=== PATIENT | male | born 1960 | race Caucasian/White ===

== ENCOUNTER 2018-04-23 06:07 | Inpatient (IN) | payer OTHER, MEDICARE ==
[~2018-04-23] VITALS: Ht 167.6 cm; Wt 80.3 kg
[~2018-04-23 06:07] MED LIST: AMIT50 PO; AMOX500 PO; BP PILL; CARI350 PO; CEPH500 PO; CLIN300 PO; CODACE30 PO; CRUTCH4 USE; CYCL10 PO; Cleocin HCl300 MG PO; DIAZ10 PO; DIOVAN; DIPH50 PO; DULO30 PO; FAMO40 PO; HYDACE5 PO; HYDCHL12.5 PO; HYDMOR8; HYDMOR8 PO; HYDROCHLOROTHIAZIDE; IBUHYD; IBUHYD PO; IBUP800 PO; LOSARTAN; MELA3; METCAR500 PO; METH10; METH40; NAPR500 PO; OXYACE5T PO; OXYC5 PO; OXYC80ER; PROACE100 PO; Roxicodone5 MG PO; SULTRIDS PO; SULTRISS PO; TRAM50 PO; UNKNOWN BP MED; VALS80; [UNRECOGNIZED DRUG - OTHER] PO
[2018-04-23 06:31] LABS: Base Excess Venous -8.2 mmol/L; Bicarbonate Venous 18.3 mmol/L (24.0-30.0); PCO2 Venous 37.5 mmHg (38-42); PO2 Venous 109 mmHg (38-42)
[2018-04-23 06:37] LABS: BASOPHILS ABSOLUTE AUTO 0.02 K/mm3 (0.00-0.23); BASOPHILS PERCENT AUTO 0 % (0-2); EOSINOPHILS ABSOLUTE AUTO 0.04 K/mm3 (0.00-0.68); EOSINOPHILS PERCENT AUTO 1 % (0-6); Hematocrit 28.2 % (37.0-53.0); Hemoglobin 9.1 g/dL (13.5-17.5); IMMATURE GRAN ABSOLUTE AUTO 0.04 K/mm3 (0.00-0.10); IMMATURE GRAN PERCENT AUTO 1 % (0-1); LYMPHOCYTES ABSOLUTE AUTO 0.98 K/mm3 (0.84-5.20); LYMPHOCYTES PERCENT AUTO 18 % (21-46); MONOCYTES ABSOLUTE AUTO 0.33 K/mm3 (0.16-1.47); MONOCYTES PERCENT AUTO 6 % (4-13); Mean Corpuscular HGB 26.5 pg (26.0-34.0); Mean Corpuscular HGB Conc 32.3 g/dL (31.5-36.5); Mean Corpuscular Volume 82 fL (80-100); NEUTROPHILS PERCENT AUTO 74 % (41-73); RDW Coefficient Variation 14.7 % (11.7-14.2); RDW Standard Deviation 43.6 fL (35.1-46.3); Red Blood Cell Count 3.44 M/mm3 (4.30-5.90); White Blood Cell Count 5.51 K/mm3 (4.00-11.30)
[2018-04-23 06:57] LABS: Albumin, Blood 2.7 g/dL (3.4-5.0); Albumin/Globulin Ratio 0.7 (0.8-1.8); Bilirubin, Total 0.3 mg/dL (0.1-1.0); Bun/Creatinine Ratio 23.1 (12.0-20.0); Calcium, Blood 7.5 mg/dL (8.5-10.1); Creatinine, Blood 1.56 mg/dL (0.60-1.20); Globulin, Blood 3.9 g/dL (2.2-4.0); Platelet Count 48 K/mm3 (150-400); Potassium, Blood 4.3 mmol/L (3.5-5.5); Total Protein, Blood 6.6 g/dL (6.4-8.2); Troponin I 0.148 ng/mL (0.000-0.040)
--- NOTE | 2018-04-23 09:05 | NUR ---
MALE PATIENT ADMITTED TO ICU 5 A PCU STATUS PATIENT. ALERT AND ORIENTED. DR WEBER IN TO SEE PAT. NOW ON 2L NC. EXTREME EXP WHEEZES T/O. AT BEDSIDE. GENTRY LOWER ARMS HAVE NUMEROUS INJECTION SITES, HARD TO THE TOUCH. MACULAR RASH BACK OF RIGHT SHOULDER AND RIGHT LOWER LEG. LACTATED RINGERS AT 75ML/HOUR.
--- NOTE | 2018-04-23 14:29 | NUR ---
Echocardiogram completed.
--- NOTE | 2018-04-23 15:00 | NUR ---
DR WEBER CALLED AGAIN WITH NO IMPROVEMENT IN HYPERTENTION. NEW ORDERS AND PAT GIVEN APRESOLINE 20 MG IVP SBP NOW IN THE 170S.
--- NOTE | 2018-04-23 18:00 | NUR ---
SLEPT MOST OF DAY. BP HAS BEEN ELEVATED. DR WEBER CALLED SEVERAL TIMES TO GET MED ORDERS TO IMPROVE HYPERTENSION. GIVEN CATAPRESS PO. URINE CORRECTIONAL SUPERVISING COOK IN COLOR NOW. STILL OCC EXP WHEEZES.
--- NOTE | 2018-04-23 20:30 | NUR ---
PATIENT AWAKENS TO SLIGHT STIMULI. VERBALIZED HE IS FEELING BETTER AND IS HOPING TO GO HOME TOMORROW. ON 2L/NC LUNG SOUNDS WITH WHEEZES T/O. BIPAP IN ROOM IF NEEDED. PATIENT REPOSITIONING SELF IN BED WITHOUT DIFFICULTY.
[2018-04-24 05:44] LABS: BASOPHILS PERCENT AUTO 0 % (0-2); EOSINOPHILS PERCENT AUTO 0 % (0-6); Hematocrit 23.7 % (37.0-53.0); Hemoglobin 7.3 g/dL (13.5-17.5); IMMATURE GRAN ABSOLUTE AUTO 0.02 K/mm3 (0.00-0.10); IMMATURE GRAN PERCENT AUTO 0 % (0-1); LYMPHOCYTES PERCENT AUTO 17 % (21-46); MONOCYTES PERCENT AUTO 2 % (4-13); Mean Corpuscular HGB Conc 30.8 g/dL (31.5-36.5); Mean Corpuscular Volume 84 fL (80-100); NEUTROPHILS ABSOLUTE AUTO 3.78 K/mm3 (1.96-9.15); NEUTROPHILS PERCENT AUTO 81 % (41-73); RDW Coefficient Variation 14.9 % (11.7-14.2); RDW Standard Deviation 46.4 fL (35.1-46.3); Red Blood Cell Count 2.81 M/mm3 (4.30-5.90)
[2018-04-24 05:47] LABS: Platelet Count 44 K/mm3 (150-400)
[2018-04-24 06:00] LABS: Percent Saturation 11.9 % (20.0-50.0)
[2018-04-24 06:01] LABS: Anion Gap 9 mmol/L (6-16); Blood Urea Nitrogen 36 mg/dL (8-24); Bun/Creatinine Ratio 30.8 (12.0-20.0); CO2, Blood 19 mmol/L (21-32); Calcium, Blood 7.3 mg/dL (8.5-10.1); Chloride, Blood 106 mmol/L (98-108); Creatinine, Blood 1.17 mg/dL (0.60-1.20); Glomerular Filtration Rate >60 (60-); Glucose, Blood 138 mg/dL (70-99); Potassium, Blood 3.9 mmol/L (3.5-5.5); Sodium, Blood 134 mmol/L (136-145)
--- NOTE | 2018-04-24 06:22 | NUR ---
PATIENT SLEEPING OFF AND ON T/O NIGHT. PATIENT NOW ON RA MAINTAINING OXYGEN SAT OF 99% PATIENT C/O BACK PAIN AND THEN A RICHARDSON, MEDICATED WITH ROXICODONE X2 DURING THE NIGHT. MEDICATED WITH ZOFRAN THIS MORNING FOR "UP SET STOMACH" PATIENT DAVEY PO WITHOUT DIFFICULTY.
--- NOTE | 2018-04-24 07:20 | NUR ---
INITIAL ASSESSMENT: Pt resting in bed. States that he feels much better. HR shows NSR to tachycardia at 102. LS with exp wheezing throughout. BIox 96% on RA at this time. BT positive. Pulses palp. Pt states that he is having RICHARDSON pain 10/10 at this time. Will treat per orders. Pt denies other needs. Call light in reach.
--- NOTE | 2018-04-24 14:14 | NUR ---
update: At about 1150 pt states that he still has RICHARDSON and C/O BLE having tremors. BP and HR elevated and treated per orders. Pt also stated that he was having some chest heaviness that was worse with inhalation. At about 1200 fellow RN went into room to place power glide for blood draw. Pt tolerated well. After nurse left room pt's came out and said he was having a hard time breathing. Pt very tachypnic, labored breathing in a tripod position. Pt LS very tight with wheezing. Biox was 98% on RA, placed on Bipap at 12/5 and 30%. Called RT to do breathing tx, paged physician and zinc furnace charger in room too. Orders were obtained and followed through. After Pt was given breathing tx and IV medications he calmed down and resp rate decreased to 22 on bipap. Chest xray was done and salesperson hosiery cx obtained. Pt still had wheezing but LS less tight. BP and HR improved. Will monitor and follow through with new orders.
--- NOTE | 2018-04-24 16:27 | NUR ---
UPdate: Pt resting in bed at this time. He has wheezing throughout, however LS not as tight. Pt appears comfortable. States his RICHARDSON is gone completely and denies SOB. Bipap was taken off at around 1515 when pt was visiting with physician. Tolerating RA with resp rate of 18 and biox of 98% at this time. Pt no longer has tremors in BLE. Presedex gtt being titrated down, now at 0.3mcg/kg/hr. 1st unit PRBC started per physician orders. Pt given education regarding S/S of blood reaction. Denies questions. in room with Pt. Will monitor.
--- NOTE | 2018-04-24 19:21 | NUR ---
SHIFT SUMMARY: 1st unit blood complete. Pt tolerated well. IV antibiotics finishing. Precedex running at 0.2mcg/kg/hr. Pt BLE tremors are much improved, scheduled ativan given. Pt states that he is feeling much better. LS still with wheezing throughout. BIox 98% on RA. BP stable and much improved. HR has remained NSR in the 80's since this afternoon, Was sinus tach prior to that. Pt had the one episode of severe dyspnea with labored breathing and tachypnea. His resp were in the mid to upper 40's at that time, with tripod breathing and very tight, wheezy lung sounds. Bipap was placed, medications and breathing treatments were given and chest xray was done. Pt improved and appeared more relaxed on the bipap after about 15 minutes. Pt remained on Bipap until about [address] Olivera spoke with Pt. At that time he was removed from BIpap and remained on RA with a biox of 95-100%. Pt denies needs at the end of the shift. Report was given to night RN.
--- NOTE | 2018-04-24 20:06 | NUR ---
PATIENT RESTING QUIETLY WATCHING TV AND DOSING OFF AND ON. PRECEDEX INFUSING TO HELP PATIENT TO BE RELAXED. PATIENT VERBALIZED HE CONTINUES TO HAVE A RICHARDSON, ORDER OBTAINED FOR TYLENOL PRN. PATIENT VERBALIZED HIS CHEST PAIN COMES AND GOES. LUNG SOUNDS CONTINUE WITH WHEEZES T/O, MAINTAINING BIOX 98% ON RA. BIPAP IN ROOM IF NEEDED. 2ND UNIT OF PRBC INFUSING WITHOUT DIFFICULTY. PATIENTS FAMILY IN ROOM PROVIDING GOOD SUPPORT.
[2018-04-25 03:49] LABS: BASOPHILS ABSOLUTE AUTO 0.01 K/mm3 (0.00-0.23); BASOPHILS PERCENT AUTO 0 % (0-2); EOSINOPHILS PERCENT AUTO 0 % (0-6); Hematocrit 27.6 % (37.0-53.0); Hemoglobin 9.1 g/dL (13.5-17.5); IMMATURE GRAN ABSOLUTE AUTO 0.09 K/mm3 (0.00-0.10); IMMATURE GRAN PERCENT AUTO 1 % (0-1); LYMPHOCYTES ABSOLUTE AUTO 0.68 K/mm3 (0.84-5.20); LYMPHOCYTES PERCENT AUTO 9 % (21-46); MONOCYTES ABSOLUTE AUTO 0.21 K/mm3 (0.16-1.47); MONOCYTES PERCENT AUTO 3 % (4-13); Mean Corpuscular HGB 27.3 pg (26.0-34.0); Mean Corpuscular Volume 83 fL (80-100); NEUTROPHILS ABSOLUTE AUTO 6.61 K/mm3 (1.96-9.15); NEUTROPHILS PERCENT AUTO 87 % (41-73); Platelet Count 66 K/mm3 (150-400); RDW Coefficient Variation 15.4 % (11.7-14.2); RDW Standard Deviation 46.7 fL (35.1-46.3); Red Blood Cell Count 3.33 M/mm3 (4.30-5.90)
[2018-04-25 04:05] LABS: Alanine Aminotransfer (ALT/SGP 14 U/L (12-78); Albumin, Blood 2.5 g/dL (3.4-5.0); Albumin/Globulin Ratio 0.7 (0.8-1.8); Alk Phos 83 U/L (50-136); Anion Gap 10 mmol/L (6-16); Aspartate Aminotrans (AST/SGOT 20 U/L (12-37); Bilirubin, Total 0.4 mg/dL (0.1-1.0); Blood Urea Nitrogen 48 mg/dL (8-24); Bun/Creatinine Ratio 37.5 (12.0-20.0); CO2, Blood 19 mmol/L (21-32); Calcium, Blood 7.7 mg/dL (8.5-10.1); Chloride, Blood 107 mmol/L (98-108); Creatinine, Blood 1.28 mg/dL (0.60-1.20); Globulin, Blood 3.4 g/dL (2.2-4.0); Glomerular Filtration Rate >60 (60-); Glucose, Blood 129 mg/dL (70-99); Potassium, Blood 4.3 mmol/L (3.5-5.5); Sodium, Blood 136 mmol/L (136-145); Total Protein, Blood 5.9 g/dL (6.4-8.2)
--- NOTE | 2018-04-25 05:47 | NUR ---
PATIENT RESTLESS WITH DRY COUGH MORE FREQUENTLY. HYPERTENTION WITH SBP 200'S AND DBP 100'S. SEE EMAR FOR MEDICATION TIMES. PRECEDEX CONTINUES
--- NOTE | 2018-04-25 06:09 | NUR ---
SUMMARY PATIENT RESTING IN BED T/O NIGHT, SLEEPING OFF AND ON. PATIENT BECOMING MORE RESTLESS WITH ELEVATED BP AND AUDIBLE WHEEZES WITH FREQUENT DRY COUGH THIS AM, PRECEDEX TITRATED TO 0.4MCG AND SCHEDULED ATIVAN GIVEN. PRN HYDRALAZINE AND CATAPRES GIVEN, PRN UDN GIVEN THIS AM DUE TO INCREASED SOB AND WHEEZING CONTINUES. PATIENT NOW RESTING QUIETLY AND BP IMPROVING. PATIENTS REMAINS AT BEDSIDE.
--- NOTE | 2018-04-25 07:10 | NUR ---
Recieved report from Corina UNGER. Patient sitting up in bed and is able to communicate his needs. He is on RA and states no current SOB and sats upper 90%'s. He has powerglide in JANETH, dressing intact and site WNL's and is infusing Precedex at 0.2 mcg/kg/hr and seems to be successful in keeping his anxiety at bay. He has LE twitching bilaterally. He uses urinal appropriately. His is resting at bedside.
--- NOTE | 2018-04-25 08:10 | NUR ---
Report given by Jose Roberto UNGER. Patient sitting up in bed laying on Right side. He is on RA and sats mid to upper 90%'s. He has noscensical communication and moans and yels noises out. His upper extremities are contracted more left than right. He has mediport to RU chest and is infusing Levophed at 2mcg/hr and has systolic 110 and tried to reduce for short period to 1.5 mcg/hr and he dropped to systolic 70 and returned to 2 mcg/hr. He has NS at 100ml/hr. He has PEG tube to RUQ and has infusing Jevity 1.2 at 10ml/hr and 60mlwater Q4 for high sodium. He has open wound to coccyx withn laying on stay dry and washed wound. Reposition frequently. Mepelx to heels bilaterally
--- NOTE | 2018-04-25 09:30 | NUR ---
Patient on left side eating breakfast and Dr Olivera in room talking with . He tolerated meds without difficulty as welll as his meal. He does state he wants to go home and is confused of date, place and notes she see a change in mentation as well. He is daily Heroin users and may be starting signs of withdrawl.Systolic 230 and HR 100 and medicated per MAY. He requested Nicotine patch.
--- NOTE | 2018-04-25 09:40 | NUR ---
Changed stay dries and rewashe wound and repositioned. in room and this am Dr Torres discussed code status and she will talk with daughter and they will make decsion on Monday when she arrives. patient very stiff to repositiona nd pillow all areas. Levophed remains at2.0 mcg/hr.
--- NOTE | 2018-04-25 11:30 | NUR ---
Patient continues to be hypertensive and medicate per MAR. Notified Dr Olivera. Patient has been sleeping off and on and family has been at bedside most of time. He remains on RA and sats upper 90%'s. He remains confused and asks questions about place and when being discharged.
--- NOTE | 2018-04-25 13:30 | NUR ---
Patient awake in bed talkingh on phone denies any SOB or current anxiety. He remains on RA with audible breathing. He is still very hypertensive although medicating per MAR and notifing Dr. Olivera.
--- NOTE | 2018-04-25 15:12 | NUR ---
Pt. is in bed resting , he reports doing fine, encouraged pt,and offered prayers.
--- NOTE | 2018-04-25 17:07 | NUR ---
No significant changes with patient. Systolic 180 after 2nd dose of Norvasc. He has been on phone and states no breathing problems or anxiety.Will be made PCU status soon.
[2018-04-26 03:54] LABS: BASOPHILS PERCENT AUTO 0 % (0-2); EOSINOPHILS PERCENT AUTO 0 % (0-6); Hematocrit 29.9 % (37.0-53.0); Hemoglobin 9.8 g/dL (13.5-17.5); IMMATURE GRAN ABSOLUTE AUTO 0.06 K/mm3 (0.00-0.10); IMMATURE GRAN PERCENT AUTO 1 % (0-1); LYMPHOCYTES ABSOLUTE AUTO 0.67 K/mm3 (0.84-5.20); LYMPHOCYTES PERCENT AUTO 7 % (21-46); MONOCYTES ABSOLUTE AUTO 0.23 K/mm3 (0.16-1.47); MONOCYTES PERCENT AUTO 2 % (4-13); Mean Corpuscular HGB 27.5 pg (26.0-34.0); Mean Corpuscular HGB Conc 32.8 g/dL (31.5-36.5); Mean Corpuscular Volume 84 fL (80-100); Mean Platelet Volume 12.3 fL (9.1-12.4); NEUTROPHILS PERCENT AUTO 90 % (41-73); Platelet Count 88 K/mm3 (150-400); RDW Coefficient Variation 15.9 % (11.7-14.2); RDW Standard Deviation 48.2 fL (35.1-46.3); Red Blood Cell Count 3.57 M/mm3 (4.30-5.90); White Blood Cell Count 9.66 K/mm3 (4.00-11.30)
[2018-04-26 04:10] LABS: Albumin, Blood 2.3 g/dL (3.4-5.0); Anion Gap 8 mmol/L (6-16); Blood Urea Nitrogen 38 mg/dL (8-24); Bun/Creatinine Ratio 35.5 (12.0-20.0); CO2, Blood 20 mmol/L (21-32); Calcium, Blood 7.7 mg/dL (8.5-10.1); Chloride, Blood 109 mmol/L (98-108); Creatinine, Blood 1.07 mg/dL (0.60-1.20); Glomerular Filtration Rate >60 (60-); Glucose, Blood 166 mg/dL (70-99); Phosphorus, Blood 2.9 mg/dL (2.5-4.9); Potassium, Blood 4.3 mmol/L (3.5-5.5); Sodium, Blood 137 mmol/L (136-145)
--- NOTE | 2018-04-26 08:40 | NUR ---
[id number]: AWAKE, RESPONDS BUT VERY DROWSY. TACHYPNEA, AUDIBLE EXPIRATORY WHEEZE, NOT COMPLETELY GONE AFTER RESP TREATMENT. MARKED REDUCTION ANXIETY COMPARED TO PREVIOUS SHIFTS, SLEEPING AT INTERVALS. AT BEDSIDE T/O NOC. ADMITS TO 9/10 BACK PAIN, WANING, GONE AFTER FIRST DOSE PO PAIN MEDS. SBP> 170MM TREATED W/ HYDROLYSINE 20MG, TRENDED BELOW 170 MAJORITY OF SHIFT.
--- NOTE | 2018-04-26 09:03 | NUR ---
ASSUMED CARE: REPORT RECEIVED FROM ELKE Wells RN. ASSUMED CARE OF THIS PT AT APPROX 0700. ON ASSESSMENT, THE PT IS AWAKE, RESTING QUIETLY IN BED. HIS IS AT BEDSIDE. HE STS PAIN TO BACK IS CHRONIC, R/T MULTIPLE BACK SURGERIES. HE IS MOTIVATED TO GO HOME TOMORROW & IT IS DISCUSSED THAT HE WILL NEED TO GET OOB & MOVE MORE TODAY FOR THAT TO HAPPEN. HE IS CURRENTLY UP, TAKING A SHOWER W/ HELP OF LABORATORY HELPER & WOULD LIKE TO SIT IN THE CHAIR WELL. WILL CONTINUE TO MONITOR & UPDATE NEEDED.
--- NOTE | 2018-04-26 13:32 | NUR ---
ASSUMED CARE RECEIVED REPORT FROM UTE JOREG. PATIENT IS MEDICAL STATUS. SITTING IN CHAIR FINISHED LUNCH.
--- NOTE | 2018-04-26 14:35 | NUR ---
Met pt. lying in bedn and the in the room .Pt. reports doing fine prayed amd blessed pt.
--- NOTE | 2018-04-26 16:28 | NUR ---
REPORT GIVEN TO UTE KOHLI
--- NOTE | 2018-04-26 16:45 | NUR ---
RECEIVED REPORT FROM UTE ARANA, AND ASSUMED CARE OF PT.
--- NOTE | 2018-04-26 18:37 | NUR ---
NURSING SUMMARY ALERT AND ORIENTED X 4. SR ON MONITOR, HR 90'S. LUNGS DIMINISHED THROUGHOUT WITH EXPIRATORY WHEEZING, BREATHING TREATMENTS, ROOM AIR, RR 16-24. ANXIOUS AT TIMES, RECEIVES ROUTINELY SCHEDULED ATIVAN. C/O BACK PAIN, RECEIVES ROXYCODONE PRN. HYPERTENSIVE, RECEIVES ROUTINE AND PRN ANTI-HYPERTENSIVES. VOIDS PER URINAL OR BATHROOM, SALEEM COLORED URINE. CALLS FOR ASSISTANCE OUT OF BED, HAD A SHOWER TODAY AND AMBULATED WITH PHYSICAL THERAPY. HAD A LONG TALK WITH PT AND FAMILY RE: [facility]. PT NOT RECEPTIVE, STATES THEY WON'T GIVE HIM THE MEDICATION HE WANTS SO HE STATES HE KNOWS HE WILL CONTINUE TO USE HEROIN IN SMALL AMOUNTS. INSTRUCTED RE: DETOX OPTIONS AND ENCOURAGED TO ALLOW THE EXPERTS TO HELP HIM DETOX. DAUGHTER IN TEARS ASKING HER FATHER TO PLEASE GO TO REHAB. REMAINED QUIET DURING DISCUSSION, STATED HE WON'T BE USING HEROIN IN MY HOUSE. PT AND FAMILY STATE THAT HE LEAVES THE HOME TO GO GET HEROIN. RIGHT UPPER ARM SALINE LOCK, RIGHT AC SALINE LOCK, AND LEFT UPPER ARM POWERGLIDE.
[2018-04-27 01:27] LABS: Stool Occult Blood Guaiac 1 Neg (Neg)
--- NOTE | 2018-04-27 05:33 | NUR ---
SHIFT SUMMARY PT A&O X4 T/O SHIFT. NO ACUTE CHANGES. TRANSFERED FROM ICU APPROX. 2300 WITH . EXP WHEEZE BILAT LUNGS; RA; PT DENIES SOB; INCREASED WOB WITH AMBULATION. SBA TO TOILET X1; URINAL AT BEDSIDE. CHRONIC PAIN MANGED PER EMAR. SIDE RAILS X3 FOR SAFETY. CALL LIGHT IN REACH. WCTM UNTIL REPORT TO DAY SHIFT RN.
[2018-04-27 05:46] LABS: BASOPHILS ABSOLUTE AUTO 0.01 K/mm3 (0.00-0.23); BASOPHILS PERCENT AUTO 0 % (0-2); EOSINOPHILS PERCENT AUTO 0 % (0-6); Hematocrit 30.3 % (37.0-53.0); Hemoglobin 9.8 g/dL (13.5-17.5); IMMATURE GRAN ABSOLUTE AUTO 0.14 K/mm3 (0.00-0.10); IMMATURE GRAN PERCENT AUTO 1 % (0-1); LYMPHOCYTES ABSOLUTE AUTO 0.71 K/mm3 (0.84-5.20); LYMPHOCYTES PERCENT AUTO 7 % (21-46); MONOCYTES ABSOLUTE AUTO 0.25 K/mm3 (0.16-1.47); MONOCYTES PERCENT AUTO 2 % (4-13); Mean Corpuscular HGB 27.5 pg (26.0-34.0); Mean Corpuscular HGB Conc 32.3 g/dL (31.5-36.5); Mean Corpuscular Volume 85 fL (80-100); Mean Platelet Volume 12.2 fL (9.1-12.4); NEUTROPHILS ABSOLUTE AUTO 9.21 K/mm3 (1.96-9.15); NEUTROPHILS PERCENT AUTO 89 % (41-73); Platelet Count 123 K/mm3 (150-400); RDW Coefficient Variation 15.9 % (11.7-14.2); RDW Standard Deviation 49.9 fL (35.1-46.3); Red Blood Cell Count 3.57 M/mm3 (4.30-5.90); White Blood Cell Count 10.32 K/mm3 (4.00-11.30)
[2018-04-27 06:13] LABS: Albumin, Blood 2.3 g/dL (3.4-5.0); Anion Gap 7 mmol/L (6-16); Blood Urea Nitrogen 39 mg/dL (8-24); Bun/Creatinine Ratio 31.5 (12.0-20.0); CO2, Blood 21 mmol/L (21-32); Calcium, Blood 7.9 mg/dL (8.5-10.1); Chloride, Blood 110 mmol/L (98-108); Creatinine, Blood 1.24 mg/dL (0.60-1.20); Glomerular Filtration Rate >60 (60-); Glucose, Blood 149 mg/dL (70-99); Phosphorus, Blood 3.4 mg/dL (2.5-4.9); Potassium, Blood 4.7 mmol/L (3.5-5.5); Sodium, Blood 138 mmol/L (136-145)
--- NOTE | 2018-04-27 14:39 | NUR ---
Met pt. lying in bed resting he reports doing much nbetter encouraged pt and prayed for him.
--- NOTE | 2018-04-27 15:20 | NUR ---
TRANSFER SUMMARY: PT IS A&O X4. HE HAS WORKED WITH PT/OT TODAY. HE IS A 1 ASSIST W/FOUR WHEELED WALKER AND GB. TOLERATING PO INTAKE WELL. DISCUSSED WITH PT AND TO MONITOR FLUID INTAKE TO AVOID FLUID OVERLOAD. 1500 ABX NOT GIVEN; REPORT GIVEN TO NEXT RN; SHE WILL ADMINISTER WHEN HE ARRIVES TO RM [id number].
--- NOTE | 2018-04-27 16:01 | NUR ---
ARRIVES VIA W/C FROM SURGICAL. BOTH FOREARMS APPEAR SWOLLEN LEFT> RIGHT. LUNGS COARSE T/O. BRUISING BUE SCATTERED. PER LEANYA PATIENT HAS DROOPY LEFT EYE. FACE SYMMETRICAL, NO DROOPINESS NOTED. ALERT AND ORIENTED.POWERGLIDE LEFT UPPER ARM. MULTIPLE BACK SURGICAL SCARS. STS TAKES IBU AT HOME AND "LAYS AROUND." POOR DENTATION. BED IN LOW POSITION. CALL LIGHT WITHIN REACH. WILL CONTINUE TO MONITOR. TELE ON AND PER TECH SR AT 80.
[2018-04-28 05:37] LABS: BASOPHILS ABSOLUTE AUTO 0.01 K/mm3 (0.00-0.23); BASOPHILS PERCENT AUTO 0 % (0-2); EOSINOPHILS PERCENT AUTO 0 % (0-6); Hematocrit 32.2 % (37.0-53.0); Hemoglobin 10.2 g/dL (13.5-17.5); IMMATURE GRAN ABSOLUTE AUTO 0.09 K/mm3 (0.00-0.10); IMMATURE GRAN PERCENT AUTO 1 % (0-1); LYMPHOCYTES ABSOLUTE AUTO 0.81 K/mm3 (0.84-5.20); LYMPHOCYTES PERCENT AUTO 8 % (21-46); MONOCYTES ABSOLUTE AUTO 0.31 K/mm3 (0.16-1.47); MONOCYTES PERCENT AUTO 3 % (4-13); Mean Corpuscular HGB 27.2 pg (26.0-34.0); Mean Corpuscular HGB Conc 31.7 g/dL (31.5-36.5); Mean Corpuscular Volume 86 fL (80-100); Mean Platelet Volume 12.5 fL (9.1-12.4); NEUTROPHILS ABSOLUTE AUTO 9.32 K/mm3 (1.96-9.15); NEUTROPHILS PERCENT AUTO 88 % (41-73); Platelet Count 136 K/mm3 (150-400); RDW Coefficient Variation 15.9 % (11.7-14.2); RDW Standard Deviation 49.8 fL (35.1-46.3); Red Blood Cell Count 3.75 M/mm3 (4.30-5.90); White Blood Cell Count 10.54 K/mm3 (4.00-11.30)
[2018-04-28 06:01] LABS: Albumin, Blood 2.3 g/dL (3.4-5.0); Anion Gap 9 mmol/L (6-16); Blood Urea Nitrogen 42 mg/dL (8-24); Bun/Creatinine Ratio 33.9 (12.0-20.0); CO2, Blood 21 mmol/L (21-32); Calcium, Blood 7.9 mg/dL (8.5-10.1); Chloride, Blood 109 mmol/L (98-108); Creatinine, Blood 1.24 mg/dL (0.60-1.20); Glomerular Filtration Rate >60 (60-); Glucose, Blood 160 mg/dL (70-99); Phosphorus, Blood 3.3 mg/dL (2.5-4.9); Potassium, Blood 5.1 mmol/L (3.5-5.5); Sodium, Blood 139 mmol/L (136-145)
--- NOTE | 2018-04-28 06:42 | NUR ---
SHIFT SUMMARY PT IS A 58 Y/O MALE, ADMITTED FOR ACUTE RESPIRATORY FAILURE. THE PT DENIED ANY COMPLAINTS OF PAIN, NAUSEA OR SOB AND SLEPT WELL THROUGH THE NIGHT. HIS REMAINED IN THE ROOM DURING THE NIGHT. VITALS WERE STABLE. NO OTHER ACUTE CHANGES IN PT CONDITION NOTED. WILL CONTINUE TO MONITOR AND TREAT.
--- NOTE | 2018-04-28 17:43 | NUR ---
THE PT'S WAS AT THE BEDSIDE MOST OF THE DAY. PT IS A&O AND COOPERATIVE WITH CARE. HE HAS A POWERGLIDE IN HIS LEFT UPPER ARM. HE IS ON RA. RATE AND RHYTHM IS NSS AT 91 BPM PER THERMOSTATIC CONTROLS SUPERVISOR. NO ACUTE CHANGES TODAY. WILL CONTINUE TO MONITOR.
--- NOTE | 2018-04-29 06:40 | NUR ---
SHIFT SUMMARY PT IS A 58 Y/O MALE, ADMITTED FOR ACUTE HYPOXEMIC RESPIRATORY FAILURE. PT COMPLAINED OF CHRONIC BACK PAIN, FOR WHICH HE WAS MEDICATED X 1 WITH PRN OXYCODONE. HE DENIED ANY NAUSEA OR ACUTE SOB. VITAL SIGNS REMAINED STABLE. NO OTHER ACUTE CHANGES IN PT CONDITION NOTED. WILL CONTINUE TO MONITOR AND TREAT PER EMAR.
[2018-04-29] MEDS ORDERED: ACET325 PO (10:22)
[2018-04-29] MEDS ORDERED: Norvasc10 MG PO (10:23)
[2018-04-29] MEDS ORDERED: ASPI81CH PO (10:25)
[2018-04-29] MEDS ORDERED: ASCO500 PO (10:25)
[2018-04-29] MEDS ORDERED: CLON.3 PO (10:26)
[2018-04-29] MEDS ORDERED: Ferrous Sulfat325 M2 PO (10:27)
[2018-04-29] MEDS ORDERED: GUAI600T33 PO (10:31)
[2018-04-29] MEDS ORDERED: ALBU90OI INH (10:37)
[2018-04-29] MEDS ORDERED: BUDE10.22 INH (10:38)
[2018-04-29] MEDS ORDERED: Acidophilus La100 GM PO (10:39)
[2018-04-29] MEDS ORDERED: LEVO750 PO (10:40)
[2018-04-29] MEDS ORDERED: Prednisone10 MG PO (10:42)
--- NOTE | 2018-04-29 11:59 | NUR ---
PT DISCHARGED AT 12:00. PT ASSISTED DOWN STAIRS TO HIS VEHICLE IN A WHEEKCHAIR BY THE RN. INFORMATION GIVEN TO PT AND SPOUSE ON [facility] AND GETTING A PCP.
== END 2018-04-29 11:52 | disposition home or self-care (01) | DRG 190 ==
LOC: ER 06:07 → ICUE 07:22 → PCU 07:22 → ICUE 08:55 → ICUW 04-26 18:46 → SURS 04-26 22:48 → MEDS 04-27 15:45 → ENPENDDIS 04-29 10:10 → MEDS 04-29 11:52
PROVIDERS: Emergency Medicine; Internal Medicine Critical Care Medicine; ADMIT Internal Medicine
PROC: 5A09357 Assistance with Respiratory Ventilation, Less than 24 Consecutive Hours, Continuous Positive Airway Pressure (ICD-10-PCS; principal; 2018-04-23)
PROC: 30233N1 Transfusion of Nonautologous Red Blood Cells into Peripheral Vein, Percutaneous Approach (ICD-10-PCS; 2018-04-24)
DX: J44.1 Chronic obstructive pulmonary disease with (acute) exacerbation (principal); J96.01 Acute respiratory failure with hypoxia; I21.A1 Myocardial infarction type 2; N17.9 Acute kidney failure, unspecified; I10 Essential (primary) hypertension; B19.20 Unspecified viral hepatitis C without hepatic coma; E66.9 Obesity, unspecified; Z68.36 Body mass index [BMI] 36.0-36.9, adult; K21.9 Gastro-esophageal reflux disease without esophagitis; Z87.01 Personal history of pneumonia (recurrent); F17.210 Nicotine dependence, cigarettes, uncomplicated; D69.6 Thrombocytopenia, unspecified; D63.8 Anemia in other chronic diseases classified elsewhere; M54.9 Dorsalgia, unspecified; G89.29 Other chronic pain; F11.10 Opioid abuse, uncomplicated; R26.81 Unsteadiness on feet; Z79.82 Long term (current) use of aspirin
CPT/HCPCS: 36415; 36430; 71045; 76700; 80048; 80053; 80069; 82272; 82728; 82803; 83540; 83550; 83605; 83880; 84484; 85025; 86850; 86900; 86901; 86923; 87040; 87070; 87081; 90471; 90686; 90714; 93005; 93010; 93306; 94640; 94660; 94760; 96360; 96361; 97116; 97162; 97165; 97530; 99285-25; C1751; J0360; J1650; J1940; J1956; J2060; J2270; J2405; J2920; J2930; J7030; J7050; J7120; P9016

== ENCOUNTER 2018-07-23 18:35 | Inpatient (IN) | payer OTHER, MEDICARE ==
[~2018-07-23] VITALS: Ht 167.6 cm; Wt 61.2 kg
[~2018-07-23 18:35] MED LIST changes: +ACET325 PO; +ALBU90OI INH; +ASCO500 PO; +Acidophilus La100 GM PO; +Aspirin EC81 MG PO; +BUDE10.22 INH; +CLON.3 PO; +Ferrous Sulfat325 M2 PO; +GUAI600T33 PO; +LEVO750 PO; +Norvasc10 MG PO; +Prednisone10 MG PO
[2018-07-23 19:21] LABS: Base Excess Venous -3.5 mmol/L; Bicarbonate Venous 21.7 mmol/L (24.0-30.0); PCO2 Venous 29.3 mmHg (38-42); PO2 Venous 34.2 mmHg (38-42); pH Blood Venous 7.45 (7.34-7.37)
[2018-07-23 19:26] LABS: BASOPHILS ABSOLUTE AUTO 0.04 K/mm3 (0.00-0.23); BASOPHILS PERCENT AUTO 0 % (0-2); Hematocrit 30.7 % (37.0-53.0); Hemoglobin 10.2 g/dL (13.5-17.5); LYMPHOCYTES ABSOLUTE AUTO 1.11 K/mm3 (0.84-5.20); LYMPHOCYTES PERCENT AUTO 6 % (21-46); MONOCYTES ABSOLUTE AUTO 0.63 K/mm3 (0.16-1.47); MONOCYTES PERCENT AUTO 3 % (4-13); Mean Corpuscular HGB Conc 33.2 g/dL (31.5-36.5); Mean Corpuscular Volume 81 fL (80-100); Mean Platelet Volume 11.7 fL (9.1-12.4); Platelet Count 191 K/mm3 (150-400); RDW Coefficient Variation 15.3 % (11.7-14.2); RDW Standard Deviation 45.4 fL (35.1-46.3); Red Blood Cell Count 3.78 M/mm3 (4.30-5.90)
[2018-07-23 19:27] LABS: EOSINOPHILS PERCENT AUTO 0 % (0-6); IMMATURE GRAN ABSOLUTE AUTO 0.45 K/mm3 (0.00-0.10); IMMATURE GRAN PERCENT AUTO 2 % (0-1); NEUTROPHILS ABSOLUTE AUTO 16.97 K/mm3 (1.96-9.15); NEUTROPHILS PERCENT AUTO 88 % (41-73)
[2018-07-23 19:50] LABS: Alanine Aminotransfer (ALT/SGP 31 U/L (12-78); Albumin, Blood 2.4 g/dL (3.4-5.0); Albumin/Globulin Ratio 0.5 (0.8-1.8); Alk Phos 281 U/L (50-136); Anion Gap 13 mmol/L (6-16); Aspartate Aminotrans (AST/SGOT 58 U/L (12-37); Bilirubin, Total 0.9 mg/dL (0.1-1.0); Blood Urea Nitrogen 23 mg/dL (8-24); Bun/Creatinine Ratio 18.7 (12.0-20.0); CO2, Blood 20 mmol/L (21-32); Calcium, Blood 8.3 mg/dL (8.5-10.1); Chloride, Blood 100 mmol/L (98-108); Creatinine, Blood 1.23 mg/dL (0.60-1.20); Globulin, Blood 5.1 g/dL (2.2-4.0); Glomerular Filtration Rate >60 (60-); Glucose, Blood 149 mg/dL (70-99); Potassium, Blood 2.7 mmol/L (3.5-5.5); Sodium, Blood 133 mmol/L (136-145); Total Protein, Blood 7.5 g/dL (6.4-8.2)
[2018-07-23] MEDS ORDERED: METO50 PO (20:03)
[2018-07-23] MEDS ORDERED: SALM50IP INH (20:05)
[2018-07-23 20:12] LABS: Base Excess Venous -5.9 mmol/L; Bicarbonate Venous 20.6 mmol/L (24.0-30.0); PCO2 Venous 26.7 mmHg (38-42); PO2 Venous 95.3 mmHg (38-42); pH Blood Venous 7.44 (7.34-7.37)
--- NOTE | 2018-07-23 21:30 | NUR ---
ASSUMING CARE OF PT AT THIS TIME. PT REPORT RECEIVED VIA TELEPHONE WITH OFFGOING ED NURSE. WAITING FOR PT TRANSFER FROM ED TO ICU AT THIS TIME.
--- NOTE | 2018-07-23 21:55 | NUR ---
PT TRANSFERRED FROM ED TO ICU AT THIS TIME.
--- NOTE | 2018-07-23 22:00 | NUR ---
ASSESSMENT PT LETHARGIC, DROWSY, QUICKLY FALLS BACK ASLEEP WITH DEC STIMULI, A&O X4, SLOW TO RESPOND, SPONT OPENS EYES, FOLLOWS COMMANDS. SENSATION INTACT BLE'S. PT C/O OCC N/T TO BILAT HANDS. PT VALLE. GENERALIZED WEAKNESS NOTED. PT REPOSITIONS SELF IN BED. NO S/SX OF PAIN/DISCOMFORT. PT DENIES PAIN/DISCOMFORT. LUNGS COARSE, DIMINISHED LOWER LOBES. PT ON 2L NC DURING BREAKS FROM BIPAP. OXY SAT >90% WHILE ON 2L NC. BIPAP 10/5, FIO2 25%. OXY SAT >90% WHILE ON BIPAP. RR 30'S. WAITING FOR SPUTUM SAMPLE. WILL COMPLETE RESP PANEL. OCC NONPRODUCTIVE COUGH. AFEBRILE. NSR TO ST. HR 90'S TO 100'S. BP STABLE - SEE VS FS. STRONG PULSES. WARM, PALE SKIN. ACTIVE BT X4 QUADRANTS. ABD MOD DIST, SOFT, NONTENDER. NO N/V. NO BM. PT INCONTIENT. PT TOLERATES PO FLUIDS. ATTENDS IN PLACE. WAITING FOR URINE SAMPLE. PIV X2. NS WITH KCL 20 MEQ INFUSING AT 75 ML/HR.
--- NOTE | 2018-07-24 | NUR ---
LIEN CURTIS INFORMED LIEN CURTIS OF PT'S VS (SEE VS FS). LIEN CURTIS PLANNING TO ORDER NORVASC. WAITING FOR ORDER AT THIS TIME.
[2018-07-24 00:10] LABS: Source, Urine Clean Catch
[2018-07-24 00:18] LABS: Bilirubin, Urine Neg (Neg); Blood, Urine 4+ (Neg); Glucose Qualitative, Urine Neg (Neg); Ketones, Urine Neg (Neg); Leukocyte Esterase, Urine 1+ (Neg); Nitrite, Urine Neg (Neg); Protein, Urine 3+ (Neg); Urobilinogen, Urine 1+ (Normal)
[2018-07-24 00:23] LABS: Appearance, Urine Clear (Clear); Color, Urine Yellow (P-Yellow)
[2018-07-24 00:25] LABS: Bacteria Mod /hpf; Squamous Epithelial Cells Few /hpf (Few); White Blood Cells, Urine 0-2 /hpf (0-5)
[2018-07-24 00:32] LABS: U Amphetamine Screen Not Detected; U Barbituate Screen Not Detected; U Benzodiazapine Screen Not Detected; U Buprenorphine Screen Not Detected; U Cannabinoids Screen DETECTED; U Cocaine Screen Not Detected; U Methadone Screen Not Detected; U Methamphetamine Screen Not Detected; U Opiates Screen DETECTED; U Oxycodone Screen Not Detected; U Phencyclidine Screen Not Detected; U Propoxyphene Screen Not Detected
[2018-07-24 01:28] LABS: Adenovirus Not Detected (NOT DETECT); Bordetella pertussis Not Detected (NOT DETECT); Chlamydophila pneumoniae Not Detected (NOT DETECT); Coronavirus 229E Not Detected (NOT DETECT); Coronavirus HKU1 Not Detected (NOT DETECT); Coronavirus NL63 Not Detected (NOT DETECT); Coronavirus OC43 Not Detected (NOT DETECT); Human Metapneumovirus Not Detected (NOT DETECT); Human Rhinovirus/Enterovirus Detected (NOT DETECT); Influenza A Not Detected (NOT DETECT); Influenza A/2009-H1 Not Detected (NOT DETECT); Influenza A/H1 Not Detected (NOT DETECT); Influenza A/H3 Not Detected (NOT DETECT); Influenza B Not Detected (NOT DETECT); Mycoplasma pneumoniae Not Detected (NOT DETECT); Parainfluenza Virus 1 Not Detected (NOT DETECT); Parainfluenza Virus 2 Not Detected (NOT DETECT); Parainfluenza Virus 3 Not Detected (NOT DETECT); Parainfluenza Virus 4 Not Detected (NOT DETECT); Respiratory Syncytial Virus Not Detected (NOT DETECT)
[2018-07-24 03:45] LABS: Hematocrit 30.2 % (37.0-53.0); Hemoglobin 9.8 g/dL (13.5-17.5); Mean Corpuscular HGB 27.1 pg (26.0-34.0); Mean Corpuscular HGB Conc 32.5 g/dL (31.5-36.5); Mean Corpuscular Volume 83 fL (80-100); Mean Platelet Volume 11.8 fL (9.1-12.4); Platelet Count 162 K/mm3 (150-400); RDW Coefficient Variation 15.4 % (11.7-14.2); RDW Standard Deviation 47.6 fL (35.1-46.3); Red Blood Cell Count 3.62 M/mm3 (4.30-5.90); White Blood Cell Count 9.53 K/mm3 (4.00-11.30)
[2018-07-24 04:05] LABS: Anion Gap 11 mmol/L (6-16); Blood Urea Nitrogen 24 mg/dL (8-24); Bun/Creatinine Ratio 20.3 (12.0-20.0); CO2, Blood 20 mmol/L (21-32); Calcium, Blood 8.4 mg/dL (8.5-10.1); Chloride, Blood 109 mmol/L (98-108); Creatinine, Blood 1.18 mg/dL (0.60-1.20); Glomerular Filtration Rate >60 (60-); Glucose, Blood 174 mg/dL (70-99); Potassium, Blood 3.4 mmol/L (3.5-5.5); Sodium, Blood 140 mmol/L (136-145)
--- NOTE | 2018-07-24 06:02 | NUR ---
DR. MAKI GAMBINO IN ICU AT THIS TIME. INFORMED DR. GAMBINO OF AM LABS. PT REMAINS ON NS WITH KCL 20 MEQ AT 75 ML/HR. DR. GAMBINO ORDERED ADDITIONAL KCL 20 MEQ PO AT THIS TIME. WAITING FOR VERIFICATION OF MEDICATIONS FROM PHARMACY AT THIS TIME.
--- NOTE | 2018-07-24 06:05 | NUR ---
SHIFT ASSESSMENT NO ACUTE CHANGES NOTED T/O SHIFT. PT'S AT BEDSIDE T/O SHIFT. PT SLEPT T/O SHIFT. PT LETHARGIC, DROWSY, QUICKLY FALLS BACK ASLEEP WITH DEC STIMULI. PT LESS LETHARGIC AND DROWSY THIS AM. PT A&O X4, SLOW TO RESPOND, SPONT OPENS EYES, FOLLOWS COMMANDS. SENSATION INTACT BLE'S. PT C/O OCC N/T TO BILAT HANDS. PT VALLE. GENERALIZED WEAKNESS NOTED. PT REPOSITIONS SELF IN BED. NO S/SX OF PAIN/DISCOMFORT. PT DENIES PAIN/DISCOMFORT. LUNGS COARSE, DIMINISHED LOWER LOBES. PT ON 2L NC DURING BREAKS FROM BIPAP. OXY SAT >90%. WHILE ON 2L NC. BIPAP 10/5, FIO2 25%. OXY SAT >90% WHILE ON BIPAP. RR 17 TO 30'S. WAITING FOR SPUTUM SAMPLE. RESP PANEL COMPLETED. OCC NONPRODUCTIVE COUGH. AFEBRILE. NSR TO ST. HR 80'S TO 110'S. BP STABLE AFTER ADMINISTERING ANTI-HYPERTENSIVES PER ORDERS (SEE VS FS). STRONG PULSES. WARM, PALE SKIN. ACTIVE BT X4 QUADRANTS. ABD MOD DIST, SOFT, NONTENDER. NO N/V. NO BM. PT INCONTIENT X1. PT TOELRATES PO FLUIDS. ATTENDS IN PLACE. PT VOIDS IN URINAL WITHOUT ASSISTANCE. URINE AND TOXICOLOGY COMPLETED. PI X2. NS WITH KCL 20 MEQ INFUSING AT 75 ML/HR. WILL CONT TO MONITOR PT AND WILL PROVIDE BEDSIDE REPORT TO ONCOMING NURSE THIS AM.
--- NOTE | 2018-07-24 10:44 | NUR ---
NURSING SUMMARY SLEEPING, WAKES EASILY TO VOICE, FALLS BACK TO SLEEP QUICKLY THIS AM. MORE AWAKE AND ALERT AT THIS TIME. LUNGS COARSE THROUGHOUT, 2L O2 NC, SATS GREATER THAN 90%, REQUIRES REMINDERS TO USE THE FLUTTER VALVE, RT TREATMENTS PRN, BIPAP DISCONTINUED, INSTRUCTED RE: NEED FOR SPUTUM SAMPLE. VERBALIZED GOOD UNDERSTANDING. SR ON MONITOR, NO ECTOPY NOTED. VOIDS PER URINAL. TOLERATING CARDIAC DIET. HAD DETAILED DISCUSSION WITH PT AND ABOUT HOME MEDICATION NON-COMPLIANCE. PT AND PROVIDE MULTIPLE DIFFERING REASONS FOR NON-COMPLIANCE TO INCLUDE THEIR PRIMARY PHYSICIAN NOT ORDERING THE MEDICATIONS REQUESTED ON TWO DIFFERENT OCCASSIONS. INSTRUCTED PT ON HOW TO NAVIGATE THE HEALTHCARE SYSTEM TO IMPROVE ACCESS TO OBTAINING NEW PRESCRIPTIONS FOR MEDICATIONS THE PATIENT IS PRESCRIBED. VERBALIZED GOOD UNDERSTSTANDING. LEFT AC IV INFUSING NS WITH 20 MEQS OF POTASSIUM AND SALINE LOCK TO FOOT.
--- NOTE | 2018-07-24 12:13 | NUR ---
CALLED DR. ESCALANTE RE: LUNGS SOUNDS COARSE WITH CRACKLES THROUGHOUT, PT C/O SOB, SATS REMAINING 95% AND GREATER, RR 18-29. NEW ORDER FOR LASIX 40 MG IV, STOP IVF, AND KDUR 20 MEQS PO.
--- NOTE | 2018-07-24 12:30 | NUR ---
PATIENT STATES HE IS GOING TO USE IV HEROIN SOON HE IS DISCHARGED FROM THE HOSPITAL TO HELP CONTROL HIS BACK PAIN. PT STATES THEY WON'T GIVE HIM NARCOTICS AT THE DOCTOR'S OFFICE OR HERE IN THE HOSPITAL SO HE "WILL CONTINUE TO USE BECAUSE THAT IS WHAT THEY WANT ME TO DO." WHEN ASKED TO CLARIFY THAT STATEMENT, PT STATES "I HAVE TO USE HEROIN BECAUSE IT'S THE ONLY THING THAT WORKS." OFFERRED PT SOME ALTERNATIVE METHODS TO TRY TO CONTROL PAIN: RELAXATION TECHNIQUES, STRETCHING, AMBULATING, HEAT AND/OR COLD THERAPY. PT REFUSED.
--- NOTE | 2018-07-24 14:12 | NUR ---
SPUTUM SAMPLE COLLECTED AND SENT TO LAB.
--- NOTE | 2018-07-24 17:25 | NUR ---
CALLED REPORT TO MICHELLE CERDA, MEDICAL RN, WHOM WILL ASSUME CARE OF PT WHEN TRANSFERRED TO ROOM 341.
--- NOTE | 2018-07-24 17:50 | NUR ---
RECEIVED CALL FROM LAB STATING THE SPUTUM SAMPLE SENT IS NOT ACCEPTABLE AND NEW SAMPLE NEEDS TO BE COLLECTED. CALLED MICHELLE CERDA, MEDICAL RN, AND ADVISED OF THIS. KEEGAN NIETO, TAKING PT TO ROOM 341 VIA HOSPITAL BED.
[2018-07-25 05:38] LABS: Anion Gap 12 mmol/L (6-16); Blood Urea Nitrogen 41 mg/dL (8-24); Bun/Creatinine Ratio 36.3 (12.0-20.0); CO2, Blood 19 mmol/L (21-32); Calcium, Blood 8.6 mg/dL (8.5-10.1); Chloride, Blood 109 mmol/L (98-108); Creatinine, Blood 1.13 mg/dL (0.60-1.20); Glomerular Filtration Rate >60 (60-); Glucose, Blood 143 mg/dL (70-99); Potassium, Blood 3.5 mmol/L (3.5-5.5); Sodium, Blood 140 mmol/L (136-145)
--- NOTE | 2018-07-25 08:12 | NUR ---
07/25/18 0600 VITALS STABLE. MULTIPLE REQUESTS FOR FLUIDS/FOOD. FRUSTRATED OVER FREQUENT HOSPITALIZATIONS. UNEVENTFUL NIGHT.
--- NOTE | 2018-07-25 12:01 | NUR ---
Pt. is doing well he is in bed restiung mnhe reportss doing much better encouraged pt. and prayed for him
--- NOTE | 2018-07-25 12:55 | NUR ---
RAPID RESPONSE PT HAD SCHEDULED NEB TX @ 1200. IMMEDIATELY AFTER HE STATE DIFFICULTY BREATHING, BECOME VERY ANXIOUS, SITTING UP ON BEDSIDE/TRIPODDING. R/R 40'S, LABORED. BIOX 83-85% 2L, INCREASED TO 4L, DR ESCALANTE NOTIFIED, COME TO ROOM TO SEE PT, ORDER LASIX 40 MG IV & BIPAP. RT IN TO PLACE ON BIPAP. HR & BP ELEVATED, HR UP TO 120'S. SCHEDULED SOLUMEDROL 40 MG & CLONIDINE GIVEN. PT STARTED TO RECOVER SOMEWHAT BIOX 95% ON BIPAP THEN BECOME WORSE AGAIN. RAPID RESPONSE CALLED. PT TRANSFER TO ICU 13. PT NOTIFIED.
[2018-07-25 13:00] LABS: PCO2 Arterial 34.3 mmHg (35-45); PO2 Arterial 297 mmHg (80-100); pH Blood Arterial 7.33 (7.35-7.45)
--- NOTE | 2018-07-25 13:20 | NUR ---
ASSUMED CARE: PT WAS RAPID RESPONSE ON MEDICAL FLOOR. RN STATES WHEEZING HE COULDN'T RECOVER FROM AFTER BREATHING TX. ON BIPAP 26/10, FIO2 80%. SATTING 100% ON THIS. RESTING IN BED AT THIS TIME. ASKING FOR SOMETHING TO DRINK. HAS BEEN EDUCATED THAT IT WILL BE A FEW HOURS BEFORE WE ARE ABLE TO TAKE THE MASK OFF FOR HIM TO HAVE ANYTHING TO DRINK OR EAT. NO FURTHER CHANGES OR CONCERNS AT THIS TIME
--- NOTE | 2018-07-25 15:34 | NUR ---
THIS PT GAVE ME PERMISSION TO PROVIDE CARE FOR HIM ON 07/25/18
--- NOTE | 2018-07-25 15:43 | NUR ---
PT'S AT BEDSIDE. PT REQUESTED BREAK FROM BIPAP FOR A DRINK. TOLERATED BREAK WELL. HAS BEEN OFF BIPAP AND ON 4L O2 FOR [address] FRANCIS AND ASKED IF PT COULD EAT AND DRINK DUE TO TOLERATING BREAK FOR GOOD PERIOD OF TIME. STATES PT CAN WEAR BIPAP PRN. PT INFORMED AND AGREEABLE TO THIS. AGREES TO NOTIFY STAFF IF HE IS STARTING TO HAVE TROUBLE BREATHING. PT'S STATES THAT THERE WERE A FEW MEMBERS OF NURSING STAFF THAT UPSET THEM. INFORMED PT ADVOCATE WHO CAME TO SPEAK WITH THEM. FAMILY AT BEDSIDE NOW AND WOOL FLEECE GRADER IN ROOM PERFORMING ASSESSMENT.
--- NOTE | 2018-07-25 18:10 | NUR ---
SHIFT SUMMARY: PT HAS BEEN ALTERNATING FROM 4L NC AND BIPAP 12/16 AND 60% FIO2 NEEDED. PT WAS OFF BIPAP FOR A FEW HOURS THEN CALLED AND APPEARED SOB AND WHEEZY AND REQUESTED BIPAP TO BE REPLACED. STATES NOW HE IS FEELING BETTER AND WANTS TO EAT DINNER. INFORMED HIM TO KEEP MASK ON FOR A LITTLE WHILE SO HE CAN FULLY RECOVER. NO FURTHER NEEDS OR CONCERNS AT THIS TIME.
--- NOTE | 2018-07-25 19:50 | NUR ---
ASSUMED CARE BEDSIDE REPORT RECIEVED. PT IS LAYING IN BED WITH BIPAP ON, ALERT, ORIENTED, AND FOLLOWING COMMANDS. BIPAP 10/6, FIO2 60%. VITAL SIGNS STABLE AT THIS TIME. PT DENIES PAIN OR DISCOMFORT. PT IS MOVING AROUND IN BED INDEPENDENTLY. PT REQUESTING BREAK FROM BIPAP AT THIS TIME, PLACED ON 4L O2 NC. PT WITH LABORED BREATHING WHEN OFF BIPAP, SPO2 DROPPED TO 80%. PT PLACED BACK ON BIPAP. PT WITH IV'S SALINE LOCKED. PT USING URINAL TO VOID. WILL CONTINUE TO MONITOR.
[2018-07-26 03:55] LABS: Hemoglobin 9.2 g/dL (13.5-17.5); Mean Corpuscular HGB 26.7 pg (26.0-34.0); Mean Corpuscular HGB Conc 32.9 g/dL (31.5-36.5); Mean Corpuscular Volume 81 fL (80-100); Mean Platelet Volume 11.4 fL (9.1-12.4); Platelet Count 241 K/mm3 (150-400); RDW Coefficient Variation 15.8 % (11.7-14.2); RDW Standard Deviation 46.7 fL (35.1-46.3); Red Blood Cell Count 3.45 M/mm3 (4.30-5.90); White Blood Cell Count 17.46 K/mm3 (4.00-11.30)
[2018-07-26 04:18] LABS: Anion Gap 9 mmol/L (6-16); Blood Urea Nitrogen 47 mg/dL (8-24); CO2, Blood 23 mmol/L (21-32); Calcium, Blood 8.5 mg/dL (8.5-10.1); Chloride, Blood 107 mmol/L (98-108); Creatinine, Blood 1.12 mg/dL (0.60-1.20); Glomerular Filtration Rate >60 (60-); Glucose, Blood 152 mg/dL (70-99); Potassium, Blood 3.3 mmol/L (3.5-5.5); Sodium, Blood 139 mmol/L (136-145)
--- NOTE | 2018-07-26 05:58 | NUR ---
SHIFT SUMMARY PT HAS CONTINUED TO ALTERNATED BETWEEN BIPAP AND NC MULTIPLE TIMES THROUGHOUT THE SHIFT. PT ONLY TOLERATES NC FOR SHORT PERIODS OF TIME BEFORE RETURNING TO BIPAP. BIPAP SETTINGS /, FIO2 35%. PT HAS REMAINED AWAKE, ALERT, AND ORIENTED THROUGHOUT THE SHIFT. PT WITH ONE EPISODE OF SEVERE ANXIETY, DESATTING, AND BECOMING TACHY WITH HR 130'S. PT MED WITH ATIVAN PRN AND HAS RECOVERED WITH BIPAP. THIS AM PT FOUND TO BE EATING GRAHM CRACKERS WHILE ON THE BIPAP. ALL FOOD AND DRINK ITEMS REMOVED FROM THE BEDSIDE TABLE AND PT INSTRUCTED ABOUT SAFETY RELATED TO EATING WITH BIPAP. IV'S REMAIN SALINE LOCKED. PT VOIDING FREQUENTLY THROUGHOUT THE SHIFT WITH URINAL. PT HAS REPOSITIONED SELF THROUGHOUT THE NIGHT. PT SPOUSE HAS REMAINED AT BEDSIDE. WILL CONTINUE TO MONITOR AND REPORT OFF TO ONCOMING RN.
--- NOTE | 2018-07-26 07:54 | NUR ---
PT SLEEPING WITH BIPAP ON AT 0715; 02/15, 30%. RESP 28-40. PT HAS RETRACTIONS AND USING ACCESSORY MUSCLES. SATS 95%. LUNGS TIGHT WITH CRACKLES TO RIGHT LOBE, COARSE W EXP WHEEZES T/O. 18G IV PLACED TO LFA USING ULTRA SOUND. PT MAY AMADOR PICC LINE DUE TO POOR ACCESS. AT BEDSIDE. DR VALENZUELA IN TO SEE PT. PT AND INFORMED THAT PT MAY REQUIRE INTUBATION; BOTH ARE OKAY WITH THIS. KCL RIDER ORDERED. WILL KEEP PT NPO
--- NOTE | 2018-07-26 08:37 | NUR ---
PT PLACED ON 5L VIA N/C FOR ORAL CARE AND PO MEDS. PT DID NOT TOLERATE BREAK WELL. RESP INCREASED 40'S, PT HAD GRUNTING AND INCREASE IN INS AND EXP WHEEZES T/O. JUDE DROPPED TO 93%. PT ON BREAK FOR 5MIN BEFORE BIPAP REPLACED D/T INCREASE IN LABORED BREATHING. PT TOLERATING BIPAP, BUT VERY RESTLESS IN BED
--- NOTE | 2018-07-26 11:14 | NUR ---
Met pt. lying in bed sleeping , pt is not doing well, spoke to the and encouraged her and prayed for the pt..
--- NOTE | 2018-07-26 13:51 | NUR ---
RECEIVED REPORT FROM ERASMO PEREZ RN, ASSUMED CARE, PATIENT IS AWAKE AND ALERT, BUT APPEARS CONFUSED, CONTINUES TO ASK ABOUT FOOD, BUT IS REORIENTED TO BEING NPO AT THIS TIME, AT BEDSIDE, PATIENT ON BIPAP 12/6/30 % FiO2, IVF INFUSING AT TKO, LUNG SOUNDS ARE TIGHT AND WHEEZING HEARD IN ALL LOBES, COARSE, SR/ST, BARRIGA CATHETER IN PLACE,NO LEAKAGE NOTED AT THIS TIME, ARMBOARD IN PLACE IN LUE, D/T PIV'S IN AC AND PATIENT BENDING ARM, CALL LIGHT IN REACH, WILL CONTINUE TO MONITOR.
--- NOTE | 2018-07-26 17:27 | NUR ---
PATIENT SHOWS INCREASED LABORING IN BREATHING WHILE ON BIPAP, DR. DAVIS NOTIFIED, AT BEDSIDE, PATIENT TO BE INTUBATED, RT NOTIFIED, AT BEDSIDE, WILL CONTINUE TO MONITOR.
--- NOTE | 2018-07-26 17:49 | NUR ---
INTUBATION PT MEDICATED WITH 20MG ETOMIDATE PRIOR TO INTUBATION PER DR. DAVIS. PT INTUBATED AT 1735 WITH 7.5 ET TUBE, 22 CM AT LIP, POSITIVE COLOR CHANGE AND GENTRY BREATH SOUNDS. TUBE SECURED AND CONNECTED TO VENT PER RT. STAT CHEST XRAY ORDERED. OG TUBE PLACED.
--- NOTE | 2018-07-26 17:55 | NUR ---
SHIFT SUMMARY NOTE: PATIENT WAS ON BIPAP ALL DAY BUT DELINED COGNITIVELY AND DR. DAVIS WAS NOTIFIED AFTER FAMILY FOUND THAT PATIENT WAS INCREASINGLY CONFUSED, PATIENT WAS INTUBATED IS ON AC WITH 18/5/400/FiO2 30 %, PROPOFOL AT 75 MCG AT THIS TIME, PATIENT ALSO RECEIVED 100 MCG FENTANYL AND A DOSE OF ATIVAN, OG IN PLACE WITH SUCTION ATTACHED, RESTRAINTS IN PLACE, BARRIGA CATHEER IN PLACE WITH GOOD URINE OUTPUT, PLACEMENT OF PICC ONGOING, FOR DETAILS SEE SHIFT ASSESSMENT DOCUMENTATION AND NURSES NOTES, CALL LIGHT IN REACH, WILL CONTINUE TO MONITOR AND GIVE REPORT TO ONCOMING ELECTRICITY TRADING ANALYST.
--- NOTE | 2018-07-26 19:15 | NUR ---
ASSUMED CARE BEDSIDE REPORT RECIEVED. PT IS INTUBATED AND SEDATED AT THIS TIME. VENT AC 18, TV 400, PEEP 5, FIO2 50%. PT WITH PROPOFOL INFUSING AT 100 MCG/KG/MIN. PT DIFFICULT TO SEDATE. PT CONTINUES TO BE RESTLESS IN BED. UTE BOOTH PLACING PICC LINE TO SAM AT THIS TIME. OGT IN PLACE TO LIS, NO OUTPUT NOTED. BARRIGA IN PLACE WITH YELLOW OUTPUT NOTED. SBW RESTRAINTS IN PLACE. WILL CONTINUE TO MONITOR.
[2018-07-26 19:51] LABS: PCO2 Arterial 36.9 mmHg (35-45); PO2 Arterial 95.6 mmHg (80-100); pH Blood Arterial 7.44 (7.35-7.45)
[2018-07-27 03:45] LABS: Hematocrit 23.4 % (37.0-53.0); Hemoglobin 7.5 g/dL (13.5-17.5); Mean Corpuscular HGB 27.1 pg (26.0-34.0); Mean Corpuscular HGB Conc 32.1 g/dL (31.5-36.5); Mean Platelet Volume 11.6 fL (9.1-12.4); Platelet Count 189 K/mm3 (150-400); RDW Standard Deviation 50.3 fL (35.1-46.3); Red Blood Cell Count 2.77 M/mm3 (4.30-5.90); White Blood Cell Count 6.52 K/mm3 (4.00-11.30)
[2018-07-27 03:46] LABS: Mean Corpuscular Volume 85 fL (80-100)
[2018-07-27 04:14] LABS: Bun/Creatinine Ratio 34.6 (12.0-20.0); Creatinine, Blood 1.36 mg/dL (0.60-1.20); Potassium, Blood 3.6 mmol/L (3.5-5.5)
--- NOTE | 2018-07-27 05:55 | NUR ---
SHIFT SUMMARY PT REMAINS SEDATED ON VENT. VENT SETTINGS AC 18, TV 400, PEEP 5, FIO2 DOWN TO 35%. PROPOFOL HAS REMAINED BETWEEN 60-80 MCG/KG/MIN THROUGHOUT THE SHIFT, WITH FENTANYL PRN TO KEEP PT CALM/COMFORTABLE. VITAL SIGNS HAVE REMAINED STABLE WITH RR OCCASIONALLY MAINTAINING IN THE 40'S. NS INFUSING AT 75 ML/HR AND NS TKO. PICC TO SAM C/D/I. OGT IN PLACE TO LIS WITH MINIMAL BILE OUTPUT. BARRIGA IN PLACE WITH YELLOW URINE OUTPUT. SBW RESTRAINTS IN PLACE. PT SPOUSE HAS REMAINED AT BEDSIDE THROUGHOUT THE SHIFT. WILL CONTINUE TO MONITOR AND REPORT OFF TO ONCOMING RN.
--- NOTE | 2018-07-27 09:58 | NUR ---
0720: CARE ASSUMED, ASSESSMENT COMPLETED. PT BECOMING RESTLESS, RR 40'S, HR 90'S FENTANYL ADMINISTERED PER ORDERS. VENT SETTINGS AC 16, Vt 400, FIO2 35%, PEEP 5. PT'S Vt'S 400-500, SPO2 MID 90'S, BP WNL. PROPOFOL 70MCG/KG/HR, NS 75ML/HR. LS COARSE T/O, SMALL AMOUNT OF FROST SPUTUM FROM ETT. 0800: RR HIGH 20'S AT THIS TIME, HR 80'S, NO GRIMACING OR RESTLESSNESS, OTHER VSS. PT REPOSITIONED, ORAL CARE COMPLETE. SCD'S ON BLE'S PER ORDERS. 1010: RR 36-38, BP AND HR STABLE. PT BECOMING AGITATED, FENTANYL ADMINISTERED PER ORDERS.
--- NOTE | 2018-07-27 13:21 | NUR ---
1200: PT REASSESSED, LS COARSE AND CRACKLY T/O, RR 30'S, SPO2 MID 90'S, VENT SETTINGS UNCHANGED. ETT SUCTIONED, MINIMAL SPUTUM OUT. 1300: TUBE FEEDINGS INFUSING PER ORDERS, DR. DAVIS AT BEDSIDE TO ASSESS, NEW ORDERS RECEIVED. 1320: RR 46, BP 160/84,HR 86. FENTANYL ADMINISTERED PER ORDERS. VENT AND PROPOFOL SETTINGS UNCHANGED, FAMILY REMAINS AT BEDSIDE.
--- NOTE | 2018-07-27 13:43 | NUR ---
Pt is not doing well ,he is now in vent, prayed and blessed pt. h
--- NOTE | 2018-07-27 13:52 | NUR ---
Pt. is npot doing well lying in bed ans is on vent, prayed and blessed pt.
[2018-07-27 14:15] LABS: Hematocrit 24.1 % (37.0-53.0)
--- NOTE | 2018-07-27 15:16 | NUR ---
1340: PROPOFOL INCREASED TO 75MCG/KG/MIN AT THIS TIME FOR RR 40'S DESPITE PRN MEDICATIONS. 1400: ATIVAN ADMINISTERED FOR RR 48. 1440: RR 38. 1510: SBP 170'S, RR 40, FENTANLY ADMINISTERED PER ORDERS. PROPOFOL INFUSING AT 75MCG/KG/HR.
--- NOTE | 2018-07-27 16:25 | NUR ---
1620: DR. DAVIS NOTIFIED OF PT'S RR AND BP, NEW ORDERS RECEIVD. PRECEDEX INFUSING AT THIS TIME. PT REPOSITIONED, BP 165/94, RR 50'S, PT LIFTING HEAD OFF OF BED, WILL CONTINUE TO MONITOR.
--- NOTE | 2018-07-27 16:53 | NUR ---
1650: PT HAS CALMED, NO LONGER APPEARS AGITATED. BP AND HR WNL, RR 32, PT RESTING QUIETLY, NO GRIMACING NOTED.
--- NOTE | 2018-07-27 18:31 | NUR ---
1830: PT RESTING QUIETLY IN BED AT THIS TIME, VSS, RR 30'S, NO AGITATION OR RESTLESSNESS NOTED. PROPOFOL 60MCG/KG/MIN, PRECEDEX 0.7MCG/KG/HR, NS 75ML/HR. SPO2 96%, RR 32, Vt 400'S. VENT SETTINGS REMAIN UNCHANGED. NO WEAN THIS SHIFT PER DR. DAVIS, NO SEDATION VACATION DUE TO AGITATION/TACHYPNEA. LS ARE CLEARING, REMAIN COARSE WITH CRACKLES IN BASES BUT HAVE CLEARED IN UPPER LOBES. SPUTUM OUTPUT REMAINS SCANT. REPORT TO ONCOMING SHIFT.
[2018-07-27 18:42] LABS: Hematocrit 22.8 % (37.0-53.0); Hemoglobin 7.3 g/dL (13.5-17.5)
--- NOTE | 2018-07-27 19:15 | NUR ---
REPORT RECIEVED FROM OFF GOING RN KRISTINA. VENT SETTINGS AC 18, TV 400, FIO2 30% PEEP 5, RATE 30'-40'S, SPO2 95-97%. MONITOR INTACT SHOWING SINUS RHYTHM, HEART RATE 60'S. LUNG SOUNDS COARSE UPPER LOBES WITH DECREASED BASES. OCC COUGH SX LG AMT THICK CLEAR/WHITE SECREATIONS DURING ORAL MADINA. TUBE FEEDING INFUSING AT 15ML/HR INCREASED TO 25ML RESIDUAL OF 15ML REFED DURING ORAL CARE. ABDOMEN SOFT WITH BOWEL SOUNDS FOUR QUADS. BARRIGA PATENT DRAINING SALEEM URINE. REMAINS IN SOFT WRIST RESTRAINTS TO PREVENT INADVERTENT REMOVAL OF LINES/TUBES. FAMILY AT BEDSIDE ATTENTIVE TO NEEDS/CARES. CONTINUE TO MONITOR AND REPORT CHANGE IN PATIENT CONDITION.
--- NOTE | 2018-07-28 00:50 | NUR ---
DR DAVIS NOTIFIED OF ELEVATED BLOOD PRESSURE. ORDERS NOTED. CONTINUE TO MONITOR AND REPORT CHANGE IN PATIENT CONDITION. SEE VS FLOW SHEET.
--- NOTE | 2018-07-28 02:30 | NUR ---
AGITATED, RESTLESS ELEVATED BLOOD PRESSURE. MEDICATED WITH IV FENTANYL 100MCG AND APPRESSOLINE 20MG IV . DIAPHORETIC. PULLING AT RESTRAINTS , NOT FOLLOWING REQUESTS/ [facility] AT BEDSIDE ATTENTIVE TO NEEDS CARES. CONTINUE TO MONITOR AND REPORT CHANGE IN PATINET CONDITION.
--- NOTE | 2018-07-28 03:15 | NUR ---
DR DAVIS NOTIFIED OF INCREASED BLOOD PRESSURE AND INCREASED AGITATION. LUIS NOTED. CONTINUE TO MONITOR AND REPORT CHANGE IN PATIENT CONDITION. SEE VSS FOR ELEVATIONS.
[2018-07-28 03:48] LABS: PCO2 Arterial 35.7 mmHg (35-45); PO2 Arterial 59.1 mmHg (80-100); pH Blood Arterial 7.45 (7.35-7.45)
[2018-07-28 04:03] LABS: Hematocrit 31.3 % (37.0-53.0); Mean Corpuscular HGB 27.2 pg (26.0-34.0); Mean Corpuscular HGB Conc 31.9 g/dL (31.5-36.5); Mean Corpuscular Volume 85 fL (80-100); Mean Platelet Volume 11.2 fL (9.1-12.4); NRBC ABSOLUTE 0.02 K/mm3 (0.00-0.02); NRBC Auto 0.1 /100 WBC (0.0-0.2); Platelet Count 324 K/mm3 (150-400); RDW Coefficient Variation 15.9 % (11.7-14.2); RDW Standard Deviation 50.5 fL (35.1-46.3); Red Blood Cell Count 3.68 M/mm3 (4.30-5.90); White Blood Cell Count 18.75 K/mm3 (4.00-11.30)
[2018-07-28 04:19] LABS: Anion Gap 10 mmol/L (6-16); Blood Urea Nitrogen 39 mg/dL (8-24); Bun/Creatinine Ratio 38.6 (12.0-20.0); CO2, Blood 25 mmol/L (21-32); Calcium, Blood 8.2 mg/dL (8.5-10.1); Chloride, Blood 114 mmol/L (98-108); Creatinine, Blood 1.01 mg/dL (0.60-1.20); Glomerular Filtration Rate >60 (60-); Glucose, Blood 146 mg/dL (70-99); Magnesium, Blood 2.6 mg/dL (1.6-2.4); Phosphorus, Blood 3.2 mg/dL (2.5-4.9); Potassium, Blood 3.4 mmol/L (3.5-5.5); Sodium, Blood 149 mmol/L (136-145)
--- NOTE | 2018-07-28 04:30 | NUR ---
DR DIALLO PAGED SECONDARY TO ELEVATED B/P CONTINUE TO MONITOR
[2018-07-28 04:40] LABS: BAND PERCENT MAN 6 % (0-8); BASOPHILS PERCENT MAN 0 % (0-2); EOSINOPHILS PERCENT MAN 0 % (0-6); LYMPHOCYTES ABSOLUTE MAN 2.06 K/mm3 (0.84-5.20); LYMPHOCYTES PERCENT MAN 11 % (21-46); METAMYELOCYTE ABSOLUTE MAN 0.56 K/mm3 (0.00-0.00); METAMYELOCYTE PERCENT MAN 3 % (0-0); MONOCYTES ABSOLUTE MAN 0.37 K/mm3 (0.16-1.47); MONOCYTES PERCENT MAN 2 % (4-13); MYELOCYTE ABSOLUTE MAN 0.75 K/mm3 (0.00-0.00); MYELOCYTE PERCENT MAN 4 % (0-0); SEG NEUTROPHILS PERCENT MAN 74 % (41-73); TOTAL CELLS COUNTED 100
--- NOTE | 2018-07-28 05:00 | NUR ---
DR DAVIS NOTIFIED OF INCREASED BLOOD PRESSURE AND AGITATION. LUIS NOTED SEE VS FOR ELEVATIONS. CONTINUE TO MONITOR AND REPORT CHANGE IN PATIENT CONDITION
--- NOTE | 2018-07-28 06:30 | NUR ---
SHIFT SUMMARY: REMAINS INTUBATED SEDATED AND RESTRAINED. REMAINS ON BED IN ROOM ATTEVTIVE TO NEEDS CARES. MONITOR INTACT SHOWING SINUS RHYTHM-SINUS TACH. HEART RATE 60'S-110'S. VENT SETTINGS AC18, TV 400,PEEP 5, FIO2 40% RATE 30'S-60'S. SPO2 95-98% LUNG SOUNDS CLEAR/COARSE UPPER LOBES WITH DECRESED SOUNDS IN THE BASES.ABDOMEN SOFT WITH BOWEL SOUNDS FOUR QUADS. BARRIGA PATENT DRAINING GREENISH URINE. PAS TO LOWER EXTREMITIES SECONDARY TO GENERALIZED DEPENDENT EDEMA. EXTREMITIES ELEVATED ON PILLOWS. REMAINS IN SOFT RESTRAINTS TO PREVENT INADVERTENT REMOVAL OF LINES/TUBES. CONTINUE TO MONITOR AND REPORT CHANGE IN PATIENT CONDITION. SPB MUCH IMPROVED AFTER 20MG IV TRANDATE.
[2018-07-28 07:37] LABS: Vancomycin, Trough 17.2 ug/mL (5.0-10.0)
[2018-07-28 09:24] LABS: Base Excess Venous 0.3 mmol/L; Bicarbonate Venous 24.6 mmol/L (24.0-30.0); PCO2 Venous 37.6 mmHg (38-42); PO2 Venous 65.3 mmHg (38-42); pH Blood Venous 7.43 (7.34-7.37)
--- NOTE | 2018-07-28 11:45 | NUR ---
0750: CARE ASSUMED, ASSESSMENT COMPLETED. PT LYING QUIETLY IN BED, NO AGITATION OR RESTLESSNESS NOTED. RR 30'S, BP AND HR STABLE. PROPOFOL 65MCG/KG/MIN, PRECEDEX 0.7MCG/KG/HR, TF AT GOAL 30ML/HR. HR NSR, LS COARSE T/O WITH EXPIRATORY WHEEZES BILAT BASES, SMALL AMOUNT OF FROST SPUTUM FROM EET TUBE. PT REPOSITIONED, ORAL CARE COMPLETED. DR. ESCALANTE IN TO ASSESS PT, AT BEDSIDE. 0850: DR. DAVIS HAS BEEN IN TO ASSESS, NEW ORDERS RECEIVED. FENTANYL ADMINISTERED FOR RR 40'S AND SOME AGITATION WITH MINIMAL EFFECTS, VERSED ADMINISTERED PER ORDERS. 1000: PT HAS BEEN MEDICATED WITH HYDRALAZINE AND LOPRESSOR FOR HTN WITH NO RESULTS, NITRO GTT INITIATED, WILL TITRATE TO EFFECT. FENTANYL HYDROGEN TREATER INFUSING PER ORDERS. 1020: PT BECOMING TACHYPNEIC AGAIN, RR 50, ATIVAN PER ORDERS. NITRO CONTINUES TO INFUSE. 1200: NITRO GTT HAS BEEN TITRATED UP TO 120MCG/MIN, SEE ICU FLOWSHEET. BP REMAINS HYPERTENSIVE AT 187/91, HR 100. DR. DAVIS AWARE OF BP AND NITRO GTT RATE, NO NEW ORDERS AT THIS TIME. RR REMAINS 40'S, SPO2 98%. SEE REASSESSMENT.
--- NOTE | 2018-07-28 14:18 | NUR ---
1400: PT RESTING QUIETLY AT THIS TIME, VSS, SBP 140'S, HR 80'S, RR 40'S NO AGITATION OR RESTLESSNESS NOTED. PRECEDEX 0.7MCG/KG/HR, PROPOFOL 65MCG/KG/MIN, NITRO 100MCG/MIN, FENTANYL 35MCG/HR. FAMILY AT BEDSIDE.
--- NOTE | 2018-07-28 14:32 | NUR ---
0750: VENT SETTINGS AC 18, Vt 400, FIO2 40%, PEEP 5
--- NOTE | 2018-07-28 16:35 | NUR ---
1630: PROPOFOL BEING TITRATED DOWN FOR SEDATION VACATION, CURRENTLY AT 40MCG/KG/MIN. NOT DOES NOT OPEN EYES OR FOLLOW COMMANDS, RESPONDS TO PAIN, EMILIANA, PUPIL ACCOMIDATION NO LONGER SLUGGISH. VSS, WILL CONTINUE TO MONITOR. NITRO GTT AT 120MCG/MIN.
--- NOTE | 2018-07-28 16:59 | NUR ---
1700: PROPOFOL TITRATED DOWN TO 40MCG/KG/MIN, PT'S RR INCREASED TO 50'S, BP 177/88, HR 103. PT DOES NOT OPEN EYES OR FOLLOW COMMANDS, NO PURPOSEFUL MOVEMENTS OR TRACKING NOTED. PROPOFOL TIRATED BACK UP FOR COMFORT.
--- NOTE | 2018-07-28 19:05 | NUR ---
1904: BP 171/85, HR 101, LABETOLOL ADMINISTERED PER ORDERS. RR 40'S, PROPOFOL 60MCG/KG/MIN, PRECEDEX 0.7MCG/KG/HR, NITRO GTT 100MCG/MIN, FENTANYL INFUSING AT 35MCG/HR. PT RESTING, COUGHING OCCASIONALLY, NO GRIMACING OR RESTLESSNESS NOTED AT THIS TIME. TF 30ML/HR WITH 100ML WATER FLUSHES PER ORDERS. PT WARM AND DIAPHORETIC ALL DAY, AFEBRILE. VENT AC 18, Vt 400, PEEP 5, FIO2 40%. REPORT TO ONCOMING SHIFT.
--- NOTE | 2018-07-28 20:31 | NUR ---
DR DAVIS AT BEDSIDE FOR UPDATE. DISSCUSD TX WI SPOUSE. CONTINUE TO MONITOR AND REPORT CHANGE IN PPATIEN CONDITION
[2018-07-29 04:04] LABS: Hematocrit 26.7 % (37.0-53.0); Hemoglobin 8.4 g/dL (13.5-17.5); Mean Corpuscular HGB 27.5 pg (26.0-34.0); Mean Corpuscular HGB Conc 31.5 g/dL (31.5-36.5); Mean Corpuscular Volume 87 fL (80-100); Mean Platelet Volume 10.9 fL (9.1-12.4); NRBC ABSOLUTE 0.03 K/mm3 (0.00-0.02); NRBC Auto 0.2 /100 WBC (0.0-0.2); Platelet Count 239 K/mm3 (150-400); RDW Coefficient Variation 16.3 % (11.7-14.2); RDW Standard Deviation 51.7 fL (35.1-46.3); Red Blood Cell Count 3.06 M/mm3 (4.30-5.90)
[2018-07-29 04:20] LABS: Anion Gap 6 mmol/L (6-16); Blood Urea Nitrogen 39 mg/dL (8-24); Bun/Creatinine Ratio 39.8 (12.0-20.0); CO2, Blood 27 mmol/L (21-32); Calcium, Blood 7.6 mg/dL (8.5-10.1); Chloride, Blood 113 mmol/L (98-108); Creatinine, Blood 0.98 mg/dL (0.60-1.20); Glomerular Filtration Rate >60 (60-); Glucose, Blood 192 mg/dL (70-99); Magnesium, Blood 2.3 mg/dL (1.6-2.4); Phosphorus, Blood 3.4 mg/dL (2.5-4.9); Potassium, Blood 4.1 mmol/L (3.5-5.5); Sodium, Blood 146 mmol/L (136-145)
[2018-07-29 05:11] LABS: BASOPHILS PERCENT MAN 0 % (0-2); EOSINOPHILS PERCENT MAN 0 % (0-6); LYMPHOCYTES ABSOLUTE MAN 1.44 K/mm3 (0.84-5.20); LYMPHOCYTES PERCENT MAN 8 % (21-46); METAMYELOCYTE ABSOLUTE MAN 0.72 K/mm3 (0.00-0.00); METAMYELOCYTE PERCENT MAN 4 % (0-0); MONOCYTES ABSOLUTE MAN 0.18 K/mm3 (0.16-1.47); MONOCYTES PERCENT MAN 1 % (4-13); MYELOCYTE ABSOLUTE MAN 0.36 K/mm3 (0.00-0.00); MYELOCYTE PERCENT MAN 2 % (0-0); NEUTROPHILS ABSOLUTE MAN 15.38 K/mm3 (1.96-9.15); SEG NEUTROPHILS PERCENT MAN 85 % (41-73); TOTAL CELLS COUNTED 100
--- NOTE | 2018-07-29 06:27 | NUR ---
SHIFT SUMMARY: REMAINS INTUBATED, SEDATED AND RESTRAINED. MONITOR INTACT SHOWING SINUS RHYTHM. HEART RATE 60'S-90'S. VENT SETTINGS AC 18, TV 400,FIO2 40% PEEP 5 RATE 30-50'S SPO2 95-98% LUNG SOUNDS CLEAR UPPER LOBES WITH DECREASED SOUNDS AND OCC WHEEZES. WITH FINE CRACKLES.TF INUSING HI VITAL AT 30ML/HR WITH MINIMAL RESIDUALS REFED WITH ORAL CARE.[place] PATENT DRAINING GREENISH SALEEM URINIE PAS TO LOWER EXTREMITIES. GENERALIZED DEPENDENT EDEMA WITH EXTREMITIES ELEVATGED ON PILLOWS CONTINUE TO MONITOR AND REPORT CHANGE IN PATIENT CONDITION
--- NOTE | 2018-07-29 10:25 | NUR ---
0745: CARE ASSUMED, PT RESTING QUIETLY IN BED WITH NO AGITATION/RESTLESSNESS NOTED, RR 20'S, HR AND BP STABLE. VENT ON PRESSURE SUPPORT OF 20, PEEP 5, FIO2 40%, SPO2 >95%, SALLOW COLOR APPEARS TO BE IMPROVING. LS CLEAR IN UPPER LOBES, DIMINISHED AND COARSE IN BASES, NO WHEEZES NOTED AT THIS TIME. SMALL AMOUNT OF WHITE SPUTUM FROM ETT. NITRO GTT REMAINS OFF, PROPOFOL 60MCG/KG/MIN, PRECEDEX 0.7MCG/KG/HR, FENTANLY 35MCG/HR. 1000: PT REPOSITIONED, RR INTO 40'S MOMENTARILY AFTER CARES PROVIDED, THEN RECOVER BACK TO 20'S-30'S. PT REMAINS CALM AND RELAXED, SBP 120'S, SPO2 89-99%, NO RESTLESSNESS/AGITATION/GRIMACING NOTED. AT BEDSIDE. GTTS AND VENT SETTINGS UNCHANGED.
[2018-07-29 13:04] LABS: Hematocrit 23.5 % (37.0-53.0); Hemoglobin 7.8 g/dL (13.5-17.5)
[2018-07-29 13:38] LABS: Percent Saturation 28.3 % (20.0-50.0)
[2018-07-29 13:41] LABS: Bilirubin, Direct 0.1 mg/dL (0.0-0.3); Bilirubin, Indirect 0.4 mg/dL (0.1-0.7); Bilirubin, Total 0.5 mg/dL (0.1-1.0)
--- NOTE | 2018-07-29 13:41 | NUR ---
1200: PT OPENING EYES SPONTANEOUSLY AT THIS TIME, LIFTING HEAD OFF OF PILLOW OCCASIONALLY. RR REMAINS 20'S, HR 60'S, BP 128/73, PT DOES NOT APPEAR TO BE IN DISTRESS. NO CHANGE IN GTTS AT THIS TIME, WILL CONTINUE TO MONITOR. 1235: PT REMAINS CALM AND QUIET WITH OCCASIONAL EYE OPENING, NO LONGER LIFTING HEAD OFF OF PILLOW. REPOSITIONED, ORAL CARE COMPLETED. RR 20'S - 30'S, VSS. PROPOFOL DECREASED AT THIS TIME TO 50MCG/KG/MIN FOR SEDATION VACATION. 1250: PT OPENING EYES, TRACKING MOVEMENTS, FOLLOWING COMMANDS AFTER SLIGHT REDUCTION IN SEDATION, VALLE. RR 38, HR 60'S, PT INFORMED OF PLAN OF CARE BY THIS RN, THEN SEDATION INCREASED TO 60MCG/KG/MIN AT THIS TIME FOR COMFORT. 1320: PT RESTING WITH EYES CLOSED, VSS. NO RESTLESSNESS OR AGITATION NOTED, PT APPEARS TO BE ADEQUATELY SEDATED.
--- NOTE | 2018-07-29 16:51 | NUR ---
1530: PT AWAKE WITH EYES OPEN, FOLLOWING COMMANDS, NODDING YES AND NO APPROPRIATELY. PT DENIES PAIN OR DISCOMFORT AT THIS TIME, VSS, RR 30'S, HR 60'S, NO DIAPHORESIS, AGITATION, OR APPARENT DISTRESS NOTED. DRIP RATES UNCHANGED. 1630: CT COMPLETED, DR. DAVIS HAS VIEWED IMAGES AND IS AT BEDSIDE WITH FAMILY. PT REMAINS ALERT AND COOPERATIVE. 1650: PT REPORTS DISCOMFORT, NODS YES TO PAIN. PROPOFOL INCREASED TO 70MCG/KG/MIN AT THIS TIME. VS REMAIN STABLE, HR 70'S, RR 30'S, BP 140/76, SPO2 98%.
--- NOTE | 2018-07-29 17:13 | NUR ---
1715: FENTANYL ADMINISTERED FOR BACK PAIN, PT DROWSY BUT ROUSES EASILY TO VOICE. VSS.
--- NOTE | 2018-07-29 19:56 | NUR ---
1830: PT SLEEPING, HAS RESPONDED WELL TO FENTANYL FOR BREAKTHROUGH PAIN. VSS, RR 20'S - 30'S. PROPOFOL DECREASED TO 60MCG/KG/MIN, OTHER GTTS REMAIN UNCHANGED, VENT SETTINGS UNCHANGED. LS CONTINUE TO IMPROVE, PT'S COLOR WNL, NO LONGER DIAPHORETIC OR SALLOW, EDEMA TO UE'S REMAINS. 1899: FENTANYL SIGNAL TOWER OPERATOR SHIFT TOTALS CLEARED WITH UTE PEÑALOZA. REPORT GIVEN. PT REMAINS ASLEEP, VSS, NO RESTLESSNESS OR AGITATION NOTED. AT BEDSIDE.
--- NOTE | 2018-07-29 22:33 | NUR ---
ASSUMED PT CARE AT 191 REPORT RECEIVED FROM UTE ACEVEDO. CLEARED END OF SHIFT FENTANYL WITH A TOTAL OF 3MLS PULLED FROM BAG TO WASTE AND NEW BAG HUNG. LTC ON PUMP STATED THERE WAS 6MLS'S LEFT; HOWEVER, BOTH RN'S NOTED ONLY THE 3MLS THAT WE WASTED TOGETHER. PT RESTING IN BED WITH AT BEDSIDE. VENT AC 18, PC 20, FIO2 40%, AND PEEP 5. PRECEDEX INFUSING AT 0.7MCG/KG/HR, PROPOFOL AT 60MCG/KG/MIN, AND FENTANYL AT 35MCG/HR FOR SEDATION AND PAIN MANAGEMENT AND PT IS ABLE TO NOD HEAD YES/NO TO QUESTIONS AND FOLLOW COMMANDS APPROPRIATELY. WHEN ASKED IF HE WAS IN PAIN OR UNCOMFORTABLE PT SHOOK HIS HEAD "NO". VITAL HIGH PROTEIN INFUSING AT GOAL OF 30MLS/HR WITH MINIMAL RESIDUALS; WATER FLUSHES 100CC Q4HRS. BARRIGA CATH IS PATENT AND DRAINING TO GRAVITY. BILATERAL SOFT WRIST RESTRAINTS REMAIN IN PLACE WITH ONGOING ASSESSMENT AND MONITORING TAKING PLACE. PT APPEARS COMFORTABLE AT THIS TIME WILL CONTINUE MONITORING IN ORDER TO MEET PT'S NEEDS.
--- NOTE | 2018-07-30 01:19 | NUR ---
PAIN PT RESP RATE 45-50, MED WITH FENTAYL 100MCQ. RESP RATE DOWN TO 33
[2018-07-30 04:37] LABS: Hemoglobin 7.8 g/dL (13.5-17.5); Mean Corpuscular HGB 26.6 pg (26.0-34.0); Mean Corpuscular HGB Conc 31.2 g/dL (31.5-36.5); Mean Corpuscular Volume 85 fL (80-100); Mean Platelet Volume 10.9 fL (9.1-12.4); Platelet Count 160 K/mm3 (150-400); RDW Coefficient Variation 15.8 % (11.7-14.2); RDW Standard Deviation 48.6 fL (35.1-46.3); Red Blood Cell Count 2.93 M/mm3 (4.30-5.90); White Blood Cell Count 9.61 K/mm3 (4.00-11.30)
[2018-07-30 04:57] LABS: Anion Gap 6 mmol/L (6-16); Blood Urea Nitrogen 39 mg/dL (8-24); Bun/Creatinine Ratio 47.8 (12.0-20.0); CO2, Blood 26 mmol/L (21-32); Calcium, Blood 7.8 mg/dL (8.5-10.1); Chloride, Blood 114 mmol/L (98-108); Creatinine, Blood 0.82 mg/dL (0.60-1.20); Glomerular Filtration Rate >60 (60-); Glucose, Blood 164 mg/dL (70-99); Magnesium, Blood 2.4 mg/dL (1.6-2.4); Phosphorus, Blood 3.7 mg/dL (2.5-4.9); Potassium, Blood 3.8 mmol/L (3.5-5.5); Sodium, Blood 146 mmol/L (136-145)
[2018-07-30 04:57] LABS: PCO2 Arterial 32.3 mmHg (35-45); PO2 Arterial 82.1 mmHg (80-100); pH Blood Arterial 7.49 (7.35-7.45)
--- NOTE | 2018-07-30 05:38 | NUR ---
END OF SHIFT SUMMARY NO SIGNIFICANT CHANGES. VENT SETTINGS REMAIN THE SAME: AC 18, PC 20, FIO2 40%, PEEP 5. PROPOFOL INCREASED TO 65MCG/KG/MIN D/T RESP RATE 40-60'S; PRECEDEX AT 0.7MCG/KG/HR. FENTANYL INFUSING CONTINUOUSLY AT 35MCG/HR. PT STILL ABLE TO OPEN EYES AND FOLLOW COMMANDS APPROPRIATELY; MAKING PURPOSEFUL MOVEMENTS. THEREFORE, BILATERAL SOFT WRIST RESTRAINTS REMAIN IN PLACE. PT DID HAVE AN EPISODE OF ANXIETY AROUND 0 WHERE HIS RESP RATE INCREASED FROM 20-30'S TO 40-60'S. PT WAS RESTLESS IN BED; THRASHING HEAD BACK AND FORTH, BITING DOWN ON ETT. PT WAS NOT ABLE TO BE REDIRECTED OR TALKED DOWN. ADMINISTERED 50MCG OF FENTANYL TO BEGIN WITH, WHICH WAS UNEFFECTIVE, THEN ADMINISTERED THE OTHER 50MCG (ORDER FOR UP TO 100MCG); STILL UNEFFECTIVE, THEN ADMINISTERED VERSED WHICH APPEARED TO HELP SLIGHTLY; REPOSITIONED PT FOR COMFORT AND WAITED FOR ABOUT 15-20 MINUTES WITH NO IMPROVEMENT IN SYMPTOMS. ADMINISTERED ATIVAN PER ORDERS AND THEN ANOTHER 100MCG ONCE THE FENTANYL ORDER HAD LAPSED TO ADMINISTER AGAIN. RT CAME TO ADJUST SETTINGS ON VENTILATOR IT WAS ALARMING D/T TO HIGH MINUTE VENTILATION AND HIGH RESP RATE. PT STILL BREATHING WITH A RATE IN THE 40'S, BUT HASN'T BEEN THRASHING AROUND IN BED SINCE ABOUT 0130. NO OTHER EPISODES THIS SHIFT. REMAINS SLEEPING AT BEDSIDE. VERY COOPERATIVE AND APPROPRIATE. WILL CONTINUE TO MONITOR PT UNTIL REPORT IS HANDED OFF TO ONCOMING RN.
--- NOTE | 2018-07-30 07:30 | NUR ---
ASSUMED CARE RECEIVED REPORT ON PT FROM [facility], PT IS INTUBATED ON VENT CMV AC 18,PS 20/5, FIO2 40%. PT RECIEVING PROPOFOL AT 65MCG/KG/MIN, PRECEDEX 0.7MCG/KG/HR, AND FENTANYL 35MCG/HOUR. PT IS ADEQUETLY SEDATED AT THIS TIME.
--- NOTE | 2018-07-30 12:14 | NUR ---
ETHAN IN ROOM ASSESSING PATIENT. GOING TO DO A SBT TOMORROW, WANTS TO WEAN PROPOFOL, AND EDUCATED : EV HORTON SITUATION.
--- NOTE | 2018-07-30 13:03 | NUR ---
Met pt lying in bed and on Vent , talked spouse in the room and prayed for the pt.
[2018-07-30 18:02] LABS: Vancomycin, Trough 14.3 ug/mL (5.0-10.0)
--- NOTE | 2018-07-30 18:23 | NUR ---
SHIFT SUMMARY PT REMAINS INTUBATED ON VENT CMV AC18, PS 20/5, 30% FIO2. PT RESPONDS TO PAIN AND CAN FOLLOW SIMPLE COMMANDS, BUT NOT CONSISTENT. ORIGINAL PLAN WAS TO WEAN SEDATION FOR A SBT 07/31, HOWEVER, PT WAS INCREASINGLY RESTLESS THIS EVENING AROUND 1729; PROPOFOL WAS TURNED BACK UP AND PRN VERSED, ATIVAN, AND FENTANYL GIVEN. FINALLY HAVE PT ADEQUETLY SEDATED AT 1830, HOWEVER, IS EXTREEMLY TACHYPNIC. PT IS SWOLLEN IN THE UPPER EXTREMETIES AND HAS TRACK HOROWITZ FROM PAST IV HEROIN USE. EV, , HAS BEEN AT BEDSIDE FOR MAJORITY OF DAY, EDUCATED ON SEDATION/ANALGESIA USE.
--- NOTE | 2018-07-30 19:00 | NUR ---
ASSUME CARE; REPORT RECIEVED FROM OFF GOING RNS YAKELIN AND THEODORA. MONITOR INTACT SHOWING SINUS RHYTHM. HEART RATE 60'-80,S, LUNG SOUNDS CLEAR UPPER LOBES DECREASED SOUNDS IN THE BASES. VENT SETTINGSPS 20/5 FIO30% RATE 20'S-40'S, SPO2 97-100% LUNG SOUNDS CLEAR UPPPER LOBES WITH DECREASED SOUNDS IN THE BASES. MINIMAL TUBE FEEDING RESIDUAL REFED DURING ORAL CEAR. MINIMAL ETT AND ORAL SECREATIONS ABDOMEN SOFT WITH BOWEL SOUNDS FOUR QUADS. B[place]IG[place] PATENT DRAINING GREENISH SALEEM URINE. PAS TO LOWER EXTREMITIES ALL EXTREMITIES ELEVATED ON PILLOWS SECONDARY TO GENERALIZED PITTING EDEMA . BATH , SHAMPOO AND LINIEN CHANGE COMPLETED/ CONTINUE TO MONITOR AND REPORT CHANGE IN PATIENT CONDITION.
[2018-07-31 04:24] LABS: Hematocrit 26.6 % (37.0-53.0); Hemoglobin 8.3 g/dL (13.5-17.5); Mean Corpuscular HGB 26.8 pg (26.0-34.0); Mean Corpuscular HGB Conc 31.2 g/dL (31.5-36.5); Mean Corpuscular Volume 86 fL (80-100); Mean Platelet Volume 10.9 fL (9.1-12.4); Platelet Count 177 K/mm3 (150-400); RDW Standard Deviation 49.5 fL (35.1-46.3); White Blood Cell Count 11.77 K/mm3 (4.00-11.30)
[2018-07-31 04:49] LABS: Alanine Aminotransfer (ALT/SGP 20 U/L (12-78); Albumin, Blood 2.3 g/dL (3.4-5.0); Albumin/Globulin Ratio 0.6 (0.8-1.8); Alk Phos 86 U/L (50-136); Anion Gap 8 mmol/L (6-16); Aspartate Aminotrans (AST/SGOT 11 U/L (12-37); Bilirubin, Total 0.5 mg/dL (0.1-1.0); Blood Urea Nitrogen 44 mg/dL (8-24); Bun/Creatinine Ratio 58.2 (12.0-20.0); CO2, Blood 25 mmol/L (21-32); Calcium, Blood 7.8 mg/dL (8.5-10.1); Chloride, Blood 114 mmol/L (98-108); Creatinine, Blood 0.76 mg/dL (0.60-1.20); Globulin, Blood 3.8 g/dL (2.2-4.0); Glomerular Filtration Rate >60 (60-); Glucose, Blood 135 mg/dL (70-99); Magnesium, Blood 2.5 mg/dL (1.6-2.4); Phosphorus, Blood 3.7 mg/dL (2.5-4.9); Potassium, Blood 3.7 mmol/L (3.5-5.5); Sodium, Blood 147 mmol/L (136-145); Total Protein, Blood 6.1 g/dL (6.4-8.2)
[2018-07-31 04:52] LABS: BAND PERCENT MAN 3 % (0-8); BASOPHILS PERCENT MAN 0 % (0-2); EOSINOPHILS PERCENT MAN 0 % (0-6); LYMPHOCYTES ABSOLUTE MAN 0.82 K/mm3 (0.84-5.20); LYMPHOCYTES PERCENT MAN 7 % (21-46); METAMYELOCYTE ABSOLUTE MAN 0.47 K/mm3 (0.00-0.00); METAMYELOCYTE PERCENT MAN 4 % (0-0); MONOCYTES ABSOLUTE MAN 0.23 K/mm3 (0.16-1.47); MONOCYTES PERCENT MAN 2 % (4-13); MYELOCYTE ABSOLUTE MAN 0.11 K/mm3 (0.00-0.00); MYELOCYTE PERCENT MAN 1 % (0-0); NEUTROPHILS ABSOLUTE MAN 10.12 K/mm3 (1.96-9.15); SEG NEUTROPHILS PERCENT MAN 83 % (41-73); TOTAL CELLS COUNTED 100
[2018-07-31 05:01] LABS: PCO2 Arterial 30.7 mmHg (35-45); PO2 Arterial 73.8 mmHg (80-100); pH Blood Arterial 7.51 (7.35-7.45)
--- NOTE | 2018-07-31 05:28 | NUR ---
SHIFT SUMMARY: MONITOR INTACT SHOWING SINUS RHYTHM. HEART RATE 50'S-80'S. VENT SETTINGS PS 18/5 WITH FIO2 30%. RESPIRATIONS 27-30'S. LUNG SOUNDS CLEAR UPPER LOBES WITH DECREASED SOUNDS IN THE BASES. ABDOMEN SOFT WITH BOWEL SOUNDS FOUR QUADS. [place] PATENT DRAINING GREEN SALEEM URINE. PEDAL PULSES PRESETN PAS TO LOWER EXTREMITIES. GENERALIZED DEPENDENT EDEMA ESPECIALLY TO HANDS . EXTREMITIES ELEVATED ON PILLOWS. REMAINS IN SOFT WRIST RESTRAINTS TO PREVENT INADVERTENT REMOVAL OF LINES/TUBES. REMAINS AT BEDSIDE ATTENTIVE TO NEEDS/CARES. CONTINUE TO MONITOR AND REPORT CHANGE IN PATIENT CONDITION.
--- NOTE | 2018-07-31 08:27 | NUR ---
INITIAL ASSESSMENT PT IS VENTILATED AND ON SEDATION WITH AT THE BEDSIDE. PT IS RESPONDING TO VERBAL STIMULI, ALSO RESPONDING TO SOME COMMANDS AND NODDING HEAD TO SOME QUESTIONS. PT IS AFEBRILE. PT LUNG SOUNDS ARE CLEAR IN THE BUL, DIMINISHED LLL, COARSE IN THE RLL. PT WAS SATTING 90% OR GREATER ON VENT SETTINGS OF PS 18/5, FIO2 30%. HR IS IN THE 60S. BP IS STABLE. ABDOMEN IS SOFT, NONTENDER TO PALPATION. NORMOACTIVE BS T/O. OG IN PLACE WITH VHP INFUSING AT GOAL RATE OF 30 ML/HR. 100 ML FREE WATER FLUSH Q4H. RESIDUAL OF 25 ML REINSTILLED. PRN BOWEL CARE ORDERED DUE TO LAST BM BEING 07/22. BARRIGA IS PATENT AND IN PLACE, DRAINING CLEAR GREEN URINE TO GRAVITY. PT HAS SCATTERED SCABS AND BRUISES THROUGHOUT. HX OF HEROIN ABUSE. PT HAS PICC IN THE SAM. PROPOFOL 65 MCG/KG/MIN, PRECEDEX 0.7 MCG/KG/HR, FENTANYL 35 MCG/HR, NS TKO. NO OTHER ACUTE CHANGES TO NOTE ON AT THIS TIME. BED LOW, CALL LIGHT IN REACH. WILL CONTINUE TO MONITOR.
--- NOTE | 2018-07-31 08:47 | NUR ---
PATIENT PLACED ON SEDATION VACATION PER DR. LONG. PATIENT DID NOT LAST LONG RR IN THE 40S, SBP TO THE 230S, PATIENT VERY AGITATED. PATIENT PLACED BACK ON PROPOFOL AT 40 MCG/ KG/ MINUTE AND 2 MG IV ATIVAN GIVEN.
--- NOTE | 2018-07-31 13:05 | NUR ---
PATIENT IS INTUBATED AND ON SEDATION. AT THE BEDSIDE. PATIENT IS AFEBRILE. PATIENT CONTINUES TO HAVE PERIODS OF SOME AGITATION WITH NURSING CARE. PATIENT IS SATTING 90% OR GREATER ON CURRENT VENT SETTINGS: AC 18, PC 18, PEEP 5, 30% FIO2. SCANT AMOUNT OF THICK FROST SPUTUM BEING SUCTIONED FROM ETT. NSR W HR IN THE 70S. BP IS STABLE. ABDOMEN IS SOFT, NONTENDER ON PALPATION. HARD BOWEL UPON DIGITAL STIMULATION. OG IN PLACE. VHP INFUSING AT GOAL RATE OF 30 ML/HR. FLUSH INCREASED TO 200 ML Q4 [address] LONG. RESIDUAL OF 70 REINSTILLED. MILK OF MAG AND SUPPOSITORY GIVEN. BARRIGA IS PATENT AND DRAINING GREEN CLEAR URINE TO GRAVITY. PATIENT IS HAVING ADEQUATE URINE OUTPUT. PROPOFOL 50 MCG/KG/MIN. PRECEDEX 0.7 MCG/KG/HR. FENTANYL 35 ML/HR. NO OTHER ACUTE CHANGES TO NOTE ON AT THIS TIME. BED LOW, CALL LIGHT IN REACH. WILL CONTINUE TO MONITOR.
--- NOTE | 2018-07-31 13:44 | NUR ---
Pt. is on vent the spouse is not in the room offered prayers for the pt.
--- NOTE | 2018-07-31 14:15 | NUR ---
PATIENT IS VENTILATED AND ON SEDATION. PT AFEBRILE. FAMILY AT BEDSIDE. PATIENT STILL SATTING 90% OR GREATER ON VENT SETTINGS: AC 18, PC 18, PEEP 5, 30% FIO2. PATIENT IS NSR W HR IN THE 70S. BP IS STABLE. MILK OF MAG AND SUPPOSITORY WERE GIVEN. PT HAD A LARGE BM WITH FIRM AND LIQUID STOOL. OG IS IN PLACE WITH VHP INFUSING AT GOAL RATE OF 30 ML/HR, WITH A 200 ML FLUSH EVERY 4 HOURS. RESIDUALS WERE 5 ML REINSTILLED. BARRIGA IN PLACE DRAINING GREEN CLEAR URINE. PROPOFOL 60 MCG/KG/MIN, PRECEDEX IS 0.7 MCG/KG/HR, FENTANYL 35 ML/HR. NO OTHER ACUTE CHANGES TO NOTE AT THIS TIME. BED LOW, CALL LIGHT IN REACH. WILL CONTINUE TO MONITOR.
--- NOTE | 2018-07-31 18:39 | NUR ---
SHIFT SUMMARY PT IS INTUBATED AND ON SEDATION. IS AT THE BEDSIDE. PT IS AFEBRILE. PT HAS DIMINISHED LUNG SOUNDS T/O. PT SATTING 90% OR GREATER ON CURRENT VENT SETTINGS: AC 18, PC 18, PEEP 5, 30% FIO2. PROPOFOL PLACED ON SB THIS AM WELL PT PLACED ON PS. PT CHANGED BACK TO AC SETTINGS. PROPOFOL TURNED BACK ON SHORTLY AFTER FOR INCREASED AGITATION, RESPIRATORY RATE, AND BP. NSR W HR IN THE 70S. SBP RANGED FROM 90S-230S DEPENDING ON IF PT WAS AGITATED OR SEDATED. PT HAD TWO BM'S THROUGHOUT THE SHIFT TODAY, BOTH BROWN WITH FIRM, FORMED, AND LIQUID STOOL. OG IS IN PLACE INFUSING VHP AT GOAL RATE OF 30 ML/HR WITH A 200 ML FLUSH EVERY 4 HOURS. RESIDUALS REINSTILLED THIS SHIFT HAVE RANGED BETWEEN 5-[address] DRAINING CLEAR GREEN URINE. NO CHANGES IN SKIN THIS SHIFT. PROPOFOL 35 MCG/KG/MIN. PRECEDEX 0.7 MCG/KG/HR. FENTANYL 35 MCG/HR. NS TKO. BED LOW, CALL LIGHT IN REACH. WILL REPORT TO ONCOMING RN.
--- NOTE | 2018-07-31 19:20 | NUR ---
ASSUME CARE REPORT RECIEVED FROM OFF GOING RN ELSA AND RN YEYO KERN. MONITOR INTACT SHOWING SINUS RHYTHM/SINUS WILMER HEART RATE 50'S-60'S. OPENS EYES TO TACTILE/VERBAL STIMULI. DOES NOT FOLLOW INSTRUCTIONS/REQUESTS. VENT SETTINGS REMAIN PC 18/5 FIO2 30% RATE MID 20'S, SPO2 92-94% LUNG SOUNDS CLEAR UPPER LOBESWITH MINIMAL SECRETIONS ORALLY AND PER ETT. 15ML TUBE FEED REFED WITH ORAL CARE. BARRIGA PATENT DRAINING SALEEM GREEN URINE. PAS TO LOWER EXTREMITIES. REMAINS IN SOFT WRIST RESTRAINTS, TO PREVENT INADVERTENT REMOVAL OF LINES/TUBES.GENERALIZED DEPENDENT EDEMA TO ALL EXTREMITIES. UPPER EXTREMITIES ELEVATED ON PILLOWS. AT BEDSIDE ATTENTIVE TO NEEDS CARES. CONTINUE TO MONITOR AND REPORT CHANGE IN PATIENT CONDITION. RT IN TO RETAPE ETT TUBING
--- NOTE | 2018-08-01 04:50 | NUR ---
SBT; SEDATION ON STANDBY FOR SPONTANEOUS BREATHING TRIAL. SEE VS FLOW SHEET AND EMAR FOR MEDS. OPENS EYES AND ATTEMPTS TO FOLLOW DIRECTIONS ABLE TO NOD SHAKE HEAD TO SIMPLE YES /NO QUESTIONS. AT 0515 INDICATES IS ANXIOUS AND HAVING ANXIETY MEDICATED WITH 2MG IV ATIVAN. AT BEDSIDE. STATES SHE IS HELPING WITH ANXIETY. BLOOD PRESSURE ELEVATION NOTED. RESPIRATORY RATE IS IN 20'S-30'S SEE RT NOTES AND FLOWSHEET. SBT STOPED AT 0530 AND SEDATION RESUMED CONTINUE TO MONITOR AND REPORT CHANGE IN PATIENT CONDITION.
[2018-08-01 05:38] LABS: BASOPHILS ABSOLUTE AUTO 0.01 K/mm3 (0.00-0.23); BASOPHILS PERCENT AUTO 0 % (0-2); EOSINOPHILS ABSOLUTE AUTO 0.01 K/mm3 (0.00-0.68); EOSINOPHILS PERCENT AUTO 0 % (0-6); Hematocrit 27.7 % (37.0-53.0); Hemoglobin 8.5 g/dL (13.5-17.5); IMMATURE GRAN PERCENT AUTO 4 % (0-1); LYMPHOCYTES ABSOLUTE AUTO 1.32 K/mm3 (0.84-5.20); LYMPHOCYTES PERCENT AUTO 12 % (21-46); MONOCYTES ABSOLUTE AUTO 0.32 K/mm3 (0.16-1.47); MONOCYTES PERCENT AUTO 3 % (4-13); Mean Corpuscular HGB 26.5 pg (26.0-34.0); Mean Corpuscular HGB Conc 30.7 g/dL (31.5-36.5); Mean Corpuscular Volume 86 fL (80-100); Mean Platelet Volume 11.4 fL (9.1-12.4); NEUTROPHILS ABSOLUTE AUTO 9.17 K/mm3 (1.96-9.15); NEUTROPHILS PERCENT AUTO 81 % (41-73); Platelet Count 161 K/mm3 (150-400); RDW Coefficient Variation 16.3 % (11.7-14.2); RDW Standard Deviation 49.4 fL (35.1-46.3); Red Blood Cell Count 3.21 M/mm3 (4.30-5.90); White Blood Cell Count 11.33 K/mm3 (4.00-11.30)
[2018-08-01 05:46] LABS: PCO2 Arterial 31.5 mmHg (35-45); PO2 Arterial 67.8 mmHg (80-100); pH Blood Arterial 7.51 (7.35-7.45)
[2018-08-01 05:55] LABS: Anion Gap 9 mmol/L (6-16); Blood Urea Nitrogen 43 mg/dL (8-24); Bun/Creatinine Ratio 54.7 (12.0-20.0); CO2, Blood 26 mmol/L (21-32); Calcium, Blood 8.1 mg/dL (8.5-10.1); Chloride, Blood 112 mmol/L (98-108); Creatinine, Blood 0.79 mg/dL (0.60-1.20); Glomerular Filtration Rate >60 (60-); Glucose, Blood 137 mg/dL (70-99); Magnesium, Blood 2.7 mg/dL (1.6-2.4); Phosphorus, Blood 4.1 mg/dL (2.5-4.9); Sodium, Blood 147 mmol/L (136-145); Vancomycin, Trough 13.1 ug/mL (5.0-10.0)
--- NOTE | 2018-08-01 07:33 | NUR ---
shuift summary REMAINS INTUBATED SEDATED AND RESTRAINED. MONITOR INTACT SHOWING SINUS RHYTHM. HEART RATE 50'S-70'S. VENT SETTINGS PC 18/5 WITH FIO2 LUNG SOUNDS CLEAR UPPER LOBES WITH MINIMAL ORAL SECRETIONS AND PER ETT. MINIMAL TUBE FEED RESIDUAL REFED DURING ORAL CARE. 15,20, AND 10 ML RESPECTIVILY. ABDOMEN SOFT WITH BOWEL SOUNDS FOUR QUADS. ATTENDS IN PALCE WITH TWO SMALL SMEARS THIS SHIFT. BARRIGA PATENT DRAINING GREENISH SALEEM UIRINE. GENERALIZED GENERALIZED EDEMA WITH EXTREMITIES ELEVATED ON PILLOWS. PAS TO LOWER EXTREMITIES. REMAINS IN SOFT WRIST RESTRAINTS TO PREVENT INADVERTENT EXTUBATION. AT BEDSIDE ATTENTIVE TO NEEDS AND CARES. CONTINUE TO MONITOR AND REPORT CHANGE IN PATIENT CONDIITION. 35%
--- NOTE | 2018-08-01 10:45 | NUR ---
PT HAS BEEN CALM WITH EVEN RR NOTED IN UPPER TEENS TO LOW 20 RANGE ON MEDICATIONS NOTED. PT HS MINIMAL ET SECREATIONS. NO DISTRESSES AT THIS TIME EVEN WITH CURRENT PROPOFOL LEVEL AT 30MCG, WILL FOLLOW AND ATTEMPT TO TITRATE ABLE. IN ROOM TO VISIT.
--- NOTE | 2018-08-01 13:16 | NUR ---
1225 PT PREPED FOR EXTUBATION, TF OFF AND OG TO SX W/O RESULTS, ORAL AND ETT SX., EXTUBATED AND PLACED ON 4L THEN DOWN TO 2L NC W/O DISTRESS. PT STOOLING SMALL AMOUNTS VERY SOFT STOOL. FENT GTT AT 35MCG AND PRECEDEX GTT AT 0.7 MCG REMAINS INFUSING AND UNCHANGED. PT RR PRE EXT WAS 22-26 AND BP SL ELEVATED NOTED, SEE VS FLOWSHEET. RESTRAINTS D/C
--- NOTE | 2018-08-01 15:15 | NUR ---
1510 PT TAKING CL LIQ ICE CHIPS THEN STRAW AND H20 W/O DISTRESS AND DAVEY. WELL. PT IS RESTING CALMLY AND IS VERBAL AND COOPERATIVE.
--- NOTE | 2018-08-01 18:30 | NUR ---
PT HAS BEEN INSTRUCTED IN I.S. AND FLUTTER VALVES. PT REMAINS QUITE ALERT AND TALKITIVE ON 2L NC, FENT ICT PROJECT MANAGER OF 35MCG AND PRECEDEX GTT OF 0.7 MCG. PT I/O NOTED. PT HAS GOOD COUGH EFFORT BUT VERY LITTLE SPUTUM PRODUCTION. IS TAKING PO WELL HAD HAVE ADVANCED TO FULL LIQ FOR NOW.
--- NOTE | 2018-08-01 18:49 | NUR ---
FENTANYL DELIVERY NOTE. 19.2 ML DELIVERED X 25MCG/DT=845 MCG DELIVERED THIS SHIFT. PUMP INDICATED 7.8 LEFT TO BE DELIVERED. KRISTINA GUTIERREZ WITNESSED PUMP SETTINGS AND CHARTING.
--- NOTE | 2018-08-01 21:37 | NUR ---
ASSUMING CARE RECEIVED PT REPORT FROM UTE YIP. PT IS ALERT AND ORIOENTED AT THIS TIME. PT WAS EXTUBATED ON DAY SHIFT PER REPORT. PT IS NOW ON 2L O2 VIA NC WITH SPO2 IN THE MID 90'S. SOME SLIGHT COARSNESS NOTED IN THE UPPER LOBES. PT IS DECONDITIONED, BUT IS ABLE TO ASSIST WITH REPOSITIONING. PT IS RECEIVING NS AT TKO, PRECEDEX AT 0.7MCG/KG/HR, AND FENTANYL LEGAL WORD PROCESSOR AT BASE RATE OF 35MCG/HR. PT HR IS IN THE 60-70 RANGE AND IS SINUS. PT BP IS IN THE 140'S AT THIS TIME. PT HAS BARRIGA CATH IN PLACE, CURRENTLY PATENT AND DRAINING CLEAR YELLOW URINE. PT IS TOLERATING PO INTAKE WELL AT THIS TIME. ASSUMED CARE OF PT AT THE TIME OF SHIFT REPORT. WILL CONTINUE TO MONITOR PT.
[2018-08-02 03:54] LABS: BASOPHILS ABSOLUTE AUTO 0.01 K/mm3 (0.00-0.23); BASOPHILS PERCENT AUTO 0 % (0-2); EOSINOPHILS ABSOLUTE AUTO 0.03 K/mm3 (0.00-0.68); EOSINOPHILS PERCENT AUTO 0 % (0-6); Hematocrit 26.1 % (37.0-53.0); Hemoglobin 8.3 g/dL (13.5-17.5); IMMATURE GRAN ABSOLUTE AUTO 0.23 K/mm3 (0.00-0.10); IMMATURE GRAN PERCENT AUTO 2 % (0-1); LYMPHOCYTES ABSOLUTE AUTO 1.39 K/mm3 (0.84-5.20); LYMPHOCYTES PERCENT AUTO 12 % (21-46); MONOCYTES PERCENT AUTO 3 % (4-13); Mean Corpuscular HGB 26.9 pg (26.0-34.0); Mean Corpuscular HGB Conc 31.8 g/dL (31.5-36.5); Mean Corpuscular Volume 85 fL (80-100); Mean Platelet Volume 11.2 fL (9.1-12.4); NEUTROPHILS ABSOLUTE AUTO 10.06 K/mm3 (1.96-9.15); NEUTROPHILS PERCENT AUTO 84 % (41-73); Platelet Count 148 K/mm3 (150-400); RDW Coefficient Variation 15.3 % (11.7-14.2); RDW Standard Deviation 44.8 fL (35.1-46.3); Red Blood Cell Count 3.08 M/mm3 (4.30-5.90); White Blood Cell Count 12.02 K/mm3 (4.00-11.30)
[2018-08-02 04:13] LABS: Anion Gap 7 mmol/L (6-16); Blood Urea Nitrogen 31 mg/dL (8-24); Bun/Creatinine Ratio 47.3 (12.0-20.0); CO2, Blood 25 mmol/L (21-32); Chloride, Blood 111 mmol/L (98-108); Creatinine, Blood 0.66 mg/dL (0.60-1.20); Glomerular Filtration Rate >60 (60-); Glucose, Blood 122 mg/dL (70-99); Magnesium, Blood 2.2 mg/dL (1.6-2.4); Potassium, Blood 3.8 mmol/L (3.5-5.5); Sodium, Blood 143 mmol/L (136-145)
[2018-08-02 04:46] LABS: PCO2 Arterial 28.7 mmHg (35-45); PO2 Arterial 58.4 mmHg (80-100); pH Blood Arterial 7.53 (7.35-7.45)
--- NOTE | 2018-08-02 06:37 | NUR ---
SHIFT SUMMARY NOTE PT HAS REMAINED ALERT AND ORIENTED THROUGH THE NIGHT. PT HAS REMAINED AWAKE THROUGH MOST OF THE NIGHT. PT CONTINUES TO RECEIVE NS AT TKO, AND FENTANYL AT 35MCG/HR. PT PRECEDEX WAS TITRATED DOWN TO 0.3MCG/KG/HR, BUT HAD TO BE RETURNED TO 0.7MCG/KG/HR AFTER PT HAD INCREASING ANXIETY AT APPROX 0520. AT APPROX 0520 PT HR INCREASED TO THE 90'S, BP INCREASED TO THE 190'S SYSTOLIC. PT ALSO BEGAN TO SDESATUIRATE INTO THE HIGH 80'S. PT O2 WAS INCREASED FROM 2L VIA NC TO APPROX 6L NC. PT REPORTED INCREASING ANXIETY AND SOB. PT WAS PROVIDED ATIVAN WITH SOME EFFECT AND WAS INSTRUCTED TO BREATH THROUGH NC MORE SLOWLY. PT ANXIETY BEGAN TO DECREASE AND SPO2 INCREASED TO THE LOW 90'S. PT O2 VIA NC REMAINS AT 6L O2 VIA NC. PT REMAINS AT BEDSIDE. PT HAD APPROX 1400 ML OF DARK URINE OUTPUT FROM BARRIGA CATH. PT HAS BEEN ABLE TO ASSIST WITH TURNS THROUGHOUT THE NIGHT. PT HAS TOLERATED PO INTAKE WELL. WILL REPORT OFF TO [facility] DAY SHIFT NURSE.
--- NOTE | 2018-08-02 10:34 | NUR ---
PT C/O ANXIETY AND SOB, LS CLEAR IN UPPER LOBES, COARSE IN BASES, SPO2 94% 4L/NC, HR 77, BP 146/85. ATIVAN ADMINISTERED PER ORDERS.
[2018-08-02 17:32] LABS: Vancomycin, Trough 11.5 ug/mL (5.0-10.0)
--- NOTE | 2018-08-02 19:00 | NUR ---
SHIFT SUMMARY: NO ACUTE CHANGES NOTED T/O THE DAY. COMPTROLLER WAS DC'D PER DR LONG'S ORDERS, FENTANYL PATCH PLACED PER ORDERS ON L BACK UPPER SHOLDER. PT HAS BEEN UP TO THE RECLINER TWICE TODAY WITH 2 PERSON ASSIST /C FWW AND GAIT BELT. PT IN TO WORK WITH PHYSICAL THERAPY. PT IS NOTED TO BE VERY WEAK, DIFFICULTY HOLDING CUP OF LIQUID INDEPENDENTLY OR STANDING FOR VERY LONG. PRECEDEX WAS TITRATED DOWN TO 0.4 MCG/KG/HR IN ATEMPT TO DISCONTINUE ALL TOGETHER. REPORT GIVEN TO NOC UTE CARDENAS. CALL LIGHT IN REACH.
--- NOTE | 2018-08-02 22:57 | NUR ---
ASSUMING CARE RECEIVED PT REPORT FROM UTE GEE. PT IS ALERT AND ORIENTED AT THE TIME CARE ASSUMED. PT IS ON 3L O2 VIA NC. PT LUNG SOUNDS ARE CLEAR IN THE UPPER LOBES AND DIMINISHED WITH A FAINT WHEEZE IN THE LOWER LOBES. SPO2 IS MAINTAINING IN THE MID 90'S AT THIS TIME. PT IS RECEIVING PRECEDEX AT 0.4 MCG/KG/HR AT THE TIME CARE ASSUMEED. PRECEDEX TITRATED DOWN AND PLACED ON STANDBY AT THE TIME OF INITIAL ASSESSMENT. PT IS RECEIVING NS AT [facility]. PT HAS BARRIGA CATH IN PLACE. CURRENTLY PATENT AND DRAINING CLEAR YELLOW URINE. PT HR IS IN THE 70-80 RANGE. PT BP IS ELEVATED AT TIMES INTO THE 150'S. ASSUMED CARE OF PT AT THE TIME OF SHIFT REPORT. WILL CONTINUE TO MONITOR PT.
[2018-08-03 05:08] LABS: BASOPHILS ABSOLUTE AUTO 0.02 K/mm3 (0.00-0.23); BASOPHILS PERCENT AUTO 0 % (0-2); EOSINOPHILS ABSOLUTE AUTO 0.03 K/mm3 (0.00-0.68); EOSINOPHILS PERCENT AUTO 0 % (0-6); Hematocrit 27.6 % (37.0-53.0); Hemoglobin 8.9 g/dL (13.5-17.5); IMMATURE GRAN ABSOLUTE AUTO 0.15 K/mm3 (0.00-0.10); IMMATURE GRAN PERCENT AUTO 1 % (0-1); LYMPHOCYTES PERCENT AUTO 11 % (21-46); MONOCYTES ABSOLUTE AUTO 0.47 K/mm3 (0.16-1.47); MONOCYTES PERCENT AUTO 3 % (4-13); Mean Corpuscular HGB 27.7 pg (26.0-34.0); Mean Corpuscular HGB Conc 32.2 g/dL (31.5-36.5); Mean Corpuscular Volume 86 fL (80-100); Mean Platelet Volume 11.2 fL (9.1-12.4); NEUTROPHILS PERCENT AUTO 84 % (41-73); Platelet Count 175 K/mm3 (150-400); RDW Coefficient Variation 15.7 % (11.7-14.2); RDW Standard Deviation 46.2 fL (35.1-46.3); Red Blood Cell Count 3.21 M/mm3 (4.30-5.90); White Blood Cell Count 14.47 K/mm3 (4.00-11.30)
--- NOTE | 2018-08-03 05:30 | NUR ---
SHIFT SUMMARY NOTE PT HAS REMAINED ALERT AND ORIENTED THROUGH THE NIGHT WHILE AWAKE. PT REMAINS ON 3L O2 VIA NC. PT HAS MAINTAINED SPO2 IN THE 90'S THROUGHOUT THE NIGHT. PT PRECEDEX WAS TITRATED DOWN AND PLACED ON STANDBY SHORTLY AFTER THE START OF SHIFT. PT CONTINUES TO RECEIVE NS AT [facility] FOR INFUSION OF ANTIBIOTICS. PT HAS HAD MULTIPLE LARGE LOOSE STOOLS THROUGH THE NIGHT. STOOLS HAVE BEEN BROWN. PT CONTINUES TO TOLERATE PO LIQUIDS. PT HAS HAD A POOR APPETITE. PT HAD APPROX 1000ML OF URINE OUTPUT, URINE REMAINS DARK. PT BP CONTINUES TO BE LABILE AND WILL INCREASE INTO THE 160-170'S AT TIMES. PT WAS PROVIDED FENTANYL X1 AND TYLENOL X1 THROUGH THE NIGHT FOR PAIN. NO ACUTE CHANGES OVERNIGHT. WILL REPORT OFF TO ONCOMING DAY SHIFT NURSE.
[2018-08-03 05:32] LABS: Anion Gap 5 mmol/L (6-16); Blood Urea Nitrogen 24 mg/dL (8-24); Bun/Creatinine Ratio 38.5 (12.0-20.0); CO2, Blood 25 mmol/L (21-32); Calcium, Blood 7.9 mg/dL (8.5-10.1); Chloride, Blood 110 mmol/L (98-108); Creatinine, Blood 0.62 mg/dL (0.60-1.20); Glomerular Filtration Rate >60 (60-); Glucose, Blood 134 mg/dL (70-99); Potassium, Blood 3.6 mmol/L (3.5-5.5); Sodium, Blood 140 mmol/L (136-145)
--- NOTE | 2018-08-03 07:51 | NUR ---
pt laying in bed awake a/ox3, pleasant and cooperative with care, follows commands well, states he is feeling much better than he was, lungs are clear in upper salgado, dim in bases, with occ wheeze in bases, resp even and unlabored recieving breathing tx at this time, is on 3 liters 02 via n/c, no cough noted at this time, hrr, monitor in place running sr per monitor, see strip, no edema noted to b/l le, ppp+2, cap refill <3sec, vs stable, afebrile, iv is picc line to ayad, site is clear and patent, btx4, abd flat soft nontender, per report had three loose bm's last night will hold stool softener this am, carbajal cath draining clear boogie urine, skin has bruisings to b/l arms, terrazzo mechanic helper are strong, feet are strong pushing down, but pulling back is weak, med, call light in reach.
--- NOTE | 2018-08-03 12:12 | NUR ---
pt had incont stool in attends, gave him a complete bed bath, got him up to chair, he stood well, but legs seemed weak, needed support to move to chair, sitting up in chair for lunch. in room. RT is giving him a breathing tx may wean 02 down. call light in reach.
--- NOTE | 2018-08-03 15:24 | NUR ---
PT HAS BEEN MADE MEDICAL STATUS, WITH TELE, REPORT WAS GIVEN TO Tyson UNGER, WILL TAKE PT VIA BED TO ROOM 308, INFORMED HIS . WILL TAKE ALL BELONGINGS.
--- NOTE | 2018-08-03 16:04 | NUR ---
PT HAS BEEN TRANSFERED VIA BED.
--- NOTE | 2018-08-03 16:38 | NUR ---
PATIENT TRANSFERRED TO ROOM 308, REPORT RECEIVED FROM UTE DUNLAP IN ICU. PATIENT IS A/O4, EV AT BEDSIDE. 2LO2 TO MAINTAIN SATS, LUNGS WITH EXP WHEEZES AND DIMINISHED. PATIENT REPORTS GOOD PAIN CONTROL AT THIS TIME. REDNESS TO KEVIN AREA, AND BRUISES SCATTERED TO BUE. PATIENT DENIES ANY NAUSEA OR ABDOMINAL PAIN. BARRIGA PATENT AND DRAINING TO GRAVITY. TOLERATING MECHANICAL SOFT DIET. PICC TO R UPPER ARM WNL AND SL. PATIENT ORIENTED TO ROOM AND USE OF CALL LIGHT. INSTRUCTED TO CALL FOR ASSISTANCE.
[2018-08-03 17:47] LABS: Vancomycin, Trough 14.5 ug/mL (5.0-10.0)
--- NOTE | 2018-08-03 20:00 | NUR ---
Met with home care aide to review pt interview and issues of pain managment and substance abuse. Pt is reccomended for rehab. Consulted with Carmen Ward Director of Rehab serviceand lucyer of peristant pain program. Ask The he reach out to pt while he is inpatient to see if we could affer help. Tong had exptensive conversation with the patient his son and about his chronic pain and turning to street drugs for managment of symptoms. Pt was presented with supportiv strategies of care for outpatient. Very supportive and Plan offered from to patient. Will put in chaplian consult for supportive add iction care and Will follow with pt for symptom management.
[2018-08-04 05:34] LABS: BASOPHILS ABSOLUTE AUTO 0.01 K/mm3 (0.00-0.23); BASOPHILS PERCENT AUTO 0 % (0-2); EOSINOPHILS ABSOLUTE AUTO 0.14 K/mm3 (0.00-0.68); EOSINOPHILS PERCENT AUTO 1 % (0-6); Hematocrit 26.5 % (37.0-53.0); Hemoglobin 8.5 g/dL (13.5-17.5); IMMATURE GRAN ABSOLUTE AUTO 0.15 K/mm3 (0.00-0.10); IMMATURE GRAN PERCENT AUTO 1 % (0-1); LYMPHOCYTES ABSOLUTE AUTO 1.55 K/mm3 (0.84-5.20); LYMPHOCYTES PERCENT AUTO 12 % (21-46); MONOCYTES ABSOLUTE AUTO 0.48 K/mm3 (0.16-1.47); MONOCYTES PERCENT AUTO 4 % (4-13); Mean Corpuscular HGB 27.7 pg (26.0-34.0); Mean Corpuscular HGB Conc 32.1 g/dL (31.5-36.5); Mean Corpuscular Volume 86 fL (80-100); Mean Platelet Volume 12.4 fL (9.1-12.4); NEUTROPHILS ABSOLUTE AUTO 11.01 K/mm3 (1.96-9.15); NEUTROPHILS PERCENT AUTO 83 % (41-73); Platelet Count 177 K/mm3 (150-400); RDW Coefficient Variation 15.7 % (11.7-14.2); RDW Standard Deviation 45.9 fL (35.1-46.3); Red Blood Cell Count 3.07 M/mm3 (4.30-5.90); White Blood Cell Count 13.34 K/mm3 (4.00-11.30)
--- NOTE | 2018-08-04 05:36 | NUR ---
ROLLED MATERIALS WORKER SUMMARY NO ACUTE CHANGES THIS SHIFT. PT AAOX4 AND COOPERATIVE WITH CARE. VERY PLEASANT. PT ON 2L O2 VIA NC WITH SATS MAINTAINING MID 90'S. PT DOES GET VERY SOB WITH EXERTION. PT COMPLAINS OF SOME DISCOMFORT OF HIS R ANKLE THAT HE SAID HE "TWEAKED A LITTLE BIT WHEN PHYSICAL THERAPY WAS HERE". PT GOT RELIEF FROM TYLENOL AND WAS ABLE TO SLEEP WELL. CONTINUES ON IV ABX. BP BETTER MANAGED WITH SCHEDULED Q6 CLONIDINE WITH SBP RANGING FROM 110-140'S. OTHER VSS, WILL CONTINUE TO MONITOR.
[2018-08-04 06:04] LABS: Albumin, Blood 2.3 g/dL (3.4-5.0); Anion Gap 8 mmol/L (6-16); Blood Urea Nitrogen 30 mg/dL (8-24); Bun/Creatinine Ratio 43.4 (12.0-20.0); CO2, Blood 23 mmol/L (21-32); Calcium, Blood 8.1 mg/dL (8.5-10.1); Chloride, Blood 112 mmol/L (98-108); Creatinine, Blood 0.69 mg/dL (0.60-1.20); Glomerular Filtration Rate >60 (60-); Glucose, Blood 118 mg/dL (70-99); Phosphorus, Blood 2.8 mg/dL (2.5-4.9); Potassium, Blood 3.5 mmol/L (3.5-5.5); Sodium, Blood 143 mmol/L (136-145)
--- NOTE | 2018-08-04 18:22 | NUR ---
PATIENT A/O THIS SHIFT, UP TO CHAIR FOR MEALS WITH FWW AND 1 ASSIST. TOLERATING REGULAR DIET. PICC LINE TO R UPPER ARM WNL AND SL. FENTANYL PATCH IN PLACE FOR PAIN, IV FENTANYL GIVEN X1 THIS SHIFT FOR BREAKTHROUGH PAIN. REDENESS/RASH TO PERIAREA, CREAM USED TO TREAT. VSS THIS SHIFT. PLAN IS TO D/C HOME NOW INSTEAD OF SNF. FAMILY AT BEDSIDE THROUGHOUT THE SHIFT AND ARE VERY SUPPORTIVE. PATIENT NOW ON RA, DENIES SOB.
--- NOTE | 2018-08-05 05:45 | NUR ---
SHIFT SUMMARY PT REPORTED FEELING ANXIOUS/AGITATED 1X LAST NIGHT & WAS MEDICATED W/ATIVAN PER ORDERS. SLEPT WELL T/O NIGHT. AOX4. VSS. REPORTED 8/10 PAIN W/HEADACHE & WAS MEDICATED 1X W/TYLENOL, REPORTS HEADACHE DECREASING WHEN REASSESSED.PT ON RA T/O NIGHT W/SPO2 >90%, STATES "MY BREATHING IS WAY BETTER," RESPIRATIONS ARE E/U. INCONTINENT OF URINE & BM THIS AM, CHANGED PRN. REDNESS IN GROIN/KEVIN AREA APPLIED BARRIER CREAM. HAS BEEN @BEDSIDE T/O NIGHT & CALL LIGHT IS IN REACH.
[2018-08-05] MEDS ORDERED: Fentanyl1 EACH TOP (09:47)
[2018-08-05] MEDS ORDERED: ACET325 PO (09:47)
[2018-08-05] MEDS ORDERED: ALBU3IS INH (09:47)
[2018-08-05] MEDS ORDERED: LIDO700A20 TOP (09:48)
[2018-08-05] MEDS ORDERED: Culturelle1 CAP PO (09:48)
[2018-08-05] MEDS ORDERED: PRED10 PO (09:49)
[2018-08-05] MEDS ORDERED: BUDE10.22 INH (09:50)
[2018-08-05] MEDS ORDERED: Flonase 0.05% N16 GM (09:52)
[2018-08-05] MEDS ORDERED: LORA.5 PO (09:52)
--- NOTE | 2018-08-05 11:06 | NUR ---
HOME HEALTH AND NEB FOR DC ORDERS FAXED TO [facility]. PT NEEDS HOME NEBULIZER- ORDERS FAXED TO [facility] AND CALL TO ANSWERING SERVICE.
[2018-08-05] MEDS ORDERED: DOCU100 PO (11:19)
[2018-08-05] MEDS ORDERED: Ferrous Sulfat325 M2 PO (11:19)
[2018-08-05] MEDS ORDERED: ASCO500 PO (11:20)
--- NOTE | 2018-08-05 12:04 | NUR ---
DISCHARGE PT DISCHARGED TO HOME WITH HOME HEALTH. THIS RN EXPLAINED DISCHARGE INSTRUCTIONS AND MEDICATIONS TO PT AND PT'S SPOUSE. THEY REPORT THEY UNDERSTAND. PICC LINE REMOVED BY SAS DEVELOPER ANALYST AND DRESSING C/D/I. MEDICATIONS FAXED TO [facility] PER REQUEST. EMILY TO BRING NEBULIZER MACHINE TO PT'S HOUSE WHEN PT CALLS TO LET THEM KNOW HE IS HOME. PT TRANSFERRED TO PRIVATE VEHICLE VIA WHEELCHAIR. BELONGINGS WITH PT'S FAMILY.
== END 2018-08-05 11:51 | disposition home health service (06) | DRG 870 ==
LOC: ER 18:35 → ICUW 21:19 → ICUE 21:19 → MEDS 07-24 17:54 → ICUW 07-25 12:51 → MEDS 08-03 15:49 → ENPENDDIS 08-05 07:52 → MEDS 08-05 11:51
PROVIDERS: Emergency Medicine; Internal Medicine; Internal Medicine Critical Care Medicine; Internal Medicine Pulmonary Disease; Nurse Practitioner Acute Care; ADMIT Internal Medicine
PROC: 5A09357 Assistance with Respiratory Ventilation, Less than 24 Consecutive Hours, Continuous Positive Airway Pressure (ICD-10-PCS; principal; 2018-07-23)
PROC: 0BH18EZ Insertion of Endotracheal Airway into Trachea, Via Natural or Artificial Opening Endoscopic (ICD-10-PCS; 2018-07-26)
PROC: 5A1955Z Respiratory Ventilation, Greater than 96 Consecutive Hours (ICD-10-PCS; 2018-07-26)
DX: A41.9 Sepsis, unspecified organism (principal); J96.01 Acute respiratory failure with hypoxia; J18.9 Pneumonia, unspecified organism; E87.2 Acidosis; J44.1 Chronic obstructive pulmonary disease with (acute) exacerbation; J44.0 Chronic obstructive pulmonary disease with (acute) lower respiratory infection; E87.0 Hyperosmolality and hypernatremia; E44.0 Moderate protein-calorie malnutrition; F19.939 Other psychoactive substance use, unspecified with withdrawal, unspecified; B19.20 Unspecified viral hepatitis C without hepatic coma; R65.20 Severe sepsis without septic shock; E87.6 Hypokalemia; K21.9 Gastro-esophageal reflux disease without esophagitis; Z79.82 Long term (current) use of aspirin; F17.210 Nicotine dependence, cigarettes, uncomplicated; B34.8 Other viral infections of unspecified site; I10 Essential (primary) hypertension; R45.1 Restlessness and agitation; F41.9 Anxiety disorder, unspecified; D63.8 Anemia in other chronic diseases classified elsewhere; E87.70 Fluid overload, unspecified; Z68.22 Body mass index [BMI] 22.0-22.9, adult; R53.81 Other malaise; R16.1 Splenomegaly, not elsewhere classified
CPT/HCPCS: 31500; 31720; 36415; 36569; 36600; 51702; 71045; 74176; 80048; 80053; 80069; 80202; 81001; 82247; 82248; 82330; 82607; 82728; 82746; 82803; 82947; 83010; 83540; 83550; 83605; 83735; 83880; 84100; 84145; 84484; 85014; 85018; 85025; 85027; 87040; 87070; 87081; 87086; 87205; 87486; 87581; 87633; 87798; 93005; 93010; 94002; 94003; 94640; 94644; 94660; 94667; 94762; 96361; 96374; 97110; 97116; 97162; 97167; 97530; 97535; 99285-25; C1751; C9113; G0480; J0360; J1650; J1940; J1956; J2060; J2250; J2543; J2704; J2920; J2930; J3010; J3370; J3480; J7030; J7040; J7050; J7120; J7512

== ENCOUNTER 2018-09-14 01:17 | Day surgery (SDC) | payer OTHER, MEDICARE ==
[~2018-09-14 01:17] MED LIST changes: +ALBU3IS INH; +Culturelle1 CAP PO; +DOCU100 PO; +Fentanyl1 EACH TOP; +Flonase 0.05% N16 GM; +LIDO700A20 TOP; +LORA.5 PO; +METO50 PO; +PRED10 PO; +SALM50IP INH
--- NOTE | 2018-09-14 16:55 | NUR ---
CALLED ADAM RASHID LINE FOR DR.STEPHEN THOMAS ON PICC LINE PLACEMENT ORDER. PT STATES ONLY GETTING ONE MORE DOSE OF IV IRON AND A CT ON Monday09/17/18. PT IS A HARD STICK, BUT ORDERS DOESN'T STATE REASONING BEHIND NEED OF PICC WHILE WE HAVE ALTERNATIVE METHODS. BRIM STRETCHING MACHINE OPERATOR DOC TERI DILLARD STATED IT WAS OK TO PLACE POWERGLIDE INSTEAD R/T PT ONLY GETTING ONE MORE DOSE OF IRON AND CT, NO APPEARANT NEED FOR LONGER TREATMENT. DATA WAREHOUSE MANAGER COMING TO INSERT POWERGLIDE THIS EVENING.
== END 2018-09-14 18:00 | disposition home or self-care (01) ==
LOC: ATC 01:17
DX: R16.1 Splenomegaly, not elsewhere classified (principal); D64.9 Anemia, unspecified; D50.9 Iron deficiency anemia, unspecified
CPT/HCPCS: 99211; C1751

== ENCOUNTER 2019-04-15 07:56 | Day surgery (SDC) | payer OTHER, MEDICARE ==
[~2019-04-15] VITALS: Ht 160 cm; Wt 64.9 kg
--- NOTE | 2019-04-15 09:33 | NUR ---
04/15/19 0933 Agata Spears History, Chart, Medications and Allergies reviewed before start of procedure. Patient confirms NPO status and agrees with scheduled surgery. 3-LEAD EKG REVIEWED WITH PHYSICIAN PRIOR TO START OF PROCEDURE. PATIENT DETERMINED TO BE ASA APPROPRIATE FOR PROPOFOL SEDATION PRIOR TO START OF PROCEDURE BY DR. SOLIS. MONITOR INTACT WITH CONTINUOUS PULSE OXIMETRY AND INTERMITTENT BP.
--- NOTE | 2019-04-15 10:55 | NUR ---
Discharge instructions reviewed with patient. Patient verbalizes understanding. Copy given to patient to take home. Discharged via wheelchair to private car for ride home. Patient up to Ambulate independently. Gait steady.
== END 2019-04-15 22:43 | disposition home or self-care (01) ==
LOC: ORSCMMR 07:56 → ORD 09:00 → ORSCMMR 22:43
PROVIDERS: Internal Medicine Gastroenterology
PROC: 0DBP8ZX Excision of Rectum, Via Natural or Artificial Opening Endoscopic, Diagnostic (ICD-10-PCS; principal; 2019-04-15 09:00)
PROC: 0DB68ZX Excision of Stomach, Via Natural or Artificial Opening Endoscopic, Diagnostic (ICD-10-PCS; principal; 2019-04-15 09:00)
DX: D64.9 Anemia, unspecified (principal); Z86.010 Personal history of colon polyps; Z80.0 Family history of malignant neoplasm of digestive organs; K62.1 Rectal polyp; J44.9 Chronic obstructive pulmonary disease, unspecified; B19.20 Unspecified viral hepatitis C without hepatic coma; I10 Essential (primary) hypertension; Z79.82 Long term (current) use of aspirin; Z79.899 Other long term (current) drug therapy
CPT/HCPCS: 88305; 88342; J2250; J2704; J7120

== ENCOUNTER 2019-10-30 14:40 | Inpatient (IN) | payer OTHER, MEDICARE ==
[~2019-10-30] VITALS: Ht 165.1 cm; Wt 67.0 kg
[2019-10-30 16:24] LABS: BASOPHILS ABSOLUTE AUTO 0.08 K/mm3 (0.00-0.23); BASOPHILS PERCENT AUTO 1 % (0-2); EOSINOPHILS ABSOLUTE AUTO 0.22 K/mm3 (0.00-0.68); EOSINOPHILS PERCENT AUTO 2 % (0-6); Hemoglobin 12.5 g/dL (13.5-17.5); IMMATURE GRAN ABSOLUTE AUTO 0.12 K/mm3 (0.00-0.10); IMMATURE GRAN PERCENT AUTO 1 % (0-1); LYMPHOCYTES ABSOLUTE AUTO 2.64 K/mm3 (0.84-5.20); LYMPHOCYTES PERCENT AUTO 18 % (21-46); MONOCYTES ABSOLUTE AUTO 0.86 K/mm3 (0.16-1.47); MONOCYTES PERCENT AUTO 6 % (4-13); Mean Corpuscular HGB 30.2 pg (26.0-34.0); Mean Corpuscular HGB Conc 29.1 g/dL (31.5-36.5); Mean Corpuscular Volume 104 fL (80-100); Mean Platelet Volume 11.4 fL (9.1-12.4); NEUTROPHILS ABSOLUTE AUTO 10.85 K/mm3 (1.96-9.15); NEUTROPHILS PERCENT AUTO 74 % (41-73); Platelet Count 175 K/mm3 (150-400); RDW Coefficient Variation 13.2 % (11.7-14.2); RDW Standard Deviation 50.6 fL (35.1-46.3); Red Blood Cell Count 4.14 M/mm3 (4.30-5.90); White Blood Cell Count 14.77 K/mm3 (4.00-11.30)
[2019-10-30 16:38] LABS: Albumin, Blood 3.5 g/dL (3.4-5.0); Albumin/Globulin Ratio 0.8 (0.8-1.8); Bilirubin, Total 0.2 mg/dL (0.1-1.0); Bun/Creatinine Ratio 17.1 (12.0-20.0); Calcium, Blood 9.3 mg/dL (8.5-10.1); Creatinine, Blood 2.57 mg/dL (0.60-1.20); Globulin, Blood 4.5 g/dL (2.2-4.0); Potassium, Blood 4.9 mmol/L (3.5-5.5)
[2019-10-30] MEDS ORDERED: LOSA50 PO (18:53)
[2019-10-30] MEDS ORDERED: AUGMENTIN 875-1 EACH PO (18:53)
[2019-10-30] MEDS ORDERED: DICLOFENAC SOD100 G1 TP (18:56)
[2019-10-30] MEDS ORDERED: ZANAFLEX4 M1 PO (18:56)
--- NOTE | 2019-10-31 04:25 | NUR ---
SHIFT SUMMARY NEW ADMIT THIS SHIFT. AAOX4. NPO THIS AM FOR PROCEDURE. DISCOMFORT CONTROLLED WITH TYLENOL + ULTRAM. NO NAUSEA/EMESIS. LARGE BUMP TO LEFT HIP WITH GAUZE OVER ASPIRATION SITE FROM ED, C/D/I. PT ABLE TO STAND TO USE RESTROOM, SBA. ORIENTED TO ROOM + CALL LIGHT USE. IVF + ABX PER ORDERS. PT RESTING WELL THIS AM WITH CALL LIGHT IN REACH.
[2019-10-31 05:31] LABS: BASOPHILS ABSOLUTE AUTO 0.03 K/mm3 (0.00-0.23); BASOPHILS PERCENT AUTO 0 % (0-2); EOSINOPHILS ABSOLUTE AUTO 0.16 K/mm3 (0.00-0.68); EOSINOPHILS PERCENT AUTO 1 % (0-6); Hematocrit 34.2 % (37.0-53.0); Hemoglobin 11.2 g/dL (13.5-17.5); IMMATURE GRAN ABSOLUTE AUTO 0.14 K/mm3 (0.00-0.10); IMMATURE GRAN PERCENT AUTO 1 % (0-1); LYMPHOCYTES ABSOLUTE AUTO 0.82 K/mm3 (0.84-5.20); LYMPHOCYTES PERCENT AUTO 7 % (21-46); MONOCYTES ABSOLUTE AUTO 0.53 K/mm3 (0.16-1.47); MONOCYTES PERCENT AUTO 4 % (4-13); Mean Corpuscular HGB 30.7 pg (26.0-34.0); Mean Corpuscular HGB Conc 32.7 g/dL (31.5-36.5); Mean Platelet Volume 10.7 fL (9.1-12.4); NEUTROPHILS ABSOLUTE AUTO 10.61 K/mm3 (1.96-9.15); NEUTROPHILS PERCENT AUTO 86 % (41-73); Platelet Count 163 K/mm3 (150-400); RDW Coefficient Variation 12.9 % (11.7-14.2); RDW Standard Deviation 44.8 fL (35.1-46.3); Red Blood Cell Count 3.65 M/mm3 (4.30-5.90); White Blood Cell Count 12.29 K/mm3 (4.00-11.30)
[2019-10-31 05:35] LABS: Mean Corpuscular Volume 94 fL (80-100)
[2019-10-31 05:50] LABS: Anion Gap 6 mmol/L (6-16); Blood Urea Nitrogen 38 mg/dL (8-24); Bun/Creatinine Ratio 23.3 (12.0-20.0); CO2, Blood 21 mmol/L (21-32); Chloride, Blood 111 mmol/L (98-108); Creatinine, Blood 1.63 mg/dL (0.60-1.20); Glomerular Filtration Rate 46 (60-); Glucose, Blood 77 mg/dL (70-99); Potassium, Blood 4.5 mmol/L (3.5-5.5); Sodium, Blood 138 mmol/L (136-145); Vancomycin, Random 17.1 ug/mL
--- NOTE | 2019-10-31 09:46 | NUR ---
INTO SDS FROM RADIOLOGY AND PLACED IN BAY 9 ADMISSION TO UNIT STARTED
--- NOTE | 2019-10-31 14:55 | NUR ---
10/31/19 1455 Isi Coulter VERIFICATIONS: EDIT CHART.
--- NOTE | 2019-10-31 19:31 | NUR ---
SHIFT SUMMARY PT A&OX4, VSS, S/P I&D L HIP W/DRAIN, DRESSINGS CHANGED 2X SINCE RETURN FROM OR. PAIN MANAGED WITH 5 MG OXY. DAVEY PO, DENIES N&V. INDEPENDENT IN ROOM, TO BRP, UP TO CHAIR. REPORT PROVIDED TO DOUGLAS UNGER.
[2019-11-01 04:51] LABS: BASOPHILS ABSOLUTE AUTO 0.04 K/mm3 (0.00-0.23); BASOPHILS PERCENT AUTO 0 % (0-2); EOSINOPHILS ABSOLUTE AUTO 0.04 K/mm3 (0.00-0.68); EOSINOPHILS PERCENT AUTO 0 % (0-6); Hematocrit 32.7 % (37.0-53.0); Hemoglobin 11.1 g/dL (13.5-17.5); IMMATURE GRAN ABSOLUTE AUTO 0.22 K/mm3 (0.00-0.10); IMMATURE GRAN PERCENT AUTO 2 % (0-1); LYMPHOCYTES ABSOLUTE AUTO 1.16 K/mm3 (0.84-5.20); LYMPHOCYTES PERCENT AUTO 9 % (21-46); MONOCYTES ABSOLUTE AUTO 0.42 K/mm3 (0.16-1.47); MONOCYTES PERCENT AUTO 3 % (4-13); Mean Corpuscular HGB 30.7 pg (26.0-34.0); Mean Corpuscular HGB Conc 33.9 g/dL (31.5-36.5); Mean Corpuscular Volume 90 fL (80-100); Mean Platelet Volume 10.6 fL (9.1-12.4); NEUTROPHILS ABSOLUTE AUTO 11.36 K/mm3 (1.96-9.15); NEUTROPHILS PERCENT AUTO 86 % (41-73); Platelet Count 202 K/mm3 (150-400); RDW Coefficient Variation 12.8 % (11.7-14.2); RDW Standard Deviation 42.5 fL (35.1-46.3); Red Blood Cell Count 3.62 M/mm3 (4.30-5.90); White Blood Cell Count 13.24 K/mm3 (4.00-11.30)
[2019-11-01 05:13] LABS: Anion Gap 5 mmol/L (6-16); Blood Urea Nitrogen 20 mg/dL (8-24); Bun/Creatinine Ratio 21.4 (12.0-20.0); CO2, Blood 22 mmol/L (21-32); Calcium, Blood 8.8 mg/dL (8.5-10.1); Chloride, Blood 111 mmol/L (98-108); Creatinine, Blood 0.94 mg/dL (0.60-1.20); Glomerular Filtration Rate >60 (60-); Glucose, Blood 102 mg/dL (70-99); Potassium, Blood 4.3 mmol/L (3.5-5.5); Sodium, Blood 138 mmol/L (136-145); Vancomycin, Random 9.8 ug/mL
--- NOTE | 2019-11-01 05:39 | NUR ---
SHIFT SUMMARY: HIWOT IS A&OX4. VSS, NO ACUTE EVENTS OVERNIGHT. PICC TO JANETH PATENT, IV ABX INFUSING. TOLERATING PO INTAKE WELL. DRESSING TO LEFT HIP C/D&I. HE IS USING THE URINAL WITHOUT DIFFICULTY. HE IS INDEPENDENT IN THE ROOM, ENCOURAGED TO AMBULATE MORE FREQUENTLY TO ASSIST WITH CHRONIC BACK PAIN. HE IS LYING IN BED WITH THE CALL LIGHT IN REACH. WILL REPORT TO DAY SHIFT RN.
[2019-11-01] MEDS ORDERED: SULTRIDS PO (11:19)
[2019-11-01] MEDS ORDERED: DOCU100 PO (11:20)
--- NOTE | 2019-11-01 12:55 | NUR ---
DISCHARGE SUMMARY PT A&OX4, LEFT FLOOR WITH ALL PERSONAL POSSESSIONS INCLUDING DRESSING SUPPLIES, TO GO HOME WITH . BACTRIM AND COLACE FAXED TO [facility]. DC INSTRUCTIONS PROVIDED. PT REP UNDERSTANDING THOSE INSTRUCTIONS INCLUDING DRESSING CHANGES/, FU WITH SURGEON, OK TO SHOWER, NO TUB/JACUZZI, ABX. PICC DC'D BY HUANG UNGER.
== END 2019-11-01 12:10 | disposition home or self-care (01) | DRG 580 ==
LOC: ER 14:40 → SURS 19:23
PROVIDERS: Family Medicine; Nurse Practitioner Acute Care; Physician Assistant; Surgery; ADMIT Internal Medicine
PROC: 0J9M3ZX Drainage of Left Upper Leg Subcutaneous Tissue and Fascia, Percutaneous Approach, Diagnostic (ICD-10-PCS; 2019-10-30)
PROC: 05HY33Z Insertion of Infusion Device into Upper Vein, Percutaneous Approach (ICD-10-PCS; 2019-10-30)
PROC: 0J9M0ZZ Drainage of Left Upper Leg Subcutaneous Tissue and Fascia, Open Approach (ICD-10-PCS; principal; 2019-10-31 10:30)
DX: L02.416 Cutaneous abscess of left lower limb (principal); N17.9 Acute kidney failure, unspecified; Z20.828 Contact with and (suspected) exposure to other viral communicable diseases; I10 Essential (primary) hypertension; J44.9 Chronic obstructive pulmonary disease, unspecified; F17.210 Nicotine dependence, cigarettes, uncomplicated; F19.10 Other psychoactive substance abuse, uncomplicated; I25.2 Old myocardial infarction; B19.20 Unspecified viral hepatitis C without hepatic coma; M54.9 Dorsalgia, unspecified; G89.29 Other chronic pain; R16.1 Splenomegaly, not elsewhere classified; F10.21 Alcohol dependence, in remission; K59.09 Other constipation; Z79.899 Other long term (current) drug therapy; Z79.82 Long term (current) use of aspirin; Z79.51 Long term (current) use of inhaled steroids
CPT/HCPCS: 20610; 36415; 36569; 73701; 80048; 80053; 80202; 83605; 85025; 87040; 87070; 87075; 87205; 94640; 94760; 99285-25; A9270; A9270-GY; C1751; J0295; J0692; J1100; J2250; J2370; J2405; J2543; J2704; J3010; J3370; J7030; J7050; J7120; Q9967; U0002

== ENCOUNTER 2020-03-27 16:32 | Inpatient (IN) | payer OTHER, MEDICARE ==
[~2020-03-27] VITALS: Ht 165.1 cm; Wt 63.0 kg
[~2020-03-27 16:32] MED LIST changes: -ALBU3IS INH; +AUGMENTIN 875-1 EACH PO; +DICLOFENAC SOD100 G1 TP; -METO50 PO; -Norvasc10 MG PO
[2020-03-27 18:00] LABS: BASOPHILS ABSOLUTE AUTO 0.02 K/mm3 (0.00-0.23); BASOPHILS PERCENT AUTO 0 % (0-2); EOSINOPHILS PERCENT AUTO 0 % (0-6); Hematocrit 35.6 % (37.0-53.0); Hemoglobin 11.6 g/dL (13.5-17.5); IMMATURE GRAN PERCENT AUTO 3 % (0-1); LYMPHOCYTES ABSOLUTE AUTO 0.51 K/mm3 (0.84-5.20); LYMPHOCYTES PERCENT AUTO 3 % (21-46); MONOCYTES ABSOLUTE AUTO 0.55 K/mm3 (0.16-1.47); MONOCYTES PERCENT AUTO 4 % (4-13); Mean Corpuscular HGB 29.5 pg (26.0-34.0); Mean Corpuscular HGB Conc 32.6 g/dL (31.5-36.5); Mean Corpuscular Volume 91 fL (80-100); NEUTROPHILS ABSOLUTE AUTO 13.93 K/mm3 (1.96-9.15); NEUTROPHILS PERCENT AUTO 90 % (41-73); Platelet Count 64 K/mm3 (150-400); RDW Coefficient Variation 14.9 % (11.7-14.2); RDW Standard Deviation 49.7 fL (35.1-46.3); Red Blood Cell Count 3.93 M/mm3 (4.30-5.90); White Blood Cell Count 15.41 K/mm3 (4.00-11.30)
[2020-03-27 18:22] LABS: Albumin, Blood 2.5 g/dL (3.4-5.0); Albumin/Globulin Ratio 0.6 (0.8-1.8); Bilirubin, Total 0.6 mg/dL (0.1-1.0); Calcium, Blood 8.3 mg/dL (8.5-10.1); Creatinine, Blood 1.46 mg/dL (0.60-1.20); Globulin, Blood 4.3 g/dL (2.2-4.0); Potassium, Blood 3.6 mmol/L (3.5-5.5); Total Protein, Blood 6.8 g/dL (6.4-8.2)
[2020-03-27 18:41] LABS: Troponin I 0.759 ng/mL (0.000-0.040)
[2020-03-27] MEDS ORDERED: PRED20 (19:03)
[2020-03-27 22:34] LABS: Source, Urine Catheter
[2020-03-27 22:45] LABS: Appearance, Urine Clear (Clear); Bilirubin, Urine Neg (Neg); Blood, Urine 2+ (Neg); Color, Urine Yellow (P-Yellow); Glucose Qualitative, Urine Neg (Neg); Ketones, Urine Neg (Neg); Leukocyte Esterase, Urine 1+ (Neg); Nitrite, Urine Neg (Neg); Protein, Urine 3+ (Neg); Urobilinogen, Urine NORM (Normal)
[2020-03-27 22:52] LABS: Red Blood Cells, Urine 0-2 /hpf (0-2)
[2020-03-27 22:53] LABS: Bacteria Rare /hpf; Squamous Epithelial Cells Rare /hpf (Few)
[2020-03-27] MEDS ORDERED: ACET325 PO (22:54)
[2020-03-27 23:39] LABS: U Amphetamine Screen DETECTED; U Barbituate Screen Not Detected; U Benzodiazapine Screen Not Detected; U Buprenorphine Screen Not Detected; U Cannabinoids Screen DETECTED; U Cocaine Screen Not Detected; U Methadone Screen Not Detected; U Methamphetamine Screen DETECTED; U Opiates Screen DETECTED; U Oxycodone Screen Not Detected; U Phencyclidine Screen Not Detected; U Propoxyphene Screen Not Detected
[2020-03-27 23:41] LABS: D-Dimer, Quantitative 7.09 mg/L FEU (0.00-0.52)
[2020-03-28 00:22] LABS: Adenovirus Not Detected (NOT DETECT); Bordetella pertussis Not Detected (NOT DETECT); Chlamydophila pneumoniae Not Detected (NOT DETECT); Coronavirus 229E Not Detected (NOT DETECT); Coronavirus HKU1 Not Detected (NOT DETECT); Coronavirus NL63 Not Detected (NOT DETECT); Coronavirus OC43 Not Detected (NOT DETECT); Human Metapneumovirus Not Detected (NOT DETECT); Human Rhinovirus/Enterovirus Not Detected (NOT DETECT); Influenza A/2009-H1 Not Detected (NOT DETECT); Influenza A/H1 Not Detected (NOT DETECT); Influenza A/H3 Not Detected (NOT DETECT); Influenza B Not Detected (NOT DETECT); Mycoplasma pneumoniae Not Detected (NOT DETECT); Parainfluenza Virus 1 Not Detected (NOT DETECT); Parainfluenza Virus 2 Not Detected (NOT DETECT); Parainfluenza Virus 3 Not Detected (NOT DETECT); Parainfluenza Virus 4 Not Detected (NOT DETECT); Respiratory Syncytial Virus Not Detected (NOT DETECT); SARS-Cov-2 (COVID-19), BioFire Not Detected (NOT DETECT)
--- NOTE | 2020-03-28 02:50 | NUR ---
ASSUMED CARE OF PATIENT AT APPROXIMATELY 2240 FROM ED UTE OLSON. PATIENT ARRIVED TO UNIT VIA STRETCHER; TRANSFER VIA SLIDE SHEET AND MAX STAFF ASSIST. PATIENT ALERT AND ORIENTED X3; DROWSY AT TIMES. PATIENT REPORTS PAIN IN BACK THAT IS CHRONIC; MEDICATED PER EMAR. ADMISSION COMPLETE. SPOUSE ACCOMPANIED PATIENT TO ROOM AND ASSISTED IN ADMITTING PATIENT. PG PLACED TO SAM BY FISHING GUIDE DAN. HEPARIN GTT STARTED; FLUIDS STARTED AT 100ML/HR; INCREASED TO 150ML/HR BY DR. ESCALANTE DUE TO LACTIC INCREASING TO 3.3 FROM 2.6. PATIENT WENT DOWN TO CT TO RULE OUT PE. PATIENT CURRENTLY RESTING IN BED; CALL LIGHT IN REACH; BED IN LOWEST POSISTION; BED ALARM ON;
--- NOTE | 2020-03-28 03:05 | NUR ---
CALLED DR. ESCALANTE WITH CT RESULTS; NEG FOR PE; ORDERS FOR CARDIO CONSULT AND DR. ESCALANTE WILL PUT ORDERS IN FOR IV ABX.
[2020-03-28 06:07] LABS: Hematocrit 23.9 % (37.0-53.0); Hemoglobin 7.9 g/dL (13.5-17.5); Mean Corpuscular HGB 29.5 pg (26.0-34.0); Mean Corpuscular HGB Conc 33.1 g/dL (31.5-36.5); Mean Corpuscular Volume 89 fL (80-100); Platelet Count 56 K/mm3 (150-400); RDW Coefficient Variation 15.2 % (11.7-14.2); RDW Standard Deviation 49.1 fL (35.1-46.3); Red Blood Cell Count 2.68 M/mm3 (4.30-5.90); White Blood Cell Count 7.65 K/mm3 (4.00-11.30)
[2020-03-28 06:21] LABS: Alanine Aminotransfer (ALT/SGP 29 U/L (12-78); Albumin, Blood 1.9 g/dL (3.4-5.0); Albumin/Globulin Ratio 0.5 (0.8-1.8); Alk Phos 159 U/L (50-136); Anion Gap 10 mmol/L (6-16); Aspartate Aminotrans (AST/SGOT 18 U/L (12-37); Bilirubin, Total 0.4 mg/dL (0.1-1.0); Blood Urea Nitrogen 50 mg/dL (8-24); Bun/Creatinine Ratio 40.7 (12.0-20.0); CO2, Blood 18 mmol/L (21-32); Calcium, Blood 7.5 mg/dL (8.5-10.1); Chloride, Blood 108 mmol/L (98-108); Creatinine, Blood 1.23 mg/dL (0.60-1.20); Globulin, Blood 3.5 g/dL (2.2-4.0); Glomerular Filtration Rate >60 (60-); Glucose, Blood 174 mg/dL (70-99); Potassium, Blood 3.4 mmol/L (3.5-5.5); Sodium, Blood 136 mmol/L (136-145); Total Protein, Blood 5.4 g/dL (6.4-8.2)
--- NOTE | 2020-03-28 06:31 | NUR ---
PATIENT SLEPT MOST OF THE TIME; USED THE URINAL IN BED TWICE. NO ACUTE CHANGES TO REPORT.
[2020-03-28 06:54] LABS: BAND PERCENT MAN 6 % (0-8); BASOPHILS PERCENT MAN 0 % (0-2); EOSINOPHILS PERCENT MAN 0 % (0-6); LYMPHOCYTES ABSOLUTE MAN 0.45 K/mm3 (0.84-5.20); LYMPHOCYTES PERCENT MAN 6 % (21-46); MONOCYTES ABSOLUTE MAN 0.15 K/mm3 (0.16-1.47); MONOCYTES PERCENT MAN 2 % (4-13); NEUTROPHILS ABSOLUTE MAN 7.03 K/mm3 (1.96-9.15); SEG NEUTROPHILS PERCENT MAN 86 % (41-73); TOTAL CELLS COUNTED 100
[2020-03-28 07:16] LABS: CPK Creatine Kinase 71 U/L (39-308)
--- NOTE | 2020-03-28 08:00 | NUR ---
PT LAYING IN BED WITH EYES CLOSED, WAKES EASILY, DENIES CHEST PAIN, STATES HE'S DOING OK, BUT WEAK, LUNGS ARE COURSE WITH EXP WHEEZING T/O, RESP EVEN AND UNALBORED, NONPRODUCTIVE COUGH, ON R/A, HRR, TELE IN PLACE RUNNING ST IN THE LOW 100'S, NO EDEMA NOTED, PPP+1, CAP REFILL<3SEC, VS STABLE, AFEBRILE, IV SITE IS POWER GLIDE TO SAM, SITE IS CLEAR AND PATENT, INFUSING FLUIDS AT THIS TIME, BTX4, ABD FLAT SOFT NONTENDER, VOIDS VIA URINA, SKIN HAS SOME BRUISINGS, MAEW, BUT IS VERY WEAK, UNABLE TO SIT HIMSELF UP IN BED, INOCENCIA, CALL LIGHT IN REACH.
[2020-03-28 10:46] LABS: BASOPHILS ABSOLUTE AUTO 0.02 K/mm3 (0.00-0.23); BASOPHILS PERCENT AUTO 0 % (0-2); EOSINOPHILS ABSOLUTE AUTO 0.01 K/mm3 (0.00-0.68); EOSINOPHILS PERCENT AUTO 0 % (0-6); Hematocrit 24.1 % (37.0-53.0); IMMATURE GRAN ABSOLUTE AUTO 0.27 K/mm3 (0.00-0.10); IMMATURE GRAN PERCENT AUTO 3 % (0-1); LYMPHOCYTES ABSOLUTE AUTO 0.56 K/mm3 (0.84-5.20); LYMPHOCYTES PERCENT AUTO 6 % (21-46); MONOCYTES ABSOLUTE AUTO 0.43 K/mm3 (0.16-1.47); MONOCYTES PERCENT AUTO 5 % (4-13); Mean Corpuscular HGB 29.9 pg (26.0-34.0); Mean Corpuscular HGB Conc 33.2 g/dL (31.5-36.5); Mean Corpuscular Volume 90 fL (80-100); NEUTROPHILS ABSOLUTE AUTO 7.52 K/mm3 (1.96-9.15); NEUTROPHILS PERCENT AUTO 85 % (41-73); Platelet Count 56 K/mm3 (150-400); RDW Coefficient Variation 15.2 % (11.7-14.2); Red Blood Cell Count 2.68 M/mm3 (4.30-5.90); White Blood Cell Count 8.81 K/mm3 (4.00-11.30)
--- NOTE | 2020-03-28 13:18 | NUR ---
pt resting in bed, complaining about his neck being sore, has been for a few days, continues to sleep when left undisturbed. call light in reach.
[2020-03-28 14:33] LABS: Troponin I 1.89 ng/mL (0.000-0.040)
--- NOTE | 2020-03-28 17:58 | NUR ---
PT IN TO SEE HIM, SHE IS ASKING ABOUT THE CROP ROLLER STOPPING BY, HE HAPPENED TO WALK BY, HE WAS ASKED TO COME IN AND SPEAK TO SPOUCE, WHICH HE DID, SAID TO STOP THE HEPERIN, THIS WAS DONE, CALLED DR. RUTLEDGE AND ASKED HER TO STOP BY AND GIVE AN UPDATE, SHE DID THIS, CALL LIGHT IN REACH.
--- NOTE | 2020-03-28 22:10 | NUR ---
ASSUMED CARE OF PATIENT AT APPROXIMATELY 1905 FROM MARCELINO Eddy RN. PATIENT ALERT AND ORIENTED X3; DROWSY AT TIMES. PATIENT REPORTS PAIN IN BACK AND NECK THAT IS CHRONIC; MEDICATED PER EMAR; KPAD USED FOR NECK PAIN. PATIENT DENIES DIZZINESS AND NAUSEA. PATIENT REPORTS ARMS ARE SORE; MOANS OUT WHEN MOVING THEM AT TIMES. PG SAM S/L. NSR ON TELE; OXYGEN SATURATION ABOVE 90% ON ROOM AIR. USES URINAL IN BED. PATIENT CURRENTLY RESTING IN BED; CALL LIGHT IN REACH; BED IN LOWEST POSISTION; BED ALARM ON;
[2020-03-29 07:49] LABS: Hematocrit 25.1 % (37.0-53.0); Hemoglobin 8.4 g/dL (13.5-17.5); Mean Corpuscular HGB 29.7 pg (26.0-34.0); Mean Corpuscular HGB Conc 33.5 g/dL (31.5-36.5); Mean Corpuscular Volume 89 fL (80-100); Platelet Count 83 K/mm3 (150-400); RDW Coefficient Variation 15.2 % (11.7-14.2); RDW Standard Deviation 49.3 fL (35.1-46.3); Red Blood Cell Count 2.83 M/mm3 (4.30-5.90); White Blood Cell Count 12.07 K/mm3 (4.00-11.30)
[2020-03-29 07:59] LABS: Mean Platelet Volume 13.4 fL (9.1-12.4)
[2020-03-29 08:05] LABS: Anion Gap 9 mmol/L (6-16); Blood Urea Nitrogen 43 mg/dL (8-24); Bun/Creatinine Ratio 51.7 (12.0-20.0); CO2, Blood 19 mmol/L (21-32); Calcium, Blood 7.8 mg/dL (8.5-10.1); Chloride, Blood 112 mmol/L (98-108); Creatinine, Blood 0.83 mg/dL (0.60-1.20); Glomerular Filtration Rate >60 (60-); Glucose, Blood 143 mg/dL (70-99); Potassium, Blood 3.5 mmol/L (3.5-5.5); Sodium, Blood 140 mmol/L (136-145)
[2020-03-29 08:16] LABS: BASOPHILS PERCENT MAN 0 % (0-2); EOSINOPHILS PERCENT MAN 0 % (0-6); LYMPHOCYTES ABSOLUTE MAN 1.08 K/mm3 (0.84-5.20); LYMPHOCYTES PERCENT MAN 9 % (21-46); MONOCYTES ABSOLUTE MAN 0.84 K/mm3 (0.16-1.47); MONOCYTES PERCENT MAN 7 % (4-13); NEUTROPHILS ABSOLUTE MAN 10.13 K/mm3 (1.96-9.15); SEG NEUTROPHILS PERCENT MAN 84 % (41-73); TOTAL CELLS COUNTED 100
--- NOTE | 2020-03-29 16:29 | NUR ---
MRI SCREENING SHEET COMPLETED WITH PT/PT'S . FAXED TO MRI.
--- NOTE | 2020-03-29 17:25 | NUR ---
PT TO MRI VIA STRETCHER WITH STAFF.
--- NOTE | 2020-03-29 22:34 | NUR ---
ASSUMED CARE OF PATIENT AT APPROXIMATELY 1905 FROM LUIS Carlos RN. PATIENT ALERT AND ORIENTED X3; DROWSY AT TIMES. PATIENT WAS GETTING AN MRI DURING SHIFT CHANGE. PATIENT REPORTS PAIN IN BACK AND NECK THAT IS CHRONIC; MEDICATED PER EMAR; REFUSING OTHER INTERVENTIONS. PATIENT DENIES DIZZINESS AND NAUSEA. PATIENT REPORTS ARMS ARE SORE; MOANS OUT WHEN MOVING THEM AT TIMES. PG SAM S/L. NSR ON TELE; OXYGEN SATURATION ABOVE 90% ON ROOM AIR. USES URINAL IN BED. PATIENT CURRENTLY RESTING IN BED; CALL LIGHT IN REACH; BED IN LOWEST POSISTION; BED ALARM ON;
--- NOTE | 2020-03-29 23:47 | NUR ---
CALLED DR. DUARTE TO REPORT PATIENT BLOOD PRESSURE OF 185/95 AND PATIENT REPORT THAT PAIN MEDICATION NOT WORKING. PATIENT REPORTS FENTANYL DOESNT WORK AND IS REFUSING ZANAFLEX AND TORADOL. ORDERS RECIEVED FOR PO HYDRALAZINE FOR SBP OVER 170.
[2020-03-30 04:42] LABS: Hematocrit 25.9 % (37.0-53.0); Hemoglobin 8.7 g/dL (13.5-17.5); Mean Corpuscular HGB 29.8 pg (26.0-34.0); Mean Corpuscular HGB Conc 33.6 g/dL (31.5-36.5); Mean Corpuscular Volume 89 fL (80-100); Mean Platelet Volume 12.7 fL (9.1-12.4); Platelet Count 107 K/mm3 (150-400); RDW Coefficient Variation 15.5 % (11.7-14.2); RDW Standard Deviation 50.4 fL (35.1-46.3); Red Blood Cell Count 2.92 M/mm3 (4.30-5.90); White Blood Cell Count 17.61 K/mm3 (4.00-11.30)
[2020-03-30 05:01] LABS: Anion Gap 10 mmol/L (6-16); Blood Urea Nitrogen 34 mg/dL (8-24); Bun/Creatinine Ratio 42.1 (12.0-20.0); CO2, Blood 18 mmol/L (21-32); Calcium, Blood 7.6 mg/dL (8.5-10.1); Chloride, Blood 112 mmol/L (98-108); Creatinine, Blood 0.81 mg/dL (0.60-1.20); Glomerular Filtration Rate >60 (60-); Glucose, Blood 118 mg/dL (70-99); Potassium, Blood 3.3 mmol/L (3.5-5.5); Sodium, Blood 140 mmol/L (136-145)
[2020-03-30 05:14] LABS: BAND PERCENT MAN 6 % (0-8); BASOPHILS PERCENT MAN 0 % (0-2); EOSINOPHILS PERCENT MAN 0 % (0-6); LYMPHOCYTES ABSOLUTE MAN 1.23 K/mm3 (0.84-5.20); LYMPHOCYTES PERCENT MAN 7 % (21-46); MONOCYTES ABSOLUTE MAN 0.35 K/mm3 (0.16-1.47); MONOCYTES PERCENT MAN 2 % (4-13); NEUTROPHILS ABSOLUTE MAN 16.02 K/mm3 (1.96-9.15); SEG NEUTROPHILS PERCENT MAN 85 % (41-73); TOTAL CELLS COUNTED 100
--- NOTE | 2020-03-30 06:11 | NUR ---
PATIENT SLEPT ABOUT FIVE HOURS; INCONTINENT OF LARGE BM THIS SHIFT. VSS. NO OTHER ACUTE CHANGES TO REPORT.
--- NOTE | 2020-03-30 18:28 | NUR ---
SHIFT SUMMARY PT IS A&O. PT WAS TRANSFERED FROM PCU 9 THIS AFTERNOON AFTER HIS MRI. PT HAS NOT BEEN OUT OF BED THIS SHIFT. REPORT FROM PCU STATES PT IS 1 TO 2 PERS TRANSFER DUE TO PT BEING WEAK. PT HAS EXPIRATORY WHEEZE T/O. PT STATED BEING IN PAIN AFTER ARRIVING ON FLOOR. OFFERED TORADOL PT DECLINED. PT DENCLINED N/V. PT REQUESTED BREATHING TREATMENT THIS AFTERNOON. DR WATTS CONSULT WAS CALLED IN. PT CURENTLY IN ROOM WATCHING TV. CALL LIGHT W/IN REACH
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
--- NOTE | 2020-03-31 04:34 | NUR ---
SHIFT SUMMARY: 60 Y/O MALE RESTED COMFORTABLY IN BED ALL SHIFT; PT C/O GENERALIZED PAIN RATED 7/10 WITH FENTANYL 50MCG GIVEN WITH RELIEF FELT; PTS HAS BRUISING AND EDEMA WITH OLD IV INJECTION TRACK HOROWITZ NOTED BILATERAL ARMS AND RLE MID CALF TO ENTIRE FOOT; PT HAS DYSPNEA NOTED WITH SLIGHT ACTIVITY; BED ALARM APPLIED FOR SAFETY, BED LOW POSITION WITH CALL LIGHT AT SIDE.
[2020-03-31 06:11] LABS: BASOPHILS ABSOLUTE AUTO 0.03 K/mm3 (0.00-0.23); BASOPHILS PERCENT AUTO 0 % (0-2); EOSINOPHILS ABSOLUTE AUTO 0.01 K/mm3 (0.00-0.68); EOSINOPHILS PERCENT AUTO 0 % (0-6); Hematocrit 26.7 % (37.0-53.0); Hemoglobin 8.7 g/dL (13.5-17.5); IMMATURE GRAN ABSOLUTE AUTO 0.34 K/mm3 (0.00-0.10); IMMATURE GRAN PERCENT AUTO 2 % (0-1); LYMPHOCYTES ABSOLUTE AUTO 1.68 K/mm3 (0.84-5.20); LYMPHOCYTES PERCENT AUTO 7 % (21-46); MONOCYTES ABSOLUTE AUTO 1.12 K/mm3 (0.16-1.47); MONOCYTES PERCENT AUTO 5 % (4-13); Mean Corpuscular HGB 29.3 pg (26.0-34.0); Mean Corpuscular HGB Conc 32.6 g/dL (31.5-36.5); Mean Corpuscular Volume 90 fL (80-100); Mean Platelet Volume 12.5 fL (9.1-12.4); NEUTROPHILS ABSOLUTE AUTO 20.18 K/mm3 (1.96-9.15); NEUTROPHILS PERCENT AUTO 86 % (41-73); Platelet Count 109 K/mm3 (150-400); RDW Coefficient Variation 15.5 % (11.7-14.2); RDW Standard Deviation 51.1 fL (35.1-46.3); Red Blood Cell Count 2.97 M/mm3 (4.30-5.90); White Blood Cell Count 23.36 K/mm3 (4.00-11.30)
[2020-03-31 06:20] LABS: Anion Gap 11 mmol/L (6-16); Blood Urea Nitrogen 23 mg/dL (8-24); Bun/Creatinine Ratio 30.7 (12.0-20.0); CO2, Blood 19 mmol/L (21-32); Calcium, Blood 7.6 mg/dL (8.5-10.1); Chloride, Blood 112 mmol/L (98-108); Creatinine, Blood 0.75 mg/dL (0.60-1.20); Glomerular Filtration Rate >60 (60-); Glucose, Blood 171 mg/dL (70-99); Potassium, Blood 3.1 mmol/L (3.5-5.5); Sodium, Blood 142 mmol/L (136-145)
--- NOTE | 2020-03-31 11:19 | NUR ---
PT TAKEN DOWN TO [facility] FOR ALEJO PROCEDURE.
--- NOTE | 2020-03-31 12:01 | NUR ---
PT RESISTING PROBE; PROBE WILL NOT PASS. RESCHEULE WITH ANESTHESIA WHEN AVAILABLE.
--- NOTE | 2020-03-31 12:13 | NUR ---
PT RESTING COMFORTABLY. PT DENIES CHEST PAIN.CALL LIGHT IN REACH.
--- NOTE | 2020-03-31 12:35 | NUR ---
PT DRANK SIPS OF WATER WITH NO ASPIRATION.
--- NOTE | 2020-03-31 12:54 | NUR ---
PT TRANSPORTED BACK TO RM [facility] VIA [facility].
--- NOTE | 2020-03-31 13:44 | NUR ---
Pt. in bed resting he is fine and is doing much better offered prayers for the pt.
--- NOTE | 2020-03-31 18:29 | NUR ---
SHIFT SUMMARY PT IS A&O, DOES NOT MAKE NEEDS KNOWN, DOES NOT MAKE SAFE CHOICES. PT COMPLAINED OF PAIN DURING SHIFT WILL ONLY ACCEPT FENTANLY TO MEDICATE PAIN, PT DECLINES TORADOL AND APAP. PT WENT TO FOR A ALEJO PROCEDURE DURING SHIFT, WAS REPORTED THAT PT IT WAS UNABLE TO BE COMPLETED DUE TO THE SCOPE MEETING RESTINANCE. PT WILL HAVE PROCEDURE TOMORROW WITH GENERAL ANSTESIA, PT WILL BE NPO AFTER MIDNIGHT. PT CURENTLY IN ROOM SLEEPING, BED IN LOWEST POSITION AND CALL LIGHT W/IN REACH.
--- NOTE | 2020-04-01 02:01 | NUR ---
HOSPITALIST RAMÓN EMMANUEL NOTIFIED LAB: GRAM POSITIVE COCCI IN [place] 2ND SET. REPOR[address] DR. WATTS SEEING PATIENT. CONTINUE TO MONITOR
--- NOTE | 2020-04-01 03:54 | NUR ---
SHIFT SUMMARY PATIENT HAD NO ACUTE CHANGES OBSERVED. AXOX 2 AND BEDREST. RT IN FOR BREATHING TX. POWERGLIDE SAM INTACT. IV ABX INFUSED. HOSPITALIST RAMÓN INVENTORY ASSOCIATE NOTIFIED OF LAB: GRAM POSITIVE COCCI IN [place]. AUTOMATION CONSULTANT REPORTS NSR 94. DENIES PAIN AND N/V. NPO > MIDNIGHT FOR PROCEDURE. CALL LIGHT IN REACH. BED IN LOWEST POSITION. WILL CONTINUE TO MONITOR UNTIL DAY SHIFT NURSE ASSUMES CARE.
[2020-04-01 05:20] LABS: BASOPHILS ABSOLUTE AUTO 0.06 K/mm3 (0.00-0.23); BASOPHILS PERCENT AUTO 0 % (0-2); EOSINOPHILS ABSOLUTE AUTO 0.05 K/mm3 (0.00-0.68); EOSINOPHILS PERCENT AUTO 0 % (0-6); Hematocrit 26.2 % (37.0-53.0); Hemoglobin 8.5 g/dL (13.5-17.5); IMMATURE GRAN ABSOLUTE AUTO 0.68 K/mm3 (0.00-0.10); IMMATURE GRAN PERCENT AUTO 2 % (0-1); LYMPHOCYTES ABSOLUTE AUTO 2.54 K/mm3 (0.84-5.20); LYMPHOCYTES PERCENT AUTO 8 % (21-46); MONOCYTES ABSOLUTE AUTO 1.42 K/mm3 (0.16-1.47); MONOCYTES PERCENT AUTO 4 % (4-13); Mean Corpuscular HGB 29.2 pg (26.0-34.0); Mean Corpuscular HGB Conc 32.4 g/dL (31.5-36.5); Mean Corpuscular Volume 90 fL (80-100); Mean Platelet Volume 12.2 fL (9.1-12.4); NEUTROPHILS ABSOLUTE AUTO 27.84 K/mm3 (1.96-9.15); NEUTROPHILS PERCENT AUTO 85 % (41-73); Platelet Count 143 K/mm3 (150-400); RDW Coefficient Variation 15.3 % (11.7-14.2); RDW Standard Deviation 50.7 fL (35.1-46.3); Red Blood Cell Count 2.91 M/mm3 (4.30-5.90); White Blood Cell Count 32.59 K/mm3 (4.00-11.30)
[2020-04-01 05:47] LABS: Anion Gap 10 mmol/L (6-16); Blood Urea Nitrogen 20 mg/dL (8-24); Bun/Creatinine Ratio 28.7 (12.0-20.0); CO2, Blood 18 mmol/L (21-32); Calcium, Blood 7.8 mg/dL (8.5-10.1); Chloride, Blood 114 mmol/L (98-108); Glomerular Filtration Rate >60 (60-); Glucose, Blood 92 mg/dL (70-99); Potassium, Blood 3.7 mmol/L (3.5-5.5); Sodium, Blood 142 mmol/L (136-145)
[2020-04-01 08:11] LABS: HIV SCREEN 4TH GENERATION WRFX Non Reactive (Non Reactive)
--- NOTE | 2020-04-01 09:54 | NUR ---
PT PREVIOUSLY BROUGHT TO FOR ALEJO WITH ANSTHESIA, TOLERATED PROBE FOR PROCEDURE. NO AWAKE, TOLERATES PO FLUIDS. INSP/EXP WHEEZING 95% ON RA. INTERMITTENTLY COUGHS. ATTEMPTED TO USE URINAL, UNABLE AT THIS TIME. NO ACUTE DISTRESS NOTED AT THIS TIME. SEE ECHO RESULTS.
--- NOTE | 2020-04-01 11:40 | NUR ---
Permission obtained for pt's and children (up to four total visitors) to come in and see pt prior to his transfer to higher level of care per 's request for assist with this. I spoke with data warehouse specialist, left message for [employer] and updated pt's bedside RN.
--- NOTE | 2020-04-01 12:05 | NUR ---
PT HAD ALEJO DONE THIS AM. PT WILL BE TRANSFERRED TO [facility] LATER IN THE AFTERNOON. PT POSITIVE FOR ENDOCARDITIS AND MIGHT NEED SURGERY. FAMILY OF 4 AT THE BEDSIDE. AIR CONDITIONING COIL ASSEMBLER AWARE PALLIATIVE CARE WELL
--- NOTE | 2020-04-01 17:05 | NUR ---
PT TRANSFERRED TO [facility] FOR PROCEDURE R/T TO ENDOCARDITIS. PT AOX3. VERY PAINFUL GENERAL BODY PAIN- MEDICATED WITH FENTANYL 25 MCG. PT IS ON OXYCILLIN RUNNING AT 100ML/HR. FAMILY AT BEDSIDE DURING TRANSPORT VIA BED. OLU UNGER CALLED TO GIVE REPORT @[phone]. PT MEDICATED IV AM MEDS. PT HAD ALEJO DONE THIS AM AND FOUND ENDOCARDITIS. DR DILL WORKED WITH [facility] TO GET THE PT TRANSFER. CALLED DR DILL THIS AFTERNOON @[phone] TO ASK FOR PAIN MEDICATIONS FOR THIS PT. GIVEN FENTANYL [address] CABRAL.
[2020-06-07] MEDS ORDERED: BUSP10 PO (22:07)
[2020-06-15] MEDS ORDERED: Prednisone10 MG PO (20:46)
== END 2020-04-01 17:12 | disposition short-term general hospital (02) | DRG 871 ==
LOC: ER 16:32 → PCU 22:11 → MEDS 22:11 → PCU 22:32 → MEDS 03-30 12:53 → PCU 03-30 12:53 → MEDS 03-31 11:38
PROVIDERS: Internal Medicine Infectious Disease; Physician Assistant; Student in an Organized Health Care Education/Training Program; ADMIT Internal Medicine
PROC: 3E0334Z Introduction of Serum, Toxoid and Vaccine into Peripheral Vein, Percutaneous Approach (ICD-10-PCS; principal; 2020-03-28)
DX: A41.01 Sepsis due to Methicillin susceptible Staphylococcus aureus (principal); J96.01 Acute respiratory failure with hypoxia; I21.A1 Myocardial infarction type 2; I63.541 Cerebral infarction due to unspecified occlusion or stenosis of right cerebellar artery; I33.0 Acute and subacute infective endocarditis; J44.1 Chronic obstructive pulmonary disease with (acute) exacerbation; N17.9 Acute kidney failure, unspecified; Z20.822 Contact with and (suspected) exposure to COVID-19; B18.2 Chronic viral hepatitis C; E87.6 Hypokalemia; E88.09 Other disorders of plasma-protein metabolism, not elsewhere classified; F15.10 Other stimulant abuse, uncomplicated; F32.9 Major depressive disorder, single episode, unspecified; I25.10 Atherosclerotic heart disease of native coronary artery without angina pectoris; I25.2 Old myocardial infarction; I12.9 Hypertensive chronic kidney disease with stage 1 through stage 4 chronic kidney disease, or unspecified chronic kidney disease; N18.30 Chronic kidney disease, stage 3 unspecified; Z87.891 Personal history of nicotine dependence; D69.6 Thrombocytopenia, unspecified; Z23 Encounter for immunization
CPT/HCPCS: 0202U; 36415; 70496; 70498; 70551; 71046; 71260; 72156; 72157; 72158; 80048; 80053; 81001; 82550; 82607; 82746; 83605; 83880; 84145; 84484; 85025; 85379; 85730; 87040; 87077; 87086; 87147; 87186; 87389; 93005; 93010; 93306; 93312; 93325; 94640; 94644; 94664; 94667; 94760; 96361; 96374; 98960; 99285-25; A9270; A9579; C1751; J0690; J0696; J1644; J2250; J2310; J2700; J2704; J2930; J3010; J3370; J7030; J7050; J7060; J7512; Q2038; Q9967

== ENCOUNTER 2020-06-07 21:41 | Inpatient (IN) | payer OTHER, MEDICARE ==
[~2020-06-07] VITALS: Ht 170.2 cm; Wt 78.3 kg
[~2020-06-07 21:41] MED LIST changes: +PRED20
[2020-06-07] MEDS ORDERED: ALBU90OI INH (22:04)
[2020-06-07] MEDS ORDERED: NARCAN4 M1 (22:04)
[2020-06-07] MEDS ORDERED: AMLO5 PO (22:05)
[2020-06-07] MEDS ORDERED: ATOR40TA PO (22:05)
[2020-06-07] MEDS ORDERED: BUDESONIDE-FO10.2 G2 INH (22:06)
[2020-06-07] MEDS ORDERED: BACLOFEN5 M5 PO (22:06)
[2020-06-07] MEDS ORDERED: BUSPIRONE HCL10 M1 PO (22:07)
[2020-06-07] MEDS ORDERED: NEURONTIN300 MG PO (22:07)
[2020-06-07] MEDS ORDERED: INCRUSE ELLIPTA 62.5 INH (22:08)
[2020-06-07] MEDS ORDERED: IPRAT-ALBUT 0.5-3 ML NEB (22:08)
[2020-06-07] MEDS ORDERED: METO50ER PO (22:09)
[2020-06-07] MEDS ORDERED: LOSA50 PO (22:09)
[2020-06-07] MEDS ORDERED: FERSU300 PO (22:10)
[2020-06-07] MEDS ORDERED: ASCO500 PO (22:10)
[2020-06-07] MEDS ORDERED: GUAI600T33 PO (22:10)
[2020-06-07] MEDS ORDERED: IBUP600 PO (22:10)
[2020-06-07] MEDS ORDERED: MULVITA PO (22:10)
[2020-06-07] MEDS ORDERED: ZANAFLEX4 M1 PO (22:10)
[2020-06-07] MEDS ORDERED: Aspir 8181 MG PO (22:11)
[2020-06-07 22:21] LABS: Base Excess Venous -9.5 mmol/L; Bicarbonate Venous 17.1 mmol/L (24.0-30.0); PO2 Venous 92.8 mmHg (38-42)
[2020-06-07 22:22] LABS: pH Blood Venous 7.22 (7.34-7.37)
[2020-06-07 22:23] LABS: BASOPHILS ABSOLUTE AUTO 0.04 K/mm3 (0.00-0.23); BASOPHILS PERCENT AUTO 0 % (0-2); EOSINOPHILS ABSOLUTE AUTO 0.09 K/mm3 (0.00-0.68); EOSINOPHILS PERCENT AUTO 1 % (0-6); Hematocrit 37.4 % (37.0-53.0); Hemoglobin 10.9 g/dL (13.5-17.5); IMMATURE GRAN ABSOLUTE AUTO 0.13 K/mm3 (0.00-0.10); IMMATURE GRAN PERCENT AUTO 1 % (0-1); LYMPHOCYTES ABSOLUTE AUTO 0.96 K/mm3 (0.84-5.20); LYMPHOCYTES PERCENT AUTO 8 % (21-46); MONOCYTES ABSOLUTE AUTO 0.47 K/mm3 (0.16-1.47); MONOCYTES PERCENT AUTO 4 % (4-13); Mean Corpuscular HGB 27.5 pg (26.0-34.0); Mean Corpuscular HGB Conc 29.1 g/dL (31.5-36.5); Mean Corpuscular Volume 94 fL (80-100); Mean Platelet Volume 13.5 fL (9.1-12.4); NEUTROPHILS ABSOLUTE AUTO 9.69 K/mm3 (1.96-9.15); NEUTROPHILS PERCENT AUTO 85 % (41-73); Platelet Count 104 K/mm3 (150-400); RDW Coefficient Variation 17.4 % (11.7-14.2); RDW Standard Deviation 60.8 fL (35.1-46.3); Red Blood Cell Count 3.97 M/mm3 (4.30-5.90); White Blood Cell Count 11.38 K/mm3 (4.00-11.30)
[2020-06-07 22:39] LABS: Alanine Aminotransfer (ALT/SGP 93 U/L (12-78); Albumin, Blood 2.9 g/dL (3.4-5.0); Albumin/Globulin Ratio 0.8 (0.8-1.8); Alk Phos 281 U/L (50-136); Anion Gap 8 mmol/L (6-16); Aspartate Aminotrans (AST/SGOT 45 U/L (12-37); Bilirubin, Total 0.4 mg/dL (0.1-1.0); Blood Urea Nitrogen 32 mg/dL (8-24); Bun/Creatinine Ratio 36.6 (12.0-20.0); CO2, Blood 21 mmol/L (21-32); Calcium, Blood 8.3 mg/dL (8.5-10.1); Chloride, Blood 119 mmol/L (98-108); Creatinine, Blood 0.88 mg/dL (0.60-1.20); Ethanol (Alcohol), Blood, Med <3 mg/dL; Globulin, Blood 3.5 g/dL (2.2-4.0); Glomerular Filtration Rate >60 (60-); Glucose, Blood 189 mg/dL (70-99); Potassium, Blood 3.6 mmol/L (3.5-5.5); Sodium, Blood 148 mmol/L (136-145); Total Protein, Blood 6.4 g/dL (6.4-8.2)
[2020-06-07 22:41] LABS: Source, Urine Clean Catch
[2020-06-07 22:46] LABS: Acetaminophen, Random <2.0 ug/mL (10.0-30.0)
[2020-06-07 22:46] LABS: Appearance, Urine Hazy (Clear); Bilirubin, Urine Neg (Neg); Blood, Urine 5+ (Neg); Color, Urine Yellow (P-Yellow); Glucose Qualitative, Urine Neg (Neg); Ketones, Urine Neg (Neg); Leukocyte Esterase, Urine Neg (Neg); Nitrite, Urine Neg (Neg); Protein, Urine 4+ (Neg); Urobilinogen, Urine NORM (Normal)
[2020-06-07 22:56] LABS: U Amphetamine Screen DETECTED; U Barbituate Screen Not Detected; U Benzodiazapine Screen Not Detected; U Buprenorphine Screen Not Detected; U Cannabinoids Screen DETECTED; U Cocaine Screen Not Detected; U Methadone Screen Not Detected; U Methamphetamine Screen DETECTED; U Opiates Screen DETECTED; U Oxycodone Screen DETECTED; U Phencyclidine Screen Not Detected; U Propoxyphene Screen Not Detected
[2020-06-07 22:58] LABS: Amorphous Heavy (0-Heavy); Bacteria Few /hpf; Mucus Light (0-Heavy); Red Blood Cells, Urine TNTC /hpf (0-2); Squamous Epithelial Cells Few /hpf (Few)
[2020-06-08 00:26] LABS: Influenza A, PCR NEGATIVE (NEGATIVE); Influenza B, PCR NEGATIVE (NEGATIVE); Resp Syncytial Virus, PCR NEGATIVE (NEGATIVE); SARS-Cov-2 (COVID-19) PCR, MMC NEGATIVE (NEGATIVE)
[2020-06-08 01:28] LABS: D-Dimer, Quantitative 7.27 mg/L FEU (0.00-0.52); International Normalized Ratio 1.12; Prothrombin Time Results 11.9 Sec (9.7-11.5)
[2020-06-08 03:53] LABS: BASOPHILS ABSOLUTE AUTO 0.01 K/mm3 (0.00-0.23); BASOPHILS PERCENT AUTO 0 % (0-2); EOSINOPHILS PERCENT AUTO 0 % (0-6); Hemoglobin 10.2 g/dL (13.5-17.5); IMMATURE GRAN ABSOLUTE AUTO 0.02 K/mm3 (0.00-0.10); IMMATURE GRAN PERCENT AUTO 0 % (0-1); LYMPHOCYTES ABSOLUTE AUTO 0.46 K/mm3 (0.84-5.20); LYMPHOCYTES PERCENT AUTO 7 % (21-46); MONOCYTES ABSOLUTE AUTO 0.18 K/mm3 (0.16-1.47); MONOCYTES PERCENT AUTO 3 % (4-13); Mean Corpuscular HGB 27.6 pg (26.0-34.0); Mean Corpuscular HGB Conc 29.1 g/dL (31.5-36.5); Mean Corpuscular Volume 95 fL (80-100); NEUTROPHILS ABSOLUTE AUTO 6.46 K/mm3 (1.96-9.15); NEUTROPHILS PERCENT AUTO 91 % (41-73); Platelet Count 103 K/mm3 (150-400); RDW Coefficient Variation 17.5 % (11.7-14.2); RDW Standard Deviation 60.9 fL (35.1-46.3); Red Blood Cell Count 3.69 M/mm3 (4.30-5.90); White Blood Cell Count 7.13 K/mm3 (4.00-11.30)
[2020-06-08 04:00] LABS: Mean Platelet Volume 13.6 fL (9.1-12.4)
[2020-06-08 04:08] LABS: Alanine Aminotransfer (ALT/SGP 78 U/L (12-78); Albumin, Blood 2.5 g/dL (3.4-5.0); Albumin/Globulin Ratio 0.8 (0.8-1.8); Alk Phos 228 U/L (50-136); Anion Gap 6 mmol/L (6-16); Aspartate Aminotrans (AST/SGOT 32 U/L (12-37); Bilirubin, Total 0.6 mg/dL (0.1-1.0); Blood Urea Nitrogen 32 mg/dL (8-24); Bun/Creatinine Ratio 31.4 (12.0-20.0); CO2, Blood 23 mmol/L (21-32); Calcium, Blood 7.8 mg/dL (8.5-10.1); Chloride, Blood 120 mmol/L (98-108); Creatinine, Blood 1.02 mg/dL (0.60-1.20); Globulin, Blood 3.1 g/dL (2.2-4.0); Glomerular Filtration Rate >60 (60-); Glucose, Blood 143 mg/dL (70-99); Sodium, Blood 149 mmol/L (136-145); Total Protein, Blood 5.6 g/dL (6.4-8.2)
--- NOTE | 2020-06-08 07:26 | NUR ---
SHIFT SUMMARY/ TX NOTE PT ARRIVED TO ICU FROM ER INTUBATED AND SEDATED ON 20MCG/KG/MIN PROPOFOL. 2 PERIPHERAL 20 GA IV'S, ONE IN THE RIGHT BREAST AND A FIELD START IO. SHORTLY AFTER ARRIVAL, R 20GA AC IV INFILTRATED. POWERGLIDE ESTABLISHED IN SAM. VENT SETTINGS-AC:14/500/5/40% c O2 SATS >95%. WILL RESPOND TO VERBAL STIMULI, SHAKES HEAD, SQUEEZES BL HANDS. TEMP [place] CATH IN PLACE, DRAINING YELLOW URINE, TEMPERATURE SENSOR MALFUNCTIONING. NSR ON THE MONITOR. BP INITIALLY STABLE WITH PROPOFOL GTT INFUSING, BUT PT STARTED BECOMING HYPOTENSIVE AROUND 0100. PROPOFOL TITRATED DOWN WITH CONTINUAL HYPOTENSION. HOSPITALIST NOTIFED, ORDERED 500CC NS BOLUS AND LEVOPHED TO BE ADMINISTERED PERIPHERALLY. MINIMAL RESPONSE IN BP WITH BOLUS, LEVOPHED GTT INITIATED IN IO DUE TO PERIPHERAL IV STATUS. DR BLACKWOOD NOTIFIED OF PT CONDITION & PROLONGED HYPOTENSION @ 0345, ORDERS FOR 1L NS BOLUS AND 150ML CONTINUOUS NS. THIS NURSE ALSO CLARIFIED LEVOPHED VIA IO WITH SUPERVISOR CD AREA. LEVOPHED TITRATED UP TO 4MCG/MIN AND PROPOFOL AT 10MCG c MAP ~65. PT CONTINUES TO WAKE EASILY WITH MINIMAL STIMULATION. REPORT GIVEN TO SAILAJA.
--- NOTE | 2020-06-08 07:55 | NUR ---
ASSUMED CARE PT. AWAKENS EASILY TO VERBAL STIMULI, SHAKES HEAD YES AND NO TO QUESTIONS. COOPERATIVE WITH CARE AND TOLERATING VENT. VENT SETTINGS OF AC 14, TV 500, PEEP 5, 40% THIS AM. PROPOFOL INFUSING AT 20 MCG/KG/MIN. PT. LEVOPHED GTT PLACED ON STAND BY THIS AM. IO FLUSHED AND REMOVED FROM LLE. ADDITIONAL PERIPHERAL IV ACCESS PLACED TO JANETH. PT VSS THIS AM BILAT WIRST RESTRAINTS IN PLACE TO PREVENT SELF EXTUBATION. NADN.
--- NOTE | 2020-06-08 08:57 | NUR ---
PT NOTED TO BE ABLE TO FOLLOW COMMANDS ON 15MCG OF PROPOFOL AND MOVE ALL EXT WELL. PT VSS. OG TO LIS WITH SCANT STOMACH RETURNS. ABD IS FIRM AND HYPOACTIVE. FOLELY CLEAR SALEEM RETURN. IV SITES AND FLUID NOTED INFUSING PER PG IN SAM. PT HAS 3 AND 4 PLUS PITTING EDEMA OF LOWER EXT AND 1 AND 2 PLUS EDEMA OF UPPER EXT. LEVOPHED GTT RETURNED TO 2MCG FOR LOW BP AND WILL FOLLOW AND TITRATE.
--- NOTE | 2020-06-08 10:59 | NUR ---
PT EXTUBATED AT 1039 AND DUE TO MOUTH BREATHING PT PLACED ON O2 4L AND UDN PER RT. PT NOTED TO HAVE SL AUDIBLE WHEEZE BUT DENIES SOB. RESTRANTS D/C PT IS CALM AND COOPEATTIVE.
--- NOTE | 2020-06-08 13:46 | NUR ---
PT RESTING WATCHING TV AND IS NOW TAKING PO LIQUID WELL W/O DISTRESS. PT REMAINS ON O2 AT 4L PER NC. PT HAS CALLED IN EARLIER AND STATUS REPORT GIVEN.
[2020-06-08] MEDS ORDERED: Mucus Relief400 MG PO (16:19)
[2020-06-08] MEDS ORDERED: Percocet 5-3251 EACH PO (16:19)
[2020-06-08] MEDS ORDERED: OMEP20ER PO (16:20)
--- NOTE | 2020-06-08 16:23 | NUR ---
IS IN TO VISIT AND VERY UPSET REGARDING PT OD STATUS. PT VS REMAIN STABLE AND NO RESP DISTRESS. MED LIST UPDATED.
--- NOTE | 2020-06-08 17:40 | NUR ---
PT TO BE TRANSFERED TO PCU-2 VIA BED. REPORT CALLED TO ELSA UNGER. I/O NOTED AND REPORTED TO DR BLACKWOOD W/O ANY NEW ORDERS AT THIS TIME. DR BLACKWOOD WILL RE-EVALUATE I/O STATUS IN AM.
[2020-06-09 03:51] LABS: BASOPHILS ABSOLUTE AUTO 0.01 K/mm3 (0.00-0.23); BASOPHILS PERCENT AUTO 0 % (0-2); EOSINOPHILS PERCENT AUTO 0 % (0-6); Hematocrit 34.1 % (37.0-53.0); Hemoglobin 10.2 g/dL (13.5-17.5); IMMATURE GRAN ABSOLUTE AUTO 0.07 K/mm3 (0.00-0.10); IMMATURE GRAN PERCENT AUTO 1 % (0-1); LYMPHOCYTES ABSOLUTE AUTO 1.46 K/mm3 (0.84-5.20); LYMPHOCYTES PERCENT AUTO 13 % (21-46); MONOCYTES ABSOLUTE AUTO 0.88 K/mm3 (0.16-1.47); MONOCYTES PERCENT AUTO 8 % (4-13); Mean Corpuscular HGB 27.6 pg (26.0-34.0); Mean Corpuscular HGB Conc 29.9 g/dL (31.5-36.5); Mean Corpuscular Volume 92 fL (80-100); Mean Platelet Volume 13.7 fL (9.1-12.4); NEUTROPHILS ABSOLUTE AUTO 9.18 K/mm3 (1.96-9.15); NEUTROPHILS PERCENT AUTO 79 % (41-73); Platelet Count 133 K/mm3 (150-400); RDW Coefficient Variation 17.8 % (11.7-14.2); RDW Standard Deviation 60.4 fL (35.1-46.3); Red Blood Cell Count 3.69 M/mm3 (4.30-5.90)
[2020-06-09 04:04] LABS: Albumin, Blood 2.9 g/dL (3.4-5.0); Anion Gap 10 mmol/L (6-16); Blood Urea Nitrogen 45 mg/dL (8-24); Bun/Creatinine Ratio 31.5 (12.0-20.0); CO2, Blood 19 mmol/L (21-32); Calcium, Blood 7.9 mg/dL (8.5-10.1); Chloride, Blood 115 mmol/L (98-108); Creatinine, Blood 1.43 mg/dL (0.60-1.20); Glomerular Filtration Rate 53 (60-); Glucose, Blood 105 mg/dL (70-99); Phosphorus, Blood 5.5 mg/dL (2.5-4.9); Potassium, Blood 4.6 mmol/L (3.5-5.5); Sodium, Blood 144 mmol/L (136-145)
--- NOTE | 2020-06-09 04:46 | NUR ---
SHIFT SUMMARY NO ACUTE CHANGES THIS SHIFT. VSS. AXO. ON 2LNC AT BEGINNING OF SHIFT, NOW AT 1LNC. REMAINS IN SR. BP STABLE, RISING. EDEMA REMAINS 3+ TO LEGS, 1-2+ IN ARMS, NO CHANGE SINCE SHIFT START. BARRIGA PATENT AND DRAINING, OLIGURIC. PT RECEIVING SCHEDULED RT TREATMENTS. NOT REQUIRING PRNS. OTHERWISE, PT RESTING IN ROOM WATCHING TV OFF AND ON T/O SHIFT. WILL CONTINUE TO MONITOR UNTIL SHIFT CHANGE.
--- NOTE | 2020-06-09 09:26 | NUR ---
PT ALERT AND ORIENTED X4, A LITTLE FORGETFUL AT TIMES. ON ROOM AIR SATING AT 93-94%. EXPIRATORY WHEEZE HEARD THIS AM, RELIEVED WITH MORNING NEBULIZER. TELE SHOWING SINUS TACH WITH HR 100. DENIES CHEST PAIN/PRESSURE. COMPLAINS OF SOME CHRONIC BACK PAIN, ATTRIBUTES IT TO "LAYING IN BED". SKIN C/D/I. MODERATE EDEMA NOTED IN BLE. BARRIGA IN PLACE DRAINING CLEAR/YELLOW URINE TO GRAVITY. VITAL SIGNS STABLE. EATING FULL LIQUID BREAKFAST. WILL CONTINUE TO MONITOR.
[2020-06-09 14:11] LABS: Bun/Creatinine Ratio 34.1 (12.0-20.0); Calcium, Blood 8.1 mg/dL (8.5-10.1); Creatinine, Blood 1.32 mg/dL (0.60-1.20); Potassium, Blood 4.2 mmol/L (3.5-5.5)
[2020-06-09] MEDS ORDERED: AMOCLA875 PO (14:51)
--- NOTE | 2020-06-09 15:30 | NUR ---
PT GETTING READY FOR DISCHARGE, IV'S REMOVED AND BARRIGA REMOVED PER PROTOCOL. STATUS CHANGED AND NOW PATIENT MEDICAL WITH NO TELE. NO NEW ORDERS FOR IV OR BARRIGA PLACEMENT. VITAL SIGNS STABLE. IN TO SEE PATIENT. WILL CONTINUE TO MONITOR.
--- NOTE | 2020-06-09 17:41 | NUR ---
TRANSFER TO MEDICAL PT ALERT AND ORIENTED X4. RA. COMPLAINS OF BACK PAIN AND NECK PAIN. MEDICATED PER EMAR. IN TO VISIT PATIENT THIS AFTERNOON. VITAL SIGNS STABLE. NO ACUTE CHANGES. TRANSFER UP TO MEDICAL FLOOR.
--- NOTE | 2020-06-09 18:31 | NUR ---
PT ARRIVED TO ROOM 342 FROM PCU 2 AT 1710. SETTLED IN TO ROOM AND ORIENTED TO CALL BUTTON. PLANS FOR PT TO DISCHARGE HOME TOMORROW.
--- NOTE | 2020-06-09 23:26 | NUR ---
06/09/202149 Patient is awake, alert and oriented, resting in bed Patient has wheezing all lobes, Respiratory rate is 28, O2 sats 94% on RA. Respiratory notified, asked to come assess patient. Pt does have chest muscle type pain from earlier compressions. Medicated with percocet 2 tabs. Pt has 3+ pitting edema to left foot and some generalized edema in arms. Pt has a distended abdomen, with hyperactive bowel tones. Pt uses the urinal independantly.
--- NOTE | 2020-06-09 23:37 | NUR ---
06/09/200 Patient using bedpan, became very SOB, with increased work of breathing, O2 sats 90-91% on RA. O2 2 liters placed on pt, respiratory therapy called to assess pt. Pt given respiratory treatment with good relief. Pt states he is doing better. Will continue to monitor closely. Call light in reach, instructed pt to call for assist if he became SOB again.
[2020-06-10 06:18] LABS: Albumin, Blood 2.8 g/dL (3.4-5.0); Anion Gap 8 mmol/L (6-16); Blood Urea Nitrogen 39 mg/dL (8-24); Bun/Creatinine Ratio 37.1 (12.0-20.0); CO2, Blood 20 mmol/L (21-32); Chloride, Blood 115 mmol/L (98-108); Creatinine, Blood 1.05 mg/dL (0.60-1.20); Glomerular Filtration Rate >60 (60-); Glucose, Blood 86 mg/dL (70-99); Phosphorus, Blood 3.3 mg/dL (2.5-4.9); Potassium, Blood 4.1 mmol/L (3.5-5.5); Sodium, Blood 143 mmol/L (136-145)
--- NOTE | 2020-06-10 07:08 | NUR ---
Rn summary: Patient has been able to rest better 2nd half of shift. Pt breathing easier, remains on 2 liters O2. Pt abdomen less distended, edema to left leg improved. Hopes to go home today. Call light in reach, report to Kori UNGER.
[2020-06-10] MEDS ORDERED: AMOCLA875 PO (11:42)
--- NOTE | 2020-06-10 15:09 | NUR ---
Met pt in bed resting he reports doing much better and may go home today offered prayers foer pt.
--- NOTE | 2020-06-10 15:53 | NUR ---
PATIENT DISCHARGED TO HOME ACCOMPANIED BY . VERBALIZED UNDERSTANDING OF D/C INSTRUCTIONS. NO IV IN PLACE, NO JIG FILLER. HAS PCP APPOINTMENT FOR NEXT WEEK THAT WAS PREVIOUSLY SCHEDULED. OFF UNIT VIA W/C AT 1550, NO BELONGINGS LEFT BEHIND IN ROOM.
[2020-06-15] MEDS ORDERED: Prednisone10 MG PO (20:46)
[2020-06-23] MEDS ORDERED: LOSA50 PO (20:48)
== END 2020-06-10 15:43 | disposition home or self-care (01) | DRG 871 ==
LOC: ER 21:41 → ICUW 23:29 → PCU 23:29 → ICUW 06-08 00:05 → ER 06-08 00:05 → ICUW 06-08 00:06 → PCU 06-08 17:38 → MEDS 06-09 17:11
PROVIDERS: Emergency Medicine; Family Medicine; Internal Medicine Critical Care Medicine; ADMIT Internal Medicine
PROC: 5A1935Z Respiratory Ventilation, Less than 24 Consecutive Hours (ICD-10-PCS; principal; 2020-06-07)
PROC: 3E033XZ Introduction of Vasopressor into Peripheral Vein, Percutaneous Approach (ICD-10-PCS; 2020-06-08)
DX: A41.9 Sepsis, unspecified organism (principal); J96.01 Acute respiratory failure with hypoxia; G92 Toxic encephalopathy; J69.0 Pneumonitis due to inhalation of food and vomit; R65.21 Severe sepsis with septic shock; I10 Essential (primary) hypertension; I25.2 Old myocardial infarction; T40.2X1A Poisoning by other opioids, accidental (unintentional), initial encounter; Z98.890 Other specified postprocedural states; J44.9 Chronic obstructive pulmonary disease, unspecified; Z79.899 Other long term (current) drug therapy; Z79.82 Long term (current) use of aspirin; Z20.822 Contact with and (suspected) exposure to COVID-19; Z86.73 Personal history of transient ischemic attack (TIA), and cerebral infarction without residual deficits; T44.4X5A Adverse effect of predominantly alpha-adrenoreceptor agonists, initial encounter; Z86.19 Personal history of other infectious and parasitic diseases; F15.10 Other stimulant abuse, uncomplicated; F11.10 Opioid abuse, uncomplicated
CPT/HCPCS: 0241U; 36415; 51702; 70450; 71045; 80048; 80053; 80069; 81001; 82803; 82947; 83880; 85025; 85379; 85610; 87040; 87070; 87086; 87205; 93005; 93010; 94002; 94640; 94760; 94762; 96374-59; 99291-25; 99292; A9270; A9270-GY; C1751; C9113; G0480; J0696; J1650; J1956; J2704; J2930; J7030; J7040; J7042; J7060; J7120; P9046

== ENCOUNTER 2020-06-23 18:20 | Inpatient (IN) | payer OTHER, MEDICARE ==
[~2020-06-23] VITALS: Ht 165.1 cm; Wt 75.0 kg
[~2020-06-23 18:20] MED LIST changes: +AMLO5 PO; +AMOCLA875 PO; +ATOR40TA PO; +Aspir 8181 MG PO; +BACLOFEN5 M5 PO; +BUDESONIDE-FO10.2 G2 INH; +BUSP10 PO; +FERSU300 PO; +IBUP600 PO; +INCRUSE ELLIPTA 62.5 INH; +IPRAT-ALBUT 0.5-3 ML NEB; +LOSA50 PO; +METO50ER PO; +MULVITA PO; +Mucus Relief400 MG PO; +NARCAN4 M1; +NEURONTIN300 MG PO; +OMEP20ER PO; +Percocet 5-3251 EACH PO; +ZANAFLEX4 M1 PO
[2020-06-23 20:12] LABS: BASOPHILS ABSOLUTE AUTO 0.02 K/mm3 (0.00-0.23); BASOPHILS PERCENT AUTO 0 % (0-2); EOSINOPHILS ABSOLUTE AUTO 0.09 K/mm3 (0.00-0.68); EOSINOPHILS PERCENT AUTO 1 % (0-6); Hematocrit 38.9 % (37.0-53.0); Hemoglobin 11.6 g/dL (13.5-17.5); IMMATURE GRAN ABSOLUTE AUTO 0.06 K/mm3 (0.00-0.10); IMMATURE GRAN PERCENT AUTO 0 % (0-1); LYMPHOCYTES ABSOLUTE AUTO 2.02 K/mm3 (0.84-5.20); LYMPHOCYTES PERCENT AUTO 12 % (21-46); MONOCYTES ABSOLUTE AUTO 0.85 K/mm3 (0.16-1.47); MONOCYTES PERCENT AUTO 5 % (4-13); Mean Corpuscular HGB 27.4 pg (26.0-34.0); Mean Corpuscular HGB Conc 29.8 g/dL (31.5-36.5); Mean Corpuscular Volume 92 fL (80-100); Mean Platelet Volume 12.5 fL (9.1-12.4); NEUTROPHILS ABSOLUTE AUTO 13.44 K/mm3 (1.96-9.15); NEUTROPHILS PERCENT AUTO 82 % (41-73); Platelet Count 141 K/mm3 (150-400); RDW Coefficient Variation 18.6 % (11.7-14.2); RDW Standard Deviation 62.4 fL (35.1-46.3); Red Blood Cell Count 4.24 M/mm3 (4.30-5.90); White Blood Cell Count 16.48 K/mm3 (4.00-11.30)
[2020-06-23 20:24] LABS: Alanine Aminotransfer (ALT/SGP 46 U/L (12-78); Albumin, Blood 3.2 g/dL (3.4-5.0); Albumin/Globulin Ratio 1.1 (0.8-1.8); Alk Phos 153 U/L (50-136); Anion Gap 5 mmol/L (6-16); Aspartate Aminotrans (AST/SGOT 28 U/L (12-37); Bilirubin, Total 0.4 mg/dL (0.1-1.0); Blood Urea Nitrogen 45 mg/dL (8-24); CO2, Blood 25 mmol/L (21-32); Calcium, Blood 8.6 mg/dL (8.5-10.1); Chloride, Blood 113 mmol/L (98-108); Creatinine, Blood 0.88 mg/dL (0.60-1.20); Glomerular Filtration Rate >60 (60-); Glucose, Blood 87 mg/dL (70-99); Potassium, Blood 4.4 mmol/L (3.5-5.5); Sodium, Blood 143 mmol/L (136-145); Total Protein, Blood 6.2 g/dL (6.4-8.2)
[2020-06-23] MEDS ORDERED: FUROSEMIDE20 MG PO (20:45)
[2020-06-23] MEDS ORDERED: K-Dur10 MEQ PO (20:46)
[2020-06-23] MEDS ORDERED: LOSA25 PO (20:48)
[2020-06-23 22:03] LABS: Phosphorus, Blood 3.2 mg/dL (2.5-4.9)
[2020-06-23 22:33] LABS: Source, Urine Clean Catch
[2020-06-23 22:35] LABS: Bilirubin, Urine Neg (Neg); Blood, Urine 3+ (Neg); Glucose Qualitative, Urine Neg (Neg); Ketones, Urine Neg (Neg); Leukocyte Esterase, Urine Neg (Neg); Nitrite, Urine Neg (Neg); Protein, Urine 3+ (Neg); Specific Gravity, Urine 1.005 (1.003-1.022); Urobilinogen, Urine NORM (Normal); pH, Urine 6.5 (5.0-8.0)
[2020-06-23 22:37] LABS: Appearance, Urine Clear (Clear); Color, Urine Yellow (P-Yellow)
[2020-06-23 22:43] LABS: Bacteria Few /hpf; Squamous Epithelial Cells Not Seen /hpf (Few); White Blood Cells, Urine 0-2 /hpf (0-5)
[2020-06-23 22:47] LABS: U Amphetamine Screen Not Detected; U Barbituate Screen Not Detected; U Benzodiazapine Screen Not Detected; U Buprenorphine Screen Not Detected; U Cannabinoids Screen DETECTED; U Cocaine Screen Not Detected; U Methadone Screen Not Detected; U Methamphetamine Screen Not Detected; U Opiates Screen DETECTED; U Oxycodone Screen Not Detected; U Phencyclidine Screen Not Detected; U Propoxyphene Screen Not Detected
[2020-06-23 23:17] LABS: Magnesium, Blood 1.7 mg/dL (1.6-2.4)
[2020-06-24 03:42] LABS: BASOPHILS PERCENT AUTO 0 % (0-2); EOSINOPHILS ABSOLUTE AUTO 0.02 K/mm3 (0.00-0.68); EOSINOPHILS PERCENT AUTO 0 % (0-6); Hematocrit 35.5 % (37.0-53.0); Hemoglobin 10.9 g/dL (13.5-17.5); IMMATURE GRAN ABSOLUTE AUTO 0.05 K/mm3 (0.00-0.10); IMMATURE GRAN PERCENT AUTO 1 % (0-1); LYMPHOCYTES ABSOLUTE AUTO 0.54 K/mm3 (0.84-5.20); LYMPHOCYTES PERCENT AUTO 5 % (21-46); MONOCYTES ABSOLUTE AUTO 0.09 K/mm3 (0.16-1.47); MONOCYTES PERCENT AUTO 1 % (4-13); Mean Corpuscular HGB 27.8 pg (26.0-34.0); Mean Corpuscular HGB Conc 30.7 g/dL (31.5-36.5); Mean Corpuscular Volume 91 fL (80-100); Mean Platelet Volume 12.4 fL (9.1-12.4); NEUTROPHILS ABSOLUTE AUTO 10.34 K/mm3 (1.96-9.15); NEUTROPHILS PERCENT AUTO 94 % (41-73); Platelet Count 144 K/mm3 (150-400); RDW Coefficient Variation 18.6 % (11.7-14.2); Red Blood Cell Count 3.92 M/mm3 (4.30-5.90); White Blood Cell Count 11.04 K/mm3 (4.00-11.30)
--- NOTE | 2020-06-24 03:49 | NUR ---
RISK MODELER SUMMARY PT ARRIVED TO THE UNIT DENYING ANY SOB ON RM AIR. PT IS AXO x3-4 BUT HAS POSSIBLE DEVELOPMENTAL DELAY W A CHILDLIKE DEMEANOR. PT WAS UNABLE TO PROVIDE ANY HEALTH HX OR IDENTIFY HIS HOME MEDICATIONS. PT HAS BARRIGA IN PLACE W GOOD URINE OUTPUT. PT PLACED ON BIPAP AFTER FALLING ASLEEP DURING ADMIT AND HAVING O2 SATS DROP INTO MID 80'S. BP VERY ELEVATED IN ED BUT CAME DOWN W SBP IN THE 150'S AFTER ARRIVING TO PCU. PT SLEPT COMFORTABLY FOR MOST OF THE NIGHT. VSS, WCTM.
[2020-06-24 04:12] LABS: Alanine Aminotransfer (ALT/SGP 43 U/L (12-78); Albumin, Blood 2.9 g/dL (3.4-5.0); Alk Phos 143 U/L (50-136); Anion Gap 4 mmol/L (6-16); Aspartate Aminotrans (AST/SGOT 28 U/L (12-37); Bilirubin, Total 0.3 mg/dL (0.1-1.0); Blood Urea Nitrogen 46 mg/dL (8-24); Bun/Creatinine Ratio 52.2 (12.0-20.0); CO2, Blood 29 mmol/L (21-32); Calcium, Blood 8.1 mg/dL (8.5-10.1); Chloride, Blood 113 mmol/L (98-108); Creatinine, Blood 0.88 mg/dL (0.60-1.20); Globulin, Blood 2.8 g/dL (2.2-4.0); Glomerular Filtration Rate >60 (60-); Glucose, Blood 187 mg/dL (70-99); Potassium, Blood 4.3 mmol/L (3.5-5.5); Sodium, Blood 146 mmol/L (136-145); Total Protein, Blood 5.7 g/dL (6.4-8.2)
--- NOTE | 2020-06-24 11:27 | NUR ---
ECHOCARDIOGRAM COMPLETE
--- NOTE | 2020-06-24 18:06 | NUR ---
END OF SHIFT NOTE: STONE LAYER WORKING WITH DOM HERNANDEZ RN. ASSUMED CARE AT APPROXIMATELY 0700. PT IS ALERT AND ORIENTED X4 WITH NO ACUTE CHANGE TO NEURO STATUS FROM PREVIOUS SHIFT. OXYGEN WAS DC AND PATIENT'S O2 IS >90% ON RA. PT IS SPEAKING IN FULL SENTENCES. PATIENT HAD AN ECHO THAT SHOWED ENDOCARDITIS AND HE IS PENDING TRANSFER TO [facility] IN THE MORNING, CURRENTLY NO BEDS. BARRIGA CATH IN PLACE DRAINING CLEAR YELLOW FLUID.
--- NOTE | 2020-06-24 18:36 | NUR ---
STUDENT NURSES ASSESMENT REVIEWED, AGREED WITH FINDINGS.
--- NOTE | 2020-06-25 03:43 | NUR ---
TOWNSHIP SUPERVISOR SUMMARY PT HAS BEEN AXO X4. PT DID NOT WANT TO WEAR HIS CPAP WHILE SLEEPING BUT MAINTAINED >92% O2 ON RM AIR. PT DENIED ANY CP OR NAUSEA THIS SHIFT. BARRIGA IS PATENT AND PT HAS HAD GOOD URINE OUTPUT. VSS BUT PT REMAINS TACHYCARDIC 100-115 BPM. NO NEW S/S, WCTM.
[2020-06-25 04:57] LABS: Anion Gap 7 mmol/L (6-16); Blood Urea Nitrogen 55 mg/dL (8-24); Bun/Creatinine Ratio 54.5 (12.0-20.0); CO2, Blood 28 mmol/L (21-32); Calcium, Blood 8.1 mg/dL (8.5-10.1); Chloride, Blood 112 mmol/L (98-108); Creatinine, Blood 1.01 mg/dL (0.60-1.20); Glomerular Filtration Rate >60 (60-); Glucose, Blood 153 mg/dL (70-99); Potassium, Blood 4.3 mmol/L (3.5-5.5); Sodium, Blood 147 mmol/L (136-145)
--- NOTE | 2020-06-25 13:39 | NUR ---
Pt d/c via Ambulance to [facility].
--- NOTE | 2020-06-25 14:22 | NUR ---
REPORT CALLED TO [facility] AND GIVEN TO UTE ENCINAS.
== END 2020-06-25 13:35 | disposition short-term general hospital (02) | DRG 871 ==
LOC: ER 18:20 → PCU 22:39
PROVIDERS: Emergency Medicine; Family Medicine; Nurse Practitioner Acute Care; ADMIT Family Medicine
DX: A41.01 Sepsis due to Methicillin susceptible Staphylococcus aureus (principal); I50.31 Acute diastolic (congestive) heart failure; I33.0 Acute and subacute infective endocarditis; J44.1 Chronic obstructive pulmonary disease with (acute) exacerbation; I11.0 Hypertensive heart disease with heart failure; I25.10 Atherosclerotic heart disease of native coronary artery without angina pectoris; E66.9 Obesity, unspecified; I27.20 Pulmonary hypertension, unspecified; I35.1 Nonrheumatic aortic (valve) insufficiency; F15.10 Other stimulant abuse, uncomplicated; G47.33 Obstructive sleep apnea (adult) (pediatric); Z68.29 Body mass index [BMI] 29.0-29.9, adult; I25.2 Old myocardial infarction; Z99.89 Dependence on other enabling machines and devices; Z87.891 Personal history of nicotine dependence; Z98.890 Other specified postprocedural states; Z88.8 Allergy status to other drugs, medicaments and biological substances; Z79.82 Long term (current) use of aspirin; Z79.899 Other long term (current) drug therapy
CPT/HCPCS: 36415; 51702; 71045; 80048; 80053; 81001; 83605; 83735; 83880; 84100; 84145; 84484; 85025; 87040; 93005; 93010; 93306; 93970; 94640; 94660; 94762; 96374-59; 96375-59; 97110; 97162; 99285-25; A9270; C1751; J0456; J0696; J1100; J1650; J1940; J2930; J7050

== ENCOUNTER 2020-07-20 17:08 | Emergency (ER) | payer OTHER, MEDICARE ==
[~2020-07-20] VITALS: Ht 165.1 cm; Wt 73.5 kg
[~2020-07-20 17:08] MED LIST changes: +FUROSEMIDE20 MG PO; +K-Dur10 MEQ PO; +LOSA25 PO
[2020-07-20] MEDS ORDERED: ALPR.25 PO (19:02)
[2020-07-20] MEDS ORDERED: METO25 PO (19:03)
[2020-07-20] MEDS ORDERED: Amiodarone HCl200 MG PO (19:03)
[2020-07-20] MEDS ORDERED: OXAYDO5 M1 PO (19:04)
[2020-07-20] MEDS ORDERED: PANT40 PO (19:04)
[2020-07-20] MEDS ORDERED: SENNA LAXATIVE8.6 MG PO (19:04)
[2020-07-20] MEDS ORDERED: DIPH50 PO (19:07)
[2020-07-20] MEDS ORDERED: DICLOFENAC SOD100 GM TOP (19:07)
[2020-07-20] MEDS ORDERED: LIDO700A20 TOP (19:08)
[2020-07-20 19:22] LABS: BASOPHILS ABSOLUTE AUTO 0.05 K/mm3 (0.00-0.23); BASOPHILS PERCENT AUTO 1 % (0-2); EOSINOPHILS ABSOLUTE AUTO 0.26 K/mm3 (0.00-0.68); EOSINOPHILS PERCENT AUTO 3 % (0-6); Hematocrit 34.7 % (37.0-53.0); IMMATURE GRAN PERCENT AUTO 1 % (0-1); LYMPHOCYTES ABSOLUTE AUTO 1.67 K/mm3 (0.84-5.20); LYMPHOCYTES PERCENT AUTO 18 % (21-46); MONOCYTES ABSOLUTE AUTO 1.15 K/mm3 (0.16-1.47); MONOCYTES PERCENT AUTO 12 % (4-13); Mean Corpuscular HGB 27.9 pg (26.0-34.0); Mean Corpuscular HGB Conc 28.8 g/dL (31.5-36.5); Mean Corpuscular Volume 97 fL (80-100); Mean Platelet Volume 11.8 fL (9.1-12.4); NEUTROPHILS ABSOLUTE AUTO 6.27 K/mm3 (1.96-9.15); NEUTROPHILS PERCENT AUTO 66 % (41-73); Platelet Count 184 K/mm3 (150-400); RDW Coefficient Variation 18.8 % (11.7-14.2); RDW Standard Deviation 66.5 fL (35.1-46.3); Red Blood Cell Count 3.58 M/mm3 (4.30-5.90)
[2020-07-20 19:45] LABS: Alanine Aminotransfer (ALT/SGP 25 U/L (12-78); Albumin, Blood 3.3 g/dL (3.4-5.0); Albumin/Globulin Ratio 0.9 (0.8-1.8); Alk Phos 148 U/L (50-136); Anion Gap 5 mmol/L (6-16); Aspartate Aminotrans (AST/SGOT 22 U/L (12-37); Bilirubin, Total 0.4 mg/dL (0.1-1.0); Blood Urea Nitrogen 21 mg/dL (8-24); CO2, Blood 26 mmol/L (21-32); Calcium, Blood 8.6 mg/dL (8.5-10.1); Chloride, Blood 111 mmol/L (98-108); Creatinine, Blood 0.88 mg/dL (0.60-1.20); Globulin, Blood 3.5 g/dL (2.2-4.0); Glomerular Filtration Rate >60 (60-); Glucose, Blood 89 mg/dL (70-99); Potassium, Blood 4.3 mmol/L (3.5-5.5); Sodium, Blood 142 mmol/L (136-145); Total Protein, Blood 6.8 g/dL (6.4-8.2); Troponin I <0.015 ng/mL (0.000-0.040)
== END 2020-07-20 20:25 | disposition home or self-care (01) ==
LOC: ER 17:08
PROVIDERS: Physician Assistant
DX: I11.0 Hypertensive heart disease with heart failure (principal); I50.9 Heart failure, unspecified; J44.9 Chronic obstructive pulmonary disease, unspecified; F19.10 Other psychoactive substance abuse, uncomplicated; Z79.899 Other long term (current) drug therapy; Z79.82 Long term (current) use of aspirin; Z86.79 Personal history of other diseases of the circulatory system; Z88.6 Allergy status to analgesic agent; Z79.51 Long term (current) use of inhaled steroids; Z87.891 Personal history of nicotine dependence
CPT/HCPCS: 36415; 71045; 80053; 83880; 84484; 85025; 93005; 93010; 94640; 96374; 99285-25; J1940

== ENCOUNTER 2020-07-24 16:16 | Emergency (ER) | payer OTHER, MEDICARE ==
[~2020-07-24] VITALS: Ht 160 cm; Wt 72.6 kg
[~2020-07-24 16:16] MED LIST changes: +ALPR.25 PO; +Amiodarone HCl200 MG PO; +DICLOFENAC SOD100 GM TOP; +METO25 PO; +OXAYDO5 M1 PO; +PANT40 PO; +SENNA LAXATIVE8.6 MG PO
[2020-07-24 17:28] LABS: BASOPHILS ABSOLUTE AUTO 0.05 K/mm3 (0.00-0.23); BASOPHILS PERCENT AUTO 0 % (0-2); EOSINOPHILS ABSOLUTE AUTO 0.11 K/mm3 (0.00-0.68); EOSINOPHILS PERCENT AUTO 1 % (0-6); Hematocrit 31.8 % (37.0-53.0); Hemoglobin 9.9 g/dL (13.5-17.5); IMMATURE GRAN ABSOLUTE AUTO 0.06 K/mm3 (0.00-0.10); IMMATURE GRAN PERCENT AUTO 0 % (0-1); LYMPHOCYTES ABSOLUTE AUTO 1.18 K/mm3 (0.84-5.20); LYMPHOCYTES PERCENT AUTO 9 % (21-46); MONOCYTES ABSOLUTE AUTO 0.82 K/mm3 (0.16-1.47); MONOCYTES PERCENT AUTO 6 % (4-13); Mean Corpuscular HGB 27.7 pg (26.0-34.0); Mean Corpuscular HGB Conc 31.1 g/dL (31.5-36.5); Mean Corpuscular Volume 89 fL (80-100); Mean Platelet Volume 11.2 fL (9.1-12.4); NEUTROPHILS ABSOLUTE AUTO 11.28 K/mm3 (1.96-9.15); NEUTROPHILS PERCENT AUTO 84 % (41-73); Platelet Count 196 K/mm3 (150-400); RDW Coefficient Variation 18.1 % (11.7-14.2); RDW Standard Deviation 59.3 fL (35.1-46.3); Red Blood Cell Count 3.57 M/mm3 (4.30-5.90)
[2020-07-24 17:49] LABS: Alanine Aminotransfer (ALT/SGP 26 U/L (12-78); Albumin, Blood 3.5 g/dL (3.4-5.0); Alk Phos 146 U/L (50-136); Anion Gap 7 mmol/L (6-16); Aspartate Aminotrans (AST/SGOT 25 U/L (12-37); Bilirubin, Total 0.4 mg/dL (0.1-1.0); Blood Urea Nitrogen 23 mg/dL (8-24); Bun/Creatinine Ratio 24.5 (12.0-20.0); CO2, Blood 24 mmol/L (21-32); Calcium, Blood 9.1 mg/dL (8.5-10.1); Chloride, Blood 107 mmol/L (98-108); Creatinine, Blood 0.94 mg/dL (0.60-1.20); Globulin, Blood 3.5 g/dL (2.2-4.0); Glomerular Filtration Rate >60 (60-); Glucose, Blood 102 mg/dL (70-99); Potassium, Blood 4.3 mmol/L (3.5-5.5); Sodium, Blood 138 mmol/L (136-145); Troponin I 0.021 ng/mL (0.000-0.040)
[2020-07-24] MEDS ORDERED: FURO40 PO (18:20)
[2020-07-24] MEDS ORDERED: POTA10T PO (18:24)
== END 2020-07-24 18:55 | disposition home or self-care (01) ==
LOC: ER 16:16
PROVIDERS: Physician Assistant
DX: J90 Pleural effusion, not elsewhere classified (principal); I10 Essential (primary) hypertension; R60.0 Localized edema; Z88.6 Allergy status to analgesic agent; Z79.899 Other long term (current) drug therapy
CPT/HCPCS: 71046; 80053; 83880; 84484; 85025; 93005; 93010; 99284-25

== ENCOUNTER 2020-07-31 14:30 | Inpatient (IN) | payer OTHER, MEDICARE ==
[~2020-07-31] VITALS: Ht 162.6 cm; Wt 68.0 kg
[~2020-07-31 14:30] MED LIST changes: +FURO40 PO; +POTA10T PO
[2020-07-31] MEDS ORDERED: ATOR40TA PO (16:24)
[2020-07-31 17:50] LABS: Hematocrit 34.4 % (37.0-53.0); Hemoglobin 10.5 g/dL (13.5-17.5); Mean Corpuscular HGB 27.6 pg (26.0-34.0); Mean Corpuscular HGB Conc 30.5 g/dL (31.5-36.5); Mean Corpuscular Volume 90 fL (80-100); Mean Platelet Volume 11.9 fL (9.1-12.4); Platelet Count 226 K/mm3 (150-400); RDW Coefficient Variation 18.7 % (11.7-14.2); RDW Standard Deviation 61.1 fL (35.1-46.3); Red Blood Cell Count 3.81 M/mm3 (4.30-5.90); White Blood Cell Count 27.59 K/mm3 (4.00-11.30)
[2020-07-31 17:54] LABS: Base Excess Venous -3.2 mmol/L; Bicarbonate Venous 22.4 mmol/L (24.0-30.0); PCO2 Venous 31.1 mmHg (38-42); PO2 Venous 153 mmHg (38-42); pH Blood Venous 7.44 (7.34-7.37)
[2020-07-31 18:04] LABS: International Normalized Ratio 1.16; Prothrombin Time Results 12.4 Sec (9.7-11.5)
[2020-07-31 18:24] LABS: Albumin, Blood 3.2 g/dL (3.4-5.0); Albumin/Globulin Ratio 0.9 (0.8-1.8); BAND PERCENT MAN 11 % (0-8); BASOPHILS PERCENT MAN 0 % (0-2); Bilirubin, Total 0.6 mg/dL (0.1-1.0); Bun/Creatinine Ratio 18.6 (12.0-20.0); Calcium, Blood 8.7 mg/dL (8.5-10.1); Creatinine, Blood 1.72 mg/dL (0.60-1.20); EOSINOPHILS PERCENT MAN 0 % (0-6); Globulin, Blood 3.4 g/dL (2.2-4.0); LYMPHOCYTES ABSOLUTE MAN 0.55 K/mm3 (0.84-5.20); LYMPHOCYTES PERCENT MAN 2 % (21-46); MONOCYTES ABSOLUTE MAN 1.65 K/mm3 (0.16-1.47); MONOCYTES PERCENT MAN 6 % (4-13); MYELOCYTE ABSOLUTE MAN 0.27 K/mm3 (0.00-0.00); MYELOCYTE PERCENT MAN 1 % (0-0); Potassium, Blood 5.3 mmol/L (3.5-5.5); SEG NEUTROPHILS PERCENT MAN 80 % (41-73); TOTAL CELLS COUNTED 100; Total Protein, Blood 6.6 g/dL (6.4-8.2)
[2020-08-01 03:35] LABS: BASOPHILS ABSOLUTE AUTO 0.03 K/mm3 (0.00-0.23); BASOPHILS PERCENT AUTO 0 % (0-2); Hematocrit 29.5 % (37.0-53.0); Hemoglobin 9.1 g/dL (13.5-17.5); LYMPHOCYTES ABSOLUTE AUTO 1.36 K/mm3 (0.84-5.20); LYMPHOCYTES PERCENT AUTO 8 % (21-46); MONOCYTES ABSOLUTE AUTO 0.98 K/mm3 (0.16-1.47); MONOCYTES PERCENT AUTO 6 % (4-13); Mean Corpuscular HGB 27.4 pg (26.0-34.0); Mean Corpuscular HGB Conc 30.8 g/dL (31.5-36.5); Mean Corpuscular Volume 89 fL (80-100); Mean Platelet Volume 11.4 fL (9.1-12.4); Platelet Count 157 K/mm3 (150-400); RDW Coefficient Variation 18.6 % (11.7-14.2); RDW Standard Deviation 61.1 fL (35.1-46.3); Red Blood Cell Count 3.32 M/mm3 (4.30-5.90); White Blood Cell Count 17.95 K/mm3 (4.00-11.30)
[2020-08-01 03:37] LABS: EOSINOPHILS ABSOLUTE AUTO 0.01 K/mm3 (0.00-0.68); EOSINOPHILS PERCENT AUTO 0 % (0-6); IMMATURE GRAN ABSOLUTE AUTO 0.34 K/mm3 (0.00-0.10); IMMATURE GRAN PERCENT AUTO 2 % (0-1); NEUTROPHILS ABSOLUTE AUTO 15.23 K/mm3 (1.96-9.15); NEUTROPHILS PERCENT AUTO 85 % (41-73)
--- NOTE | 2020-08-01 03:42 | NUR ---
CARE UPDATE: PATIENT BLADDER SCANNED AROUND 2200 07/31 DUE TO THE INABILITY TO VOID. PATIENT EXPRESSED THAT HE THOUGHT HE URINATED THIS AFTERNOON BUT SAID HE HADN'T GONE SINCE NOON. 215ML ON 1ST SCAN. PATIENT BLADDER SCANNED AGAIN AT 0345 AND THERE WAS ONLY 345ML. ALEXANDRIA SAYS HE DOES NOT FEEL LIKE HE HAS TO VOID AND THE CONDOM CATHETER REMAINS IN PLACE TO GRAVITY BAG. DR. RUTLEDGE CONSULTED
[2020-08-01 03:55] LABS: Albumin, Blood 2.8 g/dL (3.4-5.0); Albumin/Globulin Ratio 0.9 (0.8-1.8); Bilirubin, Total 0.3 mg/dL (0.1-1.0); Calcium, Blood 7.9 mg/dL (8.5-10.1); Creatinine, Blood 1.54 mg/dL (0.60-1.20); Globulin, Blood 3.2 g/dL (2.2-4.0); Potassium, Blood 4.4 mmol/L (3.5-5.5)
--- NOTE | 2020-08-01 06:21 | NUR ---
END OF SHIFT SUMMARY: PATIENT HAS BEEN RESTING COMFORTABLY ON THE BIPAP TONIGHT WITH NO ISSUES OR COMPLAINTS. ORAL CARE PROVIDED AND PO FLUIDS OFFERED THROUGHOUT. PATIENT HAS REMAINED IN A-FLUTTER AND LEVOPHED HAS BEEN OFF SINCE DRY GOODS INSPECTOR. PATIENT A/O X3, HE JUST FORGETS THE DAY/TIME AT TIMES. STILL NO URINE OUTPUT OR FEELING LIKE HE HAS TO VOID. LABS SENT AND WNL. PATIENT STATES HE IS READY FOR BREAKFAST AND IS FEELING MORE RESTED
[2020-08-01 08:02] LABS: Source, Urine Clean Catch
[2020-08-01 08:32] LABS: Appearance, Urine Clear (Clear); Bilirubin, Urine Neg (Neg); Blood, Urine 3+ (Neg); Color, Urine Yellow (P-Yellow); Glucose Qualitative, Urine Neg (Neg); Ketones, Urine Neg (Neg); Leukocyte Esterase, Urine 1+ (Neg); Nitrite, Urine Neg (Neg); Protein, Urine 3+ (Neg); Urobilinogen, Urine NORM (Normal)
[2020-08-01 08:33] LABS: U Amphetamine Screen DETECTED; U Barbituate Screen Not Detected; U Benzodiazapine Screen DETECTED; U Cannabinoids Screen DETECTED; U Cocaine Screen Not Detected; U Methamphetamine Screen DETECTED; U Opiates Screen DETECTED
[2020-08-01 08:34] LABS: U Buprenorphine Screen Not Detected; U Methadone Screen Not Detected; U Oxycodone Screen DETECTED; U Phencyclidine Screen Not Detected; U Propoxyphene Screen Not Detected
[2020-08-01 08:40] LABS: Bacteria Few /hpf; Squamous Epithelial Cells Few /hpf (Few)
[2020-08-01 09:46] LABS: Vancomycin, Random 11.4 ug/mL
--- NOTE | 2020-08-01 09:58 | NUR ---
AM NOTE... ASSUMED CARE OF PT AT 0700. PT IS A&Ox4. PT WAS ON BIPAP AT THE START OF THIS SHIFT, PT WAS TAKEN OFF OF BIPAP AND ON TO RA, PT'S O2 SATS HAVE BEEN >93% ON RA. PT'S L/S VERY COARSE WITH WHEEZES T/O AND DIM IN THE BASES. PT HAS A MOIST COUGH THAT HAS BEEN NONPRODUCTIVE SO FAR THIS SHIFT. PT EDUCATED ON OBTAINING A SPUTUM SAMPLE, PT VERBALIZED HIS UNDERSTANDING, STERILE SPECIMEN CUP PLACED AT THE BEDSIDE FOR WHEN PT IS ABLE TO COUGH UP ENOUGH TO SEND TO THE LAB. PT IS IN A. FLUTTER IN THE 80'S-LOW 100'S, PT'S BP STABLE WITH MAPS >65, LEVOPHED WAS STOPPED AT APROX 0400 PER NOC SHIFT RN. PT HAS 1+2 PITTING EDEMA TO HIS BLE AND DEPENDENT EDEMA NOTED TO HIS RIGHT ARM, PT STATES THIS IS NORMAL FOR HIM. BT PRESENT AND HYPERACTIVE,ABD HAS MODERATE DISTENTION THAT PT STATES IS NORMAL,ABD IS SOFT AND NONTENDER TO PALP. PT HAD A BM THIS MORNING. PT HAD A CONDOM CATH PRESENT AT THE START OF THIS SHIFT. PT VOIDED INTO THE CONDOM CATH AND UA/TOX SCREEN WAS SENT (SEE LABS). THE CONDOM CATH THEN CAME OFF SHORTLY AFTER HIS FIRST VOID SINCE ADMIT. PT WAS THEN ABLE TO VOID USING A URINAL WITHOUT ASSIST. PT HAS A HEALING SCAR MIDLINE OF HIS CHEST FROM HIS RECENT VALVE REPLACEMENT SURGERY. IT WAS ALSO NOTED THAT BOTH OF PT'S ARMS ARE COVERED WITH SCATTERED BRUISES WITH AREAS THAT APPEAR TO BE TRACK HOROWITZ. KIDNEY/BLADDER ULTRASOUND WAS DONE THIS AM, PT IS TO HAVE AN ECHO DONE WELL. CALL LIGHT IN REACH WILL CONTINUE TO MONITOR.
--- NOTE | 2020-08-01 12:31 | NUR ---
Echocardiogram completed.
--- NOTE | 2020-08-01 19:26 | NUR ---
SHIFT SUMMARY... NO ACUTE NEGATIVE CHANGES NOTED THIS SHIFT. PT'S VS HAVE BEEN STABLE. PT HAS BEEN A&Ox4. PT HAS EATEN APROX 60%-80% OF HIS MEALS. PT HAS VOIDED 3 TIMES THIS SHIFT, LAST BLADDER SCAN POST VOID SHOWED 121MLS. PT'S L/S LEFT SIDED VERY COARSE WITH SCATTERED WHEEZES, RIGHT SIDE IS MORE CLEAR. PT'S WAS AT THE BEDSIDE FOR VISITING HOURS. PT WAS GIVEN VANCO AND ROCEPHIN PER ORDERS THIS SHIFT. PT HAD AN ECHO THAT SHOWED HIS EF TO BE 60-65%. DRESSING CHANGE WAS DONE ON THE LEFT CENTRAL LINE. CALL LIGHT IN REACH WILL CONTINUE TO MONITOR UNTIL REPORT IS GIVEN TO ONCOMING RN.
[2020-08-02 08:44] LABS: BASOPHILS ABSOLUTE AUTO 0.01 K/mm3 (0.00-0.23); BASOPHILS PERCENT AUTO 0 % (0-2); EOSINOPHILS ABSOLUTE AUTO 0.05 K/mm3 (0.00-0.68); EOSINOPHILS PERCENT AUTO 1 % (0-6); Hematocrit 26.6 % (37.0-53.0); Hemoglobin 8.3 g/dL (13.5-17.5); IMMATURE GRAN PERCENT AUTO 1 % (0-1); LYMPHOCYTES ABSOLUTE AUTO 1.06 K/mm3 (0.84-5.20); LYMPHOCYTES PERCENT AUTO 14 % (21-46); MONOCYTES ABSOLUTE AUTO 0.44 K/mm3 (0.16-1.47); MONOCYTES PERCENT AUTO 6 % (4-13); Mean Corpuscular HGB 27.7 pg (26.0-34.0); Mean Corpuscular HGB Conc 31.2 g/dL (31.5-36.5); Mean Corpuscular Volume 89 fL (80-100); Mean Platelet Volume 11.7 fL (9.1-12.4); NEUTROPHILS ABSOLUTE AUTO 6.19 K/mm3 (1.96-9.15); NEUTROPHILS PERCENT AUTO 79 % (41-73); Platelet Count 114 K/mm3 (150-400); RDW Coefficient Variation 18.3 % (11.7-14.2); RDW Standard Deviation 59.5 fL (35.1-46.3); White Blood Cell Count 7.85 K/mm3 (4.00-11.30)
[2020-08-02 08:47] LABS: Albumin, Blood 2.7 g/dL (3.4-5.0); Anion Gap 4 mmol/L (6-16); Blood Urea Nitrogen 26 mg/dL (8-24); Bun/Creatinine Ratio 29.7 (12.0-20.0); CO2, Blood 24 mmol/L (21-32); Calcium, Blood 8.1 mg/dL (8.5-10.1); Chloride, Blood 111 mmol/L (98-108); Creatinine, Blood 0.88 mg/dL (0.60-1.20); Glomerular Filtration Rate >60 (60-); Glucose, Blood 90 mg/dL (70-99); Magnesium, Blood 2.3 mg/dL (1.6-2.4); Phosphorus, Blood 2.5 mg/dL (2.5-4.9); Potassium, Blood 4.1 mmol/L (3.5-5.5); Sodium, Blood 139 mmol/L (136-145)
[2020-08-02 08:52] LABS: Vancomycin, Trough 23.8 ug/mL (5.0-10.0)
[2020-08-02 17:04] LABS: Vancomycin, Random 13.8 ug/mL
--- NOTE | 2020-08-02 18:13 | NUR ---
END OF SHIFT SUMMARY: HEAD AUTOMATIC SAWYER WORKING WITH DOM HERNANDEZ RN. ASSUMED CARE OF PATIENT AROUND 1330. PATIENT IS ALERT AND ORIENTED X4. PATIENT HAS A WELL HEALING AND WELL APPROXIMATED STERNAL INCISION. PATIENT HAS AN OCCASTIONAL COUGH BUT IS >95% ON RA. PATIENT DOES HAVE SOME STERNAL PAIN FROM HIS OPEN HEART SURGERY 2 WEEKS AGO. HE DELPHINE ANY NEW PAIN. HE HAS NO NEW COMPALINTS AT THIS TIME. VSS. PATIENT IS RESTING IN BED COMFORTABLY. BED IS IN THE LOWEST POSITION. CALL LIGHT IS WITHIN REACH.
--- NOTE | 2020-08-02 21:00 | NUR ---
ASSUMED CARE PT IS ALERT AND ORIENTED. PT DENIES CARDIAC PAIN OTHER THEN CHEST PAIN DUE TO INCISION SITE. DENIES SOB. PT STS THAT HE HAS SOME LEFT CALF TENDERNESS SINCE ADMISSION. THERE IS SOME BRUISING ON ARMS AND PT STS THEY ARE WERE HE WAS "STUCK BY DOCTORS TO GET IV'S AND FROM HIM STICKING HIMSELF WELL." PT IS USING URINAL AND BEDPAN. PT HAS CALL LIGHT WITHIN REACH AND USES IT APPROPRIETLY. WILL CONTINUE TO MONITOR.
[2020-08-03 04:39] LABS: Hematocrit 28.2 % (37.0-53.0)
[2020-08-03 05:07] LABS: Albumin, Blood 3.1 g/dL (3.4-5.0); Anion Gap 6 mmol/L (6-16); Blood Urea Nitrogen 23 mg/dL (8-24); Bun/Creatinine Ratio 31.9 (12.0-20.0); CO2, Blood 23 mmol/L (21-32); Calcium, Blood 8.6 mg/dL (8.5-10.1); Chloride, Blood 108 mmol/L (98-108); Creatinine, Blood 0.72 mg/dL (0.60-1.20); Glomerular Filtration Rate >60 (60-); Glucose, Blood 135 mg/dL (70-99); Magnesium, Blood 2.5 mg/dL (1.6-2.4); Phosphorus, Blood 1.9 mg/dL (2.5-4.9); Potassium, Blood 4.5 mmol/L (3.5-5.5); Sodium, Blood 137 mmol/L (136-145)
--- NOTE | 2020-08-03 05:20 | NUR ---
SHIFT SUMMARY PT IS ALERT AND ORIENTED. BLOOD PRESSURE HAS BEEN ELEVATED AND AT APPROX 0015 A CALL WAS PLACED TO DR ESCALANTE REGARDING ELEVATED BLOOD PRESSURES; DR ESCALANTE ORDERED HYDRALAZINE FOR BP >160 SYSTOLIC. PT IS ON ROOM AIR AND HAS WHEEZES ON EXP. THIS RN ASKED PT ABOUT URINATION AND PT STATED THAT HE CATHS HIMSELF A COUPLE OF TIMES WEEKLY BECAUSE HE HAS TROUBLE URINATING. PT IS REPORTED THAT HE WANTS TO SLEEP AND REST BUT IS HAVING A HARD TIME DUE TO HIS DRUG USE. MEDICATION PER EMAR WAS GIVEN TO HELP WITH HIS ANXIETY. PT RESPORTS PAIN OF 7/10 IN CHEST INCESION. PT HAS BEEN ABLET TO USE CALL LIGHT APPROPRIETLY.
--- NOTE | 2020-08-03 06:00 | NUR ---
CALLED DR ESCALANTE REGARDING ELEVATED BP AND HYDRALAZINE NOT BEING EFFECTIVE. ORDER TO GIVE ALL CARDIAC MEDS NOW. PT'S PAIN MEDS IS ALSO NOT COVERING HIS PAIN ORDER TO INCREASE TO 10MG.
--- NOTE | 2020-08-03 06:06 | NUR ---
DR BRENTON ESCALANTE CALLED TO GIVE PT NA PHOS 20MM IV X1.
--- NOTE | 2020-08-03 09:55 | NUR ---
REPORT GIVEN TO WILDER UNGER ON MEDICAL.
--- NOTE | 2020-08-03 10:23 | NUR ---
PT RECIEVED FROM PCU, TRANSFERED VIA BED. REPORT RECIEVED FROM JINRIKISHA DRIVER PRIOR TO TRANSFER.
[2020-08-03] MEDS ORDERED: CEPH500 PO (14:13)
[2020-08-03] MEDS ORDERED: HYDR1TAB94 PO (14:13)
[2020-08-03] MEDS ORDERED: AZIT500 PO (14:14)
[2020-08-03] MEDS ORDERED: [UNRECOGNIZED DRUG - OTHER] MM (14:15)
--- NOTE | 2020-08-03 16:21 | NUR ---
1533 PT DISCHARGED HOME WITH HOME HEALTH ACCOMPANIED AND DRIVEN BY SON. PT ESCORTED TO ENTRANCE VIA W/C BY KEEGAN. IV REMOVED. D/C PAPERWORK REVIEWED WITH PT AND COPY PROVIDED. CENTRAL LINE REMOVED BY ICU HOMERO ARGUETA AT 1450, PRESSURE HELD FOR 10 MINUTES BY PRICING ANALYST, PT THEN LAYED FALT FOR 30 MINUTES. NO BLEEDING AT TIME OF DISHCARGE, DRESSING C/D/I.
== END 2020-08-03 15:34 | disposition home health service (06) | DRG 871 ==
LOC: ER 14:30 → MEDS 19:01 → ICUE 19:01 → ICUW 19:01 → ICUE 20:46 → PCU 08-02 13:35 → MEDS 08-03 10:25 → ENPENDDIS 08-03 12:31 → MEDS 08-03 15:34
PROVIDERS: Family Medicine; Internal Medicine Nephrology; Pharmacist; Physician Assistant; Student in an Organized Health Care Education/Training Program; ADMIT Internal Medicine
PROC: 5A09457 Assistance with Respiratory Ventilation, 24-96 Consecutive Hours, Continuous Positive Airway Pressure (ICD-10-PCS; principal; 2020-07-31)
PROC: 3E033XZ Introduction of Vasopressor into Peripheral Vein, Percutaneous Approach (ICD-10-PCS; 2020-07-31)
DX: A40.3 Sepsis due to Streptococcus pneumoniae (principal); J13 Pneumonia due to Streptococcus pneumoniae; G92 Toxic encephalopathy; J96.01 Acute respiratory failure with hypoxia; R65.20 Severe sepsis without septic shock; N17.9 Acute kidney failure, unspecified; J44.0 Chronic obstructive pulmonary disease with (acute) lower respiratory infection; G47.33 Obstructive sleep apnea (adult) (pediatric); I48.91 Unspecified atrial fibrillation; N18.2 Chronic kidney disease, stage 2 (mild); I12.9 Hypertensive chronic kidney disease with stage 1 through stage 4 chronic kidney disease, or unspecified chronic kidney disease; Z79.01 Long term (current) use of anticoagulants; Z95.2 Presence of prosthetic heart valve; E83.39 Other disorders of phosphorus metabolism; Z88.8 Allergy status to other drugs, medicaments and biological substances; F15.10 Other stimulant abuse, uncomplicated; Z86.73 Personal history of transient ischemic attack (TIA), and cerebral infarction without residual deficits; Z98.890 Other specified postprocedural states; Z87.891 Personal history of nicotine dependence; F12.10 Cannabis abuse, uncomplicated; Z79.82 Long term (current) use of aspirin; Z79.899 Other long term (current) drug therapy; E86.9 Volume depletion, unspecified
CPT/HCPCS: 36415; 36556; 71045; 76770; 80053; 80069; 80202; 81001; 82803; 83605; 83735; 83880; 84145; 85014; 85018; 85025; 85610; 85730; 87040; 87070; 87205; 87449; 93005; 93010; 93306; 94640; 94660; 94760; 96365-59; 96366-59; 96367-59; 96368; 97110; 97162; 97530; 99285-25; A9270; C1751; J0360; J0696; J1650; J2930; J3370; J7030; J7040; J7060; J7120

== ENCOUNTER 2020-08-12 14:31 | Inpatient (IN) | payer OTHER, MEDICARE ==
[~2020-08-12] VITALS: Ht 162.6 cm; Wt 51.0 kg
[~2020-08-12 14:31] MED LIST changes: +AZIT500 PO; +HYDR1TAB94 PO; +[UNRECOGNIZED DRUG - OTHER] MM
[2020-08-12 15:24] LABS: Source, Urine Clean Catch
[2020-08-12 15:26] LABS: Appearance, Urine Clear (Clear); Bilirubin, Urine Neg (Neg); Blood, Urine 3+ (Neg); Color, Urine Yellow (P-Yellow); Glucose Qualitative, Urine Neg (Neg); Ketones, Urine Neg (Neg); Leukocyte Esterase, Urine Neg (Neg); Nitrite, Urine Neg (Neg); Protein, Urine 3+ (Neg); Specific Gravity, Urine 1.005 (1.003-1.022); Urobilinogen, Urine NORM (Normal)
[2020-08-12 15:39] LABS: Alanine Aminotransfer (ALT/SGP 38 U/L (12-78); Albumin, Blood 3.8 g/dL (3.4-5.0); Albumin/Globulin Ratio 0.9 (0.8-1.8); Alk Phos 206 U/L (50-136); Anion Gap 9 mmol/L (6-16); Aspartate Aminotrans (AST/SGOT 32 U/L (12-37); Bilirubin, Total 0.6 mg/dL (0.1-1.0); Blood Urea Nitrogen 13 mg/dL (8-24); Bun/Creatinine Ratio 17.9 (12.0-20.0); CO2, Blood 18 mmol/L (21-32); Chloride, Blood 108 mmol/L (98-108); Creatinine, Blood 0.73 mg/dL (0.60-1.20); Globulin, Blood 4.4 g/dL (2.2-4.0); Glomerular Filtration Rate >60 (60-); Glucose, Blood 146 mg/dL (70-99); Potassium, Blood 4.4 mmol/L (3.5-5.5); Sodium, Blood 135 mmol/L (136-145); Total Protein, Blood 8.2 g/dL (6.4-8.2)
[2020-08-12 16:03] LABS: BASOPHILS ABSOLUTE AUTO 0.07 K/mm3 (0.00-0.23); BASOPHILS PERCENT AUTO 0 % (0-2); EOSINOPHILS ABSOLUTE AUTO 0.04 K/mm3 (0.00-0.68); EOSINOPHILS PERCENT AUTO 0 % (0-6); Hematocrit 34.6 % (37.0-53.0); IMMATURE GRAN ABSOLUTE AUTO 0.17 K/mm3 (0.00-0.10); IMMATURE GRAN PERCENT AUTO 1 % (0-1); LYMPHOCYTES ABSOLUTE AUTO 0.36 K/mm3 (0.84-5.20); LYMPHOCYTES PERCENT AUTO 2 % (21-46); MONOCYTES PERCENT AUTO 3 % (4-13); Mean Corpuscular HGB 27.4 pg (26.0-34.0); Mean Corpuscular HGB Conc 31.8 g/dL (31.5-36.5); Mean Corpuscular Volume 86 fL (80-100); NEUTROPHILS ABSOLUTE AUTO 17.46 K/mm3 (1.96-9.15); NEUTROPHILS PERCENT AUTO 93 % (41-73); RDW Coefficient Variation 17.8 % (11.7-14.2); RDW Standard Deviation 56.9 fL (35.1-46.3); Red Blood Cell Count 4.02 M/mm3 (4.30-5.90)
[2020-08-12 16:04] LABS: Mean Platelet Volume 11.9 fL (9.1-12.4); Platelet Count 172 K/mm3 (150-400)
[2020-08-12 16:05] LABS: International Normalized Ratio 1.17; Prothrombin Time Results 12.5 Sec (9.7-11.5)
[2020-08-12 16:25] LABS: Bacteria Few /hpf; Hyaline Casts 0-2 /lpf (0-2); Red Blood Cells, Urine 25-50 /hpf (0-2); Squamous Epithelial Cells Few /hpf (Few); White Blood Cells, Urine 0-2 /hpf (0-5)
[2020-08-12] MEDS ORDERED: FUROSEMIDE40 MG PO (16:43)
[2020-08-12] MEDS ORDERED: METOPROLOL TART25 MG PO (16:45)
[2020-08-12] MEDS ORDERED: LOSARTAN POTASS25 M2 PO (16:45)
[2020-08-12] MEDS ORDERED: K-Dur10 MEQ PO (16:45)
[2020-08-12] MEDS ORDERED: INCRUSE ELLIPTA 62.5 INH (16:49)
[2020-08-12 17:31] LABS: Adenovirus Not Detected (NOT DETECT); Bordetella pertussis Not Detected (NOT DETECT); Chlamydophila pneumoniae Not Detected (NOT DETECT); Coronavirus 229E Not Detected (NOT DETECT); Coronavirus HKU1 Not Detected (NOT DETECT); Coronavirus NL63 Not Detected (NOT DETECT); Coronavirus OC43 Not Detected (NOT DETECT); Human Metapneumovirus Not Detected (NOT DETECT); Human Rhinovirus/Enterovirus Not Detected (NOT DETECT); Influenza A/2009-H1 Not Detected (NOT DETECT); Influenza A/H1 Not Detected (NOT DETECT); Influenza A/H3 Not Detected (NOT DETECT); Influenza B Not Detected (NOT DETECT); Mycoplasma pneumoniae Not Detected (NOT DETECT); Parainfluenza Virus 1 Not Detected (NOT DETECT); Parainfluenza Virus 2 Not Detected (NOT DETECT); Parainfluenza Virus 3 Not Detected (NOT DETECT); Parainfluenza Virus 4 Not Detected (NOT DETECT); Respiratory Syncytial Virus Not Detected (NOT DETECT); SARS-Cov-2 (COVID-19), BioFire Not Detected (NOT DETECT)
--- NOTE | 2020-08-12 20:04 | NUR ---
RECEIVED REPORT ABOUT PT VIA PHONE FROM UTE GILBERT IN ER AT 1850; PT EN ROUTE OF TIME OF GIVING REPORT AT 1913
[2020-08-13 03:49] LABS: U Amphetamine Screen Not Detected; U Barbituate Screen Not Detected; U Benzodiazapine Screen Not Detected; U Buprenorphine Screen Not Detected; U Cannabinoids Screen DETECTED; U Cocaine Screen Not Detected; U Methadone Screen Not Detected; U Methamphetamine Screen Not Detected; U Opiates Screen DETECTED; U Oxycodone Screen DETECTED; U Phencyclidine Screen Not Detected; U Propoxyphene Screen Not Detected
[2020-08-13 04:27] LABS: BASOPHILS ABSOLUTE AUTO 0.04 K/mm3 (0.00-0.23); BASOPHILS PERCENT AUTO 0 % (0-2); Hematocrit 29.2 % (37.0-53.0); Hemoglobin 9.3 g/dL (13.5-17.5); LYMPHOCYTES ABSOLUTE AUTO 0.53 K/mm3 (0.84-5.20); LYMPHOCYTES PERCENT AUTO 2 % (21-46); MONOCYTES ABSOLUTE AUTO 0.38 K/mm3 (0.16-1.47); MONOCYTES PERCENT AUTO 2 % (4-13); Mean Corpuscular HGB 27.6 pg (26.0-34.0); Mean Corpuscular HGB Conc 31.8 g/dL (31.5-36.5); Mean Corpuscular Volume 87 fL (80-100); Mean Platelet Volume 12.6 fL (9.1-12.4); Platelet Count 165 K/mm3 (150-400); RDW Coefficient Variation 17.4 % (11.7-14.2); Red Blood Cell Count 3.37 M/mm3 (4.30-5.90)
[2020-08-13 04:28] LABS: EOSINOPHILS PERCENT AUTO 0 % (0-6); IMMATURE GRAN ABSOLUTE AUTO 0.25 K/mm3 (0.00-0.10); IMMATURE GRAN PERCENT AUTO 1 % (0-1); NEUTROPHILS PERCENT AUTO 95 % (41-73)
[2020-08-13 04:47] LABS: Alanine Aminotransfer (ALT/SGP 26 U/L (12-78); Albumin/Globulin Ratio 0.8 (0.8-1.8); Alk Phos 147 U/L (50-136); Anion Gap 6 mmol/L (6-16); Aspartate Aminotrans (AST/SGOT 15 U/L (12-37); Bilirubin, Total 0.3 mg/dL (0.1-1.0); Blood Urea Nitrogen 21 mg/dL (8-24); Bun/Creatinine Ratio 24.2 (12.0-20.0); CO2, Blood 22 mmol/L (21-32); Calcium, Blood 8.2 mg/dL (8.5-10.1); Chloride, Blood 108 mmol/L (98-108); Creatinine, Blood 0.87 mg/dL (0.60-1.20); Globulin, Blood 3.7 g/dL (2.2-4.0); Glomerular Filtration Rate >60 (60-); Glucose, Blood 238 mg/dL (70-99); Potassium, Blood 4.2 mmol/L (3.5-5.5); Sodium, Blood 136 mmol/L (136-145); Total Protein, Blood 6.7 g/dL (6.4-8.2)
--- NOTE | 2020-08-13 07:40 | NUR ---
SHIFT SUMMARY PT AOX4, VSS. INITALLY PLACED ON 2 L VIA NC AFTER PT REPORTED USING O2 AT HOME. REMOVED O2 LATER IN EVENING DUE TO PT CLARIFYING TO THIS RN ONLY USES O2 WITH ACTIVITY. SATS 95-97% ON RA. EXPIRATORY WHEEZING HEARD ON AUSCULTATION T/O LUNGS DESPITE BREATHING TXS. BREATHING APPEARS UNLABORED. LR INFUSING PER ORDERS. IV ACCESS IN R FA DC DUE TO INFILTRATION. PT STATED PAIN RELIEF FOLLOWING DOSE OF TORADOL PER ORDER. RESTFUL T/O NIGHT.
--- NOTE | 2020-08-13 14:58 | NUR ---
UPDATE PHYSICIAN NOTIFIED OF HOME MEDICATIONS THAT ARE NOT CURRENLTY ORDERED. ORDERS TO BE PUT IN PER PHYSICIAN, SEE EMAR.
--- NOTE | 2020-08-13 18:17 | NUR ---
SHIFT SUMMARY PT ALERT AND ORIENTED X 4. HR TACHYCARDIC AT TIMES, PHYSICIAN NOTIFIED. HOME MEDICATIONS ORDERED PER PHYSICIAN. BP STABLE. OXYGEN SATURATION MAINTAINED ABOVE 92% ON RA. PT REPORTS NO CP OR PRESSURE. PT REPORTS PAIN D/T COUGHING IN STERNUM AND BACK. MEDICATED PER EMAR. SPUTUM SAMPLE ORDERED PER VERBAL ORDERS FROM PHYSICIAN. IS AT BEDSIDE. SPEECH THERAPY ORDERED PER PHYSICIAN D/T PT STATING DIFFICULTY WITH SWALLOWING. PT ABLE TO TURN SELF IN BED NEEDED. WILL CONTINUE TO MONITOR UNTIL REPORT GIVEN TO NIGHTSHIFT RN.
--- NOTE | 2020-08-13 18:35 | NUR ---
UPDATE PHYSICIAN NOTIFIED OF PT'S HR SUSTAINING IN 130'S. ORDERS PROVIDED. SEE EMAR.
[2020-08-14 04:42] LABS: BASOPHILS ABSOLUTE AUTO 0.04 K/mm3 (0.00-0.23); BASOPHILS PERCENT AUTO 0 % (0-2); EOSINOPHILS ABSOLUTE AUTO 0.02 K/mm3 (0.00-0.68); EOSINOPHILS PERCENT AUTO 0 % (0-6); Hematocrit 27.9 % (37.0-53.0); Hemoglobin 8.9 g/dL (13.5-17.5); IMMATURE GRAN ABSOLUTE AUTO 0.18 K/mm3 (0.00-0.10); IMMATURE GRAN PERCENT AUTO 1 % (0-1); LYMPHOCYTES ABSOLUTE AUTO 1.22 K/mm3 (0.84-5.20); LYMPHOCYTES PERCENT AUTO 6 % (21-46); MONOCYTES ABSOLUTE AUTO 0.96 K/mm3 (0.16-1.47); MONOCYTES PERCENT AUTO 5 % (4-13); Mean Corpuscular HGB 27.5 pg (26.0-34.0); Mean Corpuscular HGB Conc 31.9 g/dL (31.5-36.5); Mean Corpuscular Volume 86 fL (80-100); NEUTROPHILS ABSOLUTE AUTO 18.51 K/mm3 (1.96-9.15); NEUTROPHILS PERCENT AUTO 88 % (41-73); Platelet Count 155 K/mm3 (150-400); RDW Coefficient Variation 18.1 % (11.7-14.2); RDW Standard Deviation 57.1 fL (35.1-46.3); Red Blood Cell Count 3.24 M/mm3 (4.30-5.90); White Blood Cell Count 20.93 K/mm3 (4.00-11.30)
[2020-08-14 05:02] LABS: Alanine Aminotransfer (ALT/SGP 27 U/L (12-78); Albumin/Globulin Ratio 0.8 (0.8-1.8); Alk Phos 132 U/L (50-136); Anion Gap 7 mmol/L (6-16); Aspartate Aminotrans (AST/SGOT 14 U/L (12-37); Bilirubin, Total 0.2 mg/dL (0.1-1.0); Blood Urea Nitrogen 34 mg/dL (8-24); CO2, Blood 21 mmol/L (21-32); Calcium, Blood 8.4 mg/dL (8.5-10.1); Chloride, Blood 108 mmol/L (98-108); Globulin, Blood 3.7 g/dL (2.2-4.0); Glomerular Filtration Rate >60 (60-); Glucose, Blood 111 mg/dL (70-99); Potassium, Blood 4.5 mmol/L (3.5-5.5); Sodium, Blood 136 mmol/L (136-145); Total Protein, Blood 6.7 g/dL (6.4-8.2)
--- NOTE | 2020-08-14 07:32 | NUR ---
SHIFT SUMMARY PT AOX4, BREATHING IS EVEN AND UNLABORED WHILE PT RESTING IN BED. SATS MAINTAIN 95-98% ON RA T/O NIGHT. AFIB RVR AT START OF SHIFT WITH HR OF 120'S-130'S PERSISTENT FOLLOWING PO METOPROLOL AND NORVASC. DOSE OF 5 MG OF IV METOPROLOL GIVEN. HR DOWN TO 90'S-115'S BPM. PT C/O CONTINUED PAIN DESPITE ORDERED MEDS FOR PAIN GIVEN. REQUESTING VALIUM TO HELP SLEEP. THIS RN DISCUSSES MELATONIN WITH PT. PT IS OPEN TO TRYING MELATONIN FOR SLEEP. SITE OF PRIOR IV INFILTRATION APPEARS TO BE HEALING WELL IN R UPPER ARM. POWERGLIDE IN L UPPER ARM WNL.
--- NOTE | 2020-08-14 07:41 | NUR ---
pt laying in bed watching tv, he reports he didn't sleep much last night, lungs have exp wheeze t/o, resp even and unlabored, currently on r/a, no cough noted at this time, hrirr, tele in place running afib per monitor in the one teens to one twenties, no edema noted, iv is power glide to anand, site is clear and patent, btx4, abd flat soft nontender, voids via urinal, clear yellow urine, skin has recent scar mid line chest otherwise c/d/i, med mar, call light in reach.
--- NOTE | 2020-08-14 09:15 | NUR ---
UPDATE: Pt called and stated Pt contacted her and stated that he was having "stroke symptoms" but didn't want to use the call light. Imediately checked on patient. Neuro assessment completed. No facial droop, pupils equal and reactive, able to follow with eyes in all directions, no tounge deviation, smile equal, no and arm or hand drift, planter flexion/extention equal and strong, hand grasps equal and strong. Pt states that he just has some "blurred vision". VS checked, BP elevated, HR 135. Medicated with IV metoprolol per orders. Physician notified. No new orders at this time. Will continue to monitor and treat. Call light in reach.
[2020-08-14 16:35] LABS: Vancomycin, Trough 9.8 ug/mL (5.0-10.0)
--- NOTE | 2020-08-14 18:05 | NUR ---
pt resting in bed watching tv, spouce came to visit, ct - for cva, no further changes this shift. call light in reach.
[2020-08-15 04:56] LABS: BASOPHILS ABSOLUTE AUTO 0.03 K/mm3 (0.00-0.23); BASOPHILS PERCENT AUTO 0 % (0-2); EOSINOPHILS ABSOLUTE AUTO 0.01 K/mm3 (0.00-0.68); EOSINOPHILS PERCENT AUTO 0 % (0-6); Hematocrit 30.1 % (37.0-53.0); Hemoglobin 9.7 g/dL (13.5-17.5); IMMATURE GRAN ABSOLUTE AUTO 0.13 K/mm3 (0.00-0.10); IMMATURE GRAN PERCENT AUTO 1 % (0-1); LYMPHOCYTES ABSOLUTE AUTO 1.44 K/mm3 (0.84-5.20); LYMPHOCYTES PERCENT AUTO 7 % (21-46); MONOCYTES ABSOLUTE AUTO 0.77 K/mm3 (0.16-1.47); MONOCYTES PERCENT AUTO 4 % (4-13); Mean Corpuscular HGB 27.7 pg (26.0-34.0); Mean Corpuscular HGB Conc 32.2 g/dL (31.5-36.5); Mean Corpuscular Volume 86 fL (80-100); Mean Platelet Volume 11.5 fL (9.1-12.4); NEUTROPHILS ABSOLUTE AUTO 18.99 K/mm3 (1.96-9.15); NEUTROPHILS PERCENT AUTO 89 % (41-73); Platelet Count 179 K/mm3 (150-400); RDW Coefficient Variation 18.3 % (11.7-14.2); RDW Standard Deviation 57.8 fL (35.1-46.3); White Blood Cell Count 21.37 K/mm3 (4.00-11.30)
[2020-08-15 05:22] LABS: Anion Gap 6 mmol/L (6-16); Blood Urea Nitrogen 27 mg/dL (8-24); Bun/Creatinine Ratio 38.1 (12.0-20.0); CO2, Blood 21 mmol/L (21-32); Calcium, Blood 8.8 mg/dL (8.5-10.1); Chloride, Blood 107 mmol/L (98-108); Creatinine, Blood 0.71 mg/dL (0.60-1.20); Glomerular Filtration Rate >60 (60-); Glucose, Blood 99 mg/dL (70-99); Potassium, Blood 4.5 mmol/L (3.5-5.5); Sodium, Blood 134 mmol/L (136-145)
--- NOTE | 2020-08-15 05:34 | NUR ---
SHIFT SUMMARY NO ACUTE CHANGES THIS SHIFT. VSS. PT AXO. OCCASIONAL WHEEZES BILATERALLY BUT REMAINS ON 2LNC. HR STILL AFIB. AT TIMES, HR 130'S BUT HAS, FOR THE MOST OF THE SHIFT, REMAINED 90'S TO 110. SOME HTN NOTED BUT MEDICATED PER EMAR. PAIN CONTROLLED THIS SHIFT WITH PAIN MEDS PER EMAR. PT DENIES FEELING OF W/DRAWAL NOW BUT STATES THE ADMINISTRATION FREQUENCY COULD BE SHORTER TO MATCH PT'S HOME REGIMEN. OTHERIWSE, PT RESTING OFF AND ON. WATCHING TV. USES CALL LIGHT APPROPRIATELY.
--- NOTE | 2020-08-15 08:00 | NUR ---
PT LAYING IN BED AWAKE, WATCHING TV, A/OX3, PLEASANT AND COOPERATIVE WITH CARE, FOLLOWS COMMANDS WELL, STATES HE IS FEELING A LOT BETTER TODAY NOW THAT HE IS BACK ON HIS PAIN MEDS, LUNGS ARE DIM WITH EXP WHEEZING T/O, EXP NOTED ON LEFT SIDE, ALL RODRIGUEZ, IS CURRENTLY ON R/A, RESP EVEN AND UNLABORED, NO COUGH NOTED, BUT PRODUCTIVE COUGH REPORTED OF FROST AND YELLOW SPUTUM, HRIRR, RUNNING AFLUTTER PER MONITOR, SEE STRIP, NO EDEMA NOTED, PPP+2, CAP REFILL <3 SEC, VS STABLE, AFEBRILE, IV SITE IS CLEAR AND PATENT, BTX4, ABD FLAT SOFT NONTENDER, VOIDS WITHOUT DIFF, SKIN C/W/D, MAEW, INOCENCIA, CALL LIGHT IN REACH.
[2020-08-15] MEDS ORDERED: PRED20 PO (14:05)
[2020-08-15] MEDS ORDERED: MELA3 PO (14:06)
[2020-08-15] MEDS ORDERED: AMOCLA875 PO (14:06)
[2020-08-15] MEDS ORDERED: DOCU100 PO (14:07)
--- NOTE | 2020-08-15 15:17 | NUR ---
PT HAS BEEN DISCHARGED TO HOME WITH HOME HEALTH, HE RECIEVED A HARD COPY SCRIPT FOR NORCO, THIS WAS GIVEN TO HIS , SHE PLACED IT IN HER PURSE, IV REMOVED INTACT, NEW MEDICATIONS WERE FAXED TO [facility], WENT OVER DISCHARGE INSTRUCTIONS WITH BOTH OF THEM, THEY VERBALIZED UNDERSTANDING. LEFT VIA WHEELCHAIR TO CAR WITH CENTER HUMAN RESOURCES MANAGER IN ATTENDENCE.
== END 2020-08-15 15:07 | disposition home health service (06) | DRG 871 ==
LOC: ER 14:31 → ERHOLD 16:55 → PCU 16:55
PROVIDERS: Family Medicine; Pharmacist; Physician Assistant; ADMIT Hospitalist
DX: A41.9 Sepsis, unspecified organism (principal); J18.9 Pneumonia, unspecified organism; J44.1 Chronic obstructive pulmonary disease with (acute) exacerbation; I48.92 Unspecified atrial flutter; J44.0 Chronic obstructive pulmonary disease with (acute) lower respiratory infection; F11.23 Opioid dependence with withdrawal; E87.2 Acidosis; Z79.82 Long term (current) use of aspirin; R65.20 Severe sepsis without septic shock; Z20.822 Contact with and (suspected) exposure to COVID-19; Z87.891 Personal history of nicotine dependence; Z95.2 Presence of prosthetic heart valve; I25.2 Old myocardial infarction; Z86.73 Personal history of transient ischemic attack (TIA), and cerebral infarction without residual deficits; I48.91 Unspecified atrial fibrillation; G47.33 Obstructive sleep apnea (adult) (pediatric); I25.10 Atherosclerotic heart disease of native coronary artery without angina pectoris
CPT/HCPCS: 0202U; 36415; 70450; 71045; 71046; 80048; 80053; 80202; 81001; 83605; 84145; 85025; 85610; 85730; 87040; 87070; 87086; 87205; 92526; 92610; 93005; 93010; 94640; 94644; 94760; 96365; 96366; 96372-59; 96375; 99285-25; A9270; C1751; J0692; J1650; J1885; J2543; J2930; J3370; J7030; J7050; J7120; J7512

== ENCOUNTER → 2020-09-03 | Outpatient (CLI) | payer OTHER, MEDICARE ==
[~2020-09-03] MED LIST changes: +FUROSEMIDE40 MG PO; +LOSARTAN POTASS25 M2 PO; +MELA3 PO; +METOPROLOL TART25 MG PO; +PRED20 PO
[2020-09-03 15:27] LABS: Creatinine Urine 78.2 mg/dL (27.00-270.00); Protein, Urine Quantitative 46.2 mg/dL (0.0-11.9)
[2020-09-08 13:09] LABS: M-SPIKE, % Not Observed % (Not Observed)
== END | disposition home or self-care (01) ==
LOC: LAB SHORT 14:08 → LAB 14:08
PROVIDERS: Internal Medicine
DX: Z11.59 Encounter for screening for other viral diseases (principal); R80.9 Proteinuria, unspecified; Z86.19 Personal history of other infectious and parasitic diseases
CPT/HCPCS: 81050; 82570; 84156; 84166

== ENCOUNTER 2020-11-02 15:57 | Emergency (ER) | payer OTHER, MEDICARE ==
[~2020-11-02] VITALS: Ht 162.6 cm; Wt 61.2 kg
[2020-11-02 17:54] LABS: BASOPHILS ABSOLUTE AUTO 0.04 K/mm3 (0.00-0.23); BASOPHILS PERCENT AUTO 0 % (0-2); EOSINOPHILS ABSOLUTE AUTO 0.14 K/mm3 (0.00-0.68); EOSINOPHILS PERCENT AUTO 1 % (0-6); Hematocrit 42.4 % (37.0-53.0); Hemoglobin 13.2 g/dL (13.5-17.5); IMMATURE GRAN ABSOLUTE AUTO 0.03 K/mm3 (0.00-0.10); IMMATURE GRAN PERCENT AUTO 0 % (0-1); LYMPHOCYTES ABSOLUTE AUTO 2.33 K/mm3 (0.84-5.20); LYMPHOCYTES PERCENT AUTO 24 % (21-46); MONOCYTES ABSOLUTE AUTO 0.55 K/mm3 (0.16-1.47); MONOCYTES PERCENT AUTO 6 % (4-13); Mean Corpuscular HGB 29.2 pg (26.0-34.0); Mean Corpuscular HGB Conc 31.1 g/dL (31.5-36.5); Mean Corpuscular Volume 94 fL (80-100); Mean Platelet Volume 12.1 fL (9.1-12.4); NEUTROPHILS ABSOLUTE AUTO 6.77 K/mm3 (1.96-9.15); NEUTROPHILS PERCENT AUTO 69 % (41-73); Platelet Count 132 K/mm3 (150-400); RDW Coefficient Variation 17.5 % (11.7-14.2); RDW Standard Deviation 60.2 fL (35.1-46.3); Red Blood Cell Count 4.52 M/mm3 (4.30-5.90); White Blood Cell Count 9.86 K/mm3 (4.00-11.30)
[2020-11-02 18:23] LABS: Alanine Aminotransfer (ALT/SGP 38 U/L (12-78); Alk Phos 137 U/L (50-136); Anion Gap 9 mmol/L (6-16); Aspartate Aminotrans (AST/SGOT 36 U/L (12-37); Bilirubin, Total 0.3 mg/dL (0.1-1.0); Blood Urea Nitrogen 19 mg/dL (8-24); Bun/Creatinine Ratio 23.4 (12.0-20.0); CO2, Blood 21 mmol/L (21-32); Calcium, Blood 9.1 mg/dL (8.5-10.1); Chloride, Blood 108 mmol/L (98-108); Creatinine, Blood 0.81 mg/dL (0.60-1.20); Globulin, Blood 4.1 g/dL (2.2-4.0); Glomerular Filtration Rate >60 (60-); Glucose, Blood 91 mg/dL (70-99); Potassium, Blood 4.7 mmol/L (3.5-5.5); Sodium, Blood 138 mmol/L (136-145); Total Protein, Blood 8.1 g/dL (6.4-8.2); Troponin I <0.015 ng/mL (0.000-0.040)
== END 2020-11-02 20:20 | disposition home or self-care (01) ==
LOC: ER 15:57
PROVIDERS: Physician Assistant
DX: I48.92 Unspecified atrial flutter (principal); F15.90 Other stimulant use, unspecified, uncomplicated; I10 Essential (primary) hypertension; J44.9 Chronic obstructive pulmonary disease, unspecified; G47.33 Obstructive sleep apnea (adult) (pediatric); F17.210 Nicotine dependence, cigarettes, uncomplicated; Z95.4 Presence of other heart-valve replacement; Z79.82 Long term (current) use of aspirin; Z79.899 Other long term (current) drug therapy
CPT/HCPCS: 71046; 80053; 83880; 84484; 85025; 93005; 93010; 96374; 99285-25; J0153

== ENCOUNTER 2020-12-17 12:46 | Emergency (ER) | payer OTHER, MEDICARE ==
[~2020-12-17] VITALS: Ht 162.6 cm; Wt 59.0 kg
[2020-12-17 13:33] LABS: BASOPHILS ABSOLUTE AUTO 0.02 K/mm3 (0.00-0.23); BASOPHILS PERCENT AUTO 0 % (0-2); EOSINOPHILS ABSOLUTE AUTO 0.04 K/mm3 (0.00-0.68); EOSINOPHILS PERCENT AUTO 1 % (0-6); Hematocrit 40.1 % (37.0-53.0); Hemoglobin 13.1 g/dL (13.5-17.5); IMMATURE GRAN ABSOLUTE AUTO 0.03 K/mm3 (0.00-0.10); IMMATURE GRAN PERCENT AUTO 0 % (0-1); LYMPHOCYTES ABSOLUTE AUTO 1.37 K/mm3 (0.84-5.20); LYMPHOCYTES PERCENT AUTO 20 % (21-46); MONOCYTES ABSOLUTE AUTO 0.72 K/mm3 (0.16-1.47); MONOCYTES PERCENT AUTO 10 % (4-13); Mean Corpuscular HGB 30.5 pg (26.0-34.0); Mean Corpuscular HGB Conc 32.7 g/dL (31.5-36.5); Mean Corpuscular Volume 94 fL (80-100); Mean Platelet Volume 12.9 fL (9.1-12.4); NEUTROPHILS PERCENT AUTO 69 % (41-73); Platelet Count 122 K/mm3 (150-400); RDW Coefficient Variation 15.4 % (11.7-14.2); Red Blood Cell Count 4.29 M/mm3 (4.30-5.90); White Blood Cell Count 6.98 K/mm3 (4.00-11.30)
[2020-12-17 13:51] LABS: Alanine Aminotransfer (ALT/SGP 34 U/L (12-78); Albumin, Blood 3.5 g/dL (3.4-5.0); Albumin/Globulin Ratio 0.8 (0.8-1.8); Alk Phos 158 U/L (50-136); Anion Gap 6 mmol/L (6-16); Aspartate Aminotrans (AST/SGOT 35 U/L (12-37); Bilirubin, Total 0.4 mg/dL (0.1-1.0); Blood Urea Nitrogen 17 mg/dL (8-24); Bun/Creatinine Ratio 17.7 (12.0-20.0); CO2, Blood 25 mmol/L (21-32); Calcium, Blood 9.3 mg/dL (8.5-10.1); Chloride, Blood 106 mmol/L (98-108); Creatinine, Blood 0.96 mg/dL (0.60-1.20); Globulin, Blood 4.5 g/dL (2.2-4.0); Glomerular Filtration Rate >60 (60-); Glucose, Blood 89 mg/dL (70-99); Potassium, Blood 4.8 mmol/L (3.5-5.5); Sodium, Blood 137 mmol/L (136-145); Troponin I <0.015 ng/mL (0.000-0.040)
[2020-12-17] MEDS ORDERED: Cardizem CD 12120 MG PO (15:36)
== END 2020-12-17 16:09 | disposition home or self-care (01) ==
LOC: ER 12:46
PROVIDERS: Emergency Medicine
DX: I48.92 Unspecified atrial flutter (principal); J44.9 Chronic obstructive pulmonary disease, unspecified; I25.2 Old myocardial infarction; I10 Essential (primary) hypertension; I48.91 Unspecified atrial fibrillation; F17.210 Nicotine dependence, cigarettes, uncomplicated; Z88.8 Allergy status to other drugs, medicaments and biological substances; Z79.899 Other long term (current) drug therapy
CPT/HCPCS: 36415; 71046; 80053; 83735; 83880; 84484; 85025; 93005; 93010; 99285-25; A9270

== ENCOUNTER → 2022-10-29 | Outpatient (CLI) | payer OTHER, MEDICARE ==
[~2022-10-29] MED LIST changes: +Cardizem CD 12120 MG PO
[2022-10-29 13:29] LABS: BASOPHILS ABSOLUTE AUTO 0.02 K/mm3 (0.00-0.23); BASOPHILS PERCENT AUTO 0 % (0-2); EOSINOPHILS PERCENT AUTO 0 % (0-6); Hemoglobin 15.4 g/dL (13.5-17.5); IMMATURE GRAN PERCENT AUTO 1 % (0-1); LYMPHOCYTES ABSOLUTE AUTO 1.43 K/mm3 (0.84-5.20); LYMPHOCYTES PERCENT AUTO 9 % (21-46); MONOCYTES ABSOLUTE AUTO 1.11 K/mm3 (0.16-1.47); MONOCYTES PERCENT AUTO 7 % (4-13); Mean Corpuscular HGB 34.1 pg (26.0-34.0); Mean Corpuscular HGB Conc 34.2 g/dL (31.5-36.5); Mean Corpuscular Volume 100 fL (80-100); Mean Platelet Volume 12.2 fL (9.1-12.4); NEUTROPHILS PERCENT AUTO 83 % (41-73); Platelet Count 125 K/mm3 (150-400); RDW Coefficient Variation 12.4 % (11.7-14.2); RDW Standard Deviation 45.7 fL (35.1-46.3); Red Blood Cell Count 4.51 M/mm3 (4.30-5.90); White Blood Cell Count 15.16 K/mm3 (4.00-11.30)
[2022-10-29 13:39] LABS: Albumin, Blood 4.1 g/dL (3.4-5.0); Albumin/Globulin Ratio 1.2 (0.8-1.8); Bilirubin, Total 0.6 mg/dL (0.1-1.0); Bun/Creatinine Ratio 18.6 (12.0-20.0); Calcium, Blood 9.1 mg/dL (8.5-10.1); Creatinine, Blood 0.86 mg/dL (0.60-1.20); Globulin, Blood 3.5 g/dL (2.2-4.0); Potassium, Blood 3.9 mmol/L (3.5-5.5); Total Protein, Blood 7.6 g/dL (6.4-8.2)
== END | disposition home or self-care (01) ==
LOC: LAB SHORT 13:25 → LAB 13:25
PROVIDERS: Physician Assistant Medical
DX: R06.09 Other forms of dyspnea (principal)
CPT/HCPCS: 80053; 83735; 85025

== ENCOUNTER 2023-01-12 22:41 | Inpatient (IN) | payer OTHER, MEDICARE ==
[~2023-01-12] VITALS: Ht 177.8 cm; Wt 67.3 kg
[2023-01-12 23:00] LABS: Base Excess Venous 6.7 mmol/L; PCO2 Venous 53.5 mmHg (38-42); pH Blood Venous 7.38 (7.34-7.37)
[2023-01-12 23:04] LABS: BASOPHILS ABSOLUTE AUTO 0.05 K/mm3 (0.00-0.23); BASOPHILS PERCENT AUTO 0 % (0-2); EOSINOPHILS ABSOLUTE AUTO 0.08 K/mm3 (0.00-0.68); EOSINOPHILS PERCENT AUTO 1 % (0-6); Hematocrit 43.7 % (37.0-53.0); Hemoglobin 14.5 g/dL (13.5-17.5); IMMATURE GRAN ABSOLUTE AUTO 0.06 K/mm3 (0.00-0.10); IMMATURE GRAN PERCENT AUTO 1 % (0-1); LYMPHOCYTES PERCENT AUTO 8 % (21-46); MONOCYTES ABSOLUTE AUTO 1.19 K/mm3 (0.16-1.47); MONOCYTES PERCENT AUTO 10 % (4-13); Mean Corpuscular HGB Conc 33.2 g/dL (31.5-36.5); Mean Corpuscular Volume 102 fL (80-100); Mean Platelet Volume 12.4 fL (9.1-12.4); NEUTROPHILS ABSOLUTE AUTO 9.72 K/mm3 (1.96-9.15); NEUTROPHILS PERCENT AUTO 81 % (41-73); Platelet Count 81 K/mm3 (150-400); RDW Coefficient Variation 12.7 % (11.7-14.2); RDW Standard Deviation 48.1 fL (35.1-46.3); Red Blood Cell Count 4.27 M/mm3 (4.30-5.90)
[2023-01-12] MEDS ORDERED: ELIQUIS5 M3 PO (23:14)
[2023-01-12 23:22] LABS: Albumin/Globulin Ratio 1.2 (0.8-1.8); Bilirubin, Total 0.6 mg/dL (0.1-1.0); Calcium, Blood 8.7 mg/dL (8.5-10.1); Creatinine, Blood 0.96 mg/dL (0.60-1.20); Globulin, Blood 3.4 g/dL (2.2-4.0); Potassium, Blood 5.2 mmol/L (3.5-5.5); Total Protein, Blood 7.4 g/dL (6.4-8.2)
[2023-01-12 23:47] LABS: Influenza A, PCR NEGATIVE (NEGATIVE); Influenza B, PCR NEGATIVE (NEGATIVE); Resp Syncytial Virus, PCR NEGATIVE (NEGATIVE); SARS-Cov-2 (COVID-19) PCR, MMC NEGATIVE (NEGATIVE)
[2023-01-12] MEDS ORDERED: BREZTRI AEROS10.7 GM INH (23:55)
[2023-01-12] MEDS ORDERED: GABA100 PO (23:57)
[2023-01-12] MEDS ORDERED: AZIT250 PO (23:57)
[2023-01-13] VITALS (9 sets, daily range): BP systolic 118–174; BP diastolic 77–111
[2023-01-13 03:55] LABS: BASOPHILS ABSOLUTE AUTO 0.01 K/mm3 (0.00-0.23); BASOPHILS PERCENT AUTO 0 % (0-2); EOSINOPHILS PERCENT AUTO 0 % (0-6); Hematocrit 39.9 % (37.0-53.0); Hemoglobin 13.1 g/dL (13.5-17.5); IMMATURE GRAN ABSOLUTE AUTO 0.04 K/mm3 (0.00-0.10); IMMATURE GRAN PERCENT AUTO 1 % (0-1); LYMPHOCYTES PERCENT AUTO 4 % (21-46); MONOCYTES ABSOLUTE AUTO 0.14 K/mm3 (0.16-1.47); MONOCYTES PERCENT AUTO 2 % (4-13); Mean Corpuscular HGB 33.5 pg (26.0-34.0); Mean Corpuscular HGB Conc 32.8 g/dL (31.5-36.5); Mean Corpuscular Volume 102 fL (80-100); Mean Platelet Volume 12.6 fL (9.1-12.4); NEUTROPHILS ABSOLUTE AUTO 7.97 K/mm3 (1.96-9.15); NEUTROPHILS PERCENT AUTO 94 % (41-73); Platelet Count 73 K/mm3 (150-400); RDW Coefficient Variation 12.8 % (11.7-14.2); RDW Standard Deviation 48.1 fL (35.1-46.3); Red Blood Cell Count 3.91 M/mm3 (4.30-5.90); White Blood Cell Count 8.46 K/mm3 (4.00-11.30)
[2023-01-13 04:13] LABS: Albumin, Blood 3.6 g/dL (3.4-5.0); Albumin/Globulin Ratio 1.2 (0.8-1.8); Bilirubin, Total 0.5 mg/dL (0.1-1.0); Bun/Creatinine Ratio 25.8 (12.0-20.0); Calcium, Blood 8.7 mg/dL (8.5-10.1); Creatinine, Blood 0.97 mg/dL (0.60-1.20); Potassium, Blood 4.5 mmol/L (3.5-5.5); Total Protein, Blood 6.6 g/dL (6.4-8.2)
--- NOTE | 2023-01-13 06:09 | NUR ---
END OF SHIFT SUMMARY PT RESTED SINCE ADMIT TO ICU. A/O X4. VERY LETHARGIC, HOWEVER STILL VERY AGILE. NO CHANGES TO BIPAP SETTINGS SINCE ADMIT. PT IS UNABLE TO LAY COMPLETELY ON BACK SUPINE WITHOUT OBSTRUCTION TO AIRWAY. NO BM OR URINE SINCE ADMIT TO UNIT. NO ACUTE CHANGES AT THIS TIME. WILL CONTINUE TO MONITOR UNTIL REPORT GIVEN TO AM RN.
--- NOTE | 2023-01-13 17:09 | NUR ---
SHIFT SUMMARY: PT ALERT AND ORIENTED X4, ABLE TO FOLLOW COMMANDS AND MAKE NEEDS KNOWN. ON AM ASSESSMENT PT TOLD THIS RN OF FENTANYL USE. PER PT, PT SMOKES FENTANYL MUTIPLE TIMES THROUGHOUT THE DAY. DENIES IV DRUG USE. MADE AWARE, NEW ORDERS RECIEVED, SEE EMAR. PT ANXIOUS ON AND OFF THROUGHOUT THE SHIFT, TELLS THIS RN "I THINK I AM STARTED TO WITHDRAWL.". RESPIRATIONS 30-35. REMAINS ON BIPAP SETTINGS 16/10 30% FIO2. TITRATED TO NC FOR MEALS, TOELRATED FOR APPROX 10 MINUTES. PT HYPERTENSIVE, MD AWARE, ORDERS RECEIVED. PT ABLE TO AMBULATE VIA ONE PERSON ASSIST, STATES SOB WITH EXCERTION. EXP WHEEZES HEARD THROUGHOUT. APPROX 800ML OF URINARY OUTPUT, ONE BM. AND DAUGHTER AT BEDSIDE MAJORITY OF THE DAY, UPDATED ON PT PLAN OF WITH PERMISSION. POWERGLIDE REMAINS IN SAM, DRAWS AND FLUSHES, SALINE LOCKED. PT NOW PCU STATUS. BED IN LOW, CALL LIGHT IN REACH, WILL REPORT TO ONCOMING RN,
[2023-01-14] VITALS (8 sets, daily range): BP systolic 94–154; BP diastolic 64–107
--- NOTE | 2023-01-14 06:05 | NUR ---
PATIENT AOX4. GIVEN PRN OXYCODONE TO HELP WITH WITHDRAWAL FROM FENTANYL. SR WITH STABLE BP. BIPAP 16/10 30% WITH SHORT PERIODS WEARING 8L NC. TOLERATING DIET. SALINE LOCKED.
--- NOTE | 2023-01-14 11:33 | NUR ---
ASSUMPTION OF CARE BEDSIDE SHIFT REPORT RECEIVED FROM MARNIE RN. PT RESTING IN BED, ALERT AND ORIENTED X4. PT ABLE TO ASNWER QUESTIONS AND MAKE NEEDS KNOWN. HR 70-80'S NSR, MAP > 65. PT ON BIPAP THIS AM, 16/10 30%, SWITCHED TO NC AT 5LPM, PT TOLERATED FOR 1HR, SWITCHED BACK TO BIPAP AT SAME SETTINGS OXYGEN SATURATION >90%. WHEEZES AUSCULTATED THROUGHOUT ALL LUNG RODRIGUEZ. PT USES URINAL TO VOID. POWERGLIDE TO SAM SL. BED IN LOWEST POSITION, CALL LIGHT WITHIN REACH. CARE CONTINUES.
--- NOTE | 2023-01-14 18:04 | NUR ---
SHIFT SUMMARY PT RESTING IN BED. ALERT AND ORIENTED X4, FOLLOWS COMMANDS, ABLE TO MAKE NEEDS KNOWN. HR 80'S SR, MAP >65. PT ON BIPAP THE MAJORITY OF THE DAY, SETTINGS 16/10 30%. PT HAS TOLERATED 3 SHORT BREAKS OFF BIPAP FOR ROUGHLY AN HOUR EACH. PLACED ON NC AT 5LPM EACH TIME. WHEEZES AUSCULTATED THROUGHOUT ALL LUNG RODRIGUEZ. PT USES URINAL TO VOID, NO BM THIS SHIFT. POWERGLIDE IN PLACE TO SAM SL. BED IN LOWEST POSITION, CALL LIGHT WITHIN REACH. CARE CONTINUES.
--- NOTE | 2023-01-14 20:56 | NUR ---
ASSUMPTION OF CARE/MD COMMUNICATION THIS RN ASSUMED CARE OF PATIENT AT 1900. PT REPORTING SOB AND ANXIETY AT SHIFT CHANGE. RT BIPIN CALLED FOR BREATHING TREATMENT. ON BIPAP 26/12 WITH 30% FIO2. PT'S RESPIRATIONS IN THE 30'S WHILE ANXIOUS/SOB; SPO2 DOWN TO 86-88%. BREATHING TREATMENT DONE PER RT; PT CONTINUED TO REPORT ANXIETY. CALL PLACED TO MD MORRISON REGARDING ANXIETY; PRN ORDERS PLACED BY THIS RN PER MD MORRISON; SEE EMAR. AFTER ADMINISTRATION PT REPORTED RELIEF; SPO2 NOW >90%, RR LOW 20'S. BP STABLE WITH SBP 120-130'S. PT WAS ABLE TO BE PLACED ON 5L VIA NC FOR MEDICATIONS, AND THEN PLACED BACK ON BIPAP. BED IN LOWEST POSITION AND CALL LIGHT WITHIN REACH.
[2023-01-14 23:44] LABS: Base Excess Venous 10.3 mmol/L; Bicarbonate Venous 28.8 mmol/L (24.0-30.0); PCO2 Venous 91.2 mmHg (38-42); pH Blood Venous 7.23 (7.34-7.37)
[2023-01-15] VITALS (64 sets, daily range): BP systolic 68–212; BP diastolic 47–135
--- NOTE | 2023-01-15 00:59 | NUR ---
PATIENT EVENT THIS RN SPOKE TO PRIOR TO HER LEAVING AT 1999 ABOUT THE SON WHO WAS GETTING OFF WORK LATE AND WANTED TO "STOP BY AND SAY JENIFER" TO THE PATIENT. THIS RN STATED THAT HE COULD STOP BY QUICKLY TO SAY JENIFER BUT COULD NOT STAY LONG. THE SON AND ANOTHER "FAMILY FRIEND" CAME BY AROUND 0, AT WHICH TIME THE PATIENT WAS PLACED ON 5L VIA NC TO EAT/DRINK. PT WAS A&O WITH BRISK PUPIL RESPONSE AT THIS TIME. THIS RN SITTING OUTSIDE OF ROOM WATCHING VISITORS AND PATIENT TALK. VISITORS LEFT AROUND 2300, AT WHICH TIME THISRN CHECKED ON PATIENT. THIS RN NOTED THAT THE PATIENT WAS LETHARGIC AND FALLING ASLEEP MID CONVERSATION, AND WAS HAVING APNEIC EPISODES. PT WAS ABLE TO BE AROUSED WITH VERBAL STIMULI STILL. BRISK PUPIL RESPONSE AT THAT TIME. PT PLACED ON BIPAP BY THIS RN. RT BIPIN TO BEDSIDE TO ASSESS PATIENT. RT WITH CONCERNS REGARDING OBSTRUCTIVE SLEEP APNEA WITH POSITION OF NECK/CHIN. RT ATTEMPTED REALIGNING JAW/CHIN AND ADJUSTING BIPAP SETTINGS, PT CONTINUED DECREASED LOC; PUPIL REPONSE BECAME MORE SLUGGISH. THIS RN NOTED PREVIOUS HX OF FENTANYL USE AT HOME. THIS RN CALLED MD MORRISON REGARDING CONCERNS. MD MORRISON WITH ORDERS FOR STAT VBG, FOLLOWED BY NARCAN. CRITICAL PH NOTED ON VBG. NARCAN ADMINISTERRED, PT QUICKLY BECAME ALERT AND NO MORE APNEIC EPISODES WERE NOTED. PT WITH RR 30'S AT THAT TIME. ANSWERING QUESTIONS APPROPRIATELY. THIS RN ASKED PATIENT IF THE SON GAVE HIM ANY ILLICIT DRUGS WHILE HE WAS HERE; THE PATIENT DENIED THIS. NARCAN WAS ADMINISTERRED AT APPROXIMATELY 2349, AND THEN AGAIN AT 0050 FOR DECREASED LOC AND RESPIRATORY DEPRESSION. AGAIN THE PATIENT RESPONDED QUICKLY AND BECAME ALERT WITH RR RETURNING TO NORMAL. PT REMAINS ON BIPAP AT THIS TIME. BP STABLE BUT FLUCTUATING DEPENDENT ON AGGITATION LEVEL AFTER NARCAN IS ADMINISTERRED. THIS RN WILL CONTINUE TO MONITOR AND PROVIDE INTERVENTIONS NEEDED/APPROPRIATE. CALL LIGHT WITHIN REACH.
[2023-01-15 03:50] LABS: BASOPHILS ABSOLUTE AUTO 0.01 K/mm3 (0.00-0.23); BASOPHILS PERCENT AUTO 0 % (0-2); EOSINOPHILS PERCENT AUTO 0 % (0-6); Hematocrit 38.9 % (37.0-53.0); Hemoglobin 12.9 g/dL (13.5-17.5); IMMATURE GRAN ABSOLUTE AUTO 0.07 K/mm3 (0.00-0.10); IMMATURE GRAN PERCENT AUTO 0 % (0-1); LYMPHOCYTES ABSOLUTE AUTO 0.67 K/mm3 (0.84-5.20); LYMPHOCYTES PERCENT AUTO 4 % (21-46); MONOCYTES ABSOLUTE AUTO 0.45 K/mm3 (0.16-1.47); MONOCYTES PERCENT AUTO 3 % (4-13); Mean Corpuscular HGB Conc 33.2 g/dL (31.5-36.5); Mean Corpuscular Volume 103 fL (80-100); Mean Platelet Volume 12.9 fL (9.1-12.4); NEUTROPHILS ABSOLUTE AUTO 14.68 K/mm3 (1.96-9.15); NEUTROPHILS PERCENT AUTO 93 % (41-73); Platelet Count 77 K/mm3 (150-400); RDW Coefficient Variation 12.8 % (11.7-14.2); RDW Standard Deviation 48.2 fL (35.1-46.3); Red Blood Cell Count 3.79 M/mm3 (4.30-5.90); White Blood Cell Count 15.88 K/mm3 (4.00-11.30)
[2023-01-15 04:10] LABS: Bun/Creatinine Ratio 54.2 (12.0-20.0); Calcium, Blood 8.3 mg/dL (8.5-10.1); Creatinine, Blood 1.18 mg/dL (0.60-1.20); Potassium, Blood 4.6 mmol/L (3.5-5.5)
--- NOTE | 2023-01-15 04:46 | NUR ---
SHIFT SUMMARY SEE PREVIOUS NOTES. PT NOW A&O. CALLING APPROPRIATELY. NO OTHER ACUTE EVENTS. NSR. BP STABLE. RR 20'S. ON BIPAP 16/10/35%. SPO2 >90%. WHEEZES/DIM T/O. VALLE. ASSISTING WITH REPOSITIONING NEEDED. USING URINAL INDEPENDENTLY. BED IN LOWEST POSITION AND CALL LIGHT WITHIN REACH. THIS RN WILL REPORT TO ONCOMING DAYSHIFT RN.
--- NOTE | 2023-01-15 08:28 | NUR ---
AM NOTE... ASSUMED CARE OF PT AT 0700, PT IS A&Ox4. HE IS ON BIPAP AT 16/10 AND 35% WITH O2 SATS IN THE LOW 90'S. WHEN NOT ON BIPAP HE IS ON 5L NC WITH INCREASED WORK OF BREATHING AND ACCESSORY MUSCLE USE W/RR IN THE HIGH 20'S-30'S. L/S DIM WITH INSP AND EXP WHEEZES HEARD T/O ALL LUNG RODRIGUEZ. HE IS IN SR IN 60'S BP IS STABLE WITH MAPS>65. DEPENDENT EDEMA NOTED TO HIS BILATERAL HANDS. BT PRESENT AND NORMOACTIVE, ABD IS NONTENDER TO PALPATION. CALL LIGHT IN REACH WILL CONTINUE TO MONITOR.
[2023-01-15 09:48] LABS: Base Excess Venous 9.6 mmol/L; Bicarbonate Venous 29.1 mmol/L (24.0-30.0); PCO2 Venous 83.9 mmHg (38-42); pH Blood Venous 7.25 (7.34-7.37)
[2023-01-15 14:06] LABS: PCO2 Arterial 67.1 mmHg (35-45); PO2 Arterial 62.3 mmHg (80-100); pH Blood Arterial 7.33 (7.35-7.45)
--- NOTE | 2023-01-15 14:51 | NUR ---
PT INTUBATED.... AT APROX 1300 THE PT WAS ON THE BIPAP AND STARTED TO HAVE INCREASED WORK OF BREATHING, RR IN THE 30'S AND VERY ANXIOUS. PT'S O2 SATS STARTED TO DROP DOWN TO THE LOW 80'S. PROVIDER WAS NOTIFIED AND IT WAS DECIDED TO INTUBATE: 1315: PT WAS GIVEN 2MG IV VERSED 1316: 20MG ETOMIDATE 1317: 70 MG FRANCES 1318: 7.5 ET TUBE WAS PLACED WITH GLIDE SCOPE, + COLOR CHANGE WITH ETCO2 CONFIRMATION, 25 AT THE [facility]. 1318: 2MG IV VERSED D/T AGITATION 1319: PROPOFOL DRIP STARTED AT 30MCG/KG. 1328: 200MCG IRIS WAS GIVEN FOR BP OF 73/74 MAP 57. 1358: CHEST XRAY DONE TO VERIFY PLACEMENT OF ET TUBE AND OG TUBE, ET TUBE WAS PULLED OUT TO 23 AT THE [facility] BY RT PER PROVIDER REQUEST. TEMP BARRIGA WAS PLACED AND UA W/CULT SENT PER ORDERS. PT'S WAS UPDATED AND BROUGHT TO THE BEDSIDE. WILL CONTINUE TO MONITOR.
--- NOTE | 2023-01-15 17:54 | NUR ---
SHIFT SUMMARY... NO ACUTE NEGATIVE CHANGES ASSESSED SINCE PREVIOUS NOTE. HE CONTINUES ON THE VENT AT AC/VC: 16/450/5/45% WITH O2 SATS IN THE LOW 90'S. PROPOFOL IS RUNNING AT 40MCG/KG WITH FREQUENT FENTANYL AND VERSED IV PUSHES D/T HYPOTENSION WHEN THE PROPOFOL DRIP INCREASES >50MCG/KG. COPIOUS AMOUNTS OF THICK FROST SECRETIONS HAVE BEEN SUCTIONED SINCE PT WAS INTUBATED. TEMP BARRIGA IS PATENT AND DRAINING TO GRAVITY. NO BM THIS SHIFT. THE PT'S AND FAMILY AT THE BEDSIDE SINCE HE WAS INTUBATED, ALL WERE UPDATED BY THE PROVIDER. WILL CONTINUE TO MONITOR UNTIL REPORT IS GIVEN TO ONCOMING RN.
[2023-01-16] VITALS (55 sets, daily range): BP systolic 83–145; BP diastolic 55–110
[2023-01-16 04:22] LABS: BASOPHILS ABSOLUTE AUTO 0.01 K/mm3 (0.00-0.23); BASOPHILS PERCENT AUTO 0 % (0-2); EOSINOPHILS PERCENT AUTO 0 % (0-6); Hematocrit 37.3 % (37.0-53.0); Hemoglobin 12.3 g/dL (13.5-17.5); IMMATURE GRAN ABSOLUTE AUTO 0.05 K/mm3 (0.00-0.10); IMMATURE GRAN PERCENT AUTO 0 % (0-1); LYMPHOCYTES ABSOLUTE AUTO 0.51 K/mm3 (0.84-5.20); LYMPHOCYTES PERCENT AUTO 4 % (21-46); MONOCYTES ABSOLUTE AUTO 0.43 K/mm3 (0.16-1.47); MONOCYTES PERCENT AUTO 3 % (4-13); Mean Corpuscular HGB 33.5 pg (26.0-34.0); Mean Corpuscular Volume 102 fL (80-100); Mean Platelet Volume 12.8 fL (9.1-12.4); NEUTROPHILS ABSOLUTE AUTO 11.67 K/mm3 (1.96-9.15); NEUTROPHILS PERCENT AUTO 92 % (41-73); Platelet Count 73 K/mm3 (150-400); RDW Coefficient Variation 12.4 % (11.7-14.2); RDW Standard Deviation 47.2 fL (35.1-46.3); Red Blood Cell Count 3.67 M/mm3 (4.30-5.90); White Blood Cell Count 12.67 K/mm3 (4.00-11.30)
[2023-01-16 04:40] LABS: Albumin, Blood 3.2 g/dL (3.4-5.0); Albumin/Globulin Ratio 1.1 (0.8-1.8); Bilirubin, Total 0.4 mg/dL (0.1-1.0); Bun/Creatinine Ratio 56.9 (12.0-20.0); Calcium, Blood 8.5 mg/dL (8.5-10.1); Creatinine, Blood 1.09 mg/dL (0.60-1.20); Globulin, Blood 2.8 g/dL (2.2-4.0); Magnesium, Blood 2.9 mg/dL (1.6-2.4); Phosphorus, Blood 2.7 mg/dL (2.5-4.9); Potassium, Blood 4.3 mmol/L (3.5-5.5)
[2023-01-16 05:31] LABS: PCO2 Arterial 49.5 mmHg (35-45); PO2 Arterial 65.5 mmHg (80-100); pH Blood Arterial 7.44 (7.35-7.45)
--- NOTE | 2023-01-16 06:34 | NUR ---
PATIENT OPENS EYS TO VOICE AND NODS APPROPRIATLEY. VERY ANXIOUS WHEN AWAKE, REQUIRING INCREASING AMOUNTS OF PROPOFOL AND PRN VERSED AND ATIVAN. HR INCREASING OVERNIGHT FROM NSR 90'S TO ST 110-115. 2100 METOPROL HELD DUE TO SYSTOLICS IN THE 90'S. BP STABLE FOR THE REST OF THE NIGHT. O2 DEMANDS INCREASED, 16/450/10/50%. THICK INLINE SECRETIONS. OGT CLAMPED. BARRIGA IN PLACE. PROPOFOL AT 50 MCG/KG/MIN.
--- NOTE | 2023-01-16 07:55 | NUR ---
ASSUMED CARE: REPORT RECEIVED FROM DONNA Fox RN. ASSUMED CARE OF THIS PT AT APPROX 0700. ON ASSESSMENT, THE PT IS SEDATED W/ PROPOFOL & RESTING QUIETLY. HE IS INTUBATED W/ A 7.5 ETT NOTED TO BE 23.0 CM ATG. PT GRIMACES DURING ADLs & MOVES EXTREMITIES FROM PAINFUL STIMULI. OCCASIONAL WHEEZING NOTED IN LUNG RODRIGUEZ, VENT SETTINGS: AC/VC 16/450/10/50% W/ O2 SATS > 95% ON AVG. MONITOR SHOWS ST W/ HR 100-110s, BP STABLE. OGT IN PLACE, CLAMPED. TEMP BARRIGA PATENT/ DRAINING DARK YELLOW URINE, DECREASING OUTPUT NOTED BY SLABBER LIGHT RN - WILL DISCUSS W/ PROVIDER. SKIN OVERALL INTACT, NUMEROUS AREAS OF SCARRING NOTED T/O BODY SURFACE INCLUDING SMALL "TRACK HOROWITZ" RT PT's HX IV DRUG ABUSE. Q2H REPOSITIONING TO MAINTAIN SKIN INTEGRITY. WILL CONTINUE TO MONITOR & UPDATE NEEDED.
--- NOTE | 2023-01-16 12:00 | NUR ---
DR LONG: PROVIDER AT BEDSIDE THIS AM TO EVAL PT. HE HAS MADE ADJUSTMENTS TO THE VENT SETTINGS, DECREASING THE PEEP TO 8 & FIO2 TO 35%. THE PT HAS TOLERATED THIS WELL W/ O2 SATS > 92%. THE PLAN IS FOR THIS PT TO REMAIN INTUBATED FOR ANOTHER DAY AT LEAST, WILL REASSESS TOMORROW FOR APPROPRIATENESS OF SEDATION VACATION & SBT. TUBE FEEDINGS ORDERED & PANTOPRAZOLE STARTED THIS SHIFT R/T PT's HX MULTIPLE GIBs.
--- NOTE | 2023-01-16 18:02 | NUR ---
SHIFT SUMMARY: CALL TO PROVIDER FOR REQUEST OF SEDATION ADJUNCT. THIS RN HAS GIVEN THE PT ALL AVAILABLE PRN SEDATION ADJUNCT MEDICATIONS PER EMAR. PRECEDEX ORDERED & ATIVAN FREQUENCY INCREASED. VENT SETTINGS: AC/VC 16/450/8/45% W/ O2 SATS > 95% ON AVG. MONITOR SHOWS SR-ST W/ HR 90-110s, BP STABLE. OGT IN PLACE W/ PIVOT 1.5 INFUSING AT 25 ML/HR, GOAL RATE IS 35 ML/HR. INITIATED AT APPROX 1600, NO S/SX INTOLERANCE NOTED. OKAY TO ADVANCE TO GOAL RATE AT 0000. NO BM THIS SHIFT. TEMP BARRIGA PATENT/ DRAINING YELLOW URINE. SKIN CONDITION OVERALL INTACT, Q2H REPOSITIONING TO MAINTAIN SKIN INTEGRITY. WILL CONTINUE TO MONITOR & REPORT OFF TO ONCOMING RN.
[2023-01-17] VITALS (37 sets, daily range): BP systolic 95–139; BP diastolic 64–87
[2023-01-17 04:29] LABS: BASOPHILS ABSOLUTE AUTO 0.01 K/mm3 (0.00-0.23); BASOPHILS PERCENT AUTO 0 % (0-2); EOSINOPHILS PERCENT AUTO 0 % (0-6); Hematocrit 34.8 % (37.0-53.0); Hemoglobin 11.8 g/dL (13.5-17.5); IMMATURE GRAN ABSOLUTE AUTO 0.05 K/mm3 (0.00-0.10); IMMATURE GRAN PERCENT AUTO 1 % (0-1); LYMPHOCYTES ABSOLUTE AUTO 0.41 K/mm3 (0.84-5.20); LYMPHOCYTES PERCENT AUTO 5 % (21-46); MONOCYTES ABSOLUTE AUTO 0.31 K/mm3 (0.16-1.47); MONOCYTES PERCENT AUTO 3 % (4-13); Mean Corpuscular HGB Conc 33.9 g/dL (31.5-36.5); Mean Corpuscular Volume 100 fL (80-100); NEUTROPHILS ABSOLUTE AUTO 8.33 K/mm3 (1.96-9.15); NEUTROPHILS PERCENT AUTO 92 % (41-73); Platelet Count 66 K/mm3 (150-400); RDW Coefficient Variation 12.2 % (11.7-14.2); RDW Standard Deviation 44.5 fL (35.1-46.3); Red Blood Cell Count 3.47 M/mm3 (4.30-5.90); White Blood Cell Count 9.11 K/mm3 (4.00-11.30)
[2023-01-17 05:42] LABS: Albumin, Blood 3.1 g/dL (3.4-5.0); Albumin/Globulin Ratio 1.1 (0.8-1.8); Bilirubin, Total 0.4 mg/dL (0.1-1.0); Calcium, Blood 8.3 mg/dL (8.5-10.1); Creatinine, Blood 1.15 mg/dL (0.60-1.20); Globulin, Blood 2.7 g/dL (2.2-4.0); Magnesium, Blood 3.1 mg/dL (1.6-2.4); Phosphorus, Blood 3.8 mg/dL (2.5-4.9); Potassium, Blood 4.4 mmol/L (3.5-5.5); Total Protein, Blood 5.8 g/dL (6.4-8.2)
--- NOTE | 2023-01-17 06:53 | NUR ---
PATIENT DIFFICULT TO SEDATE AND KEEP COMFORTABLE, REQUIRING HIGH AMOUTS OF SEDATION TO REMAIN SYNCHRONOUS WITH THE VENT. PRECEDEX AT 0.7 MCG/KG/HR, PROPOFOL AT 60 MCG/KG/MIN, AND GETTING PRN ATIVAN AND FENTANYL WELL. ALL ATTEMPTS TO WEAN SEDATION HAVE FAILED DUE TO PATIENT HAVING TACHYPNEA AND TACHYCARDIA AND VENT ALARMING. SR/ST. BLOOD PRESSURE WAS SOFT TO BEGIN SHIFT, LIKELY DUE TO SEDATION, BUT HAS BEEN STABLE SINCE. 2100 METOPROLOL HELD. VENTED 16/450/8/45%. TUBE FEEDS AT GOAL RATE. NO BM OVERNIGHT. BARRIGA IN PLACE.
--- NOTE | 2023-01-17 07:55 | NUR ---
ASSUMED CARE: REPORT RECEIVED FROM DONNA Fox RN. ASSUMED CARE OF THIS PT AT APPROX 0700. ON ASSESSMENT, THE PT IS RESTING QUIETLY, SEDATED W/ PROPOFOL & PRECEDEX. W/ INCREASED STIMULUS HE GRIMACES & IS NOTED TO BECOME TACHYPNEIC, ALTHOUGH DOES NOT FOLLOW DIRECTIONS, OPEN EYES OR DEMONSTRATE PURPOSEFUL MOVEMENTS. LS DIM, TIGHT & WHEEZING. VENT SETTINGS: AC/VC 16/450/8/45% W/ O2 SATS > 95% ON AVG. MONITOR SHOWS SR-ST W/ HR 80-100s, BP STABLE. HTN NOTED W/ INCREASED STIMULUS. OGT IN PLACE W/ PIVOT 1.5 INFUSING AT GOAL RATE OF 35 ML/HR, NO S/SX INTOLERANCE. TEMP BARRIGA PATENT/ DRAINING YELLOW URINE. SKIN CONDITION OVERALL INTACT, NUMEROUS AREAS OF SCARRING NOTED T/O SKIN SURFACE. Q2H REPOSITIONING TO MAINTAIN SKIN INTEGRITY. WILL CONTINUE TO MONITOR & UPDATE NEEDED.
--- NOTE | 2023-01-17 10:05 | NUR ---
DR LONG: PROVIDER AT BEDSIDE TO EVAL PT THIS AM. HE HAS SPOKEN W/ THE PT's AT THIS TIME & MADE SETTING CHANGES TO THE VENTILATOR. SPONTANEOUS W/ PS 16, PEEP 12 & 45%. RR INCREASED TO 30s AT THIS TIME. PROVIDER STS HE BELIEVES A LARGE COMPONENT OF THIS COULD BE RELATED TO OPIATE WITHDRAWAL & HAS ORDERED CONTINUOUS FENTANYL DRIP DURING ROUNDS THIS AM. 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 ISOLATION PRECAUTIONS IMPLEMENTED & PROVIDER TO PLACE ORDERS TO CHANGE ABX THERAPY. NO OTHER CHANGES AT THIS TIME.
--- NOTE | 2023-01-17 17:44 | NUR ---
SHIFT SUMMARY: NO ACUTE CHANGES SINCE PRIOR UPDATES. PT REMAINS INTUBATED & SEDATED W/ PROPOFOL, PRECEDEX & FENTANYL. HE HAS OVERALL APPEARED MORE COMFORTABLE THIS AFTERNOON. PRN MEDS PER EMAR WHEN RR INCREASED TO 30s OR PT ASYNCHRONOUS W/ VENT. LS TIGHT, WHEEZING AT TIMES. VENT SETTINGS: AC/VC+ 16/400/12/45% W/ O2 SATS > 95% ON AVG. OCCASIONAL COUGH W/ THICK FROST SPUTUM SUCTIONED THROUGH ETT. MONITOR SHOWS SR W/ HR 80s, BP STABLE. OGT IN PLACE W/ TUBE FEEDS INFUSING AT GOAL RATE. FORMULA & RATE CHANGED PER TRAINMASTER THIS AFTERNOON. PT TOLERATING WELL W/ NO S/SX INTOLERANCE NOTED. NO BM THIS SHIFT. BARRIGA PATENT/ DRAINING YELLOW URINE. SKIN CONDITION OVERALL INTACT, Q2H REPOSITIONING TO MAINTAIN SKIN INTEGRITY. WILL CONTINUE TO MONITOR & REPORT OFF TO ONCOMING RN.
[2023-01-18] VITALS (47 sets, daily range): BP systolic 104–136; BP diastolic 68–96
[2023-01-18 04:24] LABS: BASOPHILS ABSOLUTE AUTO 0.02 K/mm3 (0.00-0.23); BASOPHILS PERCENT AUTO 0 % (0-2); EOSINOPHILS PERCENT AUTO 0 % (0-6); Hematocrit 36.8 % (37.0-53.0); Hemoglobin 12.3 g/dL (13.5-17.5); IMMATURE GRAN ABSOLUTE AUTO 0.19 K/mm3 (0.00-0.10); IMMATURE GRAN PERCENT AUTO 2 % (0-1); LYMPHOCYTES PERCENT AUTO 4 % (21-46); MONOCYTES ABSOLUTE AUTO 0.56 K/mm3 (0.16-1.47); MONOCYTES PERCENT AUTO 5 % (4-13); Mean Corpuscular HGB 33.7 pg (26.0-34.0); Mean Corpuscular HGB Conc 33.4 g/dL (31.5-36.5); Mean Corpuscular Volume 101 fL (80-100); Mean Platelet Volume 12.5 fL (9.1-12.4); NEUTROPHILS ABSOLUTE AUTO 9.38 K/mm3 (1.96-9.15); NEUTROPHILS PERCENT AUTO 89 % (41-73); NRBC ABSOLUTE 0.02 K/mm3 (0.00-0.02); NRBC Auto 0.2 /100 WBC (0.0-0.2); Platelet Count 62 K/mm3 (150-400); RDW Coefficient Variation 12.3 % (11.7-14.2); RDW Standard Deviation 46.1 fL (35.1-46.3); Red Blood Cell Count 3.65 M/mm3 (4.30-5.90); White Blood Cell Count 10.55 K/mm3 (4.00-11.30)
[2023-01-18 04:56] LABS: Albumin, Blood 2.9 g/dL (3.4-5.0); Bilirubin, Total 0.3 mg/dL (0.1-1.0); Bun/Creatinine Ratio 62.6 (12.0-20.0); Calcium, Blood 8.3 mg/dL (8.5-10.1); Creatinine, Blood 0.88 mg/dL (0.60-1.20); Globulin, Blood 2.9 g/dL (2.2-4.0); Potassium, Blood 4.5 mmol/L (3.5-5.5); Total Protein, Blood 5.8 g/dL (6.4-8.2)
--- NOTE | 2023-01-18 06:04 | NUR ---
END OF SHIFT SUMMARY PT SEDATED AND INTUBATED. PROP 60 MCG, FENT 25 MCG, PRECEDEX 0.7 MCG. 10 MIN SEDATION VACATION WITH INCREASED HR AND VENT INCOMPLIANCE. PT ANXIOUS WHEN NOT SEDATED PROPERLY AT THIS TIME. NO ACUTE CHANGED THIS SHIFT. VSS. WILL CONTINUE TO MONITOR UNTIL REPORT GIVEN TO AM RN.
--- NOTE | 2023-01-18 18:53 | NUR ---
Shift summary. Pt rested in bed throughout shift. No acute changes. Fentanyl GTT rate increased to 50 mcg/hr per Dr. Merlos. PICC placement attempted w/out success this afternoon. PG and PIV remain in place, propofol infusing at 60 mcg/kg/min, precedex 0.7 mcg/kg/hr, NS tko. TF remain at goal rate. Garcia catheter in place. See chart for further details. Will report off to nightshift RN.
[2023-01-18 23:42] LABS: Vancomycin, Trough 20.6 ug/mL (5.0-10.0)
[2023-01-19] VITALS (55 sets, daily range): BP systolic 118–200; BP diastolic 75–120
[2023-01-19 03:42] LABS: BASOPHILS ABSOLUTE AUTO 0.03 K/mm3 (0.00-0.23); BASOPHILS PERCENT AUTO 0 % (0-2); EOSINOPHILS PERCENT AUTO 0 % (0-6); Hematocrit 36.3 % (37.0-53.0); Hemoglobin 12.1 g/dL (13.5-17.5); IMMATURE GRAN ABSOLUTE AUTO 0.26 K/mm3 (0.00-0.10); IMMATURE GRAN PERCENT AUTO 2 % (0-1); LYMPHOCYTES ABSOLUTE AUTO 0.47 K/mm3 (0.84-5.20); LYMPHOCYTES PERCENT AUTO 4 % (21-46); MONOCYTES ABSOLUTE AUTO 0.41 K/mm3 (0.16-1.47); MONOCYTES PERCENT AUTO 4 % (4-13); Mean Corpuscular HGB 34.3 pg (26.0-34.0); Mean Corpuscular HGB Conc 33.3 g/dL (31.5-36.5); Mean Corpuscular Volume 103 fL (80-100); NEUTROPHILS ABSOLUTE AUTO 9.74 K/mm3 (1.96-9.15); NEUTROPHILS PERCENT AUTO 89 % (41-73); NRBC ABSOLUTE 0.02 K/mm3 (0.00-0.02); NRBC Auto 0.2 /100 WBC (0.0-0.2); Platelet Count 67 K/mm3 (150-400); RDW Coefficient Variation 12.6 % (11.7-14.2); RDW Standard Deviation 47.3 fL (35.1-46.3); Red Blood Cell Count 3.53 M/mm3 (4.30-5.90); White Blood Cell Count 10.91 K/mm3 (4.00-11.30)
[2023-01-19 03:55] LABS: Mean Platelet Volume 13.4 fL (9.1-12.4)
[2023-01-19 04:07] LABS: Albumin, Blood 2.7 g/dL (3.4-5.0); Albumin/Globulin Ratio 0.9 (0.8-1.8); Bilirubin, Total 0.3 mg/dL (0.1-1.0); Bun/Creatinine Ratio 64.8 (12.0-20.0); Calcium, Blood 8.2 mg/dL (8.5-10.1); Creatinine, Blood 0.82 mg/dL (0.60-1.20); Potassium, Blood 4.9 mmol/L (3.5-5.5); Total Protein, Blood 5.7 g/dL (6.4-8.2)
--- NOTE | 2023-01-19 05:46 | NUR ---
END OF SHIFT SUMMARY PT REMAINS SEDATED AND INTUBATED. RESPONDS TO NOXIOUS STIMULI. GAG PRESENT. DOES NOT OPEN EYES. CARDIAC- SINUS TACHY WITH HR 100'S. SBP 120'S-140'S. RESP- VENT MACHINE REPLACED THIS AM D/T MALFUNCTION. PT WAS TEMPORARILY BAGGED WHILE REPLACEMENT TOOK PLACE. SPO2 DID NOT REACH BELOW 90% DURING THIS TIME. RT IN ROOM DURING ENTIRE PROCESS. NO OTHER ACUTE CHANGES TO REPORT. GI, - NO BM THIS SHIFT. SEE I/O FOR URING OUTPUT. WILL CONTINUE TO MONITOR UNTIL REPORT GIVEN TO AM RN.
--- NOTE | 2023-01-19 11:01 | NUR ---
Spiritual Care Visit. Pt. is intubated and not responsive. Pts. spouse and daughter are present and welcome my visit. Facilitate a life review and establish rapport with the family Spouse verbalizes that Pt. has not been praticing his christianity [place] but they do know Father Boris. Spouse and daughter display evidence of awareness, reasonableness, and engagement. With permission granted prayed for Pt. Family verbalized gratitude for the spiritual care visit.
--- NOTE | 2023-01-19 18:49 | NUR ---
Shift summary. Pt continues sedated and ventilated. Vent settings and infusion rates unchanged. Sedation wean mid-shift, propofol titrated off with good effect. Pt able to open eyes, follow simple commands and respond to questions with head nods. Family at bedside throughout shift. No acute changes, see chart for further details. Will report off to nightshift RN.
--- NOTE | 2023-01-19 19:16 | NUR ---
ASSUMED CARE OF PT AT 1900 PT RESTING IN BED, VENT AND SEDATED. SPOUSE AND OTHER FAMILY AT BEDSIDE. VSS AT THIS TIME. BARRIGA DRAINING YELLOW URINE. SEE FULL ASSESSMENT FOR FURTHER INFORMATION.
[2023-01-20] VITALS (59 sets, daily range): BP systolic 103–257; BP diastolic 59–127
[2023-01-20 00:17] LABS: Vancomycin, Trough 20.2 ug/mL (5.0-10.0)
[2023-01-20 03:26] LABS: BASOPHILS ABSOLUTE AUTO 0.04 K/mm3 (0.00-0.23); BASOPHILS PERCENT AUTO 0 % (0-2); EOSINOPHILS PERCENT AUTO 0 % (0-6); Hematocrit 36.7 % (37.0-53.0); IMMATURE GRAN ABSOLUTE AUTO 0.57 K/mm3 (0.00-0.10); IMMATURE GRAN PERCENT AUTO 4 % (0-1); LYMPHOCYTES ABSOLUTE AUTO 0.59 K/mm3 (0.84-5.20); LYMPHOCYTES PERCENT AUTO 5 % (21-46); MONOCYTES ABSOLUTE AUTO 0.48 K/mm3 (0.16-1.47); MONOCYTES PERCENT AUTO 4 % (4-13); Mean Corpuscular HGB 33.6 pg (26.0-34.0); Mean Corpuscular HGB Conc 32.7 g/dL (31.5-36.5); Mean Corpuscular Volume 103 fL (80-100); NEUTROPHILS PERCENT AUTO 87 % (41-73); Platelet Count 71 K/mm3 (150-400); RDW Coefficient Variation 12.6 % (11.7-14.2); RDW Standard Deviation 47.6 fL (35.1-46.3); Red Blood Cell Count 3.57 M/mm3 (4.30-5.90); White Blood Cell Count 13.18 K/mm3 (4.00-11.30)
[2023-01-20 03:42] LABS: Mean Platelet Volume 13.4 fL (9.1-12.4)
[2023-01-20 03:51] LABS: Albumin, Blood 2.7 g/dL (3.4-5.0); Albumin/Globulin Ratio 0.9 (0.8-1.8); Bilirubin, Total 0.4 mg/dL (0.1-1.0); Bun/Creatinine Ratio 69.5 (12.0-20.0); Calcium, Blood 8.1 mg/dL (8.5-10.1); Creatinine, Blood 0.72 mg/dL (0.60-1.20); Globulin, Blood 3.1 g/dL (2.2-4.0); Potassium, Blood 4.5 mmol/L (3.5-5.5); Total Protein, Blood 5.8 g/dL (6.4-8.2)
--- NOTE | 2023-01-20 06:00 | NUR ---
END OF SHIFT SUMMARY PT RESPONDS TO NOXIOUS STIMULI, ESPECIALLY ORAL CARE. -VENT REMAINS AT 18/400/10/40% WITH SPO2 >93%. LUNGS COURSE AND TIGHT THROUGHOUT. -HR 80'S WITH SR. SBP RANGES 130'S-150'S. MEDICATED PER EMAR. -CONTINUED WORSENING SWELLING BUE, 3+ PITTING. -NO BM THIS SHIFT. 900 MLS URINE OUT THIS SHIFT. FENT @ 50 MCG/HR PROP @ 60 MCG/HR PRECEDEX @ 0.7 MCG WILL CONTINUE TO MONITOR UNTIL REPORT GIVEN TO AM RN.
--- NOTE | 2023-01-20 09:10 | NUR ---
AM NOTE... ASSUMED CARE OF PT AT 0700. PT IS INTUBATED AND SEDATED WITH A RASS OF -1, PT WAKES EASILY TO VERBAL STIMULI. WHEN AWAKE THE PT'S RR INCREASES TO THE 40'S AND HE BECOMES MORE HYPERTENSIVE WITH SBPs IN THE 170'S-190'S. ONCE HE CALMS DOWN THIS IMPROVES. VENT SETTINGS ARE AC/VC:18/400/10/40% WITH O2 SATS>90%. L/S COARSE AND TIGHT T/O. HE IS IN SR IN THE 90'S BP IS HYPERTENSIVE WITH SPBs IN THE 160'S WITH MEDICATIONS PER EMAR. HE HAS 3+ EDEMA NOTED TO HIS BUE, BOTH FLOATED ON PILLOWS. OG TUBE IS RUNNING TUBE FEEDS PER ORDERS. BT PRESENT AND HYPOACTIVE, ABD IS FIRM TO PALPATION. BARRIGA IS PATENT AND DRAINING TO GRAVITY. WILL CONTINUE TO MONITOR.
[2023-01-20 15:02] LABS: Magnesium, Blood 2.8 mg/dL (1.6-2.4); Phosphorus, Blood 4.2 mg/dL (2.5-4.9)
--- NOTE | 2023-01-20 18:26 | NUR ---
SHIFT SUMMARY.... NO ACUTE NEGATIVE CHANGES NOTED THIS SHIFT. THE PT HAD A SEDATION VACATION THIS AM, DURING THIS TIME THE PT BECAME VERY AGIATED, RR INCREASED TO THE 50'S AND THE PT BECAME VERY HYPERTENSIVE WITH SBPs IN THE 200'S. THE PT'S FAMILY WHO WAS AT THE BEDSIDE BECAME VERY ANXIOUS AND EMOTIONAL DURING THIS SEDATION VACATION WHICH SEEMED TO INCREASED THE PT'S AGITATION AND ANXIETY. THE PT HAS NOT HAD A BM FOR SEVERAL DAYS, BOWEL CARE WAS STARTED, NO BM THIS SHIFT. PT'S BARRIGA IS PATENT AND DRAINING TO GRAVITY. WILL CONTINUE TO MONITOR UNTIL REPORT IS GIVEN TO ONCOMING RN.
--- NOTE | 2023-01-20 20:00 | NUR ---
ASSUMED CARE OF PT AT 1900. REPORT RECEIVED AT BEDSIDE. PT'S AND THEIR DAUGHTER PRESENT IN ROOM. FAMILY PARTICIPATES IN BEDSIDE REPORT. PT INTUBATED. AC 18, Tv 400, FIO2 35 PERCENT, WITH PEEP AT 10.0. PT MAINTAINS SATURATIONS > 90 PERCENT WITH THESE SETTINGS. PROPOFOL ON AT 60 MCG'S/KG/MIN WITH PRECEDEX AT 0.8 MCG'S/KG/HOUR. FENTANYL DRIP AT 50 MCG'S/HOUR. DISCUSSED PLAN OF CARE, AND GOALS WITH FAMILY. WILL REVIEW CHART AND PLAN OF CARE FOR THIS PT.
[2023-01-21] VITALS (44 sets, daily range): BP systolic 118–200; BP diastolic 72–105
--- NOTE | 2023-01-21 | NUR ---
FAMILY HAS GONE HOME FOR THE NIGHT AT 1999. HAVE CONTINUED WITH Q 2 HOUR TURNS. PT HAS OCCASSIONAL COUGH WITH TURNS THOUGH WITH SCANT RETURN FROM SUCTIONING. WILL CONTINUE TO MONITOR.
--- NOTE | 2023-01-21 03:43 | NUR ---
FULL BEDBATH WITH LINEN CHANGE DONE WITH PT. PT NOTED TO HAVE SMALL AMOUNT OF STOOL DURING BATH. CONTINUING NEED FOR BOWEL CARE. PT TOLERATING Q 2 HOUR TURNS FAIR. HAVE SUCTIONED PT SEVERAL TIMES PER ETT. SCANT AMOUNT OF CLEAR SECRETIONS RETURNED. PT TOLERATING TUBE FEEDING AT GOAL. HAVE DECREASED PROPOFOL TO 50 MCG'S, AND PRECEDEX TO 0.7MCG'S/KG/HOUR. PT DOES HAVE PERIOD WHEREAS HE BECOMES MORE ANXIOUS AND RESTLESS. DID OPT TO ADMINISTER 2 MG ATIVAN WHICH WAS OF GOOD RESULT. WILL CONTINUE TO MONITOR PT.
[2023-01-21 04:43] LABS: Hematocrit 36.5 % (37.0-53.0); Mean Corpuscular HGB 33.9 pg (26.0-34.0); Mean Corpuscular HGB Conc 32.9 g/dL (31.5-36.5); Mean Corpuscular Volume 103 fL (80-100); Platelet Count 78 K/mm3 (150-400); RDW Coefficient Variation 12.5 % (11.7-14.2); RDW Standard Deviation 47.5 fL (35.1-46.3); Red Blood Cell Count 3.54 M/mm3 (4.30-5.90); White Blood Cell Count 16.74 K/mm3 (4.00-11.30)
[2023-01-21 04:54] LABS: Mean Platelet Volume 13.4 fL (9.1-12.4)
--- NOTE | 2023-01-21 05:00 | NUR ---
PT IN PROGRESS OF SEDATION VACATION. OF NOW, PT TOLERATING SEDATION WELL. HAVE BROUGHT SEDATION DOWN SLOWLY WITH GOOD SUCCESS. WILL CONTINUE TO MONITOR.
[2023-01-21 05:08] LABS: BASOPHILS PERCENT MAN 0 % (0-2); EOSINOPHILS PERCENT MAN 0 % (0-6); LYMPHOCYTES ABSOLUTE MAN 0.33 K/mm3 (0.84-5.20); LYMPHOCYTES PERCENT MAN 2 % (21-46); METAMYELOCYTE ABSOLUTE MAN 0.16 K/mm3 (0.00-0.00); METAMYELOCYTE PERCENT MAN 1 % (0-0); MONOCYTES ABSOLUTE MAN 0.66 K/mm3 (0.16-1.47); MONOCYTES PERCENT MAN 4 % (4-13); MYELOCYTE ABSOLUTE MAN 0.16 K/mm3 (0.00-0.00); MYELOCYTE PERCENT MAN 1 % (0-0); SEG NEUTROPHILS PERCENT MAN 92 % (41-73); TOTAL CELLS COUNTED 100
[2023-01-21 05:15] LABS: Albumin, Blood 2.7 g/dL (3.4-5.0); Albumin/Globulin Ratio 0.9 (0.8-1.8); Bilirubin, Total 0.4 mg/dL (0.1-1.0); Bun/Creatinine Ratio 79.8 (12.0-20.0); Calcium, Blood 8.2 mg/dL (8.5-10.1); Creatinine, Blood 0.74 mg/dL (0.60-1.20); Globulin, Blood 3.1 g/dL (2.2-4.0); Magnesium, Blood 2.7 mg/dL (1.6-2.4); Phosphorus, Blood 3.6 mg/dL (2.5-4.9); Potassium, Blood 4.1 mmol/L (3.5-5.5); Total Protein, Blood 5.8 g/dL (6.4-8.2)
--- NOTE | 2023-01-21 05:38 | NUR ---
PT RESTARTED TO SEDATION. BLOOD PRESSURES HAD INCREASED TO 203/105. PT WAS ABLE TO FOLLOW COMMAND TO SQUEEZE FINGERS. DID SHAKE HIS HEAD 'NO'. TO QUESTION. WILL TITRATE PROPOFOL AND PRECEDEX TO REGAIN DECENT VENT TOLERANCE.
[2023-01-21 07:46] LABS: Vancomycin, Random 14.6 ug/mL
--- NOTE | 2023-01-21 09:18 | NUR ---
ASSUMED CARE OF HIWOT AT BEDSIDE REPORT AT 0700. HE IS ON THE VENT, BREATHING ABOVE THE SET RATE, FIO2 @ 35% WITH SATS > 95%. HE IS RELAXED AND ALLOWS US TO TURN AND REPOSITION. LUNGS ARE CLEAR WITH SLIGHT COARSE IN THE BASES. ABDOMEN SOFT, NON TENDER, BOWEL TONES PRESENT, VHP @ 30ML/HR. MEDS THROUGH TUBE. BARRIGA TO GRAVITY DRAINAGE WITH GOOD UO AND TEMP 98. SKIN DRY AND DISCOLORED, LOTION APPLIED WITH NO CHANGE. ARMS AND HANDS ELEVATED ON PILLOWS, FEET/ANKLES WITHOUT EVIDENCE OF SWELLING, BUT FEET ARE DISCOLORED WELL. PULSES PRESENT. FAMILY IN AND PT IS MORE TACHYPNEIC AND TACHYCARDIC, ATIVAN 2MG GIVEN FOR RELIEF. PROPOFOL AND PRECEDEX UNCHANGED AT THIS TIME, HYDRALAZINE GIVEN FOR >170 SBP. ENCOURAGE AND DAUGHTER TO REASSURE.
--- NOTE | 2023-01-21 10:15 | NUR ---
PT CONTINUED TO BE INCREASINGLY AGITATED WITH HR AND RESP RATE INCREASED. ATIVAN AND BP MEDICATION DID NOT SLOW HIM DOWN. CONTINUE TO ENCOURAGE FAMILY TO TRY REASSURANCE.
--- NOTE | 2023-01-21 12:26 | NUR ---
HIWOT IS RELAXING SOME AFTER THE 2 DOSES OF BP MED AND ATIVAN. HE WAS DOSED WITH LASIX AND INCREASED DOSE OF METOPROLOL PER , HE SEEMS TO BE SETTLING DOWN SOME NOW. LESS WORK OF BREATHING, LESS RESTLESSNESS.
[2023-01-21 15:43] LABS: Bun/Creatinine Ratio 86.3 (12.0-20.0); Creatinine, Blood 0.73 mg/dL (0.60-1.20); Potassium, Blood 3.7 mmol/L (3.5-5.5)
--- NOTE | 2023-01-21 16:29 | NUR ---
HIWOT HAS BEEN MORE RESTFUL THIS AFTERNOON, LESS RESTLESS. HIS FENTANYL DRIP WAS CHANGED TO A FACILITIES DIRECTOR CONTINUOUS INFUSION REMAINS AT 50MCG/HR. HIS PROPOFOL AND PRECEDEX REMAIN UNCHANGED AND HE HAS NOT REQUIRED ANY ADDITIONAL DOSES OF ATIVAN AT THIS TIME. HE RESPONDED WELL TO THE DIURESIS. HIS HANDS AND ARMS REMAIN EDEMATOUS. AND SISTER AT THE BEDSIDE. SCANT RETURN FROM ETT SUCT.
--- NOTE | 2023-01-21 18:15 | NUR ---
HIWOT CONTINUES ON VENTILATOR, SETTINGS UNCHANGED. PROPOFOL, PRECEDEX AND FENTANYL NOT TITRATED THIS SHIFT PER 'S ORDERS. PT IS TURNED AND REPOSITIONED Q2H, VHP @ GOAL VIA OGT. BARRIGA TO GRAVITY DRAINAGE WITH T-mAX 99.3. SMALL FORMED HARD STOOL. HANDS EDEMATOUS, DIURESIS BEGAN, ANKLES WITHOUT EVIDENCE OF EDEMA. BP CONTINUES TO BE A CONCERN WITH ADJUNCTS GIVEN PRN.
--- NOTE | 2023-01-21 20:21 | NUR ---
ASSUMED CARE OF PT AT 1900. REPORT RECEIVED AT BEDSIDE. PT PRESENTS IN BED. INTUBATED. HAVE DONE COMPLETE BEDBATH THIS EVENING. PT HAS SMALL SMEAR OF STOOL ON UNDERPAD. DID DO DIGITAL CHECK WHICH REVEALS LARGE AMOUNT OF HARD STOOL. OPTED TO DO MANUAL DISIMPACTION WITH RETURN OF LARGE AMOUNT OF FIRM STOOL. MUCH MORE NOTED IN [place]. WILL ALLOW FOR NATURAL PASSAGE OF THIS STOOL. WILL REASSESS LATER IN SHIFT. WILL REVIEW CHART AND PLAN OF CARE FOR THIS PT.
[2023-01-22] VITALS (47 sets, daily range): BP systolic 126–169; BP diastolic 67–104
[2023-01-22 05:16] LABS: Base Excess Venous 4.6 mmol/L; Bicarbonate Venous 28.3 mmol/L (24.0-30.0); PCO2 Venous 39.2 mmHg (38-42); pH Blood Venous 7.47 (7.34-7.37)
[2023-01-22 05:19] LABS: BASOPHILS ABSOLUTE AUTO 0.04 K/mm3 (0.00-0.23); BASOPHILS PERCENT AUTO 0 % (0-2); EOSINOPHILS PERCENT AUTO 0 % (0-6); Hematocrit 35.2 % (37.0-53.0); Hemoglobin 11.6 g/dL (13.5-17.5); IMMATURE GRAN ABSOLUTE AUTO 0.93 K/mm3 (0.00-0.10); IMMATURE GRAN PERCENT AUTO 6 % (0-1); LYMPHOCYTES ABSOLUTE AUTO 0.54 K/mm3 (0.84-5.20); LYMPHOCYTES PERCENT AUTO 3 % (21-46); MONOCYTES ABSOLUTE AUTO 0.72 K/mm3 (0.16-1.47); MONOCYTES PERCENT AUTO 4 % (4-13); Mean Corpuscular HGB 33.4 pg (26.0-34.0); Mean Corpuscular Volume 101 fL (80-100); NEUTROPHILS ABSOLUTE AUTO 14.61 K/mm3 (1.96-9.15); NEUTROPHILS PERCENT AUTO 87 % (41-73); Platelet Count 79 K/mm3 (150-400); RDW Coefficient Variation 12.5 % (11.7-14.2); RDW Standard Deviation 46.6 fL (35.1-46.3); Red Blood Cell Count 3.47 M/mm3 (4.30-5.90); White Blood Cell Count 16.84 K/mm3 (4.00-11.30)
[2023-01-22 05:26] LABS: Mean Platelet Volume 13.3 fL (9.1-12.4)
[2023-01-22 05:35] LABS: Bun/Creatinine Ratio 86.6 (12.0-20.0); Creatinine, Blood 0.72 mg/dL (0.60-1.20); Potassium, Blood 4.1 mmol/L (3.5-5.5)
--- NOTE | 2023-01-22 05:41 | NUR ---
PT REMAINS WITH SAME VENT SETTINGS. MAINTAINS SATURATIONS > 90 PERCENT. PROPOFOL AT 45 MCG'S/KG/MIN AND PRECEDEX O.5MCG'S/KG/HOUR. PT WILL OPEN EYES DURING ANY TACTILE STIMULI. DOES NOT FOLLOW ANY COMMANDS. TOLERATING TUBE FEEDING AT GOAL. URINE OUTPUT WITH QUANTITY SUFFICIENT. LARGE BM ONCE, AND SMALL LOOSE STOOL ONCE THIS NIGHT. LUNGS WITH WHEEZING MORESO IN LEFT LUNGS. MINIMINAL SECRETIONS RETURNED FROM ETT. WILL CONTINUE TO MONITOR PT, AND WILL REPORT OFF TO ONCOMING RN.
--- NOTE | 2023-01-22 12:45 | NUR ---
PROPOFOL DOWN TO 40 MCG/KG, PT ANSWERING TO VERBAL STIMULUS. HE WILL NOD OR SHAKE HIS HEAD. HE HAD A LARGE STOOL SURROUNDED BY LIQUID. TUBE FEEDINGS CONTINUE, PRECEDEX AND FENTANYL UNCHANGED. OCC COUGH NOTED. MOTHER IN LAW IN ROOM, HOME ILL TODAY.
--- NOTE | 2023-01-22 18:18 | NUR ---
HIWOT CONTINUES ON VENTILATOR, PEEP HAS BEEN LOWERED TO 8, FIO2 REMAINS @ 35%. PROPOFOL 30MCG/KG, PRECEDEX @ 0.4MCG/KG, FENTANYL @ 50MCG/HR. POWER GLIDES IN BOTH UPPER ARMS, BOTH ARMS/HANDS REMAIN EDEMATOUS, PITTING. RESTRAINTS HAVE BEEN LOOSENED FOR SKIN INTEGRITY. BM X1, URINE OUTPUT >1L. FOLLOWING COMMANDS, NODDING AND SHAKING HEAD TO QUESTIONS. BP HAS BEEN MORE CONTROLLED TODAY, HEART RATE REMAINS <100. MOTHER IN LAW AT BEDSIDE ENTIRE DAY.
--- NOTE | 2023-01-22 19:10 | NUR ---
CARE ASSUMPTION DURING BEDSIDE SHIFT REPORT Maximus BERNABE RN THE PT IS LYING IN BED INTUBATED ON THE VENTILATOR W FAMILY AT BEDSIDE. PT IS ALERT MAINTAINING MEANINGFUL EYE CONTACT AND NODDING HIS HEAD TO ANSWER YES OR NO QUESTIONS. PT FOLLOWING COMMANDS. PT'S MONITOR SHOWING SR 80'S. BP MODERATELY ELEVATED W SBP IN THE 150'S. SPO2 >92% ON VENT W SETTINGS 18/450/8.0 W 35% FIO2. PT HAS PROPOFOL GTT RUNNING AT 30MCG.KG/MIN, PRECEDEX AT 0.4 MCG/KG/HR AND FENTANYL REFRIGERATION PLANT CORK INSULATOR AT 50 MCG/HR. PT'S LS ARE CLEAR/DIM T/O. SKIN IS C/D/I. PT HAS +3 EDEMA IN BUE/HANDS. PT HAS TEMP BARRIGA THAT IS PATENT AND DRAINING CLAR YELLOW URINE. ET TUBE IS 7.5 25CM TO HIS LIP.
[2023-01-22 19:39] LABS: Vancomycin, Trough 20.2 ug/mL (5.0-10.0)
[2023-01-23] VITALS (42 sets, daily range): BP systolic 103–185; BP diastolic 58–101
[2023-01-23 04:31] LABS: Hematocrit 33.8 % (37.0-53.0); Hemoglobin 11.5 g/dL (13.5-17.5); Mean Corpuscular HGB 33.8 pg (26.0-34.0); Mean Corpuscular Volume 99 fL (80-100); Platelet Count 76 K/mm3 (150-400); RDW Standard Deviation 44.5 fL (35.1-46.3); White Blood Cell Count 18.46 K/mm3 (4.00-11.30)
[2023-01-23 04:33] LABS: Mean Platelet Volume 13.6 fL (9.1-12.4)
[2023-01-23 04:49] LABS: BAND PERCENT MAN 6 % (0-8); BASOPHILS PERCENT MAN 0 % (0-2); EOSINOPHILS PERCENT MAN 0 % (0-6); LYMPHOCYTES ABSOLUTE MAN 0.18 K/mm3 (0.84-5.20); LYMPHOCYTES PERCENT MAN 1 % (21-46); MONOCYTES ABSOLUTE MAN 1.29 K/mm3 (0.16-1.47); MONOCYTES PERCENT MAN 7 % (4-13); MYELOCYTE ABSOLUTE MAN 0.36 K/mm3 (0.00-0.00); MYELOCYTE PERCENT MAN 2 % (0-0); NEUTROPHILS ABSOLUTE MAN 16.61 K/mm3 (1.96-9.15); SEG NEUTROPHILS PERCENT MAN 84 % (41-73); TOTAL CELLS COUNTED 100
[2023-01-23 04:50] LABS: Albumin, Blood 2.5 g/dL (3.4-5.0); Anion Gap 5 mmol/L (6-16); Blood Urea Nitrogen 58 mg/dL (8-24); CO2, Blood 31 mmol/L (21-32); Calcium, Blood 8.1 mg/dL (8.5-10.1); Chloride, Blood 109 mmol/L (98-108); Creatinine, Blood 0.68 mg/dL (0.60-1.20); Glomerular Filtration Rate 103 (60-); Glucose, Blood 182 mg/dL (70-99); Potassium, Blood 3.9 mmol/L (3.5-5.5); Sodium, Blood 145 mmol/L (136-145)
--- NOTE | 2023-01-23 06:21 | NUR ---
CEMENT BASED MATERIALS PUMP TENDER SUMMARY THE PT HAS BEEN ALERT AND AWAKE ALL NIGHT NOT SLEEPING MUCH AT ALL. THIS RN ATTEMPTED TO TITRATE PROPOFOL GTT DOWN BY TITRATING PRECEDEX GTT UP HOWEVER WHEN PROPOFOL WAS TURNED DOWN TO 25 FROM 30 THE PT BEGAN STACKING HIS BREATHS FREQUENTLY ON THE VENT. PROPOFOL TURNED BACK UP TO 4O AND PT TOLERATING THE VENT MUCH BETTER. VENT SETTINGS UNCHANGED 18/450/8.0 W 35% FIO2. PT'S BP ELEVATED EARLY IN THE SHIFT HOWEVER THE BP CUFF CHANGED FROM THE PT'S RLE TO HIS RFA AND BP'S HAVE BEEN WNL AND STABLE. PT AFEBRILE W PEAK TEMP OF 99.8 THIS SHIFT. PT'S MONITOR SHOWING SR 80'S THIS SHIFT. PT HAS HAD 4 LOOSE BOWEL MOVEMENTS THIS SHIFT. PT'S BARRIGA PATENT AND DRAINED 2L CLEAR YELLOW URINE THIS SHIFT. THE PT AWAKE FOR MOST OF THE SHIFT FOLLOWING COMMANDS. PT OCCASIONALLY MOVING HIS HEAD BACK AND FORTH QUICKLY WHICH HAS CAUSED HIS ET TUBE TO COME OUT ONE CM, RT NOTIFIED BUT ET TUBE NOT ADJUSTED AT THIS TIME. TF RUNNING AT GOAL RATE 30ML/HR ALL SHIFT. WILL REPORT TO ONCOMING RN.
--- NOTE | 2023-01-23 07:10 | NUR ---
CARE ASSUMPTION DURING BEDSIDE SHIFT REPORT W FERMIN RN THE PT IS LYING IN BED INTUBATED ON THE VENTILATOR. VENT SETTINGS AC/VC+ 18/450/5.0 W 35% FIO2. PT IS ALERT AND MAINTAINING EYE CONTACT W MIKE RN. PROPOFOL GTT AT 40, PRECEDEX AT 0.5, AND FENTANYL PROFESSOR OF VIOLIN AT 50MCG/HR. PT APPEARS COMFORTABLE AT THIS TIME. MONITOR SHOWING SR 60'S. BP WNL.
--- NOTE | 2023-01-23 08:12 | NUR ---
CARE OF PT ASSUMED AT 0700. PT SEDATED FOR [facility] VENT TOLERANCE. PROPOFOL AT 40MCG, PRECEDEX AT 0.5MCG, FENTANYL 50 MCG/HR. PT W RASS +1. SHAKES HEAD BACK AND FORTH. VENT INITIALLY AC/VC 18/450/35%/8. PT CHANGED TO SPONT 10/5 35% AT 0753. PT MORE CALM NOW W RASS OF -2. PT AWAKENS TO VOICE BRIEFLY AND FOLLOWS SIMPLE COMMANDS, PT LOOKS MORE RELAXED AT THIS TIME. LUNGS CLEAR, VHP AT GOAL. WILL TITRATE SEDATION DOWN TOLERATED.
--- NOTE | 2023-01-23 11:07 | NUR ---
DR BLACKWOOD IN [place] AND GIVEN UPDATE. SPONT CHANGED TO [address] BLACKWOOD. PT DAVEY CHANGE BUT WORK OF BREATHING HAS ST/ARTED TO INCREASE W ACCESSORY MUSCLE USE, RATE 20'S. RASS 0. PT ALSO HTN W BP 185/95. SATS >95%. AT BEDSIDE AND GIVEN UPDATE.
--- NOTE | 2023-01-23 11:48 | NUR ---
DR BLACKWOOD AT BEDSIDE TO CHECK ON SBT PROGRESS, PT PLACED BACK ON 12/17.
--- NOTE | 2023-01-23 12:55 | NUR ---
PT INCONTINENT OF LARGE AMT OF LIQUID STOOL. PT LACKS SUFFICIANT RECTAL TONE FOR RECTAL TUBE PLACEMENT. SEVERAL DISPOSABLE BAXTERS PLACED UNDER PT.
--- NOTE | 2023-01-23 15:48 | NUR ---
PT BECAME MORE AGITATED/RESTLESS. +1 RASS, COUGHING ON VENT, TV FALLING, RESP RATE HIGH 20'S. PT ABLE TO NOD YES AND NO TO QUESTIONS, NODS NO TO PAIN, YES TO ANXIETY. RT PLACED PT BACK ON AC/VC 18/450/35%/5. ATIVAN 2MG GIVEN FOR ANXIETY/AGITATION. PT CALM AND SLEEPING NOW.
--- NOTE | 2023-01-23 18:04 | NUR ---
PT PLACED ON SPONT 10/5 THIS AM, AND WAS TRIALED ON 09/14 FOR A SHORT TIME. PT DID NOT TOLERATE 5 AND WAS PLACED BACK TO 12/15; PT DAVEY THIS FOR MAJORITY OF SHIFT AND WAS PLACED BACK ON AC/VC SETTINGS AT 1545. RT RETAPED ETT AND PLACED ETT BACK TO 25CM AT LIP. PT INCONTINENT OF LIQUID BROWN STOOLS T/O SHIFT AND DOES NOT HAVE ENOUGH RECTAL TONE FOR RECTAL TUBE. FLEXISEAL BAG PLACED AROUND RECTUM TO HELP KEEP STOOL OFF OF SKIN. NO CHANGES WERE MADE TO SEDATION TODAY RASS WAS 0 TO -1 T/O SHIFT; PT AWAKE AND ALERT AND CALM FOR MAJORITY OF SHIFT. ATIVAN GIVEN ONCE FOR ANXIETY JUST BEFORE PT WAS PLACED BACK ON AC SETTINGS. PT'S AT BEDSIDE FOR MAJORITY OF SHIFT AND WAS UPDATED BY MYSELF AND DR BLACKWOOD.
[2023-01-24] VITALS (47 sets, daily range): BP systolic 109–191; BP diastolic 59–108
[2023-01-24 04:19] LABS: BASOPHILS ABSOLUTE AUTO 0.03 K/mm3 (0.00-0.23); BASOPHILS PERCENT AUTO 0 % (0-2); EOSINOPHILS PERCENT AUTO 0 % (0-6); Hematocrit 32.5 % (37.0-53.0); Hemoglobin 11.2 g/dL (13.5-17.5); IMMATURE GRAN ABSOLUTE AUTO 0.57 K/mm3 (0.00-0.10); IMMATURE GRAN PERCENT AUTO 4 % (0-1); LYMPHOCYTES ABSOLUTE AUTO 0.61 K/mm3 (0.84-5.20); LYMPHOCYTES PERCENT AUTO 4 % (21-46); MONOCYTES ABSOLUTE AUTO 0.49 K/mm3 (0.16-1.47); MONOCYTES PERCENT AUTO 3 % (4-13); Mean Corpuscular HGB 34.1 pg (26.0-34.0); Mean Corpuscular HGB Conc 34.5 g/dL (31.5-36.5); Mean Corpuscular Volume 99 fL (80-100); NEUTROPHILS ABSOLUTE AUTO 12.52 K/mm3 (1.96-9.15); NEUTROPHILS PERCENT AUTO 88 % (41-73); Platelet Count 68 K/mm3 (150-400); RDW Standard Deviation 43.7 fL (35.1-46.3); Red Blood Cell Count 3.28 M/mm3 (4.30-5.90); White Blood Cell Count 14.22 K/mm3 (4.00-11.30)
[2023-01-24 04:50] LABS: Mean Platelet Volume 13.1 fL (9.1-12.4)
[2023-01-24 05:03] LABS: Albumin, Blood 2.3 g/dL (3.4-5.0); Anion Gap 4 mmol/L (6-16); Blood Urea Nitrogen 57 mg/dL (8-24); Bun/Creatinine Ratio 101.6 (12.0-20.0); CO2, Blood 31 mmol/L (21-32); Chloride, Blood 107 mmol/L (98-108); Creatinine, Blood 0.56 mg/dL (0.60-1.20); Glomerular Filtration Rate 109 (60-); Glucose, Blood 178 mg/dL (70-99); Phosphorus, Blood 3.8 mg/dL (2.5-4.9); Sodium, Blood 142 mmol/L (136-145)
--- NOTE | 2023-01-24 06:04 | NUR ---
SQUIRT MACHINE OPERATOR SUMMARY PT HAD NO CHANGED THIS SHIFT SLEEPING COMFORTABLY FOR MOST OF THE NIGHT BUT EASILY AWOKE TO SPEECH. PT'S VENT REMAINS AC/VC+ 18/450/5.0 W 35% FIO2. ET TUBE STILL 7.5 25CM AT THE LIP. PT'S BP WNL AND STABLE. MONITOR SHOWING SR 60'S-70'S THIS SHIFT. PROPOFOL AT 40, PRECEDEX AT 0.4 AND FENTANYL MANUFACTURING SYSTEMS ENGINEER AT 50MCG/HR. PT DID NOT HAVE A BM THIS SHIFT. WILL REPORT TO ONCOMING RN.
--- NOTE | 2023-01-24 09:57 | NUR ---
CARE OF PT ASSUMED AT 0700. PT CONTINUES TO BE SEDATED ON PROPOFOL AT 40MCG, PRECEDEX AT 0.5MCG AND FENT AT 50MCG/HR. PT MORE DROWSY TODAY COMPARED TO YESTERDAY AM. PT RASS -3. PT STILL AWAKENS TO VOICE AND IS ABLE TO FOLLOW SIMPLE COMMANDS. PT PROFOUNDLY WEAK. PT HAS A DIFFICULT TIME WIGGLING LEFT TOES. PT PLACED ON SPONT TRIAL 10/5 35% BY RT PER DR BLACKWOOD. PROPOFOL DECREASED TO 30MCG, PT NOW MORE AWAKE, RASS 0. WILL ASK ABOUT PT/OT ON VENT PT IS AWAKE AND ABLE TO FOLLOW COMMANDS. PT'S BACKSIDE EVALUATED THIS AM; NO NEW STOOL, SKIN INTACT. TF AT GOAL. PT'S AND DAUGHTER AT BEDSIDE AND GIVEN UPDATE.
--- NOTE | 2023-01-24 15:04 | NUR ---
PROPOFOL DECREASED FROM 30MCG TO 15MCG TO WORK W OT. PT AWAKE AND PARTICIPATED WITH THERAPY. AN HOUR LATER PT MORE RESTLESS/SLIGHTLY AGITATED. RESP RATE 30'S, BP 191/108. PT RE-DIRECTABLE AND WAS ABLE TO SLOW BREATHING DOWN. PROPOFOL INCREASED TO 20MCG. FAMILY SITTING QUIETLY AT BEDSIDE TO ALLOW PT TIME TO REST. TF INCREASED TO 35CC/HR PER ORDERS.
--- NOTE | 2023-01-24 18:14 | NUR ---
PT ON SPONT 12/15 FROM THIS AM AROUND 0800 TO 1700. PROPOFOL DECREASED TO 15MCG DURING OT. AFTER THERAPY PT BECAME MORE RESTLESS AND ANXIOUS. PROPOFOL TITRATED BACK UP TO 30MCG. PT REMAINED ANXIOUS; RESTLESS, HIGH RR, HTN, NODS YES TO ANXIETY. ATIVAN 1MG GIVEN FOR THIS AT 1530 W GOOD EFFECT. PT PLACED BACK ON AC/VC SETTINGS AT 1700 2ND TO HIGH RR, RESTLESSNESS, LOWER TV'S. PT'S AND DAUGHTER AT BEDSIDE T/O SHIFT. TF INCREASED TO 35CC/HR. PT CONTINUES TO HAVE LIQUID STOOLS BUT HAS DECREASED IN AMT FROM YESTERDAY.
--- NOTE | 2023-01-24 19:15 | NUR ---
CARE ASSUMPTION DURING BEDSIDE SHIFT REPORT Maximus ZIMMERMAN RN THE PT IS LYING IN BED INTUBATED ON THE VENTILATOR. VENT AC/VC+ 18/450/5.0 W 35% FIO2. MONITOR SHOWING SR 90'S. BP WNL AND STABLE. PT IS ALERT AND MAINTAINING MEANINGFUL EYE CONTACT. PROPOFOL GTT RUNNING AT 30, PRECEDEX AT 0.5MCG/KG/HR. AND FENTANYL HANGER OFF AT 50MCG/HR. FAMILY AT BEDSIDE AT THIS TIME.
[2023-01-24 19:20] LABS: Vancomycin, Trough 14.6 ug/mL (5.0-10.0)
[2023-01-25] VITALS (49 sets, daily range): BP systolic 107–185; BP diastolic 59–99
[2023-01-25 05:13] LABS: Albumin, Blood 2.3 g/dL (3.4-5.0); Anion Gap 4 mmol/L (6-16); Blood Urea Nitrogen 56 mg/dL (8-24); Bun/Creatinine Ratio 94.9 (12.0-20.0); CO2, Blood 32 mmol/L (21-32); Calcium, Blood 7.8 mg/dL (8.5-10.1); Chloride, Blood 107 mmol/L (98-108); Creatinine, Blood 0.59 mg/dL (0.60-1.20); Glomerular Filtration Rate 108 (60-); Glucose, Blood 178 mg/dL (70-99); Phosphorus, Blood 3.8 mg/dL (2.5-4.9); Potassium, Blood 3.9 mmol/L (3.5-5.5); Sodium, Blood 143 mmol/L (136-145)
--- NOTE | 2023-01-25 06:26 | NUR ---
POT ROOM SUPERVISOR SUMMARY PT HAD NO MAJOR EVENTS THIS SHIFT SLEEPING COMFORTABLY FOR MOST OF THE NIGHT. PT'S VENT SETTINGS UNCHANGE AC/VC+ 18/450/5.0 W 35% FIO2. PT'S MONITOR SHOWING SR90'S WHEN HE IS AWAKE BUT LOW SR 70'S WHEN HE WAS ASLEEP. PT DID HAVE ONE VERY BRIEF EPISODE OF TACHYCARDIA IN THE 130'S. PT AFEBRILE THIS SHIFT. PT REMAINS ON PROPOFOL, PRECEDEX GTT AND FENTANYL CHEESE GRADER AT 5O MCG/HR. PT W MINIMAL LIQUID STOOL THIS SHIFT. PT'S BARRIGA PATENT AND DRAINING CLEAR YELLOW URINE, SEE I&O'S FOR DETAILS. WILL REPORT TO ONCOMING RN.
--- NOTE | 2023-01-25 07:23 | NUR ---
ASSUMED CARE OF HIWOT THIS AM AT 0700 DURING BEDSIDE SHIFT REPORT. PT LOOKS AND NODS, MAKES EYE CONTACT AND WILL USE HIS EYEBROWS FOR COMMUNICATION. SEE ASSESSMENT FOR FURTHER DETAILS.
--- NOTE | 2023-01-25 10:56 | NUR ---
HIWOT CONTINUES ON PRESSURE SUPPORT, TITRATING DOWN PER RESPIRATORY THERAPY AND ORDERS OF . PT IS TOLERATING WELL, PRN MED FOR ELEV.BP. PROPOFOL @ 30MCG/KG, FENTANYL @ 50MCG/HR, PRECEDEX @ 0.4MCG/KG, AT THE BEDSIDE. HE CONTINUES TO ANSWER APPROPRIATELY WITH HEAD SHAKES AND NODS. HE DENIES ANY ANXIETY AT THIS TIME.
--- NOTE | 2023-01-25 11:32 | NUR ---
HIWOT WAS MEDICATED WITH ATIVAN 2MG FOR INCREASING ANXIETY, PRECEDEX INCREASED TO 0.6MCG/KG. RESTING BETTER. STATES HE IS "EMOTIONAL"
--- NOTE | 2023-01-25 17:37 | NUR ---
HIWOT CONTINUES ON THE VENTILATOR IN SPONTANEOUS WITH PRESSURE SUPPORT OF 7. HE HAS A RR OF 32 RESTING. HE WILL FOLLOW COMMANDS AND MOVE EXTREMITIES, NO VISIBLE SIGN OF LEFT FOOT/ANKLE MOVEMENT. HE NODS HIS HEAD THAT HE IS MOVING HIS LEFT LE, BUT THERE IS NO MOVEMENT. HANDS AND FEET REMAIN EDEMATOUS BUT IMPROVING FROM THE WEEKEND. HE CONTINUES TO RESPOND WELL TO DIURESIS, WITH OVER 1L OUT DURING SHIFT. HE IS ON PRECEDEX @ 0.6MCG/KG FOR ANXIOUSNESS AND HAS HAD 2 PRN DOSES OF ATIVAN. HE REMAINS AT PROPOFOL 30MCG/KG WITH GOOD INTERACTION WITH STAFF AND FAMILY. HE REMAINS WITHOUT HIS RESTRAINTS ALL DAY. HE CONTINUES TO TOLERATE THE TUBE FEEDINGS. HE HAS HAD MINIMAL STOOL OUT THIS SHIFT, HE DID HAVE AN EPISODE OF UNMEASURED THE TUBING BECAME DISCONNECTED DURING A REPOSITIONING. HE TOLERATED A BED BATH AND COMPLETE LINEN CHANGE. HE WAS MEDICATED X1 PRN FOR INCREASED BP. COUGH CONTINUES WITH SCANT RETURN OF THIN WHITE. REMAINS AT BEDSIDE.
--- NOTE | 2023-01-25 19:45 | NUR ---
ASSESSMENT/ASSUMED CARE PT INTUBATED AND SEDATED. OPENS EYES AND FOLLOWS SIMPLE INSTRUCTIONS TO VERBAL. OPENS MOUTH ON COMMAND FOR ORAL CARE. PT VERY WEAK AND UNABLE TO MOVE EXT, ROM DOME. LUNGS CLEAR BUT DECREASED PT ON SPON @ 7 PEEP 5 FIO2 35%. ORAL CARE DONE. HEART RATE REULAR IN THE 90'S. BP STABLE. EDEMA NOTED TO EXT. PT REPOSITIONED AND EXT ELEVATED ON PILLOWS. BT+ HYPERACTIVE. OG WITH TUBE FEED VITAL HP AT GOAL RATE 35 ML/HR, WATER 30 ML Q4HR. FECAL INCONT BAG INTACT WITH BROWN LIQUID STOOL IN BAG. BARRIGA CATH PATENT DRAINING CLEAR YELLOW URINE. PT REPOSITIONED AND CATH CARE DONE. HS MEDS GIVEN VIA OG.
[2023-01-26] VITALS (44 sets, daily range): BP systolic 119–188; BP diastolic 59–115
[2023-01-26 03:47] LABS: Albumin, Blood 2.4 g/dL (3.4-5.0); Anion Gap 5 mmol/L (6-16); Blood Urea Nitrogen 55 mg/dL (8-24); Bun/Creatinine Ratio 109.3 (12.0-20.0); CO2, Blood 33 mmol/L (21-32); Calcium, Blood 8.2 mg/dL (8.5-10.1); Chloride, Blood 103 mmol/L (98-108); Glomerular Filtration Rate 113 (60-); Glucose, Blood 184 mg/dL (70-99); Phosphorus, Blood 3.4 mg/dL (2.5-4.9); Potassium, Blood 3.8 mmol/L (3.5-5.5); Sodium, Blood 141 mmol/L (136-145)
--- NOTE | 2023-01-26 06:04 | NUR ---
SHIFT SUMMARY PT CONT INTUBATED AND ON SPONT VENT SETTING DURING THE NIGHT. PT OPENS EYES AND FOLLOWS SIMPLE INSTRUCTIONS. WEAK EXT X4. ROM DONE DURING THE NIGHT. LUNGS CLEAR BUT DECREASED. VENT SETTINGS SPONT 7 PEEP 5 FIO2 35%. HEART RATE 70-90'S DURING THE NIGHT. BP STABLE, MED WITH LABATOLOL 20 MG ONCE FOR HTN. BT+HYPERACTIVE. TUBE FEED VIA OG VITAL HP AT GOAL RATE 35 ML/HR, WATER 30 ML Q4HR. FECAL INCONT BAG/APPLIANCE CHANGED, SKIN INTACT. LOOSE BROWN STOOL DRAINING. BARRIGA CATH PATENT DRAINING CLEAR YELLOW URINE. PT TURNED Q2HR. DECREASED SWELLING NOTED TO BILAT HANDS AFTER BEING ELEVATED ALL NIGHT ON PILLOWS. REPORT TO ON COMING NURSE
--- NOTE | 2023-01-26 08:51 | NUR ---
ASSUMED CARE OF HIWOT AT 0700 AT BEDSIDE WITH REPORT FROM DEVENDRA. HIWOT WAS SLEEPING, AWOKE EASILY TO SOFT TOUCH OF THE HAND. HE IS ABLE TO FOLLOW COMMANDS AND IS WORKING ON MOVING THAT LLE. HE CONTINUES TO HAVE DIFFICULTY WITH FINE MOTOR SKILLS, BUT IS GRASPING THE WASHCLOTH, NODDING AND SHAKING TO QUESTIONS. HE IS TRYING TO VERBALIZE. REMINDED THAT HE HAS THE TUBE IN HIS THROAT AND IT IS DIFFICULT TO UNDERSTAND HIS MOUTHING. HE CONTINUES ON PS 7, SPONTANEOUS ON THE VENTILATOR. RESPONDS WELL TO ENCOURAGING WORDS. HIS SBP IS ELEVATED AND MEDICATED WITH PRN. IN TO ROUND THIS AM. HE RESPONDED WELL TO HER. CONTINUES WITH ETT RETURN OF THICK WHITE/FROST. HANDS ARE LESS EDEMATOUS AND BEGINNING TO SHOW SIGNS OF WRINKLES. ANKLES EDEMATOUS.
--- NOTE | 2023-01-26 10:54 | NUR ---
HIWOT HAS BEEN WORKING WITH PT AND OT THIS MORNING, HE CONTINUES WITH RESP RATE IN THE 20'S. HIS SBP HAS REMAINED IN THE 160'S, MEDICATED AGAIN WITH LOPRESSOR. HE CONTINUES WITH SATS >92% AND EFFORTS TO MOVE ALL EXTREMITIES WITH THERAPY. HIS IS AT THE BEDSIDE AND IS ASSISTING WITH ROM WELL. PLANS TO EXTUBATE LONG PATIENT STAYS ON THIS TRAJECTORY.
--- NOTE | 2023-01-26 12:38 | NUR ---
BP CUFF MOVED FROM LEG TO ARM, LEFT SIDE WITH GOOD RESULTS.
--- NOTE | 2023-01-26 14:02 | NUR ---
HIWOT HAS BEEN OFF PROPOFOL FOR THE LAST 30 MINUTES. HE IS COOPERATIVE AND TOLERATING THE ETT WELL. HE IS TRYING TO COMMUNICATE WITH FAMILY AND STAFF. HIS SBP IS RISING AGAIN. WILL MONITOR AND MEDICATE NECESSARY.L
--- NOTE | 2023-01-26 14:14 | NUR ---
1411, PT EXTUBATED. TUBE FEEDING TURNED OFF JUST PRIOR. OGT REMOVED. PT TALKING ALREADY. SATS 93%, NC @ 4L. PT SURPRISED HE IS AT [facility].
--- NOTE | 2023-01-26 14:51 | NUR ---
HIWOT CONTINUES TO BE CHATTY WITH FAMILY MEMBERS. HIS SBP IS 170, PROPOFOL AND PRECEDEX OFF, REMAINS ON FENTANYL VETERINARY TECHNICIAN ASSISTANT. O2 @ 4L/NC WITH SATS 90-91%.
--- NOTE | 2023-01-26 16:58 | NUR ---
HIWOT COMPLAINED OF "STARVING" AND HIS WAS VERY CONCERNED THAT WE HADN'T TRIED ANYTHING ORALLY YET. ICE CHIPS WERE GIVEN SITTING IN UPRIGHT POSITION. HE TOLERATED WELL AND THEN WAS GIVEN JELLO FOLLOWED BY PUDDING. HE IS NOW AUDIBLY WHEEZING QUITE A BIT BUT DENIES ANY SHORTNESS OF BREATH. TRENTON ALVAREZ IS CALLED FOR A PRN TREATMENT. HE IS COMPLAINING OF BEING COLD. WARM BLANKETS APPLIED. EFFORTS TO TRY TO EDUCATE PATIENT TO NO AVAIL. AND DAUGHTER AT BEDSIDE ENCOURAGING HIS SILLYNESS. HE KNOWS THAT IT IS NEAR THANKSGIVING AND THAT HE IS IN [place], HE IS STARTING TO RECALL INFORMATION THAT WAS GIVEN TO HIM IMMEDIATELY POST EXTUBATION. FREQUENT REORIENTATION AND TEACHING ABOUT BREATHING IS MADE.
--- NOTE | 2023-01-26 17:47 | NUR ---
HIWOT WAS MEDICATED WITH ATIVAN FOR INCREASED ANXIETY, LABETOLOL FOR ELEV BP AND HIS ROUTINE DOSE OF LASIX. HE WAS INSTRUCTED TO REST AND FAMILY WAS TOLD SUCH. THE FAMILY ( AND DAUGHTER) HAVE NOT LET HIM REST AT THIS TIME. HE CONTINUES ON 4L/NC, SATS 93%, HEART RATE 90'S, BP 140'S/70 AT THIS TIME. WILL CONTINUE TO TRY TO GET HIM TO REST, HE HAS BEEN TALKING SINCE HE WAS EXTUBATED. RESP.RATE VARIES FROM 28-34.
--- NOTE | 2023-01-26 18:29 | NUR ---
HIWOT HAS BEEN LIBERATED FROM THE VENTILATOR THIS SHIFT. HE WAS EXTUBATED AROUND 1400 TO 4L/NC. HIS SATS HAVE REMAINED >89% UNLESS HE GETS EXCITABLE AND THEN HE DROPS BELOW. HE IS ABLE TO RECOVER EASILY AND QUICKLY WITH COACHING. HE IS CURRENTLY LYING ON HIS LEFT SIDE, HIS OXYGEN SATS 95%, BP 125/82. HE IS ABLE TO COMMUNICATE WELL AND MAKE HIS NEEDS KNOWN. HE IS VERY WEAK THOUGH AND UNABLE TO PUSH THE BUTTONS ON THE CALL LIGHT OR USE THE SUCTION. HE IS CONTINUING TO BE INCONTINENT OF LIQUID STOOL AND THE FECAL BAG IS EXPLAINED TO HIM. HE CONTINUES WITH GOOD DIURESIS FROM THE LASIX. BREATHING IS IMPROVED WITH HIM CALMING DOWN. HIS PRECEDEX IS @ 0.4MCG/KG, FENTANYL @ 25MCG/HR. RESP RATE IN THE 20S. AT BEDSIDE.
--- NOTE | 2023-01-26 19:21 | NUR ---
ASSUMED CARE OF PT AT 1900 PT RESTING IN BED WITH SPOUSE AT SIDE DURING BEDSIDE SHIFT REPORT. BARRIGA IN PLACE. STOOL BAG IN PLACE. IV FENT DRIP AT 25 MCG/HR, PRECEDEX AT 0.4 MCG. VITALS WNL AT THIS TIME. SEE FULL ASSESSMENT FOR FURTHER INFORMATION.
--- NOTE | 2023-01-26 22:30 | NUR ---
PT BECOMING INCREASINGLY AGITATED CALLING OUT CONSTANTLY. CONFUSED AND ASKED "IS THIS YOUR TRAILER, WHY AM I HERE". PT REORIENTED TO CURRENT TIME AND PLACE. PT STATED "YOU HAVE THE HERB AND NEED TO GIVE IT TO ME." PT AGAIN REORIENTED TO TIME AND PLACE AND THAT STAFF DO NOT GIVE PATIENTS HERBS. 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
[2023-01-27] VITALS (21 sets, daily range): BP systolic 116–188; BP diastolic 64–105
[2023-01-27 03:42] LABS: BASOPHILS ABSOLUTE AUTO 0.03 K/mm3 (0.00-0.23); BASOPHILS PERCENT AUTO 0 % (0-2); EOSINOPHILS ABSOLUTE AUTO 0.01 K/mm3 (0.00-0.68); EOSINOPHILS PERCENT AUTO 0 % (0-6); Hematocrit 33.7 % (37.0-53.0); Hemoglobin 11.6 g/dL (13.5-17.5); IMMATURE GRAN ABSOLUTE AUTO 0.41 K/mm3 (0.00-0.10); IMMATURE GRAN PERCENT AUTO 2 % (0-1); LYMPHOCYTES ABSOLUTE AUTO 0.76 K/mm3 (0.84-5.20); LYMPHOCYTES PERCENT AUTO 4 % (21-46); MONOCYTES PERCENT AUTO 3 % (4-13); Mean Corpuscular HGB Conc 34.4 g/dL (31.5-36.5); Mean Corpuscular Volume 99 fL (80-100); Mean Platelet Volume 12.6 fL (9.1-12.4); NEUTROPHILS ABSOLUTE AUTO 16.11 K/mm3 (1.96-9.15); NEUTROPHILS PERCENT AUTO 90 % (41-73); Platelet Count 65 K/mm3 (150-400); RDW Coefficient Variation 11.9 % (11.7-14.2); RDW Standard Deviation 42.7 fL (35.1-46.3); Red Blood Cell Count 3.41 M/mm3 (4.30-5.90); White Blood Cell Count 17.82 K/mm3 (4.00-11.30)
[2023-01-27 03:57] LABS: Albumin, Blood 2.4 g/dL (3.4-5.0); Anion Gap 4 mmol/L (6-16); Blood Urea Nitrogen 42 mg/dL (8-24); Bun/Creatinine Ratio 72.4 (12.0-20.0); CO2, Blood 33 mmol/L (21-32); Chloride, Blood 105 mmol/L (98-108); Creatinine, Blood 0.58 mg/dL (0.60-1.20); Glomerular Filtration Rate 108 (60-); Glucose, Blood 152 mg/dL (70-99); Phosphorus, Blood 3.2 mg/dL (2.5-4.9); Potassium, Blood 3.8 mmol/L (3.5-5.5); Sodium, Blood 142 mmol/L (136-145)
--- NOTE | 2023-01-27 05:43 | NUR ---
END OF SHIFT SUMMARY PT DID NOT REST WELL THIS SHIFT. CONFUSED AND ASKING RANDOM QUESTIONS. REORIENTATION BECAME MORE DIFFICULT THROUGHOUT SHIFT. CONTINUES TO WANT TO SMOKE AND ASKS FOR ILLICIT DRUGS. ORAL MEDICATIONS CRUSHED AND GIVEN WITH PUDDING LASTNIGHT WITHOUT DIFFICULTY. THIS AM THIS RN DID NOT GIVE ORAL MEDICATIONS D/T CONFUSION AND PT STATE OF MIND. ASPIRATION RISK AT THIS TIME. VITAS CONTINUE WNL. HR 80'S. SBP 120'S. FENT AT 25 MCG WITH C/O 9/10 PAIN ALL SHIFT. 1X 50MCG FENT IV PUSH GIVEN WITH STILL NO CHANGE IN PAIN STATUS. PRECEDEX ON SB AT THIS TIME. ADEQUATE URINE OUTPUT THIS SHIFT. BARRIGA IN PLACE AND DRAINING YELLOW URINE. FECAL BAG STILL IN PLACE. WILL CONTINUE TO MONITOR UNTIL REPORT GIVEN TO AM RN.
--- NOTE | 2023-01-27 18:45 | NUR ---
END OF SHIFT PT A&O X4. VSS. SPO2 > 92% ON 4L NC. MONITOR SHOWING SR-ST, HR 80s-110s. PT SEEN BY ST THIS AM, CLEARED FOR DIET. PT TOLERATING PO INTAKE T/O DAY WELL. PT ABLE TO SWALLOW MEDS WHOLE W/ PUDDING OR APPLESAUCE, BUT SOMETIMES REQUIRES ADDITIONAL 1-2 BITES OF APPLESAUCE OR PUDDING TO GET MEDICATION DOWN. PT C/O "10-11" OUT OF 10 PAIN T/O SHIFT DESPITE CONTINUOUS FENTANYL BIOMASS PLANT MANAGER INFUSING PER ORDERS. PT REPORTING PAIN "IN MY FEET ALL THE WAY UP." PRN PO OXYCODONE GIVEN PER EMAR X1 THIS SHIFT W/ PT DENIAL OF ANY CHANGE/IMPROVEMENT. BP ELEVATED, PRN IV LABETOLOL GIVEN X1 THIS SHIFT W/ IMPROVEMENT. PT WORKING W/ PT/OT TODAY, PT W/ CONTINUED WEAKNESS. Q2H REPOSITIONING W/ 2 PERSON ASSIST. FECAL BAG DRAINING LOOSE BROWN STOOL. BARRIGA CATH PATENT & DRAINING CLEAR YELLOW URINE.
--- NOTE | 2023-01-27 21:00 | NUR ---
THIS RN SPOKE TO PT DAUGHTER OVER THE PHONE. DAUGHTER NUBIA STATES THAT HER AND HER MOTHER EV LEFT PT EARLIER IN THE DAY WITH PT BEING UPSET. PER NUBIA "PT IS BULLING HIS AND DAUGHTER TO CONTACT HIS SONE JEREMY TO BRING IN HIS BAG". BOTH EV AND NUBIA REFUSED PT THEIR PHONES TO CONTACT JEREMY WELL. PT BECAME UPSET WITH THEM AND STARTED TO BE "HORRIBLY MEAN". THEY DECIDED TO LEAVE THE PT AND GO HOME. NUBIA WANTED IT TO BE KNOWN THAT JEREMY WILL DO HIS DAD ASKS HIM TO DO. "SON FITO WILL BRING IN ANYTHING FOR HIS DAD".
[2023-01-28] VITALS (15 sets, daily range): BP systolic 126–195; BP diastolic 74–107
--- NOTE | 2023-01-28 03:36 | NUR ---
PT A/O X4. PT REQUESTING STAFF TO GO TO HIS SONS HOUSE FOR HIM TO "HAMMER SMITH SOMETHING FOR HIM". PT WAS TOLD THAT STAFF WILL NOT BE PERFORMING HIS REQUEST. PT THEN STATES "I WANT THE FUCK OUT OF HERE, GET ME A WHEEL CHAIR".
[2023-01-28 04:25] LABS: BASOPHILS ABSOLUTE AUTO 0.02 K/mm3 (0.00-0.23); BASOPHILS PERCENT AUTO 0 % (0-2); EOSINOPHILS ABSOLUTE AUTO 0.03 K/mm3 (0.00-0.68); EOSINOPHILS PERCENT AUTO 0 % (0-6); Hematocrit 35.8 % (37.0-53.0); Hemoglobin 12.5 g/dL (13.5-17.5); IMMATURE GRAN ABSOLUTE AUTO 0.28 K/mm3 (0.00-0.10); IMMATURE GRAN PERCENT AUTO 2 % (0-1); LYMPHOCYTES ABSOLUTE AUTO 1.89 K/mm3 (0.84-5.20); LYMPHOCYTES PERCENT AUTO 11 % (21-46); MONOCYTES ABSOLUTE AUTO 0.62 K/mm3 (0.16-1.47); MONOCYTES PERCENT AUTO 3 % (4-13); Mean Corpuscular HGB 34.4 pg (26.0-34.0); Mean Corpuscular HGB Conc 34.9 g/dL (31.5-36.5); Mean Corpuscular Volume 99 fL (80-100); NEUTROPHILS ABSOLUTE AUTO 15.18 K/mm3 (1.96-9.15); NEUTROPHILS PERCENT AUTO 84 % (41-73); Platelet Count 65 K/mm3 (150-400); RDW Standard Deviation 43.9 fL (35.1-46.3); Red Blood Cell Count 3.63 M/mm3 (4.30-5.90); White Blood Cell Count 18.02 K/mm3 (4.00-11.30)
[2023-01-28 04:27] LABS: Mean Platelet Volume 13.1 fL (9.1-12.4)
[2023-01-28 04:39] LABS: Bun/Creatinine Ratio 51.6 (12.0-20.0); Calcium, Blood 8.3 mg/dL (8.5-10.1); Creatinine, Blood 0.56 mg/dL (0.60-1.20); Potassium, Blood 3.5 mmol/L (3.5-5.5)
--- NOTE | 2023-01-28 06:33 | NUR ---
END OF SHIFT SUMMARY PT DID NOT REST WELL ALL SHIFT. COMPLAINTS OF SEVERE PAIN AND WANTING TO CALL HIS SON CONSTANTLY. A/OX4 WITH LITTLE CONFUSION THIS SHIFT. LABETOLOL GIVEN X2 FOR SYSTOLIC ABOVE 160'S. HR STABLE IN 80'S-90'S. 4 LPM NC AITH SPO2 >90%. COUGH IS STRONGER BUT PT DOES NOT SPIT OUT CONTENTS. 25 MCG FENT CHILD CARE ASSOCIATE RUNNING. NO ACUTE CHANGES TO REPORT THIS SHIFT. WILL CONTINUE TO MONITOR UNTIL AM RN IS GIVEN REPORT.
--- NOTE | 2023-01-28 08:56 | NUR ---
AM NOTE... ASSUMED CARE OF PT AT 0700, PT IS A&Ox4 WITH SOME CONFUSION AT TIMES. HE IS ON 4L NC WITH O2 SATS>90% L/S CLEAR T/O AND DIM IN THE BASES. HE IS IN ST/SR 110'S-90'S BP IS HYPERTENSIVE WITH SBPs 150'S-170'S. 2+ EDEMA NOTED TO HIS BUE AND TRACE TO HIS BLE. BT PRESENT AND HYPERACTIVE, ABD IS FIRM TO PALPATION PT C/O OF ABD PAIN THAT STARTED "BEFORE I CAME IN HERE." RECTAL BAG IS IN PLACE DRAINING LIQUID BROWN STOOLS TO GRAVITY. BARRIGA IS PATENT AND DRAINING TO GRAVITY. WILL CONTINUE TO MONITOR.
--- NOTE | 2023-01-28 13:28 | NUR ---
PT UPDATE.... THIS RN WAS IN THE ROOM WITH THE PT TO HELP REPOSITION HIM IN THE RECLINER CHAIR, THE PT ASKED FOR MORE PAIN MEDICATION, THIS RN TOLD THE PT WHEN HE COULD HAVE ANOTHER DOSE. THEN THE PT ASKED THIS RN "WHEN YOU GET THOSE PAIN PILLS FOR ME WILL YOU CRUSH THEM UP AND DISSOLVE THEM IN WATER AND SHOOT THEM IN MY IV?" THIS RN INFORMED THE PT THAT WOULD NOT BE POSSIBLE. THE PT THEN SAID "WELL IS THERE ANYONE ELSE HERE THAT WOULD DO IT FOR ME?" THIS RN AGAIN INFORMED THE PT THAT WAS NOT POSSIBLE WHILE IN THE HOSPITAL, HE THEN STATED "WELL WHAT YOU DON'T KNOW WON'T HURT YOU." WILL CONTINUE TO MONITOR.
--- NOTE | 2023-01-28 17:55 | NUR ---
SHIFT SUMMARY.... NO ACUTE NEGATIVE CHANGES NOTED THIS SHIFT. THE PT'S O2 WAS TITRATED DOWN FROM 4L NC TO RA WITH O2 SATS>90% THIS SHIFT. PT WAS UP IN THE RECLINER VIA THE LIFT FOR MOST OF THIS SHIFT. PT'S VS HAVE BEEN STABLE T/O THIS SHIFT. PT WAS MEDICATED FOR PAIN PER EMAR, FENTANYL PIANO MECHANIC WAS D/C'D PER PROVIDER. CALL LIGHT IN REACH WILL CONTINUE TO MONITOR UNTIL REPORT IS GIVEN TO ONCOMING RN.
[2023-01-29] VITALS: BP 145/92
[2023-01-29 04:00] VITALS: BP 151/85
[2023-01-29 04:28] LABS: Hematocrit 37.9 % (37.0-53.0); Hemoglobin 12.8 g/dL (13.5-17.5); Mean Corpuscular HGB 33.4 pg (26.0-34.0); Mean Corpuscular HGB Conc 33.8 g/dL (31.5-36.5); Mean Corpuscular Volume 99 fL (80-100); Mean Platelet Volume 12.7 fL (9.1-12.4); Platelet Count 73 K/mm3 (150-400); RDW Coefficient Variation 12.1 % (11.7-14.2); Red Blood Cell Count 3.83 M/mm3 (4.30-5.90); White Blood Cell Count 18.36 K/mm3 (4.00-11.30)
[2023-01-29 04:50] LABS: Bun/Creatinine Ratio 37.2 (12.0-20.0); Calcium, Blood 8.1 mg/dL (8.5-10.1); Creatinine, Blood 0.59 mg/dL (0.60-1.20); Potassium, Blood 3.6 mmol/L (3.5-5.5)
--- NOTE | 2023-01-29 06:24 | NUR ---
END OF SHIFT SUMMARY PT A/O X4 WITH NO CONFUSION THIS SHIFT. CONTINUES REQUESTS FOR ILLICIT DRUGS. OXYCODONE GIVEN PRN WITH CONSISTANT C/O 12/20 PAIN. PT EDUCATED ON PAIN MANAGEMENT AND PREVIOUSE DRUG USAGE ISSUES. SALINE LOCKED AT THIS TIME. NO EXTRA BP MEDICATIONS GIVEN THIS SHIFT. SBP REMAINS <160. HR 100'S. 2+ PITTING EDEMA TO BUE. 900 MLS URINE OUT THIS SHIFT. NO OXYGEN SUPPLEMENTATION GIVEN THIS SHIFT. SPO2 >90% PT CONTINUES TO BE SEVERELY WEAK IN ALL EXTREMETIES. UNABLE TO LIFT ARMS OR LEGS. REQUIRES TO BE FED BY STAFF SITTING UP 90 DEGREES WITH REMINDER TO NOT TALK WHILE EATING. TAKES MEDICATIONS WHOLE WITH WATER WITHOU DIFFICULTY. NO BM THIS SHIFT. NO ACUTE CHANGES. WILL CONTINUE TO MONITOR UNTIL REPORT GIVEN TO AM RN.
[2023-01-29 07:33] VITALS: BP 151/85
--- NOTE | 2023-01-29 10:25 | NUR ---
DR. DUARTE ROUNDED ON PT AND MADE HIM MEDICAL, NO TELE. DR. DUARTE REVIEWED HIS MEDICATIONS AND ORDERED PROTONIX BID. SHE ALSO ADDED TORADOL FOR PAIN CONTROL. DR. DUARTE AWARE THAT PT IS ON ELIQUIS. PT HAS BEEN UP TO THE CHAIR THIS AM AND WAS WAS DOING THE EXERCISES PHYSICAL THERAPY LEFT FOR HIM. BACK TO BED NOW PT STARTED TO TIRE OUT, SLUMPING TO ONE SIDE, HR WAS UP IN THE 110S AND RR IN THE 30S. AFTER GETTING BACK TO BED HR 80 AND RR 30. SPO2 REMAINS 93% ON RA.
--- NOTE | 2023-01-29 11:55 | NUR ---
REASSESSMENT PT TOLERATED BEING UP IN THE CHAIR FOR A COUPLE HOURS THIS MORNING BEFORE HE TIRED OUT AND NEEDED TO GO BACK TO BED. HE IS UP IN THE CHAIR AGAIN FOR LUNCH. HE REMAINS ALERT AND ORIENTED. RA, LUNGS CLEAR AT NOON. BARRIGA STILL IN PLACE. TALKED WITH DR. DUARTE ABOUT THE BARRIGA BECAUSE PT STATES THAT HE STRAIGHT CATHS SOME AT HOME BECAUSE OF RETENTION. DR. DUARTE GAVE INSTRUCTIONS TO LEAVE THE CATHETER IN FOR NOW. PT'S JORDYN AND AT THE BEDSIDE CURRENTLY AND HAVE BEEN UPDATED.
[2023-01-29 15:40] VITALS: BP 149/81
--- NOTE | 2023-01-29 17:50 | NUR ---
SHIFT SUMMARY PT HAS CONTINUED TO DO WELL THROUGHOUT THE DAY. HE HAS REMAINED OFF OF OXYGEN WITH SPO2 93-95% ON RA. LUNGS ARE CLEAR AT TIMES, A LITTLE EXP WHEEZE AT OTHER TIMES. BP STABLE. PT REPORTS THAT THE TORADOL REALLY HELPED HIS PAIN. HE IS EATING AT LEAST 50% OF HIS MEALS. HE GOT UP TO THE CHAIR FOR EVERY MEAL AND WENT TO THE SHOWER VIA THE SHOWER CHAIR. PT'S AND DAUGHTERS VISITED THIS AFTERNOON AND WERE UPDATED BY NURSING STAFF. STILL WAITING FOR MEDICAL BED.
[2023-01-29 21:26] VITALS: BP 119/75
[2023-01-30 03:09] VITALS: BP 168/87
[2023-01-30 03:30] LABS: BASOPHILS ABSOLUTE AUTO 0.01 K/mm3 (0.00-0.23); BASOPHILS PERCENT AUTO 0 % (0-2); EOSINOPHILS ABSOLUTE AUTO 0.04 K/mm3 (0.00-0.68); EOSINOPHILS PERCENT AUTO 0 % (0-6); Hematocrit 34.8 % (37.0-53.0); Hemoglobin 11.9 g/dL (13.5-17.5); IMMATURE GRAN ABSOLUTE AUTO 0.13 K/mm3 (0.00-0.10); IMMATURE GRAN PERCENT AUTO 1 % (0-1); LYMPHOCYTES ABSOLUTE AUTO 2.01 K/mm3 (0.84-5.20); LYMPHOCYTES PERCENT AUTO 15 % (21-46); MONOCYTES ABSOLUTE AUTO 0.49 K/mm3 (0.16-1.47); MONOCYTES PERCENT AUTO 4 % (4-13); Mean Corpuscular HGB 34.2 pg (26.0-34.0); Mean Corpuscular HGB Conc 34.2 g/dL (31.5-36.5); Mean Corpuscular Volume 100 fL (80-100); Mean Platelet Volume 12.8 fL (9.1-12.4); NEUTROPHILS ABSOLUTE AUTO 11.01 K/mm3 (1.96-9.15); NEUTROPHILS PERCENT AUTO 80 % (41-73); Platelet Count 63 K/mm3 (150-400); RDW Coefficient Variation 12.2 % (11.7-14.2); RDW Standard Deviation 44.4 fL (35.1-46.3); Red Blood Cell Count 3.48 M/mm3 (4.30-5.90); White Blood Cell Count 13.69 K/mm3 (4.00-11.30)
[2023-01-30 03:43] LABS: Bun/Creatinine Ratio 38.5 (12.0-20.0); Calcium, Blood 8.3 mg/dL (8.5-10.1); Creatinine, Blood 0.62 mg/dL (0.60-1.20); Potassium, Blood 3.9 mmol/L (3.5-5.5)
[2023-01-30 04:01] VITALS: BP 156/91
--- NOTE | 2023-01-30 04:49 | NUR ---
SHIFT SUMMARY A/Ox3 AND COOPERATIVE WITH CARE. ANSWERS MOST QUESTIONS APPROPRIATELY AND ABLE TO MAKE HIS NEEDS KNOWN. NO ACUTE EVENTS OVERNIGHT. CARDIAC, PT IS MED STATUS WITHOUT TELE, HR HAS BEEN RANGING 80-100's. NO REPORTS OF CP OR PRESSURE T/O THE NIGHT. SBP HAS BEEN ELEVATED RANGING 110-160's. PRN HYDRALAZINE GIVEN WITH GOOD EFFECT. RESPIRATORY, MAINTAINS SPO2 >90% ON RA WITH NO REPORTS OF SOB OR DYSPNEA AT REST. LS CONTINUE TO BE DIMINISHED IN THE BASES. GI/, BARRIGA CATH IN PLACE AND DRAINING YELLOW URINE TO GRAVITY. NO BM THIS SHIFT. CONTINUES TO BE EXTREMELY WEAK T/O, BUT IS ABLE TO MOVE ARMS SLIGHTLY. PT/OT ARE ON BOARD. TRANSFERRED FROM CHAIR TO BED VIA CEILING LIFT. PAIN HAS BEEN MANAGED VIA EMAR. Q2HR REPOSITIONING TO KEEP PRESSURE OFF OF BONY PROMINENCES. ASSESSED PT FOR RISKS OF ANY IGNITION SOURCES WELL BEHAVIORS FOR INCREASED RISKS OF FIRE DANGER. PT EDUCATED ON COMMON SOURCES OF IGNITION WELL NEED TO KEEP A SAFE ENVIRONMENT. PT VOICED UNDERSTANDING. NO NEW ORDERS AT THIS TIME, WILL REPORT TO ONCOMING RN. RENÉ GUTIERRES OF THIS NOTE
[2023-01-30 07:52] VITALS: BP 167/89
--- NOTE | 2023-01-30 13:15 | NUR ---
TRANSFER PATIENT TRANSFERED FROM ICU TO MEDICAL FLOOR. PATIENT AWAKE AND INTERACTIVE. PATIENT TRANSFERED OVER TO MEDICAL FLOOR BED. PRESENT AT TRANSFER.
--- NOTE | 2023-01-30 13:50 | NUR ---
AM SUMMARY/TRANSFER NOTE: PT HAS BEEN A&Ox4, ANSWERING QUESTIONS APPROPRIATELY AND COOPERATIVE W/CARE. PT COMPLAINS OFTEN OF GENERALIZED PAIN AND REQUESTING PRN MEDICATIONS, PT MEDICATED PER EMAR AND EDUCATED RE: PAIN MANAGEMENT, PT WOULD BENEFIT FROM REINFORCEMENT. PT HAS DENIED SOB, O2 SATS >92% ON RA. PT DENIES CHEST PAIN/PRESSURE, NO TELEMETRY MONITORING, EDEMA TO BUE. GENERALIZED WEAKNESS T/OUT, BUT PT MINIMALLY LIFTING ARMS AND BENEFITS FROM ASSISTANCE W/MEALS. INDWELLING BARRIGA CATHETER DC'd WNL, PT TOLERATED WELL. BEDBATH COMPLETED THIS AM, PT TRANSFERED TO/FROM RECLINER AND BED USING LIFT IN ROOM. PT RECEIVES NEW ROOM ASSIGNMENT, REPORT GIVEN TO UTE PEREZ TO RECEIVE PT. PT TRANSFERED W/OUT INCIDENT.
[2023-01-30 16:39] VITALS: BP 147/89
--- NOTE | 2023-01-30 17:02 | NUR ---
SHIFT SUMMARY PATIENT TRANSFERRED FROM ICU. PATIENT ALERT AND INTERACTIVE BUT CONFUSED AT TIMES. PATIENT WEAK, UNABLE TO MOVE EXTREMETIES WITHOUT ASSISTANCE. MULTIPLE VISITORS IN THE ROOM SINCE TRANSFERRED TO MEDICAL FLOOR. PATIENT PLACED ON CAMERA BECAUSE OF CONCERNS ABOUT VISITORS POSSIBLY MEDICATING PATIENT. PATIENT AWARE THAT HE IS ON CAMERA. PATIENT MEDICATED WITH OXY FOR PAIN PER MAY.
[2023-01-30 19:38] VITALS: BP 175/91
[2023-01-31 03:46] VITALS: BP 149/95
--- NOTE | 2023-01-31 06:47 | NUR ---
Shift Summary Pt remains extremely weak, unable to operate his cell phone. His breathing is a bit shallow and he has an increased respiratory rate, but he states he is not experiencing difficulty breathing or shortness of breath. Pt is able to swallow pills whole with water without issue. Per report and pt he had diahhrea recently so I held bowel meds. He was given IV Toradol and his scheduled tylenol which greatly improved his pain and he was able to sleep through much of the night. Pt tends to slump to the left side when left alone, propped that side up with pillows. No acute events.
[2023-01-31 07:23] VITALS: BP 144/91
[2023-01-31 15:21] VITALS: BP 91/71
--- NOTE | 2023-01-31 17:26 | NUR ---
SHIFT SUMMARY PATIENT MEDICATED FOR PAIN PER EMAR, HE VERBALIZES BETTER RELIEF WITH BUPRENORPHINE ON BOARD. CIWAAS LESS THAN 2 THROUHGOUT SHIFT. NO ACUTE EVENTS DURING SHIFT. BED IN LOW POSITION, FAMILY PRESENT INTERMITTENT THROUGHOUT DAY, CONTINUAL VIDEO MONITORING OF PATIENT AND FAMILY IN ROOM. PATIENT MAKES NEEDS KNOWN.
[2023-01-31 19:24] VITALS: BP 111/64
[2023-02-01 02:23] VITALS: BP 151/86
--- NOTE | 2023-02-01 06:35 | NUR ---
Shift Summary Pt states some improvment on ability to move his arms. He is still extremely weak and cannot fully open his hands or raise his arms up above his shoulders. Pt states his new medication buprinophrine is controlling his pain very well and he's able to rest and sleep better than before. He did not request and toradol or oxycodone this shift. He has had a large appitite and had two ensure and a turkey sandwitch for snacks. AOx4, pleasant and cooperative.
[2023-02-01 07:48] VITALS: BP 126/90
[2023-02-01 14:05] VITALS: BP 109/67
--- NOTE | 2023-02-01 14:10 | NUR ---
Spiritual Care Visit. Pt. is awake and sitting in a recliner when he welcomes my visit. Pt. is pleasant and spouse is present. Re-intorduced myself as Pt. was intubated during my previous visit. Facilitated a life review and considered matters of [place], belief and our community. Pt. displays evidence of engagement, awareness, and motivation to make positive steps in his recovery. Pt. verbalized an expectation to be transferred to [facility] as soon as a bed opens. Prayed with Pt. Pt. verbalized gratitude for the spiritual care visit.
[2023-02-01 15:33] VITALS: BP 110/69
--- NOTE | 2023-02-01 17:08 | NUR ---
TRANSFER SUMMARY PATIENT WITH LESSENED PAIN TODAY BUT HE DOES EXPRESSS HEADACHE AGAIN RELIEVED WITH TYLENOL IN AM AND NEEDING ADDITIONAL TYLENOL IN PM, DR DUARTE NOTIFIED AND ORDER RECIEVED FOR ADDITIONAL TYLENOL DOSE. PATIENT HAS BEEN UP IN CHAIR FOR LUNCH AND AFTER LUNCH, TRANSFERRED BACK TO BED VIA LIFT. NO OTHER ACUTE EVENTS DURING SHIFT. PATIENT WORKED WITH OT TODAY. PATIENT TRANSFERRED TO [facility] AT 1650 VIA [facility]. NURSE TO NURSE PHONE REPORT GIVEN TO UTE COKER AT [facility] AT 1655. HARD SCRIPT FOR BUPRENORPHINE SENT IN TRANSFER PACKET TO [facility].
== END 2023-02-01 17:03 | DRG 207 ==
LOC: ER 22:41 → ICUE 01-13 00:24 → MEDS 01-13 00:24 → ICUE 01-13 14:51 → MEDS 01-30 13:15
PROVIDERS: Family Medicine; Family Medicine Adult Medicine; Hospitalist; Internal Medicine; Internal Medicine Critical Care Medicine; Student in an Organized Health Care Education/Training Program; ADMIT Internal Medicine
PROC: 5A0935A Assistance with Respiratory Ventilation, Less than 24 Consecutive Hours, High Flow/Velocity Cannula (ICD-10-PCS; 2023-01-13)
PROC: 5A09357 Assistance with Respiratory Ventilation, Less than 24 Consecutive Hours, Continuous Positive Airway Pressure (ICD-10-PCS; 2023-01-13)
PROC: 0BH17EZ Insertion of Endotracheal Airway into Trachea, Via Natural or Artificial Opening (ICD-10-PCS; 2023-01-15)
PROC: 5A1955Z Respiratory Ventilation, Greater than 96 Consecutive Hours (ICD-10-PCS; principal; 2023-01-16)
PROC: 4A133R1 Monitoring of Arterial Saturation, Peripheral, Percutaneous Approach (ICD-10-PCS; 2023-01-16)
PROC: 0DH67UZ Insertion of Feeding Device into Stomach, Via Natural or Artificial Opening (ICD-10-PCS; 2023-01-21)
DX: J96.21 Acute and chronic respiratory failure with hypoxia (principal); G92.8 Other toxic encephalopathy; J44.1 Chronic obstructive pulmonary disease with (acute) exacerbation; I50.32 Chronic diastolic (congestive) heart failure; J44.0 Chronic obstructive pulmonary disease with (acute) lower respiratory infection; J96.22 Acute and chronic respiratory failure with hypercapnia; B96.3 Hemophilus influenzae [H. influenzae] as the cause of diseases classified elsewhere; G89.4 Chronic pain syndrome; I48.91 Unspecified atrial fibrillation; D69.6 Thrombocytopenia, unspecified; M19.90 Unspecified osteoarthritis, unspecified site; I11.0 Hypertensive heart disease with heart failure; F17.210 Nicotine dependence, cigarettes, uncomplicated; B95.62 Methicillin resistant Staphylococcus aureus infection as the cause of diseases classified elsewhere; D64.9 Anemia, unspecified; K74.60 Unspecified cirrhosis of liver; F11.11 Opioid abuse, in remission; G47.33 Obstructive sleep apnea (adult) (pediatric); F41.9 Anxiety disorder, unspecified; I25.10 Atherosclerotic heart disease of native coronary artery without angina pectoris; B18.2 Chronic viral hepatitis C; J20.9 Acute bronchitis, unspecified; Z88.8 Allergy status to other drugs, medicaments and biological substances; Z79.01 Long term (current) use of anticoagulants; Z79.899 Other long term (current) drug therapy; I25.2 Old myocardial infarction; Z98.890 Other specified postprocedural states; Z79.2 Long term (current) use of antibiotics; Z79.52 Long term (current) use of systemic steroids; Z87.19 Personal history of other diseases of the digestive system; Z11.52 Encounter for screening for COVID-19; Z86.79 Personal history of other diseases of the circulatory system; Z95.2 Presence of prosthetic heart valve
CPT/HCPCS: 0241U; 31500; 36600; 51702; 71045; 80048; 80053; 80069; 80202; 82140; 82330; 82803; 83735; 83880; 84100; 84484; 85025; 85027; 87070; 87077; 87106; 87185; 87186; 87205; 92526; 92610; 93005; 93010; 93306; 94002; 94003; 94640; 94644; 94645; 94660; 94664; 94760; 94762; 96365; 96375; 97110; 97112; 97162; 97166; 97530; 97535; 99285-25; A9270; C1751; C9113; J0295; J0360; J0456; J0692; J0696; J1170; J1885; J1940; J2060; J2250; J2310; J2704; J2920; J2930; J3010; J3370; J3475; J7030; J7050; J7512; J7626

== ENCOUNTER → 2023-04-18 | Outpatient (CLI) | payer OTHER, MEDICARE ==
[~2023-04-18] MED LIST changes: +AZIT250 PO; +BREZTRI AEROS10.7 GM INH; +ELIQUIS5 M3 PO; +GABA100 PO
[2023-04-20 08:14] LABS: CALCIUM, SERUM 9.5 mg/dL (8.6-10.2); CREATININE, SERUM 0.89 mg/dL (0.76-1.27); POTASSIUM, SERUM 4.2 mmol/L (3.5-5.2)
== END | disposition home or self-care (01) ==
LOC: LAB SHORT 17:19 → LAB 17:19
PROVIDERS: Family Medicine
DX: I50.32 Chronic diastolic (congestive) heart failure (principal)
CPT/HCPCS: 80048

== ENCOUNTER → 2023-07-10 | Outpatient (CLI) | payer OTHER, MEDICARE ==
[~2023-07-10] MED LIST changes: +BUPRENORPHIN-N1 EAC5 SL; +INSULANI SC; +IPRAT-ALBUT 0.5-3 ML; +METFORMIN HCL500 M3 PO; +PANTOPRAZOLE SO2010 PO; +SOAANZ20 M3 PO
[2023-07-10 14:02] LABS: Magnesium, Blood 2.2 mg/dL (1.6-2.4)
[2023-07-10 14:03] LABS: Albumin, Blood 3.6 g/dL (3.4-5.0); Bilirubin, Total 0.6 mg/dL (0.1-1.0); Bun/Creatinine Ratio 15.6 (12.0-20.0); Calcium, Blood 9.6 mg/dL (8.5-10.1); Creatinine, Blood 0.84 mg/dL (0.60-1.20); Globulin, Blood 3.6 g/dL (2.2-4.0); Total Protein, Blood 7.2 g/dL (6.4-8.2)
== END ==
LOC: LAB 12:24 → LAB SHORT 12:24
PROVIDERS: Family Medicine
DX: I11.0 Hypertensive heart disease with heart failure (principal); I50.32 Chronic diastolic (congestive) heart failure; I48.20 Chronic atrial fibrillation, unspecified; E78.49 Other hyperlipidemia
CPT/HCPCS: 80053; 83735

== ENCOUNTER → 2023-11-09 | Outpatient (CLI) | payer OTHER, MEDICARE ==
[2023-11-09 16:13] LABS: BASOPHILS ABSOLUTE AUTO 0.04 K/mm3 (0.00-0.23); BASOPHILS PERCENT AUTO 0 % (0-2); EOSINOPHILS ABSOLUTE AUTO 0.08 K/mm3 (0.00-0.68); EOSINOPHILS PERCENT AUTO 1 % (0-6); Hematocrit 40.2 % (37.0-53.0); Hemoglobin 13.4 g/dL (13.5-17.5); IMMATURE GRAN ABSOLUTE AUTO 0.17 K/mm3 (0.00-0.10); IMMATURE GRAN PERCENT AUTO 1 % (0-1); LYMPHOCYTES PERCENT AUTO 20 % (21-46); MONOCYTES ABSOLUTE AUTO 0.72 K/mm3 (0.16-1.47); MONOCYTES PERCENT AUTO 6 % (4-13); Mean Corpuscular HGB 31.2 pg (26.0-34.0); Mean Corpuscular HGB Conc 33.3 g/dL (31.5-36.5); Mean Corpuscular Volume 94 fL (80-100); Mean Platelet Volume 12.2 fL (9.1-12.4); NEUTROPHILS ABSOLUTE AUTO 8.77 K/mm3 (1.96-9.15); NEUTROPHILS PERCENT AUTO 72 % (41-73); Platelet Count 84 K/mm3 (150-400); RDW Coefficient Variation 13.7 % (11.7-14.2); RDW Standard Deviation 46.6 fL (35.1-46.3); Red Blood Cell Count 4.29 M/mm3 (4.30-5.90); White Blood Cell Count 12.18 K/mm3 (4.00-11.30)
[2023-11-09 16:25] LABS: Albumin, Blood 3.4 g/dL (3.4-5.0); Albumin/Globulin Ratio 0.8 (0.8-1.8); Bilirubin, Total 0.7 mg/dL (0.1-1.0); Bun/Creatinine Ratio 12.9 (12.0-20.0); Calcium, Blood 9.6 mg/dL (8.5-10.1); Creatinine, Blood 1.01 mg/dL (0.60-1.20); Globulin, Blood 4.1 g/dL (2.2-4.0); Total Protein, Blood 7.5 g/dL (6.4-8.2)
== END | disposition home or self-care (01) ==
LOC: LAB 15:16 → LAB SHORT 15:16
PROVIDERS: Family Medicine
DX: I11.0 Hypertensive heart disease with heart failure (principal); I50.32 Chronic diastolic (congestive) heart failure; I48.20 Chronic atrial fibrillation, unspecified; E78.49 Other hyperlipidemia
CPT/HCPCS: 80053; 83880; 85025

== ENCOUNTER 2023-12-19 17:45 | Inpatient (IN) | payer OTHER, MEDICARE ==
[~2023-12-19] VITALS: Ht 162.6 cm; Wt 65.1 kg
[2023-12-19 18:58] LABS: BASOPHILS ABSOLUTE AUTO 0.05 K/mm3 (0.00-0.23); BASOPHILS PERCENT AUTO 1 % (0-2); EOSINOPHILS ABSOLUTE AUTO 0.17 K/mm3 (0.00-0.68); EOSINOPHILS PERCENT AUTO 2 % (0-6); Hematocrit 47.4 % (37.0-53.0); Hemoglobin 15.9 g/dL (13.5-17.5); IMMATURE GRAN ABSOLUTE AUTO 0.03 K/mm3 (0.00-0.10); IMMATURE GRAN PERCENT AUTO 0 % (0-1); LYMPHOCYTES ABSOLUTE AUTO 1.75 K/mm3 (0.84-5.20); LYMPHOCYTES PERCENT AUTO 22 % (21-46); MONOCYTES ABSOLUTE AUTO 0.63 K/mm3 (0.16-1.47); MONOCYTES PERCENT AUTO 8 % (4-13); Mean Corpuscular HGB 31.5 pg (26.0-34.0); Mean Corpuscular HGB Conc 33.5 g/dL (31.5-36.5); Mean Corpuscular Volume 94 fL (80-100); Mean Platelet Volume 11.2 fL (9.1-12.4); NEUTROPHILS ABSOLUTE AUTO 5.34 K/mm3 (1.96-9.15); NEUTROPHILS PERCENT AUTO 67 % (41-73); Platelet Count 120 K/mm3 (150-400); RDW Standard Deviation 44.5 fL (35.1-46.3); Red Blood Cell Count 5.05 M/mm3 (4.30-5.90); White Blood Cell Count 7.97 K/mm3 (4.00-11.30)
[2023-12-19 19:13] LABS: Albumin, Blood 3.7 g/dL (3.4-5.0); Albumin/Globulin Ratio 0.9 (0.8-1.8); Bilirubin, Total 0.7 mg/dL (0.1-1.0); Bun/Creatinine Ratio 9.4 (12.0-20.0); Calcium, Blood 9.3 mg/dL (8.5-10.1); Creatinine, Blood 1.06 mg/dL (0.60-1.20); Globulin, Blood 4.2 g/dL (2.2-4.0); Total Protein, Blood 7.9 g/dL (6.4-8.2)
[2023-12-19] MEDS ORDERED: NS 1,000 ML IV SCH (23:25)
[2023-12-20 01:02] LABS: Source, Urine Clean Catch
[2023-12-20 01:11] LABS: Bilirubin, Urine Neg (Neg); Blood, Urine 1+ (Neg); Glucose Qualitative, Urine 3+ (Neg); Ketones, Urine Neg (Neg); Leukocyte Esterase, Urine 2+ (Neg); Nitrite, Urine Neg (Neg); Protein, Urine 2+ (Neg); Urobilinogen, Urine NORM (Normal)
[2023-12-20 01:29] LABS: Appearance, Urine Hazy (Clear); Color, Urine Yellow (P-Yellow)
[2023-12-20 01:30] LABS: Bacteria Many /hpf; Red Blood Cells, Urine 0-2 /hpf (0-2); Squamous Epithelial Cells Few /hpf (Few)
[2023-12-20] MEDS ORDERED: Acetaminophen 325 MG TABLET PO PRN (01:55)
[2023-12-20] MEDS ORDERED: FLU VACC TS2024-25(6MOS UP)/PF 45 MCG/0.5 ML SYRINGE IM SCH (01:55)
[2023-12-20] MEDS ORDERED: Ondansetron HCl 2 MG / ML 2ML Vial IV PRN (02:00)
[2023-12-20] MEDS ORDERED: Meropenem 1,000 MG in NS 100 ML IV SCH (02:08)
[2023-12-20] MEDS ORDERED: LORAZEPAM0.5 MG PO (02:16)
[2023-12-20 04:03] LABS: BASOPHILS ABSOLUTE AUTO 0.03 K/mm3 (0.00-0.23); BASOPHILS PERCENT AUTO 0 % (0-2); EOSINOPHILS ABSOLUTE AUTO 0.18 K/mm3 (0.00-0.68); EOSINOPHILS PERCENT AUTO 2 % (0-6); Hematocrit 41.7 % (37.0-53.0); IMMATURE GRAN ABSOLUTE AUTO 0.04 K/mm3 (0.00-0.10); IMMATURE GRAN PERCENT AUTO 1 % (0-1); LYMPHOCYTES ABSOLUTE AUTO 2.28 K/mm3 (0.84-5.20); LYMPHOCYTES PERCENT AUTO 26 % (21-46); MONOCYTES ABSOLUTE AUTO 0.96 K/mm3 (0.16-1.47); MONOCYTES PERCENT AUTO 11 % (4-13); Mean Corpuscular HGB 31.7 pg (26.0-34.0); Mean Corpuscular HGB Conc 33.6 g/dL (31.5-36.5); Mean Corpuscular Volume 95 fL (80-100); Mean Platelet Volume 11.3 fL (9.1-12.4); NEUTROPHILS ABSOLUTE AUTO 5.27 K/mm3 (1.96-9.15); NEUTROPHILS PERCENT AUTO 60 % (41-73); Platelet Count 98 K/mm3 (150-400); RDW Coefficient Variation 13.1 % (11.7-14.2); RDW Standard Deviation 45.2 fL (35.1-46.3); Red Blood Cell Count 4.41 M/mm3 (4.30-5.90); White Blood Cell Count 8.76 K/mm3 (4.00-11.30)
[2023-12-20 04:21] LABS: Albumin, Blood 3.3 g/dL (3.4-5.0); Albumin/Globulin Ratio 0.9 (0.8-1.8); Bilirubin, Total 0.5 mg/dL (0.1-1.0); Bun/Creatinine Ratio 10.3 (12.0-20.0); Creatinine, Blood 1.17 mg/dL (0.60-1.20); Globulin, Blood 3.5 g/dL (2.2-4.0); Magnesium, Blood 1.8 mg/dL (1.6-2.4); Potassium, Blood 4.2 mmol/L (3.5-5.5); Total Protein, Blood 6.8 g/dL (6.4-8.2)
[2023-12-20] MEDS ORDERED: LORA.5 PO (05:06)
[2023-12-20] MEDS ORDERED: ROFL500T PO (05:08)
--- NOTE | 2023-12-20 06:17 | NUR ---
SHIFT SUMMARY 63 YR M ADMITTED ON 12/19/23. FULL CODE. ASSUMED CARE OF PT @ 0345. PER ED REPORT PT IS CONFUSED AND HAVING HALLUCINATIONS, HOWEVER, NONE WERE OBSERVED BY THIS NURSE. PT IS PLEASANT AND COOPERATIVE WITH CARE. HE IS CALM AND APPEARS TO BE RESTING COMFORTABLY. PLAN IS FOR MRI IN A.M.
[2023-12-20] MEDS ORDERED: Enoxaparin 40 MG/0.4 ML SYR SC SCH (09:00)
[2023-12-20] MEDS ORDERED: Lactobacil 2-S.Thermo-Bifido 1 1 Cap PO SCH (09:00)
[2023-12-20] MEDS ORDERED: Ipratropium/Albuterol SulF 2.5-0.5MG/3 ML Amp INH PRN (11:00)
[2023-12-20] MEDS ORDERED: NS 1,000 ML IV SCH (11:00)
[2023-12-20 13:43] VITALS: BP 161/94
--- NOTE | 2023-12-20 14:55 | NUR ---
ADMISSION NOTE PATIENT A/OX4, ABLE TO MAKE NEEDS KNOWN. SPOUSE, EV, AT BEDSIDE AND STATS PATIENT HAS BEEN HAVING HALLUCINATIONS, BUT NONE OBSERVED SINCE ADMISSION AT 1335 THIS AFTERNOON. VITAL SIGNS OBTAINED, SPO2 WNL ON 2 LPM VIA NASAL CANNULA, WHICH IS PATIENT'S BASELINE. PATIENT REPORTS PATIENT SELF CATHETERIZES AT HOME FOR CHRONIC URINARY RETENTION. WILL MONITOR RETENTION VIA BLADDER SCAN. SKIN TEAR NOTED TO LEFT BUTTOCK WITH SURROUNDING PURPLE AND RED BRUSING, BLANCHABLE. NO OTHER SKIN CONCERNS. PATIENT CURRENTLY RESTING IN BED AFTER PARTICIPATING IN PHYSICAL THERAPY. PATIENT AND SPOUSE ORIENTED TO ROOM AND CALL LIGHT.
[2023-12-20] MEDS ORDERED: BUPRENORPHINE HC2 MG SL ×2 (15:27)
[2023-12-20] MEDS ORDERED: ELIQUIS5 M2 PO (15:43)
[2023-12-20] MEDS ORDERED: DULO30 PO (15:43)
[2023-12-20] MEDS ORDERED: FARXIGA5 MG PO (15:44)
[2023-12-20] MEDS ORDERED: METOPROLOL SUCC25 MG PO (15:46)
[2023-12-20] MEDS ORDERED: GABA300 PO (15:46)
[2023-12-20] MEDS ORDERED: MULVITA PO (15:49)
[2023-12-20] MEDS ORDERED: MORP20L PO (15:51)
[2023-12-20] MEDS ORDERED: Naloxone HCl 0.4MG / ML 1ML Vial IV PRN (16:05)
[2023-12-20] MEDS ORDERED: LORazepam 1 MG Tab PO PRN (16:05)
[2023-12-20] MEDS ORDERED: Morphine Sulfate 20 MG/1ML 1 ML Oral Syringe PO PRN (16:05)
[2023-12-20 16:35] VITALS: BP 158/106
--- NOTE | 2023-12-20 18:23 | NUR ---
SHIFT SUMMARY PATIENT RESTING IN BED COMFORTABLY WITH SPOUSE, EV, AT BEDSIDE. HOME MEDICATION ROXINAL ADMINSITERED PER MAY. PATIENT HAS PALLIATIVE CARE ORDER AT HOME. PRN ATIVAN ORDERED BID, NOT ADMINISTERED THIS SHIFT. PATIENT WIHT CHRONIC BACK PAIN AND HISTORY OF MULTIPEL BACK SURGERIES. RECENT FALL AT HOME WITH SKIN TEAR TO BUTTOCK AND SURROUNDING BRUISING. PATIENT STRAIGHT CATHS HIMSELF AT HOME FOR CHRONIC URINARY RETENTION, POST VOID BLADDER SCAN THIS AFTERNOON <150ML. NO OTHER CONCERNS AT THIS TIME.
[2023-12-20 19:35] VITALS: BP 170/100
[2023-12-20] MEDS ORDERED: HydrALAZINE HCl 25 MG Tab PO PRN (20:20)
[2023-12-20 22:13] VITALS: BP 154/92
[2023-12-20] MEDS ORDERED: NS 250 ML IV PRN (23:35)
--- NOTE | 2023-12-21 02:27 | NUR ---
@193 PT'S BP 170/100, P. 103. THIS CLEANING SUPERVISOR CONTACTED ON-CALL HOSPITALIST JEFFREY. NEW ORDER: PO HYDRAZALINE 25MG Q8PRN ENTERED BY JEFFREY TO [facility]. @2103 ADMINISTERED ORDERED. @2212 RECHECK: BP 154/92, P.98. NO ADDITIONAL NEW ORDERS AT THIS TIME.
--- NOTE | 2023-12-21 03:04 | NUR ---
SHIFT SUMMARY @HS PT'S AND FAMILY BY THE BEDSIDE. ELEVATED BP 170/100, P.103. THIS FILLER OPERATOR CALLED ON-CALL HOSPITALIST LIEN MCKEON. NEW ORDER WAS ENTERED TO [facility] BY LIEN MCKEON FOR HYDRAZALINE PO PRN (SEE EMAR AND PREVIOUS NOTE.) RECHECK BP 154/92, P. 98. NS INFUSING ORDERED 150MLS/HR. IV ABX INFUSED ORDERED. PT CONTINUES ON 2L O2 VIA NASAL CANNULA. O2 SAT'S 99%. PT DENIES PAIN AND DISCOMFORT. PRN ATIVAN @HS ADMINISTERED ORDERED PER PT REQUEST. NO ACUTE EVENTS DURING THIS SHIFT. PT IS A@O X 4, ABLE TO MAKE HIS NEEDS KNOWN. COOPERATIVE WITH CARE. BED AT THE LOWEST POSITION, CALL LIGHT W/I REACH.
[2023-12-21 03:17] VITALS: BP 140/82
[2023-12-21 05:52] LABS: BASOPHILS ABSOLUTE AUTO 0.02 K/mm3 (0.00-0.23); BASOPHILS PERCENT AUTO 0 % (0-2); EOSINOPHILS ABSOLUTE AUTO 0.14 K/mm3 (0.00-0.68); EOSINOPHILS PERCENT AUTO 2 % (0-6); Hematocrit 37.4 % (37.0-53.0); Hemoglobin 12.9 g/dL (13.5-17.5); IMMATURE GRAN ABSOLUTE AUTO 0.01 K/mm3 (0.00-0.10); IMMATURE GRAN PERCENT AUTO 0 % (0-1); LYMPHOCYTES ABSOLUTE AUTO 1.67 K/mm3 (0.84-5.20); LYMPHOCYTES PERCENT AUTO 27 % (21-46); MONOCYTES ABSOLUTE AUTO 0.56 K/mm3 (0.16-1.47); MONOCYTES PERCENT AUTO 9 % (4-13); Mean Corpuscular HGB 31.8 pg (26.0-34.0); Mean Corpuscular HGB Conc 34.5 g/dL (31.5-36.5); Mean Corpuscular Volume 92 fL (80-100); Mean Platelet Volume 11.8 fL (9.1-12.4); NEUTROPHILS PERCENT AUTO 61 % (41-73); RDW Coefficient Variation 12.6 % (11.7-14.2); RDW Standard Deviation 42.5 fL (35.1-46.3); Red Blood Cell Count 4.06 M/mm3 (4.30-5.90)
[2023-12-21 06:45] LABS: Albumin, Blood 3.2 g/dL (3.4-5.0); Bilirubin, Total 0.7 mg/dL (0.1-1.0); Bun/Creatinine Ratio 11.3 (12.0-20.0); Creatinine, Blood 0.8 mg/dL (0.60-1.20); Globulin, Blood 3.3 g/dL (2.2-4.0); Magnesium, Blood 1.6 mg/dL (1.6-2.4); Potassium, Blood 3.6 mmol/L (3.5-5.5); Total Protein, Blood 6.5 g/dL (6.4-8.2)
[2023-12-21 07:17] LABS: Platelet Count 92 K/mm3 (150-400)
[2023-12-21 08:06] VITALS: BP 173/111
--- NOTE | 2023-12-21 08:30 | NUR ---
PATIENT WITH ELEVATED BP 173/111 THIS AM, DR. MATIAS CALLED. HOME ORDER OF METOPROLOL ORDERED AND WILL BE ADMINISTERED ONCE APPROVED FROM PHARMACY. ALSO ADVISED FROM DR. MATIAS TO ADMINISTER PRN HYDRALAZINE. WILL CONTINUE TO MONITOR.
[2023-12-21] MEDS ORDERED: Metoprolol Succinate 25 MG TABCR PO SCH (09:00)
[2023-12-21 11:33] VITALS: BP 125/84
[2023-12-21] MEDS ORDERED: LORazepam 0.5 MG Tab PO PRN (15:25)
[2023-12-21 15:34] VITALS: BP 123/89
[2023-12-21] MEDS ORDERED: Mometasone/Formoterol MDI 200/5 mcg 13 GM INH SCH (15:35)
--- NOTE | 2023-12-21 18:08 | NUR ---
SHIFT SUMMARY PATIENT A/OX4, ABLE TO MAKE NEEDS KNOWN. SPOUSE AT BEDSIDE MOST OF SHIFT TODAY. IV FLUIDS RUNNING AT 50ML/HR, DECREASED PER VERBAL ORDERS FROM DR. MATIAS. PATIENT WITH MINIMAL APPETITE EATING LESS THAN 25% OF ALL MEALS. PATIENT'S HOME MEDS ORDERED TODAY. COMPLAINING OF CHRONIC BACK PAIN THIS AM, PRN ROXINAL ADMINISTERED PER MAY. CONTINUOUS PULSE OX IN PLACE, SPO2 REMAINS WNL ON 2 LPM. CHRONIC OXYGEN USE. EXPIRATORY WHEEZES NOTED UPON AUSCULTATION. ELEVATED BP THIS AM, HOME METOPROLOL AND PRN HYDRALAZINE EFFECTIVE. CALLED INFECTION CONTROL THIS AFTERNOON, AND THEY STATED POSSIBLE DISCONTINUATION OF CONTACT PRECAUTIONS PENDING URINE CULTURE RESULTS. NO OTHER CONCERNS AT THIS TIME.
[2023-12-21 20:16] VITALS: BP 153/92
[2023-12-21] MEDS ORDERED: BusPIRone HCl 10 MG Tab PO SCH (21:00)
[2023-12-21] MEDS ORDERED: Gabapentin 300 MG Cap PO SCH (21:00)
[2023-12-21] MEDS ORDERED: buprenorphine HCL 2 MG TAB.SUBL SL SCH (21:00)
[2023-12-21] MEDS ORDERED: Apixaban 5 MG Tab PO SCH (21:00)
[2023-12-22 03:41] VITALS: BP 166/85
[2023-12-22 05:27] LABS: BASOPHILS ABSOLUTE AUTO 0.03 K/mm3 (0.00-0.23); BASOPHILS PERCENT AUTO 1 % (0-2); EOSINOPHILS ABSOLUTE AUTO 0.12 K/mm3 (0.00-0.68); EOSINOPHILS PERCENT AUTO 2 % (0-6); Hematocrit 36.7 % (37.0-53.0); Hemoglobin 12.7 g/dL (13.5-17.5); IMMATURE GRAN ABSOLUTE AUTO 0.03 K/mm3 (0.00-0.10); IMMATURE GRAN PERCENT AUTO 1 % (0-1); LYMPHOCYTES ABSOLUTE AUTO 1.51 K/mm3 (0.84-5.20); LYMPHOCYTES PERCENT AUTO 24 % (21-46); MONOCYTES ABSOLUTE AUTO 0.56 K/mm3 (0.16-1.47); MONOCYTES PERCENT AUTO 9 % (4-13); Mean Corpuscular HGB 31.8 pg (26.0-34.0); Mean Corpuscular HGB Conc 34.6 g/dL (31.5-36.5); Mean Corpuscular Volume 92 fL (80-100); Mean Platelet Volume 11.7 fL (9.1-12.4); NEUTROPHILS ABSOLUTE AUTO 4.16 K/mm3 (1.96-9.15); NEUTROPHILS PERCENT AUTO 65 % (41-73); Platelet Count 89 K/mm3 (150-400); RDW Coefficient Variation 12.4 % (11.7-14.2); RDW Standard Deviation 41.6 fL (35.1-46.3); Red Blood Cell Count 3.99 M/mm3 (4.30-5.90); White Blood Cell Count 6.41 K/mm3 (4.00-11.30)
[2023-12-22 05:55] LABS: Bun/Creatinine Ratio 12.2 (12.0-20.0); Calcium, Blood 9.1 mg/dL (8.5-10.1); Creatinine, Blood 0.74 mg/dL (0.60-1.20); Potassium, Blood 3.9 mmol/L (3.5-5.5)
[2023-12-22] MEDS ORDERED: Pantoprazole Sodium 20 MG Tab PO SCH (06:00)
[2023-12-22] MEDS ORDERED: Gabapentin 300 MG Cap PO SCH (06:00)
--- NOTE | 2023-12-22 06:13 | NUR ---
Patient alert and oriented, VSS, resting comfortably in bed on 2L oxygen via nasal cannula. Patient stand/pivot with one person standby assist to bedside commode once tonight, tolerated well; otherwise voiding in urinal overnight independently. Patient tolerating NS @ 50mL/hr to left wrist PIV, antibiotic tolerated well at midnight.
[2023-12-22 07:57] VITALS: BP 135/82
[2023-12-22 08:26] VITALS: BP 183/126
[2023-12-22 08:29] VITALS: BP 177/113
[2023-12-22] MEDS ORDERED: buprenorphine HCL 2 MG TAB.SUBL SL SCH (09:00)
[2023-12-22] MEDS ORDERED: DULoxetine HCL 30 MG Cap DR PO SCH (09:00)
[2023-12-22] MEDS ORDERED: Empagliflozin 10 MG TAB PO SCH (09:00)
[2023-12-22] MEDS ORDERED: ACET325 PO (12:44)
--- NOTE | 2023-12-22 15:18 | NUR ---
CALLED AND SPOKE WITH SEBASTIAN IN PHARMACY WHOM STATED TO SKIP PT 1600 DOES OF MEROPENEM AND GIVE THE MIDNIGHT DOSE AT 2200. D/T THE 0800 DOSE NOTE BEING GIVEN TILL NOON D/T IV ACCESS LOST AND DIFFICULTY GETTING ANOTHER PLACED.
[2023-12-22 16:33] VITALS: BP 108/76
--- NOTE | 2023-12-22 18:13 | NUR ---
SHIFT SUMMARY PT CONT LEVEL OF CARE. PT IS A&O X4, PT NOTED TO BE BLACKFEET. PT IS ASSIST X1 WITH FWW. PT DID HAVE A POWERGLIDE PLACED TO LEFT ARM THIS SHIFT. PT CONT TO UTILIZE URINAL. PT CONT WIT 2L/NC AND DENIES SOB.
[2023-12-22 20:53] VITALS: BP 122/95
--- NOTE | 2023-12-23 05:53 | NUR ---
NO ACUTE CHANGES OVERNIGHT. ABX ADMINISTERED, NS RUNNING @ 50ML/HR, PT VOIDING, PAIN MANAGED WITH PRN PO MEDS.
[2023-12-23 05:59] LABS: Hematocrit 33.4 % (37.0-53.0); Hemoglobin 11.6 g/dL (13.5-17.5); Mean Corpuscular HGB 31.8 pg (26.0-34.0); Mean Corpuscular HGB Conc 34.7 g/dL (31.5-36.5); Mean Corpuscular Volume 92 fL (80-100); Mean Platelet Volume 11.6 fL (9.1-12.4); Platelet Count 83 K/mm3 (150-400); RDW Coefficient Variation 12.6 % (11.7-14.2); RDW Standard Deviation 42.4 fL (35.1-46.3); Red Blood Cell Count 3.65 M/mm3 (4.30-5.90); White Blood Cell Count 5.42 K/mm3 (4.00-11.30)
[2023-12-23 06:02] VITALS: BP 129/76
[2023-12-23 06:19] LABS: Bun/Creatinine Ratio 10.6 (12.0-20.0); Calcium, Blood 8.7 mg/dL (8.5-10.1); Creatinine, Blood 0.85 mg/dL (0.60-1.20); Potassium, Blood 3.6 mmol/L (3.5-5.5)
[2023-12-23 08:00] VITALS: BP 133/92
[2023-12-23] MEDS ORDERED: LevoFLOXacin 750 MG Tab PO SCH (09:00)
--- NOTE | 2023-12-23 09:00 | NUR ---
pt sitting up in chair for breakfast, a/ox4, pleasant and cooperative with care, follows commands well, states pain ok at this time, lungs have exp wheezing t/o, dim in bases, resp even and unlabored, on 2 liters o2 via n/c, reports a chronic cough, hrr, no edema noted, ppp+1, cap refill <3 sec, vs stable, afebrile, power glide to anand, site is clear and patent, btx4, abd flat soft nontender, voids without diff, skin c/w/d, maew, med, call light in reach.
[2023-12-23] MEDS ORDERED: GABA300 PO (13:14)
[2023-12-23] MEDS ORDERED: LEVOFLOXACIN750 MG PO (13:16)
--- NOTE | 2023-12-23 15:15 | NUR ---
pt has been discharged to home, power glide removed intact, dressed with 2x2 and coban, went over instructions with him and spouce, they verbalized understanding, new medication faxed to his pharmacy, left via wheelchair with spouce in attendance with all belongings.
== END 2023-12-23 15:11 | disposition home or self-care (01) | DRG 698 ==
LOC: ER 17:45 → ERHOLD 17:46 → MEDS 12-20 13:37
PROVIDERS: Hospitalist; Student in an Organized Health Care Education/Training Program; ADMIT Student in an Organized Health Care Education/Training Program
DX: N05.9 Unspecified nephritic syndrome with unspecified morphologic changes (principal); A41.81 Sepsis due to Enterococcus; G92.8 Other toxic encephalopathy; J96.11 Chronic respiratory failure with hypoxia; J96.12 Chronic respiratory failure with hypercapnia; D69.6 Thrombocytopenia, unspecified; R16.1 Splenomegaly, not elsewhere classified; K74.60 Unspecified cirrhosis of liver; Z99.81 Dependence on supplemental oxygen; I10 Essential (primary) hypertension; J44.9 Chronic obstructive pulmonary disease, unspecified; M19.90 Unspecified osteoarthritis, unspecified site; I48.91 Unspecified atrial fibrillation; S30.810A Abrasion of lower back and pelvis, initial encounter; S31.821A Laceration without foreign body of left buttock, initial encounter; F17.210 Nicotine dependence, cigarettes, uncomplicated; H91.90 Unspecified hearing loss, unspecified ear; I25.2 Old myocardial infarction; Z86.73 Personal history of transient ischemic attack (TIA), and cerebral infarction without residual deficits; Z88.8 Allergy status to other drugs, medicaments and biological substances; Z79.899 Other long term (current) drug therapy; Z79.01 Long term (current) use of anticoagulants; Z79.84 Long term (current) use of oral hypoglycemic drugs; Z79.4 Long term (current) use of insulin; Z79.51 Long term (current) use of inhaled steroids; Z86.19 Personal history of other infectious and parasitic diseases; Z95.2 Presence of prosthetic heart valve; Z98.890 Other specified postprocedural states; W18.30XA Fall on same level, unspecified, initial encounter
CPT/HCPCS: 36415; 51798; 70450; 71045; 72125; 72128; 72131; 80048; 80053; 81001; 82947; 83735; 84484; 85025; 85027; 87077; 87086; 87186; 93005; 93010; 94640; 94664; 94762; 96365; 96366; 96372; 96372-59; 96376; 97110; 97162; 97165; 97530; 99285-25; A9270; C1751; G0378; J1650; J2185; J2470; J7030

== ENCOUNTER → 2024-01-10 | Outpatient (CLI) | payer OTHER, MEDICARE ==
[~2024-01-10] MED LIST changes: +BUPRENORPHINE HC2 MG SL; +ELIQUIS5 M2 PO; +FARXIGA5 MG PO; +GABA300 PO; +LEVOFLOXACIN750 MG PO; +LORAZEPAM0.5 MG PO; +METOPROLOL SUCC25 MG PO; +MORP20L PO; +ROFL500T PO
[2024-01-10 16:39] LABS: Source, Urine Clean Catch
[2024-01-10 19:49] LABS: Red Blood Cells, Urine 0-2 /hpf (0-2); Squamous Epithelial Cells Rare /hpf (Few)
[2024-01-10 19:50] LABS: Bacteria Few /hpf; Calcium Oxalate Crystals Many /hpf; Mucus Light (0-Heavy)
== END | disposition home or self-care (01) ==
LOC: LAB 16:29 → LAB SHORT 16:29
PROVIDERS: Family Medicine
DX: R39.9 Unspecified symptoms and signs involving the genitourinary system (principal)
CPT/HCPCS: 81015; 87086

== ENCOUNTER → 2024-06-07 | Outpatient (CLI) | payer OTHER, MEDICARE ==
[~2024-06-07] MED LIST changes: +BACTRIM DS TAB1 EAC1 PO
[2024-06-07 16:13] LABS: Source, Urine Straight Cath
[2024-06-07 16:21] LABS: Bacteria Not Seen /hpf; Red Blood Cells, Urine 0-2 /hpf (0-2); Squamous Epithelial Cells Rare /hpf (Few); White Blood Cells, Urine 0-2 /hpf (0-5)
== END | disposition home or self-care (01) ==
LOC: LAB SHORT 16:11 → LAB 16:11
DX: R32 Unspecified urinary incontinence (principal)
CPT/HCPCS: 81015

== ENCOUNTER → 2024-06-07 | Outpatient (CLI) | payer OTHER, MEDICARE ==
[2024-06-07 15:19] LABS: Albumin/Globulin Ratio 1.1 (0.8-1.8); Bilirubin, Total 0.5 mg/dL (0.1-1.0); Bun/Creatinine Ratio 12.8 (12.0-20.0); Calcium, Blood 9.1 mg/dL (8.5-10.1); Creatinine, Blood 1.17 mg/dL (0.60-1.20); Globulin, Blood 3.5 g/dL (2.2-4.0); Potassium, Blood 4.5 mmol/L (3.5-5.5); Total Protein, Blood 7.5 g/dL (6.4-8.2)
[2024-06-07 15:28] LABS: BASOPHILS ABSOLUTE AUTO 0.03 K/mm3 (0.00-0.23); BASOPHILS PERCENT AUTO 0 % (0-2); EOSINOPHILS PERCENT AUTO 1 % (0-6); Hematocrit 43.9 % (37.0-53.0); Hemoglobin 14.8 g/dL (13.5-17.5); IMMATURE GRAN ABSOLUTE AUTO 0.06 K/mm3 (0.00-0.10); IMMATURE GRAN PERCENT AUTO 1 % (0-1); LYMPHOCYTES ABSOLUTE AUTO 1.56 K/mm3 (0.84-5.20); LYMPHOCYTES PERCENT AUTO 20 % (21-46); MONOCYTES ABSOLUTE AUTO 0.49 K/mm3 (0.16-1.47); MONOCYTES PERCENT AUTO 6 % (4-13); Mean Corpuscular HGB 30.9 pg (26.0-34.0); Mean Corpuscular HGB Conc 33.7 g/dL (31.5-36.5); Mean Corpuscular Volume 92 fL (80-100); Mean Platelet Volume 12.3 fL (9.1-12.4); NEUTROPHILS ABSOLUTE AUTO 5.76 K/mm3 (1.96-9.15); NEUTROPHILS PERCENT AUTO 72 % (41-73); Platelet Count 96 K/mm3 (150-400); RDW Coefficient Variation 13.5 % (11.7-14.2); RDW Standard Deviation 45.9 fL (35.1-46.3); Red Blood Cell Count 4.79 M/mm3 (4.30-5.90)
== END | disposition home or self-care (01) ==
LOC: LAB 15:05 → LAB SHORT 15:05
DX: R41.0 Disorientation, unspecified (principal)
CPT/HCPCS: 80053; 85025

== ENCOUNTER 2024-07-23 17:43 | Emergency (ER) | payer OTHER, MEDICARE ==
[~2024-07-23] VITALS: Ht 162.6 cm; Wt 59.0 kg
[2024-07-23] MEDS ORDERED: Metoprolol Succinate 50 MG TABCR PO ONE (18:50)
[2024-07-23] MEDS ORDERED: Ipratropium/Albuterol SulF 2.5-0.5MG/3 ML Amp INH ONE (18:50)
[2024-07-23] MEDS ORDERED: MethylPREDNISolone Sod Succ 125 MG Vial IV ONE (18:50)
[2024-07-23 19:24] LABS: BASOPHILS ABSOLUTE AUTO 0.07 K/mm3 (0.00-0.23); BASOPHILS PERCENT AUTO 1 % (0-2); EOSINOPHILS ABSOLUTE AUTO 0.16 K/mm3 (0.00-0.68); EOSINOPHILS PERCENT AUTO 2 % (0-6); Hematocrit 42.1 % (37.0-53.0); IMMATURE GRAN ABSOLUTE AUTO 0.08 K/mm3 (0.00-0.10); IMMATURE GRAN PERCENT AUTO 1 % (0-1); LYMPHOCYTES ABSOLUTE AUTO 1.79 K/mm3 (0.84-5.20); LYMPHOCYTES PERCENT AUTO 20 % (21-46); MONOCYTES ABSOLUTE AUTO 0.63 K/mm3 (0.16-1.47); MONOCYTES PERCENT AUTO 7 % (4-13); Mean Corpuscular HGB 30.8 pg (26.0-34.0); Mean Corpuscular HGB Conc 33.3 g/dL (31.5-36.5); Mean Corpuscular Volume 93 fL (80-100); Mean Platelet Volume 11.5 fL (9.1-12.4); NEUTROPHILS ABSOLUTE AUTO 6.28 K/mm3 (1.96-9.15); NEUTROPHILS PERCENT AUTO 70 % (41-73); Platelet Count 97 K/mm3 (150-400); RDW Coefficient Variation 13.8 % (11.7-14.2); RDW Standard Deviation 46.2 fL (35.1-46.3); Red Blood Cell Count 4.55 M/mm3 (4.30-5.90); White Blood Cell Count 9.01 K/mm3 (4.00-11.30)
[2024-07-23 19:35] LABS: Prothrombin Time Results 10.7 Sec (9.7-11.5)
[2024-07-23 19:59] LABS: Albumin, Blood 3.6 g/dL (3.4-5.0); Albumin/Globulin Ratio 1.1 (0.8-1.8); Bilirubin, Total 0.5 mg/dL (0.1-1.0); Bun/Creatinine Ratio 17.7 (12.0-20.0); Calcium, Blood 9.2 mg/dL (8.5-10.1); Creatinine, Blood 1.13 mg/dL (0.60-1.20); Globulin, Blood 3.4 g/dL (2.2-4.0); Potassium, Blood 4.4 mmol/L (3.5-5.5)
[2024-07-23] MEDS ORDERED: AMOCLA875 PO (20:29)
[2024-07-23] MEDS ORDERED: Prednisone20 MG PO (20:29)
[2024-07-23] MEDS ORDERED: Toprol Xl50 MG PO (20:29)
[2024-07-23] MEDS ORDERED: Amoxicillin/Clavulanate K 875 MG Tab PO ONE (20:30)
[2024-07-23 20:39] VITALS: BP 147/118
== END 2024-07-23 20:49 | disposition home or self-care (01) ==
LOC: ER 17:43
PROVIDERS: Emergency Medicine
DX: I48.92 Unspecified atrial flutter (principal); J44.1 Chronic obstructive pulmonary disease with (acute) exacerbation; I48.91 Unspecified atrial fibrillation; I11.0 Hypertensive heart disease with heart failure; I50.9 Heart failure, unspecified; I25.10 Atherosclerotic heart disease of native coronary artery without angina pectoris; I25.2 Old myocardial infarction; Z86.73 Personal history of transient ischemic attack (TIA), and cerebral infarction without residual deficits; Z99.81 Dependence on supplemental oxygen; Z88.6 Allergy status to analgesic agent; Z79.01 Long term (current) use of anticoagulants; Z79.51 Long term (current) use of inhaled steroids; Z79.899 Other long term (current) drug therapy; F17.210 Nicotine dependence, cigarettes, uncomplicated
CPT/HCPCS: 36415; 71046; 80053; 83690; 83880; 84484; 85025; 85610; 93005; 93010; 96374; 99285-25; A9270; J2919

== ENCOUNTER 2024-07-25 17:09 | Inpatient (IN) | payer OTHER, MEDICARE ==
[~2024-07-25] VITALS: Ht 162.6 cm; Wt 78.9 kg
[~2024-07-25 17:09] MED LIST changes: +Prednisone20 MG PO; +Toprol Xl50 MG PO
[2024-07-25] MEDS ORDERED: Diltiazem HCl 5 MG / ML 5ML Vial IV ONE ×2 (17:25→21:20)
[2024-07-25] MEDS ORDERED: MethylPREDNISolone Sod Succ 125 MG Vial IV ONE (17:25)
[2024-07-25] MEDS ORDERED: Albuterol 2.5 MG/3 ML VIAL INH SCH ×2 (17:25→20:40)
[2024-07-25] MEDS ORDERED: Ipratropium Bromide INH 0.02% 0.5 mg/2.5ML Vial INH SCH ×2 (17:25→20:40)
[2024-07-25 17:40] LABS: Base Excess Venous 0.3 mmol/L; Bicarbonate Venous 24.7 mmol/L (24.0-30.0); PCO2 Venous 40.2 mmHg (38-42)
[2024-07-25 17:41] LABS: BASOPHILS ABSOLUTE AUTO 0.02 K/mm3 (0.00-0.23); BASOPHILS PERCENT AUTO 0 % (0-2); EOSINOPHILS ABSOLUTE AUTO 0.01 K/mm3 (0.00-0.68); EOSINOPHILS PERCENT AUTO 0 % (0-6); Hematocrit 43.7 % (37.0-53.0); Hemoglobin 13.7 g/dL (13.5-17.5); IMMATURE GRAN ABSOLUTE AUTO 0.08 K/mm3 (0.00-0.10); IMMATURE GRAN PERCENT AUTO 1 % (0-1); LYMPHOCYTES ABSOLUTE AUTO 1.03 K/mm3 (0.84-5.20); LYMPHOCYTES PERCENT AUTO 8 % (21-46); MONOCYTES ABSOLUTE AUTO 0.26 K/mm3 (0.16-1.47); MONOCYTES PERCENT AUTO 2 % (4-13); Mean Corpuscular HGB 30.5 pg (26.0-34.0); Mean Corpuscular HGB Conc 31.4 g/dL (31.5-36.5); Mean Corpuscular Volume 97 fL (80-100); Mean Platelet Volume 11.8 fL (9.1-12.4); NEUTROPHILS ABSOLUTE AUTO 11.87 K/mm3 (1.96-9.15); NEUTROPHILS PERCENT AUTO 89 % (41-73); Platelet Count 92 K/mm3 (150-400); RDW Coefficient Variation 14.2 % (11.7-14.2); Red Blood Cell Count 4.49 M/mm3 (4.30-5.90); White Blood Cell Count 13.27 K/mm3 (4.00-11.30)
[2024-07-25] MEDS ORDERED: PRED20 PO (19:22)
[2024-07-25] MEDS ORDERED: MELATONIN1010 PO (19:24)
[2024-07-25 20:22] LABS: Albumin, Blood 3.8 g/dL (3.4-5.0); Albumin/Globulin Ratio 1.2 (0.8-1.8); Bilirubin, Total 0.4 mg/dL (0.1-1.0); Bun/Creatinine Ratio 27.6 (12.0-20.0); Calcium, Blood 8.8 mg/dL (8.5-10.1); Creatinine, Blood 0.91 mg/dL (0.60-1.20); Globulin, Blood 3.3 g/dL (2.2-4.0); Potassium, Blood 5.3 mmol/L (3.5-5.5); Total Protein, Blood 7.1 g/dL (6.4-8.2)
[2024-07-25] MEDS ORDERED: Azithromycin 500 MG in NS 250 ML IV ONE (20:45)
[2024-07-25] MEDS ORDERED: Ipratropium/Albuterol SulF 2.5-0.5MG/3 ML Amp INH SCH (20:50)
[2024-07-25] MEDS ORDERED: Albuterol 2.5 MG/3 ML VIAL INH PRN (20:50)
[2024-07-25] MEDS ORDERED: Diltiazem HCl 5 MG / ML 5ML Vial IV PRN (21:00)
[2024-07-25] MEDS ORDERED: Apixaban 5 MG Tab PO SCH ×2 (21:00→22:00)
[2024-07-25] MEDS ORDERED: Lactobacil 2-S.Thermo-Bifido 1 1 Cap PO SCH (21:00)
[2024-07-25] MEDS ORDERED: Ondansetron HCl 2 MG / ML 2ML Vial IV PRN (21:05)
[2024-07-25] MEDS ORDERED: LORazepam 1 MG Tab PO PRN (21:05)
[2024-07-25] MEDS ORDERED: dilTIAZem HCL 125 MG in Dextrose 5% 100 ML IV SCH (21:20)
[2024-07-25] MEDS ORDERED: BusPIRone HCl 10 MG Tab PO SCH (22:00)
[2024-07-25] MEDS ORDERED: Metoprolol Succinate 25 MG TABCR PO SCH (22:00)
[2024-07-25 22:40] LABS: Base Excess Venous 2.8 mmol/L; Bicarbonate Venous 24.4 mmol/L (24.0-30.0); PCO2 Venous 64.8 mmHg (38-42); pH Blood Venous 7.27 (7.34-7.37)
[2024-07-25 23:08] VITALS: BP 139/96
[2024-07-26] VITALS (12 sets, daily range): BP systolic 116–226; BP diastolic 71–194
[2024-07-26 00:31] LABS: Base Excess Venous 1.6 mmol/L; Bicarbonate Venous 24.6 mmol/L (24.0-30.0); PCO2 Venous 57.6 mmHg (38-42)
--- NOTE | 2024-07-26 01:05 | NUR ---
ADMISSION NOTE: PT ARRIVED TO UNIT 2230 FROM ED. AOX4, COOPERATIVE W/ STAFF AND ABLE TO MAKE NEEDS KNOWN. PER ED REPORT, PT GOT 5MG OF DILTAZEM PUSH FOR HR 110-120S NOW W/ STABLE HRS 80S, ON TELE W/ A FLUTTER. PT HAS A DILATIZEM BAG IN THE ROOM FOR PRN HIGH HRS, SEE EMAR FOR RATE. BP STABLE. DENIES CP/PRESSURE ON ASSESSMENT. ARRIVED TO UNIT ON 3 L NC, UTILIZES 2 L NC AT BASLINE. CRITICAL VBG REPORTED TO HOSPITALIST, SEE LAB VALUES. PT PUT ON BIPAP BY RT, MAINTAING ADEQUATE SATURATION 100%. REPEATED VBG IN ONE HR W/ IMPROVEMENT OF PH LEVEL. SBA FOR SOB ON EXERTION. PT EDUCATED MEDICAL ASSISTING PROGRAM DIRECTOR LIGHT USE D/T O2 TUBING/IV LINES. BED AT LOWEST POSITION. CALL LIGHT WITHIN REACH.
[2024-07-26] MEDS ORDERED: HydrALAZINE HCl 20 MG / ML 1ML Vial IV PRN (04:55)
--- NOTE | 2024-07-26 04:56 | NUR ---
CALL PLACED TO HOSPITALIST MAKI ORDERED HYDRALAZINE FOR MANAGEMENT, ORDER INPUT, SEE EMAR.
[2024-07-26 05:43] LABS: U Amphetamine Screen Not Detected; U Barbituate Screen Not Detected; U Benzodiazapine Screen DETECTED; U Buprenorphine Screen Not Detected; U Cannabinoids Screen DETECTED; U Cocaine Screen Not Detected; U Methadone Screen Not Detected; U Methamphetamine Screen DETECTED; U Opiates Screen DETECTED; U Oxycodone Screen Not Detected; U Phencyclidine Screen Not Detected
[2024-07-26] MEDS ORDERED: Pantoprazole Sodium 20 MG Tab PO SCH (06:00)
[2024-07-26] MEDS ORDERED: LORazepam 2 MG/ML 1ML Injection IV ONE (06:20)
[2024-07-26] MEDS ORDERED: Metoprolol Tartrate 1 MG/ML 5 ML VIAL IV ONE (06:20)
--- NOTE | 2024-07-26 06:31 | NUR ---
SHIFT SUMMARY: PT AOX4, ABLE TO MAKE NEEDS KNOWN TO STAFF, COOPERATIVE W/ CARE. ON TELE AFLUTTER HR 80S. DENIES CP/PRESSURE ON ASSESSMENT. CALL PLACED TO DR CHEUNG REGARDING HTN, SYST/GINGER 170S/100S, SEE PREVIOUS NOTE FOR DETAILS. RELAYED CRITICAL VBG TO HOSPITALIST AND WAS PUT ON BIPAP FROM RT, SEE VBG LABS. TOLERATING BIPAP WELL until about 0545. SEE NOTE BELOW. SBA ASSIST D/T IV TUBING, NC CANNULA, PG INSERTED IN THE JANETH, EJ REMOVED IN THE RIGHT NECK. EDUCATED ANAESTHETIC TECHNICIAN LIGHT USE. CALL LIGHT WITHIN REACH, BED AT LOWEST POSITION. ADDENDUM: WRITTEN BY DARYN ACEVEDO AT 0545 WENT TO RECHECK PT'S BP, PT STARTED TO HAVE SPONTANEOUS DRAMATIC INCREASE IN WORK OF BREATHING. RESTLESS, TACHYCARDIC, TACHYPNEIC, INCREASE IN BP. SATS MAINTAINING >90% FOR TIME BEING. RT NOTIFIED WHO STARTED BREATHING TREATMENT, STARTED DILTIAZEM DRIP PER EMAR. CALLED HOSPITALIST 2X FOR ADDITIONAL ORDERS, NO ANSWER. HOSPITALIST MAKI CALLED BACK AND ORDERED LOPRESSOR IV AND ATIVAN IV PER EMAR FOR MANAGEMENT, BOTH ADMINISTERED. HR HAS SINCE COME DOWN FROM 160s TO 130s, PT REMAINS TACHYPNEIC WITH HIGH BP. V60 PUT IN PLACE BY RT. FOLLOW UP CALL TO HOSPITALIST MAKI TO HAVE HIM EXAMINE PT HE REMAINS TACHYPNEIC, TACHYCARDIC, HYPERTENSIVE. MAKI ORDERED 5 MG IM ZYPREXA DISCUSSED POSSIBLE TRANSFER TO ICU. PT SOMEWHAT IMPROVED AT THIS TIME. SPOKE WITH ICU CHARGES DEVENDRA AND ALEXANDER. RECOMMENDED DISCUSSING WITH DAYSHIFT DOCTOR FOR FURTHER MANAGEMENT. PT STABLE AT THIS TIME. WILL GIVE REPORT TO DAYSHIFT RN FOR CONTINUATION OF CARE.
[2024-07-26] MEDS ORDERED: OLANZapine 10 MG Vial IM ONE (06:45)
[2024-07-26] MEDS ORDERED: Furosemide 10 MG/ML 4ML Vial IV ONE (07:05)
[2024-07-26] MEDS ORDERED: MethylPREDNISolone Sod Succ 125 MG Vial IV ONE (07:05)
[2024-07-26] MEDS ORDERED: FentaNYL Citrate 50 MCG/ML 2 ML Injection IV PRN (07:15)
--- NOTE | 2024-07-26 07:24 | NUR ---
REVIEWED AND AGREED WITH ALL UROLOGY TEACHER DOCUMENTATION
--- NOTE | 2024-07-26 07:25 | NUR ---
LATE NOTE. DR. GAMBINO WAS ABLE TO COME TO BEDSIDE TO EVALUATE PT. ORDERED SOLUMEDROL, LASIX OT NOW. ORDERED CXR 1V. ORDERED FOR SOLU MEDROL TO BE SWITCHED FROM Q8 TO Q6. ORDERED FENTANYL AND MORPHINE FOR PAIN MANAGEMENT. SEE EMAR FOR DETAILS ON ALL ABOVE ORDERS. OVERALL PT CONDITION HAS IMPROVED OVER PAST HOUR OR SO. HANDOFF GIVEN TO DAYSHIFT RN FOR MANAGEMENT.
[2024-07-26] MEDS ORDERED: Morphine Sulfate 4 MG/1 ML Injection IV PRN (07:30)
[2024-07-26] MEDS ORDERED: Insulin Human Lispro 100 Units/ML 3ML Syringe SC SCH (07:30)
[2024-07-26] MEDS ORDERED: LORazepam 1 MG Tab PO PRN (07:35)
[2024-07-26 07:41] LABS: Base Excess Venous -2.2 mmol/L; Bicarbonate Venous 22.3 mmol/L (24.0-30.0); PCO2 Venous 42.9 mmHg (38-42); pH Blood Venous 7.34 (7.34-7.37)
[2024-07-26 07:42] LABS: BASOPHILS ABSOLUTE AUTO 0.01 K/mm3 (0.00-0.23); BASOPHILS PERCENT AUTO 0 % (0-2); EOSINOPHILS PERCENT AUTO 0 % (0-6); Hematocrit 42.8 % (37.0-53.0); IMMATURE GRAN ABSOLUTE AUTO 0.09 K/mm3 (0.00-0.10); IMMATURE GRAN PERCENT AUTO 1 % (0-1); LYMPHOCYTES PERCENT AUTO 4 % (21-46); MONOCYTES ABSOLUTE AUTO 0.14 K/mm3 (0.16-1.47); MONOCYTES PERCENT AUTO 1 % (4-13); Mean Corpuscular HGB 30.6 pg (26.0-34.0); Mean Corpuscular HGB Conc 32.7 g/dL (31.5-36.5); Mean Corpuscular Volume 93 fL (80-100); Mean Platelet Volume 12.1 fL (9.1-12.4); NEUTROPHILS ABSOLUTE AUTO 13.31 K/mm3 (1.96-9.15); NEUTROPHILS PERCENT AUTO 95 % (41-73); Platelet Count 98 K/mm3 (150-400); RDW Coefficient Variation 13.7 % (11.7-14.2); RDW Standard Deviation 46.8 fL (35.1-46.3); Red Blood Cell Count 4.58 M/mm3 (4.30-5.90); White Blood Cell Count 14.05 K/mm3 (4.00-11.30)
[2024-07-26] MEDS ORDERED: Gabapentin 300 MG Cap PO SCH ×2 (09:00→21:00)
[2024-07-26] MEDS ORDERED: CefTRIAXone Sodium 1,000 MG in NS 100 ML IV SCH (10:27)
[2024-07-26 11:21] LABS: Bun/Creatinine Ratio 31.4 (12.0-20.0); Calcium, Blood 8.9 mg/dL (8.5-10.1); Creatinine, Blood 0.95 mg/dL (0.60-1.20); Potassium, Blood 4.2 mmol/L (3.5-5.5)
[2024-07-26] MEDS ORDERED: MethylPREDNISolone Sod Succ 125 MG Vial IV SCH ×2 (12:00)
--- NOTE | 2024-07-26 13:07 | NUR ---
NOTIFIED DR ABOUT PT BP BEING ELEVATED AND THAT HE HAD BEEN GIVEN HYDRALAZINE PER EMAMyles. SHE STATED SHE WOULD PUT ORDERS IN.
[2024-07-26] MEDS ORDERED: Enalaprilat 1.25 MG/ML 2ML Vial IV PRN (13:10)
[2024-07-26] MEDS ORDERED: Losartan Potassium 25 MG Tab PO SCH (14:00)
--- NOTE | 2024-07-26 18:04 | NUR ---
PT A&Ox4 ON BIPAP @ 10/26 ON 30% FIO2. HE IS ABLE TO MAKE HIS NEEDS KNOWN. USES THE URINAL AND BEDPAN. IS ABLE TO TAKE MEDS BY MOUTH WITH NO ISSUES, WHILE BEING ON NASAL CANNULA. DILTIAZEM GTT WAS TURNED OFF EARLIER IN THE SHIFT AND HIS HR HAS REMAINED IN THE 80'S. BED IN LOW POSITION AND CALL LIGHT IN REACH.
[2024-07-26] MEDS ORDERED: Azithromycin 500 MG in NS 250 ML IV SCH (21:00)
[2024-07-26] MEDS ORDERED: Diltiazem HCl 5 MG / ML 5ML Vial ONE (21:31)
[2024-07-26] MEDS ORDERED: Diltiazem HCl 5 MG / ML 5ML Vial IV ONE (21:35)
[2024-07-26] MEDS ORDERED: dilTIAZem HCL 125 MG in Dextrose 5% 100 ML IV SCH (21:40)
--- NOTE | 2024-07-26 23:03 | NUR ---
late note. at about ~2130, pt started to sustain hr in the 160s-170s. pt denies feeling symptomatic outside of some lower back pain which is chronic. vitals stable otherwise. called to notify Dr. Matt who ordered 20 mg IV Dilt push and Dilt drip for management. Dilt push given which prompted hr to return back to 80s range. has been running in the 80s-90s since. Dilt drip on standby in case it is needed. pt continues to feel asymptomatic. continuing to monitor.
[2024-07-27] VITALS (18 sets, daily range): BP systolic 110–184; BP diastolic 73–157
[2024-07-27] MEDS ORDERED: dilTIAZem HCL 30 MG TAB PO SCH (01:25)
--- NOTE | 2024-07-27 01:29 | NUR ---
SPOKE WITH HOSPITALIST DR. GAMBINO. PT HR HAS BEEN RUNNING IN THE 80s-120s RANGE FOR SOME TIME WITH SPORADIC SPIKES WITH HR SUSTAINING 160s-170s FOR BRIEF PERIOD OF TIME. PT CURRENTLY ON DILT DRIP @ 10 MLS/HR PER EMAR. INQUIRED ABOUT FURTHER HR MANAGEMENT. MAKI ORDERED CARDIZEM PO Q6 AND MAG TO BE DRAWN NOW. ORDERS INPUT. CONTINUING TO MONITOR.
[2024-07-27 02:24] LABS: BASOPHILS ABSOLUTE AUTO 0.01 K/mm3 (0.00-0.23); BASOPHILS PERCENT AUTO 0 % (0-2); EOSINOPHILS PERCENT AUTO 0 % (0-6); Hemoglobin 14.1 g/dL (13.5-17.5); IMMATURE GRAN ABSOLUTE AUTO 0.07 K/mm3 (0.00-0.10); IMMATURE GRAN PERCENT AUTO 1 % (0-1); LYMPHOCYTES PERCENT AUTO 5 % (21-46); MONOCYTES ABSOLUTE AUTO 0.33 K/mm3 (0.16-1.47); MONOCYTES PERCENT AUTO 3 % (4-13); Mean Corpuscular HGB 30.4 pg (26.0-34.0); Mean Corpuscular HGB Conc 33.6 g/dL (31.5-36.5); Mean Corpuscular Volume 91 fL (80-100); Mean Platelet Volume 11.3 fL (9.1-12.4); NEUTROPHILS ABSOLUTE AUTO 12.23 K/mm3 (1.96-9.15); NEUTROPHILS PERCENT AUTO 92 % (41-73); Platelet Count 118 K/mm3 (150-400); RDW Coefficient Variation 14.2 % (11.7-14.2); RDW Standard Deviation 46.5 fL (35.1-46.3); Red Blood Cell Count 4.64 M/mm3 (4.30-5.90); White Blood Cell Count 13.24 K/mm3 (4.00-11.30)
[2024-07-27 02:43] LABS: Bun/Creatinine Ratio 34.5 (12.0-20.0); Creatinine, Blood 1.13 mg/dL (0.60-1.20); Magnesium, Blood 2.2 mg/dL (1.6-2.4); Potassium, Blood 4.1 mmol/L (3.5-5.5)
--- NOTE | 2024-07-27 06:07 | NUR ---
SHIFT SUMMARY: AOX4, ABLE TO MAKE NEEDS KNOWN AND COOPERATIVE W. STAFF. ON TELE W/ HR 80S A FLUTTER, HAD EPISODES OF TACHYCARDIA 110-160S, SEE NOTES IN CHART REGARDING MEDICATION ADJUSTMENTS AND NOTES. ON BIPAP, SATS >95%. TOLERATING WELL. BREATHING IS EVEN AND UNLABORED. PT EDUCATED PAINT PREP TECHNICIAN LIGHT USE, BED AT LOWEST POSITION AND CALL LIGHT WITHIN REACH.
--- NOTE | 2024-07-27 06:16 | NUR ---
reviewed and agree with all supervisor public health nursing documentation
[2024-07-27] MEDS ORDERED: Lactated Ringer's 1,000 ML IV SCH (08:25)
[2024-07-27] MEDS ORDERED: dilTIAZem HCL 240 MG CAP.CD PO SCH (12:00)
[2024-07-27] MEDS ORDERED: Acetaminophen 325 MG TABLET PO PRN (14:35)
--- NOTE | 2024-07-27 15:37 | NUR ---
DR ALCANTARA NOTIFIED ABOUT PTS BP AND HR @ APPROXIMATELY 1230. SHE CAME TO SEE PT AND DID NOT GIVE ANY NEW ORDERS. PTS HR WENT EVEN HIGHER SO SHE WAS NOTIFIED AGAIN, SHE ADVISED THAT WE COULD START THE DILTIAZEM GTT THAT WAS ON THE EMAR IF THE HR SUSTAINED. DILTIAZEM GTT WAS STARTED @ 1352 AND PTS HR STARTED TO COME BACK DOWN AFTER THE GTT WAS TITRATED UP, BUT HIS BP REMAINED ELEVATED. AGAIN NOTIFIED DR ABOUT ELEVATED BP AND NO NEW ORDERS WERE GIVEN.
[2024-07-27] MEDS ORDERED: Enalaprilat 1.25 MG/ML 2ML Vial IV PRN (16:45)
[2024-07-27] MEDS ORDERED: MethylPREDNISolone Sod Succ 125 MG Vial IV SCH (18:00)
--- NOTE | 2024-07-27 18:45 | NUR ---
PT A&Ox4 AND ABLE TO MAKE NEEDS KNOWN. HE IS ON 3 LNC. IS CURRENTLY @ BEDSIDE. PALLIATIVE CARE CONSULTED TODAY. HE USES THE URINAL AND BEDPAN. NO NEEDS OR CONCERNS NOTED @ THIS TIME. BED IN LOW POSITION, PERSONAL BELONGINGS AND CALL LIGHT IN REACH.
[2024-07-28 04:26] LABS: BASOPHILS ABSOLUTE AUTO 0.01 K/mm3 (0.00-0.23); BASOPHILS PERCENT AUTO 0 % (0-2); EOSINOPHILS PERCENT AUTO 0 % (0-6); Hematocrit 40.5 % (37.0-53.0); Hemoglobin 13.5 g/dL (13.5-17.5); IMMATURE GRAN ABSOLUTE AUTO 0.09 K/mm3 (0.00-0.10); IMMATURE GRAN PERCENT AUTO 1 % (0-1); LYMPHOCYTES ABSOLUTE AUTO 0.57 K/mm3 (0.84-5.20); LYMPHOCYTES PERCENT AUTO 4 % (21-46); MONOCYTES ABSOLUTE AUTO 0.32 K/mm3 (0.16-1.47); MONOCYTES PERCENT AUTO 2 % (4-13); Mean Corpuscular HGB 30.8 pg (26.0-34.0); Mean Corpuscular HGB Conc 33.3 g/dL (31.5-36.5); Mean Corpuscular Volume 92 fL (80-100); Mean Platelet Volume 11.3 fL (9.1-12.4); NEUTROPHILS ABSOLUTE AUTO 12.13 K/mm3 (1.96-9.15); NEUTROPHILS PERCENT AUTO 93 % (41-73); Platelet Count 99 K/mm3 (150-400); RDW Coefficient Variation 14.3 % (11.7-14.2); Red Blood Cell Count 4.39 M/mm3 (4.30-5.90); White Blood Cell Count 13.12 K/mm3 (4.00-11.30)
[2024-07-28 04:44] VITALS: BP 127/83
--- NOTE | 2024-07-28 04:47 | NUR ---
SHIFT SUMMARY. SHIFT HAS BEEN UNREMARKABLE. PT HAS BEEN AOX4, PLEASANT, COOPERATIVE WITH CARE, ABLE TO MAKE NEEDS KNOWN. HAS BEEN ABLE TO REST COMFORTABLY THROUGHOUT MUCH OF SHIFT. MAINTAINING ADEQUATE SATURATION ON 3 L O2 VIA NC WHILE AWAKE, HAS BEEN WEARING BIPAP WHILE SLEEPING. CONTINUES TO RUN AFLUTTER ON TELE WITH RATE SETTLING IN THE 70s-80s RANGE OVERNIGHT. NO EPISODES OF TACHYCARDIA THUS FAR, DILT DRIP HAS BEEN OFF THROUGHOUT SHIFT. PAIN HAS BEEN ADEQUATELY MANAGED VIA EMAR. VITALS STABLE. BED LOCKED IN LOWEST POSITION. CALL LIGHT LEFT WITHIN REACH. CONTINUING TO MONITOR.
[2024-07-28 04:53] LABS: Bun/Creatinine Ratio 39.6 (12.0-20.0); Calcium, Blood 8.5 mg/dL (8.5-10.1); Creatinine, Blood 1.64 mg/dL (0.60-1.20); Potassium, Blood 3.8 mmol/L (3.5-5.5)
[2024-07-28 07:46] VITALS: BP 139/80
[2024-07-28] MEDS ORDERED: Labetalol HCL 5 MG/ML 4ML Injection (Single Dose) IV PRN (07:55)
[2024-07-28] MEDS ORDERED: Lactated Ringer's 1,000 ML IV SCH (08:00)
[2024-07-28] MEDS ORDERED: Morphine Sulfate 20 MG/1ML 1 ML Oral Syringe PO PRN (09:00)
[2024-07-28] MEDS ORDERED: Morphine Sulfate 20 MG/1ML 1 ML Oral Syringe PO ONE (09:00)
[2024-07-28] MEDS ORDERED: Ferrous Sulfate 325 MG Tab PO SCH (09:00)
[2024-07-28] MEDS ORDERED: BusPIRone HCl 10 MG Tab PO SCH (09:00)
[2024-07-28] MEDS ORDERED: Multivitamins 1 Tab PO SCH (09:00)
[2024-07-28] MEDS ORDERED: DULoxetine HCL 30 MG Cap DR PO SCH (09:00)
[2024-07-28] MEDS ORDERED: MethylPREDNISolone Sod Succ 125 MG Vial IV SCH (09:00)
--- NOTE | 2024-07-28 09:22 | NUR ---
PALLIATIVE CARE VISIT: REVIEWED MEDICAL RECORD, LABS, SPOKE TO HOSPITALIST DR. ALCANTARA AND PRIMARY RN PRIOR TO VISIT. MET WITH PT IN HIS ROOM. EV PRESENT. PT IS A/O X 4 ABLE TO HAVE MEANINGFUL CONVERSATION AT THIS TIME. EDUCATED PT ON CODE STATUS, FULL CODE VS DNR. PT IS NOT SURE WHAT HE WANTS TO DO. STATES SHE WOULD BE OK IF HER WAS A DNR. PT TO THINK ABOUT HIS OPTIONS. PT HAD EXPRESSED INTEREST IN HOSPICE CARE WHICH WAS REASON FOR CONSULTATION. PT STATES HE WANTS TO KNOW WHAT HOSPICE SERVICES WILL PROVIDE. EDUCATED PT AND ON HOSPICE SERVICES. PROVIDED PAMPHLETS OF DIFFERENT AGENCIES IN AREA. PROVIDED BOOKLET 'CONSIDERING COMFORT CARE' AND DIRECTED TO PAGE 10-13 WHICH DISCUSSES BENEFITS OF HOSPICE. PT/ V/U. EV WANTS TO RESEARCH DIFFERENT AGENCIES AND WILL GET BACK WITH CHOICE TOMORROW. PT HAS EXPRESSED HE WANTS HOSPICE.
[2024-07-28 11:19] VITALS: BP 129/84
--- NOTE | 2024-07-28 13:57 | NUR ---
PALLIATIVE CARE VISIT: MET WITH PT, AND 2 DAUGHTER IN ROOM. PT IS AWAKE, SMILING WITH INTERACTIONS. STATES HE FEELS MUCH BETTER THAN YESTERDAY. FAMILY ARE HERE TO DISCUSS HOSPICE OPTIONS AND POLST. PT STATES HE WISHES TO HAVE FULL MEASURES CPR EXCEPT NO CHEST COMPRESSIONS. DISCUSSED RISKS OF HAVING CHEST COMPRESSIONS AND NO CHEST COMPRESSIONS AND PT STILL WANTS NO COMPRESSIONS BUT ALL OTHER MEASURES. FAMILY ARE IN SUPPORT OF HIS DECISION. POLST COMPLETED. SENT TO REGISTRY AND COPY PLACED ON CHART. ORIGINAL GIVEN BACK TO PT. PT AND FAMILY DECIDED THEY WANT TO DISCHARGE WITH [facility]. ALBERTO, DR. ALCANTARA, PRIMARY RN NOTIFIED OF PT CHOICES.
[2024-07-28 15:12] VITALS: BP 129/78
--- NOTE | 2024-07-28 16:51 | NUR ---
END OF SHIFT SUMMARY REPORT A&OX4, GCS15, BEDREST. VERBAL RESPONSES ARE APPROPRIATE FOR CONVERSATION. PT IS ANXIOUSE MEDICATION ADMINISTERED PER EMAR. CHRONIC PAIN HOME PO MORPHINE RESTARTED, ADMINISTERED PER EMAR. AT START OF SHIFT PT WAS ON BIPAP 16/8 @ 21% SWITCHED TO NC 3L PT MAINTAINED O2 > 92%. PT ON 2L NC AT BASELINE. AFLUTTER 60'S TO 80'S, DENIES CHEST PAIN OR PRESSURE. PT USING URINAL AT BEDSIDE. PALLIATIVE MET WITH FAMILY AND PT CHANGED TO LIMITED CODE. PLAN TO DISCHARGE ON HOSPICE. BED IS IN LOWEST POSITION CALL LIGHT IN REACH. SEE NOTES FOR UPDATES.
[2024-07-28 20:20] VITALS: BP 111/73
[2024-07-28] MEDS ORDERED: Melatonin 5 MG Tablet PO SCH (21:00)
[2024-07-29 00:30] VITALS: BP 121/70
[2024-07-29 04:08] VITALS: BP 101/70
[2024-07-29 04:30] LABS: BASOPHILS PERCENT AUTO 0 % (0-2); EOSINOPHILS PERCENT AUTO 0 % (0-6); Hematocrit 35.7 % (37.0-53.0); Hemoglobin 12.2 g/dL (13.5-17.5); IMMATURE GRAN ABSOLUTE AUTO 0.03 K/mm3 (0.00-0.10); IMMATURE GRAN PERCENT AUTO 0 % (0-1); LYMPHOCYTES ABSOLUTE AUTO 0.38 K/mm3 (0.84-5.20); LYMPHOCYTES PERCENT AUTO 5 % (21-46); MONOCYTES ABSOLUTE AUTO 0.33 K/mm3 (0.16-1.47); MONOCYTES PERCENT AUTO 5 % (4-13); Mean Corpuscular HGB 31.4 pg (26.0-34.0); Mean Corpuscular HGB Conc 34.2 g/dL (31.5-36.5); Mean Corpuscular Volume 92 fL (80-100); NEUTROPHILS ABSOLUTE AUTO 6.43 K/mm3 (1.96-9.15); NEUTROPHILS PERCENT AUTO 90 % (41-73); Platelet Count 67 K/mm3 (150-400); RDW Coefficient Variation 13.7 % (11.7-14.2); RDW Standard Deviation 46.2 fL (35.1-46.3); Red Blood Cell Count 3.89 M/mm3 (4.30-5.90); White Blood Cell Count 7.17 K/mm3 (4.00-11.30)
[2024-07-29 04:44] LABS: Bun/Creatinine Ratio 52.6 (12.0-20.0); Calcium, Blood 8.2 mg/dL (8.5-10.1); Creatinine, Blood 1.56 mg/dL (0.60-1.20); Potassium, Blood 3.6 mmol/L (3.5-5.5)
[2024-07-29 07:34] VITALS: BP 131/80
--- NOTE | 2024-07-29 07:36 | NUR ---
SHIFT SUMMARY: PT IS A&OX4, PLEASANT AND COOPERATIVE WITH CARE. VSS ON 3L NC, BIPAP 16/8, 21% FiO2 WHILE ASLEEP. AFLUTTER 70'S-80'S, INCREASES TO 140'S WITH ANXIETY. C/O 10/20 PAIN TO HIS BACK, NECK, AND SHOULDERS, MEDICATED PER EMAR. PT DOES ADMIT TO CONTINUING SMOKING TOBACCO AND ALSO USES MARIJUANA DABS. TOLERATING A CONS CARB DIET, GOOD APPETITE. VOIDING INDEPENDENTLY IN URINAL, ADEQUATE AMOUNTS OF YELLOW URINE. NO BM THIS SHIFT. PT HAS NOT BEEN OOB THIS SHIFT, REPOSITIONS HIMSELF IN BED. BED IN LOWEST POSITION, CALL LIGHT WITHIN REACH.
[2024-07-29] MEDS ORDERED: PredniSONE 20 MG Tab PO SCH (09:00)
[2024-07-29] MEDS ORDERED: DILT120ERA PO (10:38)
[2024-07-29 11:47] VITALS: BP 127/69
--- NOTE | 2024-07-29 13:04 | NUR ---
UPDATE PT PROVIDED DISCHARGE INSTRUCTIONS AND EDUCATED ON MEDICATIONS. ALL QUESTIONS ANSWERED. PT LEFT VIA WITH HOME PORTABLE 02.
== END 2024-07-29 12:57 | disposition home or self-care (01) | DRG 189 ==
LOC: ER 17:09 → ERHOLD 21:00 → PCU 21:00
PROVIDERS: Nurse Practitioner Acute Care; Student in an Organized Health Care Education/Training Program; ADMIT Internal Medicine
PROC: 5A09357 Assistance with Respiratory Ventilation, Less than 24 Consecutive Hours, Continuous Positive Airway Pressure (ICD-10-PCS; principal; 2024-07-26)
DX: J96.21 Acute and chronic respiratory failure with hypoxia (principal); J44.1 Chronic obstructive pulmonary disease with (acute) exacerbation; F11.20 Opioid dependence, uncomplicated; I48.92 Unspecified atrial flutter; I50.30 Unspecified diastolic (congestive) heart failure; E87.29 Other acidosis; N17.9 Acute kidney failure, unspecified; I38 Endocarditis, valve unspecified; J96.22 Acute and chronic respiratory failure with hypercapnia; G89.29 Other chronic pain; D72.829 Elevated white blood cell count, unspecified; D64.9 Anemia, unspecified; G47.33 Obstructive sleep apnea (adult) (pediatric); E11.9 Type 2 diabetes mellitus without complications; I11.0 Hypertensive heart disease with heart failure; F17.210 Nicotine dependence, cigarettes, uncomplicated; I25.10 Atherosclerotic heart disease of native coronary artery without angina pectoris; K73.9 Chronic hepatitis, unspecified; M19.90 Unspecified osteoarthritis, unspecified site; I48.91 Unspecified atrial fibrillation; Z98.890 Other specified postprocedural states; Z88.6 Allergy status to analgesic agent; Z95.1 Presence of aortocoronary bypass graft; Z79.4 Long term (current) use of insulin; Z99.81 Dependence on supplemental oxygen; Z79.01 Long term (current) use of anticoagulants; Z71.3 Dietary counseling and surveillance; Z91.199 Patient's noncompliance with other medical treatment and regimen due to unspecified reason; Z86.73 Personal history of transient ischemic attack (TIA), and cerebral infarction without residual deficits
CPT/HCPCS: 36415; 71045; 71046; 80048; 80053; 82435; 82803; 82947; 83735; 84132; 84295; 84484; 85025; 93005; 93010; 94640; 94644; 94660; 94664; 94762; 96372; 96374; 96375; 96376; 97110; 97162; 97530; 99285-25; A9270; G0378; J0360; J0456; J0696; J1938; J2060; J2270; J2405; J2470; J2919; J3010; J7050; J7120; J7512